=== PATIENT | female | born 1970 | race American Indian/Alaskan Native ===

== ENCOUNTER 2021-07-19 08:50 | Inpatient (IN) | payer SELFPAY ==
--- NOTE | 2021-07-19 09:54 | Emergency Department Report ---
HPI - General Chief Complaint: Psych Time Seen by Provider: 07/19/21 09:46 - HPI HPI: This is a 50-year-old -[place] female presents to the emergency department with a complaint of "can I have something to eat?" Patient complains of chronic back and bilateral foot pain because "I am homeless and walking around all of the time and I sleep outside." Initially, in triage, the patient had denied any suicidal or homicidal ideations. However, during my initial examination the patient says "I just want to ." The patient also says "I have before and he knows." When I asked who he is that knows that she has before the patient says that he is "Deuce, a spirit, who smokes." Patient does not appear to have any particular plan as to how she would harm herself. She denies any homicidal ideations. The patient has never been in this emergency department previously. She does not admit to any diagnosed psychiatric illness. ED Past Medical Hx - Past Medical History Additional medical history: Chronic pain, homeless - Medications Home Medications: Home Medications Medication Instructions Recorded Confirmed Last Taken Type No Known Home Medications [No 07/19/21 07/19/21 Unknown History Reported Home Medications] ED Review of Systems ROS: Stated complaint: BILATERAL FOOT PAIN/BACK PAIN Other details as noted in HPI Comment: All other systems reviewed and negative Constitutional: denies: chills, fever Eyes: denies: eye pain, vision change ENT: denies: ear pain, throat pain Respiratory: denies: cough, shortness of breath Cardiovascular: denies: chest pain, palpitations Gastrointestinal: denies: abdominal pain, vomiting Genitourinary: denies: dysuria, discharge Musculoskeletal: back pain, arthralgia. denies: joint swelling Skin: denies: rash, lesions Neurological: denies: headache, weakness Physical Exam - Physical Exam Vital Signs: Vital Signs 07/19/21 07/19/21 07/19/21 08:53 09:38 09:39 Temperature 98.4 F 97.4 F L 97.4 F L Pulse Rate 92 H 88 Respiratory 18 16 Rate Blood Pressure 98/66 Blood Pressure 117/74 [Left] O2 Sat by Pulse 97 98 Oximetry Physical Exam: GENERAL: The patient is well-developed well-nourished. HENT: Normocephalic. Atraumatic. Patient has moist mucous membranes. EYES: Extraocular motions are intact. NECK: Supple. Trachea is midline. CHEST/LUNGS: Clear to auscultation. There is no respiratory distress noted. HEART/CARDIOVASCULAR: Regular. There is no tachycardia. There is no murmur. ABDOMEN: Abdomen is soft, nontender. Patient has normal bowel sounds. SKIN: Skin is warm and dry. NEURO: The patient is awake, alert, and oriented. The patient is cooperative. The patient has no focal neurologic deficits. Normal speech. MUSCULOSKELETAL: There is some mild generalized tenderness to palpation of the bilateral foot but no obvious deformity. Dorsalis pedis pulse +2/4 and capillary refill less than 2 seconds to the bilateral feet. BACK: No midline thoracic or lumbar tenderness to palpation. ED Course Vital Signs 07/19/21 07/19/21 07/19/21 08:53 09:38 09:39 Temperature 98.4 F 97.4 F L 97.4 F L Pulse Rate 92 H 88 Respiratory 18 16 Rate Blood Pressure 98/66 Blood Pressure 117/74 [Left] O2 Sat by Pulse 97 98 Oximetry ED Medical Decision Making - Lab Data Result diagrams: 07/21/21 04:50 07/22/21 07:45 Lab Results 07/19/21 07/19/21 07/19/21 Range/Units 09:52 09:52 09:52 WBC 3.4 L (4.5-11.0) K/mm3 RBC 4.73 (3.65-5.03) M/mm3 Hgb 14.7 H (10.1-14.3) gm/dl Hct 44.5 H (30.3-42.9) % MCV 94 (79-97) fl MCH 31 (28-32) pg MCHC 33 (30-34) % RDW 13.7 (13.2-15.2) % Plt Count 159 (140-440) K/mm3 Lymph % (Auto) (13.4-35.0) % [place] % (Auto) (0.0-7.3) % Eos % (Auto) (0.0-4.3) % Baso % (Auto) (0.0-1.8) % Lymph # (Auto) (1.2-5.4) K/mm3 [place] # (Auto) (0.0-0.8) K/mm3 Eos # (Auto) (0.0-0.4) K/mm3 Baso # (Auto) (0.0-0.1) K/mm3 Add Manual Diff Complete Total Counted 100 Seg Neutrophils % (40.0-70.0) % Seg Neuts % (Manual) 56.0 (40.0-70.0) % Band Neutrophils % 3.0 % Lymphocytes % (Manual) 31.0 (13.4-35.0) % Reactive Lymphs % (Man) 6.0 % Monocytes % (Manual) 1.0 (0.0-7.3) % Basophils % (Manual) 1.0 (0.0-1.8) % Metamyelocytes % 1.0 % Myelocytes % 1.0 % Nucleated RBC % Not Reportable Seg Neutrophils # (1.8-7.7) K/mm3 Seg Neutrophils # Man 1.9 (1.8-7.7) K/mm3 Band Neutrophils # 0.1 K/mm3 Lymphocytes # (Manual) 1.1 L (1.2-5.4) K/mm3 Abs React Lymphs (Man) 0.2 K/mm3 Monocytes # (Manual) 0.0 (0.0-0.8) K/mm3 Eosinophils # (Manual) 0.0 (0.0-0.4) K/mm3 Basophils # (Manual) 0.0 (0.0-0.1) K/mm3 Metamyelocytes # 0.0 K/mm3 Myelocytes # 0.0 K/mm3 Promyelocytes # 0.0 K/mm3 Blast Cells # 0.0 K/mm3 WBC Morphology Not Reportable Hypersegmented Neuts Not Reportable Hyposegmented Neuts Not Reportable Hypogranular Neuts Not Reportable Smudge Cells Not Reportable Toxic Granulation Not Reportable Toxic Vacuolation Not Reportable Dohle Bodies Not Reportable Pelger-Huet Anomaly Not Reportable Pricila Rods Not Reportable Platelet Estimate Consistent w auto Clumped Platelets Not Reportable Plt Clumps, EDTA Not Reportable Large Platelets Not Reportable Giant Platelets Not Reportable Platelet Satelliting Not Reportable Plt Morphology Comment Not Reportable RBC Morphology Not Reportable Dimorphic RBCs Not Reportable Polychromasia Not Reportable Hypochromasia Not Reportable Poikilocytosis Not Reportable Anisocytosis Not Reportable Microcytosis Not Reportable Macrocytosis Not Reportable Spherocytes Not Reportable Pappenheimer Bodies Not Reportable Sickle Cells Not Reportable Target Cells Not Reportable Tear Drop Cells Not Reportable Ovalocytes Not Reportable Helmet Cells Not Reportable [place] Bodies Not Reportable [place] Rings Not Reportable Armani Cells Not Reportable Bite Cells Not Reportable Crenated Cell Not Reportable Elliptocytes Not Reportable Acanthocytes (Spur) Not Reportable Rouleaux Not Reportable Hemoglobin C Crystals Not Reportable Schistocytes Not Reportable Malaria parasites Not Reportable [place] Bodies Not Reportable Hem Pathologist Commnt No Sodium 137 (137-145) mmol/L Potassium 3.8 (3.6-5.0) mmol/L Chloride 98.5 (98-107) mmol/L Carbon Dioxide 27 (22-30) mmol/L Anion Gap 15 mmol/L BUN 6 L (7-17) mg/dL Creatinine 0.5 L (0.6-1.2) mg/dL Estimated GFR > 60 ml/min BUN/Creatinine Ratio 12 % Glucose 101 H (65-100) mg/dL Lactic Acid (0.7-2.0) mmol/L Calcium 9.2 (8.4-10.2) mg/dL Magnesium (1.7-2.3) mg/dL Total Bilirubin (0.1-1.2) mg/dL Direct Bilirubin (0-0.2) mg/dL Indirect Bilirubin mg/dL AST (5-40) units/L ALT (7-56) units/L Alkaline Phosphatase (35-129) units/L Ammonia (25-60) umol/L Total Creatine Kinase (30-135) units/L Total Protein (6.3-8.2) g/dL Albumin (3.9-5) g/dL Albumin/Globulin Ratio % TSH (0.270-4.200) mlU/mL Free T4 (0.76-1.46) ng/dL Urine Color (Yellow) Urine Turbidity (Clear) Urine pH (5.0-7.0) Ur Specific [place] (1.003-1.030) Urine Protein (Negative) mg/dL Urine Glucose (UA) (Negative) mg/dL Urine Ketones (Negative) mg/dL Urine Blood (Negative) Urine Nitrite (Negative) Urine Bilirubin (Negative) Urine Urobilinogen (<2.0) mg/dL Ur Leukocyte Esterase (Negative) Urine WBC (Auto) (0.0-6.0) /HPF Urine RBC (Auto) (0.0-6.0) /HPF U Epithel Cells (Auto) (0-13.0) /HPF Urine Bacteria (Auto) (Negative) /HPF Urine Mucus /HPF Salicylates (2.8-20.0) mg/dL Urine Opiates Screen Urine Methadone Screen Acetaminophen (10.0-30.0) ug/mL Ur Barbiturates Screen Ur Phencyclidine Scrn Ur Amphetamines Screen U Benzodiazepines Scrn Urine Cocaine Screen U Marijuana (THC) Screen Drugs of Abuse Note Plasma/Serum Alcohol < 0.01 (0-0.07) % Coronavirus (PCR) (Negative) Hepatitis A IgM Ab (NonReactive) Hep Bs Antigen (Negative) Hep B Core IgM Ab (NonReactive) Hepatitis C Antibody (NonReactive) 07/19/21 07/19/21 07/20/21 Range/Units Unknown Unknown 08:39 WBC (4.5-11.0) K/mm3 RBC (3.65-5.03) M/mm3 Hgb (10.1-14.3) gm/dl Hct (30.3-42.9) % MCV (79-97) fl MCH (28-32) pg MCHC (30-34) % RDW (13.2-15.2) % Plt Count (140-440) K/mm3 Lymph % (Auto) (13.4-35.0) % [place] % (Auto) (0.0-7.3) % Eos % (Auto) (0.0-4.3) % Baso % (Auto) (0.0-1.8) % Lymph # (Auto) (1.2-5.4) K/mm3 [place] # (Auto) (0.0-0.8) K/mm3 Eos # (Auto) (0.0-0.4) K/mm3 Baso # (Auto) (0.0-0.1) K/mm3 Add Manual Diff Total Counted Seg Neutrophils % (40.0-70.0) % Seg Neuts % (Manual) (40.0-70.0) % Band Neutrophils % % Lymphocytes % (Manual) (13.4-35.0) % Reactive Lymphs % (Man) % Monocytes % (Manual) (0.0-7.3) % Basophils % (Manual) (0.0-1.8) % Metamyelocytes % % Myelocytes % % Nucleated RBC % Seg Neutrophils # (1.8-7.7) K/mm3 Seg Neutrophils # Man (1.8-7.7) K/mm3 Band Neutrophils # K/mm3 Lymphocytes # (Manual) (1.2-5.4) K/mm3 Abs React Lymphs (Man) K/mm3 Monocytes # (Manual) (0.0-0.8) K/mm3 Eosinophils # (Manual) (0.0-0.4) K/mm3 Basophils # (Manual) (0.0-0.1) K/mm3 Metamyelocytes # K/mm3 Myelocytes # K/mm3 Promyelocytes # K/mm3 Blast Cells # K/mm3 WBC Morphology Hypersegmented Neuts Hyposegmented Neuts Hypogranular Neuts Smudge Cells Toxic Granulation Toxic Vacuolation Dohle Bodies Pelger-Huet Anomaly Pricila Rods Platelet Estimate Clumped Platelets Plt Clumps, EDTA Large Platelets Giant Platelets Platelet Satelliting Plt Morphology Comment RBC Morphology Dimorphic RBCs Polychromasia Hypochromasia Poikilocytosis Anisocytosis Microcytosis Macrocytosis Spherocytes Pappenheimer Bodies Sickle Cells Target Cells Tear Drop Cells Ovalocytes Helmet Cells [place] Bodies [place] Rings Armani Cells Bite Cells Crenated Cell Elliptocytes Acanthocytes (Spur) Rouleaux Hemoglobin C Crystals Schistocytes Malaria parasites Cody Bodies Hem Pathologist Commnt Sodium (137-145) mmol/L Potassium (3.6-5.0) mmol/L Chloride (98-107) mmol/L Carbon Dioxide (22-30) mmol/L Anion Gap mmol/L BUN (7-17) mg/dL Creatinine (0.6-1.2) mg/dL Estimated GFR ml/min BUN/Creatinine Ratio % Glucose (65-100) mg/dL Lactic Acid (0.7-2.0) mmol/L Calcium (8.4-10.2) mg/dL Magnesium (1.7-2.3) mg/dL Total Bilirubin (0.1-1.2) mg/dL Direct Bilirubin (0-0.2) mg/dL Indirect Bilirubin mg/dL AST (5-40) units/L ALT (7-56) units/L Alkaline Phosphatase (35-129) units/L Ammonia (25-60) umol/L Total Creatine Kinase (30-135) units/L Total Protein (6.3-8.2) g/dL Albumin (3.9-5) g/dL Albumin/Globulin Ratio % TSH (0.270-4.200) mlU/mL Free T4 (0.76-1.46) ng/dL Urine Color [place] (Yellow) Urine Turbidity Slightly-cloudy (Clear) Urine pH 5.0 (5.0-7.0) Ur Specific [place] 1.018 (1.003-1.030) Urine Protein 30 mg/dl (Negative) mg/dL Urine Glucose (UA) Neg (Negative) mg/dL Urine Ketones Neg (Negative) mg/dL Urine Blood Sm (Negative) Urine Nitrite Neg (Negative) Urine Bilirubin Neg (Negative) Urine Urobilinogen 4.0 (<2.0) mg/dL Ur Leukocyte Esterase Neg (Negative) Urine WBC (Auto) 46.0 H (0.0-6.0) /HPF Urine RBC (Auto) 7.0 (0.0-6.0) /HPF U Epithel Cells (Auto) 13.0 (0-13.0) /HPF Urine Bacteria (Auto) 1+ (Negative) /HPF Urine Mucus 3+ /HPF Salicylates (2.8-20.0) mg/dL Urine Opiates Screen Negative Urine Methadone Screen Negative Acetaminophen (10.0-30.0) ug/mL Ur Barbiturates Screen Negative Ur Phencyclidine Scrn Negative Ur Amphetamines Screen Negative U Benzodiazepines Scrn Negative Urine Cocaine Screen Negative U Marijuana (THC) Screen Negative Drugs of Abuse Note Disclamer Plasma/Serum Alcohol (0-0.07) % Coronavirus (PCR) Negative (Negative) Hepatitis A IgM Ab (NonReactive) Hep Bs Antigen (Negative) Hep B Core IgM Ab (NonReactive) Hepatitis C Antibody (NonReactive) 07/20/21 07/20/21 07/20/21 Range/Units 11:20 11:20 11:20 WBC (4.5-11.0) K/mm3 RBC (3.65-5.03) M/mm3 Hgb (10.1-14.3) gm/dl Hct (30.3-42.9) % MCV (79-97) fl MCH (28-32) pg MCHC (30-34) % RDW (13.2-15.2) % Plt Count (140-440) K/mm3 Lymph % (Auto) (13.4-35.0) % [place] % (Auto) (0.0-7.3) % Eos % (Auto) (0.0-4.3) % Baso % (Auto) (0.0-1.8) % Lymph # (Auto) (1.2-5.4) K/mm3 [place] # (Auto) (0.0-0.8) K/mm3 Eos # (Auto) (0.0-0.4) K/mm3 Baso # (Auto) (0.0-0.1) K/mm3 Add Manual Diff Total Counted Seg Neutrophils % (40.0-70.0) % Seg Neuts % (Manual) (40.0-70.0) % Band Neutrophils % % Lymphocytes % (Manual) (13.4-35.0) % Reactive Lymphs % (Man) % Monocytes % (Manual) (0.0-7.3) % Basophils % (Manual) (0.0-1.8) % Metamyelocytes % % Myelocytes % % Nucleated RBC % Seg Neutrophils # (1.8-7.7) K/mm3 Seg Neutrophils # Man (1.8-7.7) K/mm3 Band Neutrophils # K/mm3 Lymphocytes # (Manual) (1.2-5.4) K/mm3 Abs React Lymphs (Man) K/mm3 Monocytes # (Manual) (0.0-0.8) K/mm3 Eosinophils # (Manual) (0.0-0.4) K/mm3 Basophils # (Manual) (0.0-0.1) K/mm3 Metamyelocytes # K/mm3 Myelocytes # K/mm3 Promyelocytes # K/mm3 Blast Cells # K/mm3 WBC Morphology Hypersegmented Neuts Hyposegmented Neuts Hypogranular Neuts Smudge Cells Toxic Granulation Toxic Vacuolation Dohle Bodies Pelger-Huet Anomaly Pricila Rods Platelet Estimate Clumped Platelets Plt Clumps, EDTA Large Platelets Giant Platelets Platelet Satelliting Plt Morphology Comment RBC Morphology Dimorphic RBCs Polychromasia Hypochromasia Poikilocytosis Anisocytosis Microcytosis Macrocytosis Spherocytes Pappenheimer Bodies Sickle Cells Target Cells Tear Drop Cells Ovalocytes Helmet Cells [place] Bodies [place] Rings Drift Cells Bite Cells Crenated Cell Elliptocytes Acanthocytes (Spur) Rouleaux Hemoglobin C Crystals Schistocytes Malaria parasites [place] Bodies Hem Pathologist Commnt Sodium (137-145) mmol/L Potassium (3.6-5.0) mmol/L Chloride (98-107) mmol/L Carbon Dioxide (22-30) mmol/L Anion Gap mmol/L BUN (7-17) mg/dL Creatinine (0.6-1.2) mg/dL Estimated GFR ml/min BUN/Creatinine Ratio % Glucose (65-100) mg/dL Lactic Acid (0.7-2.0) mmol/L Calcium (8.4-10.2) mg/dL Magnesium 2.20 (1.7-2.3) mg/dL Total Bilirubin (0.1-1.2) mg/dL Direct Bilirubin (0-0.2) mg/dL Indirect Bilirubin mg/dL AST (5-40) units/L ALT (7-56) units/L Alkaline Phosphatase (35-129) units/L Ammonia 60.0 (25-60) umol/L Total Creatine Kinase 23 L (30-135) units/L Total Protein (6.3-8.2) g/dL Albumin (3.9-5) g/dL Albumin/Globulin Ratio % TSH 0.116 L (0.270-4.200) mlU/mL Free T4 (0.76-1.46) ng/dL Urine Color (Yellow) Urine Turbidity (Clear) Urine pH (5.0-7.0) Ur Specific [place] (1.003-1.030) Urine Protein (Negative) mg/dL Urine Glucose (UA) (Negative) mg/dL Urine Ketones (Negative) mg/dL Urine Blood (Negative) Urine Nitrite (Negative) Urine Bilirubin (Negative) Urine Urobilinogen (<2.0) mg/dL Ur Leukocyte Esterase (Negative) Urine WBC (Auto) (0.0-6.0) /HPF Urine RBC (Auto) (0.0-6.0) /HPF U Epithel Cells (Auto) (0-13.0) /HPF Urine Bacteria (Auto) (Negative) /HPF Urine Mucus /HPF Salicylates (2.8-20.0) mg/dL Urine Opiates Screen Urine Methadone Screen Acetaminophen (10.0-30.0) ug/mL Ur Barbiturates Screen Ur Phencyclidine Scrn Ur Amphetamines Screen U Benzodiazepines Scrn Urine Cocaine Screen U Marijuana (THC) Screen Drugs of Abuse Note Plasma/Serum Alcohol (0-0.07) % Coronavirus (PCR) (Negative) Hepatitis A IgM Ab (NonReactive) Hep Bs Antigen (Negative) Hep B Core IgM Ab (NonReactive) Hepatitis C Antibody (NonReactive) 07/20/21 07/20/21 07/20/21 Range/Units 11:20 11:20 11:20 WBC (4.5-11.0) K/mm3 RBC (3.65-5.03) M/mm3 Hgb (10.1-14.3) gm/dl Hct (30.3-42.9) % MCV (79-97) fl MCH (28-32) pg MCHC (30-34) % RDW (13.2-15.2) % Plt Count (140-440) K/mm3 Lymph % (Auto) (13.4-35.0) % [place] % (Auto) (0.0-7.3) % Eos % (Auto) (0.0-4.3) % Baso % (Auto) (0.0-1.8) % Lymph # (Auto) (1.2-5.4) K/mm3 [place] # (Auto) (0.0-0.8) K/mm3 Eos # (Auto) (0.0-0.4) K/mm3 Baso # (Auto) (0.0-0.1) K/mm3 Add Manual Diff Total Counted Seg Neutrophils % (40.0-70.0) % Seg Neuts % (Manual) (40.0-70.0) % Band Neutrophils % % Lymphocytes % (Manual) (13.4-35.0) % Reactive Lymphs % (Man) % Monocytes % (Manual) (0.0-7.3) % Basophils % (Manual) (0.0-1.8) % Metamyelocytes % % Myelocytes % % Nucleated RBC % Seg Neutrophils # (1.8-7.7) K/mm3 Seg Neutrophils # Man (1.8-7.7) K/mm3 Band Neutrophils # K/mm3 Lymphocytes # (Manual) (1.2-5.4) K/mm3 Abs React Lymphs (Man) K/mm3 Monocytes # (Manual) (0.0-0.8) K/mm3 Eosinophils # (Manual) (0.0-0.4) K/mm3 Basophils # (Manual) (0.0-0.1) K/mm3 Metamyelocytes # K/mm3 Myelocytes # K/mm3 Promyelocytes # K/mm3 Blast Cells # K/mm3 WBC Morphology Hypersegmented Neuts Hyposegmented Neuts Hypogranular Neuts Smudge Cells Toxic Granulation Toxic Vacuolation Dohle Bodies Pelger-Huet Anomaly Pricila Rods Platelet Estimate Clumped Platelets Plt Clumps, EDTA Large Platelets Giant Platelets Platelet Satelliting Plt Morphology Comment RBC Morphology Dimorphic RBCs Polychromasia Hypochromasia Poikilocytosis Anisocytosis Microcytosis Macrocytosis Spherocytes Pappenheimer Bodies Sickle Cells Target Cells Tear Drop Cells Ovalocytes Helmet Cells [place] Bodies [place] Rings Armani Cells Bite Cells Crenated Cell Elliptocytes Acanthocytes (Spur) Rouleaux Hemoglobin C Crystals Schistocytes Malaria parasites [place] Bodies Hem Pathologist Commnt Sodium (137-145) mmol/L Potassium (3.6-5.0) mmol/L Chloride (98-107) mmol/L Carbon Dioxide (22-30) mmol/L Anion Gap mmol/L BUN (7-17) mg/dL Creatinine (0.6-1.2) mg/dL Estimated GFR ml/min BUN/Creatinine Ratio % Glucose (65-100) mg/dL Lactic Acid 1.00 (0.7-2.0) mmol/L Calcium (8.4-10.2) mg/dL Magnesium (1.7-2.3) mg/dL Total Bilirubin (0.1-1.2) mg/dL Direct Bilirubin (0-0.2) mg/dL Indirect Bilirubin mg/dL AST (5-40) units/L ALT (7-56) units/L Alkaline Phosphatase (35-129) units/L Ammonia (25-60) umol/L Total Creatine Kinase (30-135) units/L Total Protein (6.3-8.2) g/dL Albumin (3.9-5) g/dL Albumin/Globulin Ratio % TSH (0.270-4.200) mlU/mL Free T4 (0.76-1.46) ng/dL Urine Color (Yellow) Urine Turbidity (Clear) Urine pH (5.0-7.0) Ur Specific [place] (1.003-1.030) Urine Protein (Negative) mg/dL Urine Glucose (UA) (Negative) mg/dL Urine Ketones (Negative) mg/dL Urine Blood (Negative) Urine Nitrite (Negative) Urine Bilirubin (Negative) Urine Urobilinogen (<2.0) mg/dL Ur Leukocyte Esterase (Negative) Urine WBC (Auto) (0.0-6.0) /HPF Urine RBC (Auto) (0.0-6.0) /HPF U Epithel Cells (Auto) (0-13.0) /HPF Urine Bacteria (Auto) (Negative) /HPF Urine Mucus /HPF Salicylates < 0.3 L (2.8-20.0) mg/dL Urine Opiates Screen Urine Methadone Screen Acetaminophen 5.0 L (10.0-30.0) ug/mL Ur Barbiturates Screen Ur Phencyclidine Scrn Ur Amphetamines Screen U Benzodiazepines Scrn Urine Cocaine Screen U Marijuana (THC) Screen Drugs of Abuse Note Plasma/Serum Alcohol (0-0.07) % Coronavirus (PCR) (Negative) Hepatitis A IgM Ab (NonReactive) Hep Bs Antigen (Negative) Hep B Core IgM Ab (NonReactive) Hepatitis C Antibody (NonReactive) 07/20/21 07/20/21 07/20/21 Range/Units 11:20 11:20 11:20 WBC 2.6 L (4.5-11.0) K/mm3 RBC 4.30 (3.65-5.03) M/mm3 Hgb 13.3 (10.1-14.3) gm/dl Hct 40.9 (30.3-42.9) % MCV 95 (79-97) fl MCH 31 (28-32) pg MCHC 33 (30-34) % RDW 14.0 (13.2-15.2) % Plt Count 170 (140-440) K/mm3 Lymph % (Auto) 40.3 H (13.4-35.0) % [place] % (Auto) 13.4 H (0.0-7.3) % Eos % (Auto) 1.8 (0.0-4.3) % Baso % (Auto) 1.6 (0.0-1.8) % Lymph # (Auto) 1.1 L (1.2-5.4) K/mm3 [place] # (Auto) 0.4 (0.0-0.8) K/mm3 Eos # (Auto) 0.0 (0.0-0.4) K/mm3 Baso # (Auto) 0.0 (0.0-0.1) K/mm3 Add Manual Diff Total Counted Seg Neutrophils % 42.9 (40.0-70.0) % Seg Neuts % (Manual) (40.0-70.0) % Band Neutrophils % % Lymphocytes % (Manual) (13.4-35.0) % Reactive Lymphs % (Man) % Monocytes % (Manual) (0.0-7.3) % Basophils % (Manual) (0.0-1.8) % Metamyelocytes % % Myelocytes % % Nucleated RBC % Seg Neutrophils # 1.1 L (1.8-7.7) K/mm3 Seg Neutrophils # Man (1.8-7.7) K/mm3 Band Neutrophils # K/mm3 Lymphocytes # (Manual) (1.2-5.4) K/mm3 Abs React Lymphs (Man) K/mm3 Monocytes # (Manual) (0.0-0.8) K/mm3 Eosinophils # (Manual) (0.0-0.4) K/mm3 Basophils # (Manual) (0.0-0.1) K/mm3 Metamyelocytes # K/mm3 Myelocytes # K/mm3 Promyelocytes # K/mm3 Blast Cells # K/mm3 WBC Morphology Hypersegmented Neuts Hyposegmented Neuts Hypogranular Neuts Smudge Cells Toxic Granulation Toxic Vacuolation Dohle Bodies Pelger-Huet Anomaly Pricila Rods Platelet Estimate Clumped Platelets Plt Clumps, EDTA Large Platelets Giant Platelets Platelet Satelliting Plt Morphology Comment RBC Morphology Dimorphic RBCs Polychromasia Hypochromasia Poikilocytosis Anisocytosis Microcytosis Macrocytosis Spherocytes Pappenheimer Bodies Sickle Cells Target Cells Tear Drop Cells Ovalocytes Helmet Cells [place] Bodies [place] Rings Armani Cells Bite Cells Crenated Cell Elliptocytes Acanthocytes (Spur) Rouleaux Hemoglobin C Crystals Schistocytes Malaria parasites [place] Bodies Hem Pathologist Commnt Sodium 135 L (137-145) mmol/L Potassium 3.7 (3.6-5.0) mmol/L Chloride 99.0 (98-107) mmol/L Carbon Dioxide 27 (22-30) mmol/L Anion Gap 13 mmol/L BUN 7 (7-17) mg/dL Creatinine 0.6 (0.6-1.2) mg/dL Estimated GFR > 60 ml/min BUN/Creatinine Ratio 12 % Glucose 102 H (65-100) mg/dL Lactic Acid (0.7-2.0) mmol/L Calcium 9.0 (8.4-10.2) mg/dL Magnesium (1.7-2.3) mg/dL Total Bilirubin 1.30 H (0.1-1.2) mg/dL Direct Bilirubin 1.2 H (0-0.2) mg/dL Indirect Bilirubin 0.1 mg/dL AST 1187 H (5-40) units/L ALT 1454 H (7-56) units/L Alkaline Phosphatase 380 H (35-129) units/L Ammonia (25-60) umol/L Total Creatine Kinase (30-135) units/L Total Protein 8.1 (6.3-8.2) g/dL Albumin 3.3 L (3.9-5) g/dL Albumin/Globulin Ratio 0.7 % TSH (0.270-4.200) mlU/mL Free T4 1.10 (0.76-1.46) ng/dL Urine Color (Yellow) Urine Turbidity (Clear) Urine pH (5.0-7.0) Ur Specific [place] (1.003-1.030) Urine Protein (Negative) mg/dL Urine Glucose (UA) (Negative) mg/dL Urine Ketones (Negative) mg/dL Urine Blood (Negative) Urine Nitrite (Negative) Urine Bilirubin (Negative) Urine Urobilinogen (<2.0) mg/dL Ur Leukocyte Esterase (Negative) Urine WBC (Auto) (0.0-6.0) /HPF Urine RBC (Auto) (0.0-6.0) /HPF U Epithel Cells (Auto) (0-13.0) /HPF Urine Bacteria (Auto) (Negative) /HPF Urine Mucus /HPF Salicylates (2.8-20.0) mg/dL Urine Opiates Screen Urine Methadone Screen Acetaminophen (10.0-30.0) ug/mL Ur Barbiturates Screen Ur Phencyclidine Scrn Ur Amphetamines Screen U Benzodiazepines Scrn Urine Cocaine Screen U Marijuana (THC) Screen Drugs of Abuse Note Plasma/Serum Alcohol (0-0.07) % Coronavirus (PCR) (Negative) Hepatitis A IgM Ab (NonReactive) Hep Bs Antigen (Negative) Hep B Core IgM Ab (NonReactive) Hepatitis C Antibody (NonReactive) 07/20/21 Range/Units 11:20 WBC (4.5-11.0) K/mm3 RBC (3.65-5.03) M/mm3 Hgb (10.1-14.3) gm/dl Hct (30.3-42.9) % MCV (79-97) fl MCH (28-32) pg MCHC (30-34) % RDW (13.2-15.2) % Plt Count (140-440) K/mm3 Lymph % (Auto) (13.4-35.0) % [place] % (Auto) (0.0-7.3) % Eos % (Auto) (0.0-4.3) % Baso % (Auto) (0.0-1.8) % Lymph # (Auto) (1.2-5.4) K/mm3 [place] # (Auto) (0.0-0.8) K/mm3 Eos # (Auto) (0.0-0.4) K/mm3 Baso # (Auto) (0.0-0.1) K/mm3 Add Manual Diff Total Counted Seg Neutrophils % (40.0-70.0) % Seg Neuts % (Manual) (40.0-70.0) % Band Neutrophils % % Lymphocytes % (Manual) (13.4-35.0) % Reactive Lymphs % (Man) % Monocytes % (Manual) (0.0-7.3) % Basophils % (Manual) (0.0-1.8) % Metamyelocytes % % Myelocytes % % Nucleated RBC % Seg Neutrophils # (1.8-7.7) K/mm3 Seg Neutrophils # Man (1.8-7.7) K/mm3 Band Neutrophils # K/mm3 Lymphocytes # (Manual) (1.2-5.4) K/mm3 Abs React Lymphs (Man) K/mm3 Monocytes # (Manual) (0.0-0.8) K/mm3 Eosinophils # (Manual) (0.0-0.4) K/mm3 Basophils # (Manual) (0.0-0.1) K/mm3 Metamyelocytes # K/mm3 Myelocytes # K/mm3 Promyelocytes # K/mm3 Blast Cells # K/mm3 WBC Morphology Hypersegmented Neuts Hyposegmented Neuts Hypogranular Neuts Smudge Cells Toxic Granulation Toxic Vacuolation Dohle Bodies Pelger-Huet Anomaly Pricila Rods Platelet Estimate Clumped Platelets Plt Clumps, EDTA Large Platelets Giant Platelets Platelet Satelliting Plt Morphology Comment RBC Morphology Dimorphic RBCs Polychromasia Hypochromasia Poikilocytosis Anisocytosis Microcytosis Macrocytosis Spherocytes Pappenheimer Bodies Sickle Cells Target Cells Tear Drop Cells Ovalocytes Helmet Cells [place] Bodies [place] Rings Armani Cells Bite Cells Crenated Cell Elliptocytes Acanthocytes (Spur) Rouleaux Hemoglobin C Crystals Schistocytes Malaria parasites [place] Bodies Hem Pathologist Commnt Sodium (137-145) mmol/L Potassium (3.6-5.0) mmol/L Chloride (98-107) mmol/L Carbon Dioxide (22-30) mmol/L Anion Gap mmol/L BUN (7-17) mg/dL Creatinine (0.6-1.2) mg/dL Estimated GFR ml/min BUN/Creatinine Ratio % Glucose (65-100) mg/dL Lactic Acid (0.7-2.0) mmol/L Calcium (8.4-10.2) mg/dL Magnesium (1.7-2.3) mg/dL Total Bilirubin (0.1-1.2) mg/dL Direct Bilirubin (0-0.2) mg/dL Indirect Bilirubin mg/dL AST (5-40) units/L ALT (7-56) units/L Alkaline Phosphatase (35-129) units/L Ammonia (25-60) umol/L Total Creatine Kinase (30-135) units/L Total Protein (6.3-8.2) g/dL Albumin (3.9-5) g/dL Albumin/Globulin Ratio % TSH (0.270-4.200) mlU/mL Free T4 (0.76-1.46) ng/dL Urine Color (Yellow) Urine Turbidity (Clear) Urine pH (5.0-7.0) Ur Specific [place] (1.003-1.030) Urine Protein (Negative) mg/dL Urine Glucose (UA) (Negative) mg/dL Urine Ketones (Negative) mg/dL Urine Blood (Negative) Urine Nitrite (Negative) Urine Bilirubin (Negative) Urine Urobilinogen (<2.0) mg/dL Ur Leukocyte Esterase (Negative) Urine WBC (Auto) (0.0-6.0) /HPF Urine RBC (Auto) (0.0-6.0) /HPF U Epithel Cells (Auto) (0-13.0) /HPF Urine Bacteria (Auto) (Negative) /HPF Urine Mucus /HPF Salicylates (2.8-20.0) mg/dL Urine Opiates Screen Urine Methadone Screen Acetaminophen (10.0-30.0) ug/mL Ur Barbiturates Screen Ur Phencyclidine Scrn Ur Amphetamines Screen U Benzodiazepines Scrn Urine Cocaine Screen U Marijuana (THC) Screen Drugs of Abuse Note Plasma/Serum Alcohol (0-0.07) % Coronavirus (PCR) (Negative) Hepatitis A IgM Ab Reactive A (NonReactive) Hep Bs Antigen Nonreactive (Negative) Hep B Core IgM Ab Reactive A (NonReactive) Hepatitis C Antibody Non-reactive (NonReactive) - Radiology Data Radiology results: image reviewed interpreted by me: X-ray of the bilateral feet does not show any fracture, dislocation, or any acute process. - Medical Decision Making This patient initially presented for mental health evaluation. During my initial assessment and potential clearance the patient had normal blood work including CBC, basic metabolic panel and blood alcohol level. She had not been complaining of any abdominal pain, nor any other physical complaints other than bilateral foot pain. X-rays were done of her feet that did not show any fracture, dislocation, signs of osteomyelitis, or any other acute process. The patient was medically cleared pending urinalysis and still needed evaluation from the psychiatric team at that time. It appears that the next day the patient developed a low-grade fever and had a reevaluation done by the ER physician at that time. The patient was found to have severe transaminitis and subsequently admitted medically. Critical Care Time: No Critical care attestation.: If time is entered above; I have spent that time in minutes in the direct care of this critically ill patient, excluding procedure time. ED Disposition Clinical Impression: Acute encephalopathy, Pyelonephritis, Transaminitis, Hepatitis Disposition: 09 ADMITTED INPATIENT Is pt being admited?: Yes Condition: Fair
[2021-07-19 10:15] LABS: Hematocrit 44.5 % (30.3-42.9); Hemoglobin 14.7 gm/dl (10.1-14.3); Mean Corpuscular HGB Conc 33 % (30-34); Mean Corpuscular Volume 94 fl (79-97); Platelet Count 159 K/mm3 (140-440); Red Blood Count 4.73 M/mm3 (3.65-5.03); Red Cell Distribution Width 13.7 % (13.2-15.2)
[2021-07-19 10:35] LABS: Blood Urea Nitrogen 6 mg/dL (7-17); Calcium 9.2 mg/dL (8.4-10.2); Hemolysis Index 10
[2021-07-19 10:38] LABS: BUN/Creatinine Ratio 12
[2021-07-19 11:09] LABS: Bacteria,Urine 1+ /HPF (Negative); Bilirubin,Urine NEG (Negative); Blood,Urine SM (Negative); Color,Urine Amber (Yellow); Mucus,Urine 3+ /HPF
[2021-07-19 11:12] LABS: Amphetamine Screen,Urine Negative; Benzodiazepines Screen,Urine Negative; Cannabinoid Screen,Urine Negative; Cocaine Screen,Urine Negative; Methadone Screen,Urine Negative; Opiate Screen,Urine Negative
[2021-07-19 13:21] LABS: Total Cells Counted 100
[2021-07-19 13:27] LABS: Band Neutrophils # (Manual) 0.1 K/mm3
[2021-07-19 13:28] LABS: Platelet Estimate Consistent w Auto
[2021-07-19] MEDS: NITROFURANTOIN MONOHYD/M-CRYST 100 MG CAP PO SCH ×2 (13:30→22:13)
--- NOTE | 2021-07-19 17:06 | XRay Report ---
BILATERAL FEET 6 VIEWS INDICATION / CLINICAL INFORMATION: Pain in feet. COMPARISON: None available. FINDINGS: BONES and JOINT(S): No acute fracture or subluxation. Moderate DJD is noted at the first tarsometatar moni joints. No other significant arthritis. SOFT TISSUES: No significant abnormality. ADDITIONAL FINDINGS: None. IMPRESSION: 1. No acute findings. 2. Moderate DJD as above. Signer Name: Brandon Riggs MD Signed: 07/19/2021 5:02 PM Workstation Name: [id number]
[2021-07-20] MEDS: NITROFURANTOIN MONOHYD/M-CRYST 100 MG CAP PO SCH (10:38)
[2021-07-20] MEDS ORDERED: ONDANSETRON 4 MG ODT TAB PO PRN (10:59)
[2021-07-20] MEDS ORDERED: LORazepam 2 MG/ML VIAL IM PRN (10:59)
--- NOTE | 2021-07-20 11:05 | Event Note ---
Date: 07/20/21 The patient was evaluated in the emergency department for symptoms described in the history of present illness. He/she was evaluated in the context of the global COVID-19 pandemic, which necessitated consideration that the patient might be at risk for infection with the virus that causes COVID-19. Institutional protocols and algorithms that pertain to the evaluation of patients at risk for COVID-19 are in a state of rapid change based on information released by regulatory bodies including the CDC and federal and state organizations. These policies and algorithms were followed during the patient's care in the emergency department. Please note that these policies, procedures and recommendations changed on a rapid basis. The patient is seen and examined. Laboratory studies, vital signs, nursing, and ER documentation reviewed and appreciated. The patient was placed on a 1013 for psychosis and disorganized behavior. It appears that she is homeless. The patient had a low-grade temperature yesterday, 100.3 degrees. She has no meningeal signs. Urinalysis suggestive of urinary tract infection. We will expand patient's medical work-up here in the emergency room, with additional laboratory studies, x-ray the chest, EKG, noncontrast CT scan of the brain, and noncontrast CT scan of the abdomen pelvis. We will reassess after initial data points. At the moment, the patient is resting comfortably, moving 4 extremities, alert to name, and experiencing hallucinations, nursing team also endorses psychosis. Reassess after laboratory studies and data points have resulted At this point time, the patient is not medically cleared for psychiatric placement and transfer. However, psychiatric input would be appreciated. 13: 14; 07/20/2021 Laboratory studies reviewed and appreciated. Patient found to have transaminitis and hyperbilirubinemia. Ammonia within normal limits. Acetaminophen within normal limits. She may also have evidence of hyperthyroidism. Contacted CT scan, have requested expedited acquisition of CT scan. Given altered mental status, laboratory derangements, patient emergently administratively consented by myself for CT scan of the abdomen pelvis with IV contrast. I have also informed the charge nurse of the patient's need to be transferred to a medical bed, so her medical evaluation may continue. The patient will likely require admission for medical stabilization, support, further diagnostic work-up, after CT scan of the brain, and CT scan abdomen pelvis have been obtained. We will also obtain free T4, as well as acute hepatitis panel to further evaluate patient's transaminitis. This patient is not medically cleared or suitable for psychiatric transfer disposition. However, we do appreciate the psychiatric team's recommendations. 16: 20/07/20/2021 Laboratory studies demonstrate hepatitis, CT scan brain negative for acute findings, CT scan abdomen pelvis suggest pyelonephritis. Given hepatitis, encephalopathy, hyperthyroidism, transaminitis, and pyelonephritis, the patient requires admission to the medical service. She is not medically cleared for psychiatric disposition of placement at this time. Hospital physician, Dr. Gabrielle Bustos to admit to [facility] [place]omack-[place]ofsky Point Scale 35 points Suggestive of impending thyroid storm Propanolol, methimazole, Lugol's solution, and hydrocortisone ordered. Communication order entered for nurse to time and coordinate medication administration. Vital Signs 07/19/21 07/19/21 07/19/21 08:53 09:38 09:39 Temperature 98.4 F 97.4 F L 97.4 F L Pulse Rate 92 H 88 Respiratory 18 16 Rate Blood Pressure 98/66 Blood Pressure 117/74 [Left] O2 Sat by Pulse 97 98 Oximetry 07/19/21 07/19/21 07/19/21 10:14 10:15 10:21 Temperature 98.5 F Pulse Rate 84 84 Respiratory 18 Rate Blood Pressure 114/77 114/77 114/77 Blood Pressure [Left] O2 Sat by Pulse 98 Oximetry 07/19/21 07/19/21 07/19/21 10:27 10:30 10:47 Temperature Pulse Rate 82 Respiratory 18 17 Rate Blood Pressure 114/77 110/69 Blood Pressure [Left] O2 Sat by Pulse 98 Oximetry 07/19/21 07/19/21 07/19/21 11:48 12:48 17:00 Temperature 97.6 F Pulse Rate 86 Respiratory 18 Rate Blood Pressure 110/74 96/69 Blood Pressure 100/65 [Left] O2 Sat by Pulse 98 Oximetry 07/19/21 07/20/21 07/20/21 19:31 08:14 09:37 Temperature 100.3 F H 97.9 F Pulse Rate 101 H 90 Respiratory 16 20 Rate Blood Pressure Blood Pressure 107/68 104/69 [Left] O2 Sat by Pulse 98 98 98 Oximetry Lab Results 07/19/21 07/19/21 07/19/21 Range/Units 09:52 09:52 09:52 WBC 3.4 L (4.5-11.0) K/mm3 RBC 4.73 (3.65-5.03) M/mm3 Hgb 14.7 H (10.1-14.3) gm/dl Hct 44.5 H (30.3-42.9) % MCV 94 (79-97) fl MCH 31 (28-32) pg MCHC 33 (30-34) % RDW 13.7 (13.2-15.2) % Plt Count 159 (140-440) K/mm3 Add Manual Diff Complete Total Counted 100 Seg Neuts % (Manual) 56.0 (40.0-70.0) % Band Neutrophils % 3.0 % Lymphocytes % (Manual) 31.0 (13.4-35.0) % Reactive Lymphs % (Man) 6.0 % Monocytes % (Manual) 1.0 (0.0-7.3) % Basophils % (Manual) 1.0 (0.0-1.8) % Metamyelocytes % 1.0 % Myelocytes % 1.0 % Nucleated RBC % Not Reportable Seg Neutrophils # Man 1.9 (1.8-7.7) K/mm3 Band Neutrophils # 0.1 K/mm3 Lymphocytes # (Manual) 1.1 L (1.2-5.4) K/mm3 Abs React Lymphs (Man) 0.2 K/mm3 Monocytes # (Manual) 0.0 (0.0-0.8) K/mm3 Eosinophils # (Manual) 0.0 (0.0-0.4) K/mm3 Basophils # (Manual) 0.0 (0.0-0.1) K/mm3 Metamyelocytes # 0.0 K/mm3 Myelocytes # 0.0 K/mm3 Promyelocytes # 0.0 K/mm3 Blast Cells # 0.0 K/mm3 WBC Morphology Not Reportable Hypersegmented Neuts Not Reportable Hyposegmented Neuts Not Reportable Hypogranular Neuts Not Reportable Smudge Cells Not Reportable Toxic Granulation Not Reportable Toxic Vacuolation Not Reportable Dohle Bodies Not Reportable Pelger-Huet Anomaly Not Reportable Pricila Rods Not Reportable Platelet Estimate Consistent w auto Clumped Platelets Not Reportable Plt Clumps, EDTA Not Reportable Large Platelets Not Reportable Giant Platelets Not Reportable Platelet Satelliting Not Reportable Plt Morphology Comment Not Reportable RBC Morphology Not Reportable Dimorphic RBCs Not Reportable Polychromasia Not Reportable Hypochromasia Not Reportable Poikilocytosis Not Reportable Anisocytosis Not Reportable Microcytosis Not Reportable Macrocytosis Not Reportable Spherocytes Not Reportable Pappenheimer Bodies Not Reportable Sickle Cells Not Reportable Target Cells Not Reportable Tear Drop Cells Not Reportable Ovalocytes Not Reportable Helmet Cells Not Reportable [place] Bodies Not Reportable Vermillion Rings Not Reportable Armani Cells Not Reportable Bite Cells Not Reportable Crenated Cell Not Reportable Elliptocytes Not Reportable Acanthocytes (Spur) Not Reportable Rouleaux Not Reportable Hemoglobin C Crystals Not Reportable Schistocytes Not Reportable Malaria parasites Not Reportable Cody Bodies Not Reportable Hem Pathologist Commnt No Sodium 137 (137-145) mmol/L Potassium 3.8 (3.6-5.0) mmol/L Chloride 98.5 (98-107) mmol/L Carbon Dioxide 27 (22-30) mmol/L Anion Gap 15 mmol/L BUN 6 L (7-17) mg/dL Creatinine 0.5 L (0.6-1.2) mg/dL Estimated GFR > 60 ml/min BUN/Creatinine Ratio 12 % Glucose 101 H (65-100) mg/dL Calcium 9.2 (8.4-10.2) mg/dL Urine Color (Yellow) Urine Turbidity (Clear) Urine pH (5.0-7.0) Ur Specific [place] (1.003-1.030) Urine Protein (Negative) mg/dL Urine Glucose (UA) (Negative) mg/dL Urine Ketones (Negative) mg/dL Urine Blood (Negative) Urine Nitrite (Negative) Urine Bilirubin (Negative) Urine Urobilinogen (<2.0) mg/dL Ur Leukocyte Esterase (Negative) Urine WBC (Auto) (0.0-6.0) /HPF Urine RBC (Auto) (0.0-6.0) /HPF U Epithel Cells (Auto) (0-13.0) /HPF Urine Bacteria (Auto) (Negative) /HPF Urine Mucus /HPF Urine Opiates Screen Urine Methadone Screen Ur Barbiturates Screen Ur Phencyclidine Scrn Ur Amphetamines Screen U Benzodiazepines Scrn Urine Cocaine Screen U Marijuana (THC) Screen Drugs of Abuse Note Plasma/Serum Alcohol < 0.01 (0-0.07) % 07/19/21 07/19/21 Range/Units Unknown Unknown WBC (4.5-11.0) K/mm3 RBC (3.65-5.03) M/mm3 Hgb (10.1-14.3) gm/dl Hct (30.3-42.9) % MCV (79-97) fl MCH (28-32) pg MCHC (30-34) % RDW (13.2-15.2) % Plt Count (140-440) K/mm3 Add Manual Diff Total Counted Seg Neuts % (Manual) (40.0-70.0) % Band Neutrophils % % Lymphocytes % (Manual) (13.4-35.0) % Reactive Lymphs % (Man) % Monocytes % (Manual) (0.0-7.3) % Basophils % (Manual) (0.0-1.8) % Metamyelocytes % % Myelocytes % % Nucleated RBC % Seg Neutrophils # Man (1.8-7.7) K/mm3 Band Neutrophils # K/mm3 Lymphocytes # (Manual) (1.2-5.4) K/mm3 Abs React Lymphs (Man) K/mm3 Monocytes # (Manual) (0.0-0.8) K/mm3 Eosinophils # (Manual) (0.0-0.4) K/mm3 Basophils # (Manual) (0.0-0.1) K/mm3 Metamyelocytes # K/mm3 Myelocytes # K/mm3 Promyelocytes # K/mm3 Blast Cells # K/mm3 WBC Morphology Hypersegmented Neuts Hyposegmented Neuts Hypogranular Neuts Smudge Cells Toxic Granulation Toxic Vacuolation Dohle Bodies Pelger-Huet Anomaly Pricila Rods Platelet Estimate Clumped Platelets Plt Clumps, EDTA Large Platelets Giant Platelets Platelet Satelliting Plt Morphology Comment RBC Morphology Dimorphic RBCs Polychromasia Hypochromasia Poikilocytosis Anisocytosis Microcytosis Macrocytosis Spherocytes Pappenheimer Bodies Sickle Cells Target Cells Tear Drop Cells Ovalocytes Helmet Cells [place] Bodies Vermillion Rings Armani Cells Bite Cells Crenated Cell Elliptocytes Acanthocytes (Spur) Rouleaux Hemoglobin C Crystals Schistocytes Malaria parasites Cody Bodies Hem Pathologist Commnt Sodium (137-145) mmol/L Potassium (3.6-5.0) mmol/L Chloride (98-107) mmol/L Carbon Dioxide (22-30) mmol/L Anion Gap mmol/L BUN (7-17) mg/dL Creatinine (0.6-1.2) mg/dL Estimated GFR ml/min BUN/Creatinine Ratio % Glucose (65-100) mg/dL Calcium (8.4-10.2) mg/dL Urine Color Bailee (Yellow) Urine Turbidity Slightly-cloudy (Clear) Urine pH 5.0 (5.0-7.0) Ur Specific [place] 1.018 (1.003-1.030) Urine Protein 30 mg/dl (Negative) mg/dL Urine Glucose (UA) Neg (Negative) mg/dL Urine Ketones Neg (Negative) mg/dL Urine Blood Sm (Negative) Urine Nitrite Neg (Negative) Urine Bilirubin Neg (Negative) Urine Urobilinogen 4.0 (<2.0) mg/dL Ur Leukocyte Esterase Neg (Negative) Urine WBC (Auto) 46.0 H (0.0-6.0) /HPF Urine RBC (Auto) 7.0 (0.0-6.0) /HPF U Epithel Cells (Auto) 13.0 (0-13.0) /HPF Urine Bacteria (Auto) 1+ (Negative) /HPF Urine Mucus 3+ /HPF Urine Opiates Screen Negative Urine Methadone Screen Negative Ur Barbiturates Screen Negative Ur Phencyclidine Scrn Negative Ur Amphetamines Screen Negative U Benzodiazepines Scrn Negative Urine Cocaine Screen Negative U Marijuana (THC) Screen Negative Drugs of Abuse Note Disclamer Plasma/Serum Alcohol (0-0.07) % CHEST 1 VIEW 07/20/2021 11:38 AM INDICATION / CLINICAL INFORMATION: Low-grade fever. Confusion and psychosis. COMPARISON: None available. FINDINGS: SUPPORT DEVICES: None. HEART / MEDIASTINUM: The heart size and pulmonary vasculature are normal. LUNGS / PLEURA: No significant pulmonary or pleural abnormality. No pneumothorax. 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 There is also much milder AC joint separation on the right. IMPRESSION: 1. No acute findings. There is no evidence of pneumonia. 2. 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 There is also milder AC joint separation. Signer Name: Leroy Beatty MD Signed: 07/20/2021 10:51 AM Workstation Name: [id number] Vital Signs 07/19/21 07/19/21 07/19/21 08:53 09:38 09:39 Temperature 98.4 F 97.4 F L 97.4 F L Pulse Rate 92 H 88 Respiratory 18 16 Rate Blood Pressure 98/66 Blood Pressure 117/74 [Left] O2 Sat by Pulse 97 98 Oximetry 07/19/21 07/19/21 07/19/21 10:14 10:15 10:21 Temperature 98.5 F Pulse Rate 84 84 Respiratory 18 Rate Blood Pressure 114/77 114/77 114/77 Blood Pressure [Left] O2 Sat by Pulse 98 Oximetry 07/19/21 07/19/21 07/19/21 10:27 10:30 10:47 Temperature Pulse Rate 82 Respiratory 18 17 Rate Blood Pressure 114/77 110/69 Blood Pressure [Left] O2 Sat by Pulse 98 Oximetry 07/19/21 07/19/21 07/19/21 11:48 12:48 17:00 Temperature 97.6 F Pulse Rate 86 Respiratory 18 Rate Blood Pressure 110/74 96/69 Blood Pressure 100/65 [Left] O2 Sat by Pulse 98 Oximetry 07/19/21 07/20/21 07/20/21 19:31 08:14 09:37 Temperature 100.3 F H 97.9 F Pulse Rate 101 H 90 Respiratory 16 20 Rate Blood Pressure Blood Pressure 107/68 104/69 [Left] O2 Sat by Pulse 98 98 98 Oximetry Lab Results 07/19/21 07/19/21 07/19/21 Range/Units 09:52 09:52 09:52 WBC 3.4 L (4.5-11.0) K/mm3 RBC 4.73 (3.65-5.03) M/mm3 Hgb 14.7 H (10.1-14.3) gm/dl Hct 44.5 H (30.3-42.9) % MCV 94 (79-97) fl MCH 31 (28-32) pg MCHC 33 (30-34) % RDW 13.7 (13.2-15.2) % Plt Count 159 (140-440) K/mm3 Lymph % (Auto) (13.4-35.0) % Pope % (Auto) (0.0-7.3) % Eos % (Auto) (0.0-4.3) % Baso % (Auto) (0.0-1.8) % Lymph # (Auto) (1.2-5.4) K/mm3 Pope # (Auto) (0.0-0.8) K/mm3 Eos # (Auto) (0.0-0.4) K/mm3 Baso # (Auto) (0.0-0.1) K/mm3 Add Manual Diff Complete Total Counted 100 Seg Neutrophils % (40.0-70.0) % Seg Neuts % (Manual) 56.0 (40.0-70.0) % Band Neutrophils % 3.0 % Lymphocytes % (Manual) 31.0 (13.4-35.0) % Reactive Lymphs % (Man) 6.0 % Monocytes % (Manual) 1.0 (0.0-7.3) % Basophils % (Manual) 1.0 (0.0-1.8) % Metamyelocytes % 1.0 % Myelocytes % 1.0 % Nucleated RBC % Not Reportable Seg Neutrophils # (1.8-7.7) K/mm3 Seg Neutrophils # Man 1.9 (1.8-7.7) K/mm3 Band Neutrophils # 0.1 K/mm3 Lymphocytes # (Manual) 1.1 L (1.2-5.4) K/mm3 Abs React Lymphs (Man) 0.2 K/mm3 Monocytes # (Manual) 0.0 (0.0-0.8) K/mm3 Eosinophils # (Manual) 0.0 (0.0-0.4) K/mm3 Basophils # (Manual) 0.0 (0.0-0.1) K/mm3 Metamyelocytes # 0.0 K/mm3 Myelocytes # 0.0 K/mm3 Promyelocytes # 0.0 K/mm3 Blast Cells # 0.0 K/mm3 WBC Morphology Not Reportable Hypersegmented Neuts Not Reportable Hyposegmented Neuts Not Reportable Hypogranular Neuts Not Reportable Smudge Cells Not Reportable Toxic Granulation Not Reportable Toxic Vacuolation Not Reportable Dohle Bodies Not Reportable Pelger-Huet Anomaly Not Reportable Pricila Rods Not Reportable Platelet Estimate Consistent w auto Clumped Platelets Not Reportable Plt Clumps, EDTA Not Reportable Large Platelets Not Reportable Giant Platelets Not Reportable Platelet Satelliting Not Reportable Plt Morphology Comment Not Reportable RBC Morphology Not Reportable Dimorphic RBCs Not Reportable Polychromasia Not Reportable Hypochromasia Not Reportable Poikilocytosis Not Reportable Anisocytosis Not Reportable Microcytosis Not Reportable Macrocytosis Not Reportable Spherocytes Not Reportable Pappenheimer Bodies Not Reportable Sickle Cells Not Reportable Target Cells Not Reportable Tear Drop Cells Not Reportable Ovalocytes Not Reportable Helmet Cells Not Reportable [place] Bodies Not Reportable Vermillion Rings Not Reportable Armani Cells Not Reportable Bite Cells Not Reportable Crenated Cell Not Reportable Elliptocytes Not Reportable Acanthocytes (Spur) Not Reportable Rouleaux Not Reportable Hemoglobin C Crystals Not Reportable Schistocytes Not Reportable Malaria parasites Not Reportable Cody Bodies Not Reportable Hem Pathologist Commnt No Sodium 137 (137-145) mmol/L Potassium 3.8 (3.6-5.0) mmol/L Chloride 98.5 (98-107) mmol/L Carbon Dioxide 27 (22-30) mmol/L Anion Gap 15 mmol/L BUN 6 L (7-17) mg/dL Creatinine 0.5 L (0.6-1.2) mg/dL Estimated GFR > 60 ml/min BUN/Creatinine Ratio 12 % Glucose 101 H (65-100) mg/dL Lactic Acid (0.7-2.0) mmol/L Calcium 9.2 (8.4-10.2) mg/dL Magnesium (1.7-2.3) mg/dL Total Bilirubin (0.1-1.2) mg/dL Direct Bilirubin (0-0.2) mg/dL Indirect Bilirubin mg/dL AST (5-40) units/L ALT (7-56) units/L Alkaline Phosphatase (35-129) units/L Ammonia (25-60) umol/L Total Creatine Kinase (30-135) units/L Total Protein (6.3-8.2) g/dL Albumin (3.9-5) g/dL Albumin/Globulin Ratio % TSH (0.270-4.200) mlU/mL Urine Color (Yellow) Urine Turbidity (Clear) Urine pH (5.0-7.0) Ur Specific [place] (1.003-1.030) Urine Protein (Negative) mg/dL Urine Glucose (UA) (Negative) mg/dL Urine Ketones (Negative) mg/dL Urine Blood (Negative) Urine Nitrite (Negative) Urine Bilirubin (Negative) Urine Urobilinogen (<2.0) mg/dL Ur Leukocyte Esterase (Negative) Urine WBC (Auto) (0.0-6.0) /HPF Urine RBC (Auto) (0.0-6.0) /HPF U Epithel Cells (Auto) (0-13.0) /HPF Urine Bacteria (Auto) (Negative) /HPF Urine Mucus /HPF Salicylates (2.8-20.0) mg/dL Urine Opiates Screen Urine Methadone Screen Acetaminophen (10.0-30.0) ug/mL Ur Barbiturates Screen Ur Phencyclidine Scrn Ur Amphetamines Screen U Benzodiazepines Scrn Urine Cocaine Screen U Marijuana (THC) Screen Drugs of Abuse Note Plasma/Serum Alcohol < 0.01 (0-0.07) % 07/19/21 07/19/21 07/20/21 Range/Units Unknown Unknown 11:20 WBC (4.5-11.0) K/mm3 RBC (3.65-5.03) M/mm3 Hgb (10.1-14.3) gm/dl Hct (30.3-42.9) % MCV (79-97) fl MCH (28-32) pg MCHC (30-34) % RDW (13.2-15.2) % Plt Count (140-440) K/mm3 Lymph % (Auto) (13.4-35.0) % Pope % (Auto) (0.0-7.3) % Eos % (Auto) (0.0-4.3) % Baso % (Auto) (0.0-1.8) % Lymph # (Auto) (1.2-5.4) K/mm3 Pope # (Auto) (0.0-0.8) K/mm3 Eos # (Auto) (0.0-0.4) K/mm3 Baso # (Auto) (0.0-0.1) K/mm3 Add Manual Diff Total Counted Seg Neutrophils % (40.0-70.0) % Seg Neuts % (Manual) (40.0-70.0) % Band Neutrophils % % Lymphocytes % (Manual) (13.4-35.0) % Reactive Lymphs % (Man) % Monocytes % (Manual) (0.0-7.3) % Basophils % (Manual) (0.0-1.8) % Metamyelocytes % % Myelocytes % % Nucleated RBC % Seg Neutrophils # (1.8-7.7) K/mm3 Seg Neutrophils # Man (1.8-7.7) K/mm3 Band Neutrophils # K/mm3 Lymphocytes # (Manual) (1.2-5.4) K/mm3 Abs React Lymphs (Man) K/mm3 Monocytes # (Manual) (0.0-0.8) K/mm3 Eosinophils # (Manual) (0.0-0.4) K/mm3 Basophils # (Manual) (0.0-0.1) K/mm3 Metamyelocytes # K/mm3 Myelocytes # K/mm3 Promyelocytes # K/mm3 Blast Cells # K/mm3 WBC Morphology Hypersegmented Neuts Hyposegmented Neuts Hypogranular Neuts Smudge Cells Toxic Granulation Toxic Vacuolation Dohle Bodies Pelger-Huet Anomaly Pricila Rods Platelet Estimate Clumped Platelets Plt Clumps, EDTA Large Platelets Giant Platelets Platelet Satelliting Plt Morphology Comment RBC Morphology Dimorphic RBCs Polychromasia Hypochromasia Poikilocytosis Anisocytosis Microcytosis Macrocytosis Spherocytes Pappenheimer Bodies Sickle Cells Target Cells Tear Drop Cells Ovalocytes Helmet Cells [place] Bodies Vermillion Rings Armani Cells Bite Cells Crenated Cell Elliptocytes Acanthocytes (Spur) Rouleaux Hemoglobin C Crystals Schistocytes Malaria parasites Cody Bodies Hem Pathologist Commnt Sodium (137-145) mmol/L Potassium (3.6-5.0) mmol/L Chloride (98-107) mmol/L Carbon Dioxide (22-30) mmol/L Anion Gap mmol/L BUN (7-17) mg/dL Creatinine (0.6-1.2) mg/dL Estimated GFR ml/min BUN/Creatinine Ratio % Glucose (65-100) mg/dL Lactic Acid (0.7-2.0) mmol/L Calcium (8.4-10.2) mg/dL Magnesium 2.20 (1.7-2.3) mg/dL Total Bilirubin (0.1-1.2) mg/dL Direct Bilirubin (0-0.2) mg/dL Indirect Bilirubin mg/dL AST (5-40) units/L ALT (7-56) units/L Alkaline Phosphatase (35-129) units/L Ammonia (25-60) umol/L Total Creatine Kinase 23 L (30-135) units/L Total Protein (6.3-8.2) g/dL Albumin (3.9-5) g/dL Albumin/Globulin Ratio % TSH (0.270-4.200) mlU/mL Urine Color Bailee (Yellow) Urine Turbidity Slightly-cloudy (Clear) Urine pH 5.0 (5.0-7.0) Ur Specific [place] 1.018 (1.003-1.030) Urine Protein 30 mg/dl (Negative) mg/dL Urine Glucose (UA) Neg (Negative) mg/dL Urine Ketones Neg (Negative) mg/dL Urine Blood Sm (Negative) Urine Nitrite Neg (Negative) Urine Bilirubin Neg (Negative) Urine Urobilinogen 4.0 (<2.0) mg/dL Ur Leukocyte Esterase Neg (Negative) Urine WBC (Auto) 46.0 H (0.0-6.0) /HPF Urine RBC (Auto) 7.0 (0.0-6.0) /HPF U Epithel Cells (Auto) 13.0 (0-13.0) /HPF Urine Bacteria (Auto) 1+ (Negative) /HPF Urine Mucus 3+ /HPF Salicylates (2.8-20.0) mg/dL Urine Opiates Screen Negative Urine Methadone Screen Negative Acetaminophen (10.0-30.0) ug/mL Ur Barbiturates Screen Negative Ur Phencyclidine Scrn Negative Ur Amphetamines Screen Negative U Benzodiazepines Scrn Negative Urine Cocaine Screen Negative U Marijuana (THC) Screen Negative Drugs of Abuse Note Disclamer Plasma/Serum Alcohol (0-0.07) % 07/20/21 07/20/21 07/20/21 Range/Units 11:20 11:20 11:20 WBC (4.5-11.0) K/mm3 RBC (3.65-5.03) M/mm3 Hgb (10.1-14.3) gm/dl Hct (30.3-42.9) % MCV (79-97) fl MCH (28-32) pg MCHC (30-34) % RDW (13.2-15.2) % Plt Count (140-440) K/mm3 Lymph % (Auto) (13.4-35.0) % Pope % (Auto) (0.0-7.3) % Eos % (Auto) (0.0-4.3) % Baso % (Auto) (0.0-1.8) % Lymph # (Auto) (1.2-5.4) K/mm3 Pope # (Auto) (0.0-0.8) K/mm3 Eos # (Auto) (0.0-0.4) K/mm3 Baso # (Auto) (0.0-0.1) K/mm3 Add Manual Diff Total Counted Seg Neutrophils % (40.0-70.0) % Seg Neuts % (Manual) (40.0-70.0) % Band Neutrophils % % Lymphocytes % (Manual) (13.4-35.0) % Reactive Lymphs % (Man) % Monocytes % (Manual) (0.0-7.3) % Basophils % (Manual) (0.0-1.8) % Metamyelocytes % % Myelocytes % % Nucleated RBC % Seg Neutrophils # (1.8-7.7) K/mm3 Seg Neutrophils # Man (1.8-7.7) K/mm3 Band Neutrophils # K/mm3 Lymphocytes # (Manual) (1.2-5.4) K/mm3 Abs React Lymphs (Man) K/mm3 Monocytes # (Manual) (0.0-0.8) K/mm3 Eosinophils # (Manual) (0.0-0.4) K/mm3 Basophils # (Manual) (0.0-0.1) K/mm3 Metamyelocytes # K/mm3 Myelocytes # K/mm3 Promyelocytes # K/mm3 Blast Cells # K/mm3 WBC Morphology Hypersegmented Neuts Hyposegmented Neuts Hypogranular Neuts Smudge Cells Toxic Granulation Toxic Vacuolation Dohle Bodies Pelger-Huet Anomaly Pricila Rods Platelet Estimate Clumped Platelets Plt Clumps, EDTA Large Platelets Giant Platelets Platelet Satelliting Plt Morphology Comment RBC Morphology Dimorphic RBCs Polychromasia Hypochromasia Poikilocytosis Anisocytosis Microcytosis Macrocytosis Spherocytes Pappenheimer Bodies Sickle Cells Target Cells Tear Drop Cells Ovalocytes Helmet Cells [place] Bodies Vermillion Rings [place] Cells Bite Cells Crenated Cell Elliptocytes Acanthocytes (Spur) Rouleaux Hemoglobin C Crystals Schistocytes Malaria parasites Cody Bodies Hem Pathologist Commnt Sodium (137-145) mmol/L Potassium (3.6-5.0) mmol/L Chloride (98-107) mmol/L Carbon Dioxide (22-30) mmol/L Anion Gap mmol/L BUN (7-17) mg/dL Creatinine (0.6-1.2) mg/dL Estimated GFR ml/min BUN/Creatinine Ratio % Glucose (65-100) mg/dL Lactic Acid (0.7-2.0) mmol/L Calcium (8.4-10.2) mg/dL Magnesium (1.7-2.3) mg/dL Total Bilirubin (0.1-1.2) mg/dL Direct Bilirubin (0-0.2) mg/dL Indirect Bilirubin mg/dL AST (5-40) units/L ALT (7-56) units/L Alkaline Phosphatase (35-129) units/L Ammonia 60.0 (25-60) umol/L Total Creatine Kinase (30-135) units/L Total Protein (6.3-8.2) g/dL Albumin (3.9-5) g/dL Albumin/Globulin Ratio % TSH 0.116 L (0.270-4.200) mlU/mL Urine Color (Yellow) Urine Turbidity (Clear) Urine pH (5.0-7.0) Ur Specific [place] (1.003-1.030) Urine Protein (Negative) mg/dL Urine Glucose (UA) (Negative) mg/dL Urine Ketones (Negative) mg/dL Urine Blood (Negative) Urine Nitrite (Negative) Urine Bilirubin (Negative) Urine Urobilinogen (<2.0) mg/dL Ur Leukocyte Esterase (Negative) Urine WBC (Auto) (0.0-6.0) /HPF Urine RBC (Auto) (0.0-6.0) /HPF U Epithel Cells (Auto) (0-13.0) /HPF Urine Bacteria (Auto) (Negative) /HPF Urine Mucus /HPF Salicylates < 0.3 L (2.8-20.0) mg/dL Urine Opiates Screen Urine Methadone Screen Acetaminophen (10.0-30.0) ug/mL Ur Barbiturates Screen Ur Phencyclidine Scrn Ur Amphetamines Screen U Benzodiazepines Scrn Urine Cocaine Screen U Marijuana (THC) Screen Drugs of Abuse Note Plasma/Serum Alcohol (0-0.07) % 07/20/21 07/20/21 07/20/21 Range/Units 11:20 11:20 11:20 WBC 2.6 L (4.5-11.0) K/mm3 RBC 4.30 (3.65-5.03) M/mm3 Hgb 13.3 (10.1-14.3) gm/dl Hct 40.9 (30.3-42.9) % MCV 95 (79-97) fl MCH 31 (28-32) pg MCHC 33 (30-34) % RDW 14.0 (13.2-15.2) % Plt Count 170 (140-440) K/mm3 Lymph % (Auto) 40.3 H (13.4-35.0) % Pope % (Auto) 13.4 H (0.0-7.3) % Eos % (Auto) 1.8 (0.0-4.3) % Baso % (Auto) 1.6 (0.0-1.8) % Lymph # (Auto) 1.1 L (1.2-5.4) K/mm3 Pope # (Auto) 0.4 (0.0-0.8) K/mm3 Eos # (Auto) 0.0 (0.0-0.4) K/mm3 Baso # (Auto) 0.0 (0.0-0.1) K/mm3 Add Manual Diff Total Counted Seg Neutrophils % 42.9 (40.0-70.0) % Seg Neuts % (Manual) (40.0-70.0) % Band Neutrophils % % Lymphocytes % (Manual) (13.4-35.0) % Reactive Lymphs % (Man) % Monocytes % (Manual) (0.0-7.3) % Basophils % (Manual) (0.0-1.8) % Metamyelocytes % % Myelocytes % % Nucleated RBC % Seg Neutrophils # 1.1 L (1.8-7.7) K/mm3 Seg Neutrophils # Man (1.8-7.7) K/mm3 Band Neutrophils # K/mm3 Lymphocytes # (Manual) (1.2-5.4) K/mm3 Abs React Lymphs (Man) K/mm3 Monocytes # (Manual) (0.0-0.8) K/mm3 Eosinophils # (Manual) (0.0-0.4) K/mm3 Basophils # (Manual) (0.0-0.1) K/mm3 Metamyelocytes # K/mm3 Myelocytes # K/mm3 Promyelocytes # K/mm3 Blast Cells # K/mm3 WBC Morphology Hypersegmented Neuts Hyposegmented Neuts Hypogranular Neuts Smudge Cells Toxic Granulation Toxic Vacuolation Dohle Bodies Pelger-Huet Anomaly Pricila Rods Platelet Estimate Clumped Platelets Plt Clumps, EDTA Large Platelets Giant Platelets Platelet Satelliting Plt Morphology Comment RBC Morphology Dimorphic RBCs Polychromasia Hypochromasia Poikilocytosis Anisocytosis Microcytosis Macrocytosis Spherocytes Pappenheimer Bodies Sickle Cells Target Cells Tear Drop Cells Ovalocytes Helmet Cells [place] Bodies Vermillion Rings [place] Cells Bite Cells Crenated Cell Elliptocytes Acanthocytes (Spur) Rouleaux Hemoglobin C Crystals Schistocytes Malaria parasites Cody Bodies Hem Pathologist Commnt Sodium (137-145) mmol/L Potassium (3.6-5.0) mmol/L Chloride (98-107) mmol/L Carbon Dioxide (22-30) mmol/L Anion Gap mmol/L BUN (7-17) mg/dL Creatinine (0.6-1.2) mg/dL Estimated GFR ml/min BUN/Creatinine Ratio % Glucose (65-100) mg/dL Lactic Acid 1.00 (0.7-2.0) mmol/L Calcium (8.4-10.2) mg/dL Magnesium (1.7-2.3) mg/dL Total Bilirubin (0.1-1.2) mg/dL Direct Bilirubin (0-0.2) mg/dL Indirect Bilirubin mg/dL AST (5-40) units/L ALT (7-56) units/L Alkaline Phosphatase (35-129) units/L Ammonia (25-60) umol/L Total Creatine Kinase (30-135) units/L Total Protein (6.3-8.2) g/dL Albumin (3.9-5) g/dL Albumin/Globulin Ratio % TSH (0.270-4.200) mlU/mL Urine Color (Yellow) Urine Turbidity (Clear) Urine pH (5.0-7.0) Ur Specific [place] (1.003-1.030) Urine Protein (Negative) mg/dL Urine Glucose (UA) (Negative) mg/dL Urine Ketones (Negative) mg/dL Urine Blood (Negative) Urine Nitrite (Negative) Urine Bilirubin (Negative) Urine Urobilinogen (<2.0) mg/dL Ur Leukocyte Esterase (Negative) Urine WBC (Auto) (0.0-6.0) /HPF Urine RBC (Auto) (0.0-6.0) /HPF U Epithel Cells (Auto) (0-13.0) /HPF Urine Bacteria (Auto) (Negative) /HPF Urine Mucus /HPF Salicylates (2.8-20.0) mg/dL Urine Opiates Screen Urine Methadone Screen Acetaminophen 5.0 L (10.0-30.0) ug/mL Ur Barbiturates Screen Ur Phencyclidine Scrn Ur Amphetamines Screen U Benzodiazepines Scrn Urine Cocaine Screen U Marijuana (THC) Screen Drugs of Abuse Note Plasma/Serum Alcohol (0-0.07) % 07/20/21 Range/Units 11:20 WBC (4.5-11.0) K/mm3 RBC (3.65-5.03) M/mm3 Hgb (10.1-14.3) gm/dl Hct (30.3-42.9) % MCV (79-97) fl MCH (28-32) pg MCHC (30-34) % RDW (13.2-15.2) % Plt Count (140-440) K/mm3 Lymph % (Auto) (13.4-35.0) % [place] % (Auto) (0.0-7.3) % Eos % (Auto) (0.0-4.3) % Baso % (Auto) (0.0-1.8) % Lymph # (Auto) (1.2-5.4) K/mm3 [place] # (Auto) (0.0-0.8) K/mm3 Eos # (Auto) (0.0-0.4) K/mm3 Baso # (Auto) (0.0-0.1) K/mm3 Add Manual Diff Total Counted Seg Neutrophils % (40.0-70.0) % Seg Neuts % (Manual) (40.0-70.0) % Band Neutrophils % % Lymphocytes % (Manual) (13.4-35.0) % Reactive Lymphs % (Man) % Monocytes % (Manual) (0.0-7.3) % Basophils % (Manual) (0.0-1.8) % Metamyelocytes % % Myelocytes % % Nucleated RBC % Seg Neutrophils # (1.8-7.7) K/mm3 Seg Neutrophils # Man (1.8-7.7) K/mm3 Band Neutrophils # K/mm3 Lymphocytes # (Manual) (1.2-5.4) K/mm3 Abs React Lymphs (Man) K/mm3 Monocytes # (Manual) (0.0-0.8) K/mm3 Eosinophils # (Manual) (0.0-0.4) K/mm3 Basophils # (Manual) (0.0-0.1) K/mm3 Metamyelocytes # K/mm3 Myelocytes # K/mm3 Promyelocytes # K/mm3 Blast Cells # K/mm3 WBC Morphology Hypersegmented Neuts Hyposegmented Neuts Hypogranular Neuts Smudge Cells Toxic Granulation Toxic Vacuolation Dohle Bodies Pelger-Huet Anomaly Pricila Rods Platelet Estimate Clumped Platelets Plt Clumps, EDTA Large Platelets Giant Platelets Platelet Satelliting Plt Morphology Comment RBC Morphology Dimorphic RBCs Polychromasia Hypochromasia Poikilocytosis Anisocytosis Microcytosis Macrocytosis Spherocytes Pappenheimer Bodies Sickle Cells Target Cells Tear Drop Cells Ovalocytes Helmet Cells [place] Bodies Vermillion Rings [place] Cells Bite Cells Crenated Cell Elliptocytes Acanthocytes (Spur) Rouleaux Hemoglobin C Crystals Schistocytes Malaria parasites Cody Bodies Hem Pathologist Commnt Sodium 135 L (137-145) mmol/L Potassium 3.7 (3.6-5.0) mmol/L Chloride 99.0 (98-107) mmol/L Carbon Dioxide 27 (22-30) mmol/L Anion Gap 13 mmol/L BUN 7 (7-17) mg/dL Creatinine 0.6 (0.6-1.2) mg/dL Estimated GFR > 60 ml/min BUN/Creatinine Ratio 12 % Glucose 102 H (65-100) mg/dL Lactic Acid (0.7-2.0) mmol/L Calcium 9.0 (8.4-10.2) mg/dL Magnesium (1.7-2.3) mg/dL Total Bilirubin 1.30 H (0.1-1.2) mg/dL Direct Bilirubin 1.2 H (0-0.2) mg/dL Indirect Bilirubin 0.1 mg/dL AST 1187 H (5-40) units/L ALT 1454 H (7-56) units/L Alkaline Phosphatase 380 H (35-129) units/L Ammonia (25-60) umol/L Total Creatine Kinase (30-135) units/L Total Protein 8.1 (6.3-8.2) g/dL Albumin 3.3 L (3.9-5) g/dL Albumin/Globulin Ratio 0.7 % TSH (0.270-4.200) mlU/mL Urine Color (Yellow) Urine Turbidity (Clear) Urine pH (5.0-7.0) Ur Specific [place] (1.003-1.030) Urine Protein (Negative) mg/dL Urine Glucose (UA) (Negative) mg/dL Urine Ketones (Negative) mg/dL Urine Blood (Negative) Urine Nitrite (Negative) Urine Bilirubin (Negative) Urine Urobilinogen (<2.0) mg/dL Ur Leukocyte Esterase (Negative) Urine WBC (Auto) (0.0-6.0) /HPF Urine RBC (Auto) (0.0-6.0) /HPF U Epithel Cells (Auto) (0-13.0) /HPF Urine Bacteria (Auto) (Negative) /HPF Urine Mucus /HPF Salicylates (2.8-20.0) mg/dL Urine Opiates Screen Urine Methadone Screen Acetaminophen (10.0-30.0) ug/mL Ur Barbiturates Screen Ur Phencyclidine Scrn Ur Amphetamines Screen U Benzodiazepines Scrn Urine Cocaine Screen U Marijuana (THC) Screen Drugs of Abuse Note Plasma/Serum Alcohol (0-0.07) % EKG is interpreted at 11: 21 Sinus rhythm, rate 81 bpm. Normal axis. Normal P wave axis. High left ventricular voltage/left ventricular hypertrophy. Right bundle branch block. QTC 463 ms. Abnormal EKG. Not a STEMI. CT OF THE ABDOMEN AND PELVIS WITH INTRAVENOUS CONTRAST INDICATION / CLINICAL INFORMATION: Back pain and possible pyelonephritis. Transaminitis. TECHNIQUE: The patient received 100 cc Omnipaque [address] scans at this location are performed using CT dose reduction for ALARA by means of automated exposure control. COMPARISON: None available. FINDINGS: ABDOMEN: There is a mildly prominent extrarenal pelvis on the right without caliectasis. The right ureter is slightly prominent compared to the left. No urothelial enhancement is seen and the nephrograms are symmetric. No cause for obstruction is seen. There is no evidence of renal calculus or mass. The liver, spleen, gallbladder, bile ducts, pancreas and adrenal glands are normal. There is a moderate amount of stool throughout the colon. There is no evidence of bowel obstruction, wall thickening or free air. No adenopathy is present. The lung bases are clear. PELVIS: The distal ureters and urinary bladder are normal. The uterus and adnexal regions are unremarkable. There is no evidence of appendicitis or diverticulitis. No abnormal mass or fluid collection is seen. I do not identify a hernia. There are [id number] degenerative changes at the lumbosacral junction. There is partial fusion of the left SI joint. There are old posttraumatic changes involving the right inferior ischiopubic ramus and pubic body with secondary degenerative changes involving the pubic symphysis. IMPRESSION: 1. Mild prominence of the right renal pelvis and ureter compared to the left may be related to normal variation or could be related to a low-grade pyelonephritis/pyelitis. 2. No other significant abnormality is identified. Signer Name: Leroy Beatty MD Signed: 07/20/2021 3:04 PM Workstation Name: [id number] CT head/brain wo con INDICATION / CLINICAL INFORMATION: 50 years Female; altered mental status, psychosis. TECHNIQUE: Routine CT head without contrast. All CT scans at this location are performed using CT dose reduction for ALARA by means of automated exposure control. COMPARISON: None. FINDINGS: BRAIN / INTRACRANIAL CONTENTS: No acute hemorrhage, mass effect, midline shift, hydrocephalus, or acute, large territorial infarct. No signs of significant atrophy or chronic infarct. There are mild areas of decreased attenuation in the white matter of the cerebral hemispheres. These are nonspecific findings and may be related to microangiopathy (hypertension, diabetes, atherosclerosis), given the patient's age. CRANIOCERVICAL JUNCTION: No significant abnormality. ORBITS: No significant abnormality of visualized orbits. SINUSES / MASTOIDS: Visualized paranasal sinuses and mastoid air cells are essentially clear. There may be an old fracture of the frontal process of the maxilla on the left. ADDITIONAL FINDINGS: Atherosclerotic disease is seen in the anterior circulation. IMPRESSION: 1. No focal mass, hemorrhage, hydrocephalus, or acute, large territorial infarct. Follow-up with diffusion imaging by MRI, as clinically warranted. Signer Name: Ziggy Ruvalcaba MD, III Signed: 07/20/2021 3:01 PM Workstation Name: [email or web address]
[2021-07-20 11:54] LABS: Albumin 3.3 g/dL (3.9-5); Bilirubin,Direct 1.2 mg/dL (0-0.2); Blood Urea Nitrogen 7 mg/dL (7-17); Hemolysis Index 4
--- NOTE | 2021-07-20 11:55 | XRay Report ---
CHEST 1 VIEW 07/20/2021 11:38 AM INDICATION / CLINICAL INFORMATION: Low-grade fever. Confusion and psychosis. COMPARISON: None available. FINDINGS: SUPPORT DEVICES: None. HEART / MEDIASTINUM: The heart size and pulmonary vasculature are normal. LUNGS / PLEURA: No significant pulmonary or pleural abnormality. No pneumothorax. 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 There is also much milder AC joint separation on the right . IMPRESSION: 1. No acute findings. There is no evidence of pneumonia. 2. 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 There is also milder AC joint separation. Signer Name: Leroy Beatty MD Signed: 07/20/2021 11:51 AM Workstation Name: [id number]
[2021-07-20 11:56] LABS: BUN/Creatinine Ratio 12
[2021-07-20 12:03] LABS: Basophils % (Auto) 1.6 % (0.0-1.8); Eosinophils % (Auto) 1.8 % (0.0-4.3); Hematocrit 40.9 % (30.3-42.9); Hemoglobin 13.3 gm/dl (10.1-14.3); Lymphocytes # (Auto) 1.1 K/mm3 (1.2-5.4); Lymphocytes % (Auto) 40.3 % (13.4-35.0); Mean Corpuscular HGB Conc 33 % (30-34); Mean Corpuscular Volume 95 fl (79-97); Monocytes # (Auto) 0.4 K/mm3 (0.0-0.8); Monocytes % (Auto) 13.4 % (0.0-7.3); Platelet Count 170 K/mm3 (140-440)
[2021-07-20 12:08] LABS: Alanine Aminotransferase 1454 units/L (7-56)
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
[2021-07-20] MEDS ORDERED: LACTATED RINGERS 1,000 ML IV ONE (13:16)
[2021-07-20 14:14] LABS: Hepatitis C Virus Antibody Non-Reactive (NonReactive)
[2021-07-20 14:34] LABS: Hepatitis B Surface Antigen Nonreactive (Negative)
--- NOTE | 2021-07-20 16:05 | Cat Scan Report ---
. CT head/brain wo con INDICATION / CLINICAL INFORMATION: 50 years Female; altered mental status, psychosis. TECHNIQUE: Routine CT head without contrast. All CT scans at this location are performed using CT dos e reduction for ALARA by means of automated exposure control. COMPARISON: None. FINDINGS: BRAIN / INTRACRANIAL CONTENTS: No acute hemorrhage, mass effect, midline shift, hydrocephalus, or acu te, large territorial infarct. No signs of significant atrophy or chronic infarct. There are mild areas of decreased attenuation in the white matter of the cerebral hemispheres. These are nonspecific findings and may be related to microangiopathy (hypertension, diabetes, atheroscleros is), given the patient's age. CRANIOCERVICAL JUNCTION: No significant abnormality. ORBITS: No significant abnormality of visualized orbits. SINUSES / MASTOIDS: Visualized paranasal sinuses and mastoid air cells are essentially clear. There may be an old fracture of the frontal process of the maxilla on the left. ADDITIONAL FINDINGS: Atherosclerotic disease is seen in the anterior circulation. IMPRESSION: 1. No focal mass, hemorrhage, hydrocephalus, or acute, large territorial infarct. Follow-up with diff usion imaging by MRI, as clinically warranted. Signer Name: Ziggy Ruvalcaba MD, III Signed: 07/20/2021 4:01 PM Workstation Name: [id number]
--- NOTE | 2021-07-20 16:08 | Cat Scan Report ---
CT OF THE ABDOMEN AND PELVIS WITH INTRAVENOUS CONTRAST INDICATION / CLINICAL INFORMATION: Back pain and possible pyelonephritis. Transaminitis. TECHNIQUE: The patient received 100 cc Omnipaque [address] scans at this location are performed using CT dose reduction for ALARA by means of automated exposure control. COMPARISON: None available. FINDINGS: ABDOMEN: There is a mildly prominent extrarenal pelvis on the right without caliectasis. The right ur eter is slightly prominent compared to the left. No urothelial enhancement is seen and the nephrogram s are symmetric. No cause for obstruction is seen. There is no evidence of renal calculus or mass. The liver, spleen, gallbladder, bile ducts, pancreas and adrenal glands are normal. There is a modera te amount of stool throughout the colon. There is no evidence of bowel obstruction, wall thickening o r free air. No adenopathy is present. The lung bases are clear. PELVIS: The distal ureters and urinary bladder are normal. The uterus and adnexal regions are unremar kable. There is no evidence of appendicitis or diverticulitis. No abnormal mass or fluid collection i s seen. I do not identify a hernia. There are [id number] degenerative changes at the lumbosacral junction. There is partial fusion of the left SI joint. There are old posttraumatic changes involving the right inferior ischiopubic ra mus and pubic body with secondary degenerative changes involving the pubic symphysis. IMPRESSION: 1. Mild prominence of the right renal pelvis and ureter compared to the left may be related to normal variation or could be related to a low-grade pyelonephritis/pyelitis. 2. No other significant abnormality is identified. Signer Name: Leroy Beatty MD Signed: 07/20/2021 4:04 PM Workstation Name: [id number]
[2021-07-20] MEDS ORDERED: cefTRIAXone/NS 1 GM/50 ML 1 GM/50 ML BAG IV ONE (16:19)
[2021-07-20] MEDS ORDERED: HYDROCORTISONE SOD SUCC 100 MG/2 ML VIAL IV ONE (16:46)
[2021-07-20] MEDS ORDERED: POTASSIUM IODIDE/IODINE (LUGOLS) 5% ORAL LIQD 5 ML PO STA (16:50)
[2021-07-20] MEDS ORDERED: methIMAzole 5 MG TAB PO STA (16:52)
[2021-07-20] MEDS ORDERED: PROPRANOLOL 40 MG TAB PO ONE (17:00)
[2021-07-20] MEDS ORDERED: PROPRANOLOL 10 MG TAB PO ONE (17:46)
--- NOTE | 2021-07-20 18:30 | History and Physical Report ---
History of Present Illness Date of examination: 07/20/21 Date of admission: 07/20/2021 Chief complaint: Elevated liver enzymes History of present illness: 50-year-old -[place] female with chronic pain and homelessness comes in to the ER expressing intention to . Patient has no concrete plan. Not homicidal. Patient was in the holding area and the labs came very abnormal with high transaminases and positive hepatitis A panel B panel no IV drug use as per the patient patient is a very poor historian. No fever or chills. - Past Medical History Additional medical history: Chronic pain, homeless -Past surgical history y unavailable -social history does not elaborate -Family history --unavailable - Medications Home Medications: Home Medications Medication Instructions Recorded Confirmed Last Taken Type No Known Home Medications [No 07/19/21 07/19/21 Unknown History Reported Home Medications] Review of Systems ROS: Stated complaint: BILATERAL FOOT PAIN/BACK PAIN Other details as noted in HPI Comment: All other systems reviewed and negative Constitutional: denies: chills, fever Eyes: denies: eye pain, vision change ENT: denies: ear pain, throat pain Respiratory: denies: cough, shortness of breath Cardiovascular: denies: chest pain, palpitations Gastrointestinal: denies: abdominal pain, vomiting Genitourinary: denies: dysuria, discharge Musculoskeletal: back pain, arthralgia. denies: joint swelling Skin: denies: rash, lesions Neurological: denies: headache, weakness Medications and Allergies Allergies Allergy/AdvReac Type Severity Reaction Status Date / Time No Known Allergies Allergy Unverified 07/19/21 10:37 Home Medications Medication Instructions Recorded Confirmed Last Taken Type No Known Home Medications [No 07/19/21 07/19/21 Unknown History Reported Home Medications] Active Meds: Active Medications Duloxetine HCl (Duloxetine 30 Mg Cap) 30 mg PO BID CASEY Lorazepam (Lorazepam 2 Mg/Ml Vial) 2 mg IM Q4HR PRN PRN Reason: Agitation Ondansetron HCl (Ondansetron 4 Mg Odt Tab) 4 mg PO Q6HR PRN PRN Reason: Nausea Exam - Constitutional Vitals: Temp Pulse Resp BP Pulse Ox 97.9 F 96 H 16 111/76 96 07/20/21 08:14 07/20/21 18:20 07/20/21 18:20 07/20/21 18:20 07/20/21 18:20 General appearance: Present: mild distress - EENT Eyes: Present: scleral icterus ENT: hearing intact, clear oral mucosa - Neck Neck: Present: supple, normal ROM - Respiratory Respiratory effort: normal Respiratory: bilateral: CTA - Cardiovascular Heart rate: 78 Rhythm: regular Heart Sounds: Present: S1 & S2. Absent: rub, click - Extremities Extremities: pulses symmetrical, No edema Peripheral Pulses: within normal limits - Abdominal General gastrointestinal: Present: soft, tender, non-distended, normal bowel sounds, hepatomegaly Female genitourinary: Present: normal - Rectal Rectal Exam: deferred - Integumentary Integumentary: Present: clear, warm, dry - Musculoskeletal Musculoskeletal: gait normal, strength equal bilaterally - Psychiatric Psychiatric: appropriate mood/affect, intact judgment & insight - Neurologic Neurologic: CNII-XII intact, moves all extremities Results - Labs CBC & Chem 7: 07/21/21 04:50 07/21/21 04:00 Labs: Laboratory Last Values WBC 2.6 K/mm3 (4.5-11.0) L 07/20/21 11:20 RBC 4.30 M/mm3 (3.65-5.03) 07/20/21 11:20 Hgb 13.3 gm/dl (10.1-14.3) 07/20/21 11:20 Hct 40.9 % (30.3-42.9) 07/20/21 11:20 MCV 95 fl (79-97) 07/20/21 11:20 MCH 31 pg (28-32) 07/20/21 11:20 MCHC 33 % (30-34) 07/20/21 11:20 RDW 14.0 % (13.2-15.2) 07/20/21 11:20 Plt Count 170 K/mm3 (140-440) 07/20/21 11:20 Lymph % (Auto) 40.3 % (13.4-35.0) H 07/20/21 11:20 Sutter % (Auto) 13.4 % (0.0-7.3) H 07/20/21 11:20 Eos % (Auto) 1.8 % (0.0-4.3) 07/20/21 11:20 Baso % (Auto) 1.6 % (0.0-1.8) 07/20/21 11:20 Lymph # (Auto) 1.1 K/mm3 (1.2-5.4) L 07/20/21 11:20 Sutter # (Auto) 0.4 K/mm3 (0.0-0.8) 07/20/21 11:20 Eos # (Auto) 0.0 K/mm3 (0.0-0.4) 07/20/21 11:20 Baso # (Auto) 0.0 K/mm3 (0.0-0.1) 07/20/21 11:20 Add Manual Diff Complete 07/19/21 09:52 Total Counted 100 07/19/21 09:52 Seg Neutrophils % 42.9 % (40.0-70.0) 07/20/21 11:20 Seg Neuts % (Manual) 56.0 % (40.0-70.0) 07/19/21 09:52 Band Neutrophils % 3.0 % 07/19/21 09:52 Lymphocytes % (Manual) 31.0 % (13.4-35.0) 07/19/21 09:52 Reactive Lymphs % (Man) 6.0 % 07/19/21 09:52 Monocytes % (Manual) 1.0 % (0.0-7.3) 07/19/21 09:52 Basophils % (Manual) 1.0 % (0.0-1.8) 07/19/21 09:52 Metamyelocytes % 1.0 % 07/19/21 09:52 Myelocytes % 1.0 % 07/19/21 09:52 Nucleated RBC % Not Reportable 07/19/21 09:52 Seg Neutrophils # 1.1 K/mm3 (1.8-7.7) L 07/20/21 11:20 Seg Neutrophils # Man 1.9 K/mm3 (1.8-7.7) 07/19/21 09:52 Band Neutrophils # 0.1 K/mm3 07/19/21 09:52 Lymphocytes # (Manual) 1.1 K/mm3 (1.2-5.4) L 07/19/21 09:52 Abs React Lymphs (Man) 0.2 K/mm3 07/19/21 09:52 Monocytes # (Manual) 0.0 K/mm3 (0.0-0.8) 07/19/21 09:52 Eosinophils # (Manual) 0.0 K/mm3 (0.0-0.4) 07/19/21 09:52 Basophils # (Manual) 0.0 K/mm3 (0.0-0.1) 07/19/21 09:52 Metamyelocytes # 0.0 K/mm3 07/19/21 09:52 Myelocytes # 0.0 K/mm3 07/19/21 09:52 Promyelocytes # 0.0 K/mm3 07/19/21 09:52 Blast Cells # 0.0 K/mm3 07/19/21 09:52 WBC Morphology Not Reportable 07/19/21 09:52 Hypersegmented Neuts Not Reportable 07/19/21 09:52 Hyposegmented Neuts Not Reportable 07/19/21 09:52 Hypogranular Neuts Not Reportable 07/19/21 09:52 Smudge Cells Not Reportable 07/19/21 09:52 Toxic Granulation Not Reportable 07/19/21 09:52 Toxic Vacuolation Not Reportable 07/19/21 09:52 Dohle Bodies Not Reportable 07/19/21 09:52 Pelger-Huet Anomaly Not Reportable 07/19/21 09:52 Pricila Rods Not Reportable 07/19/21 09:52 Platelet Estimate Consistent w auto 07/19/21 09:52 Clumped Platelets Not Reportable 07/19/21 09:52 Plt Clumps, EDTA Not Reportable 07/19/21 09:52 Large Platelets Not Reportable 07/19/21 09:52 Giant Platelets Not Reportable 07/19/21 09:52 Platelet Satelliting Not Reportable 07/19/21 09:52 Plt Morphology Comment Not Reportable 07/19/21 09:52 RBC Morphology Not Reportable 07/19/21 09:52 Dimorphic RBCs Not Reportable 07/19/21 09:52 Polychromasia Not Reportable 07/19/21 09:52 Hypochromasia Not Reportable 07/19/21 09:52 Poikilocytosis Not Reportable 07/19/21 09:52 Anisocytosis Not Reportable 07/19/21 09:52 Microcytosis Not Reportable 07/19/21 09:52 Macrocytosis Not Reportable 07/19/21 09:52 Spherocytes Not Reportable 07/19/21 09:52 Pappenheimer Bodies Not Reportable 07/19/21 09:52 Sickle Cells Not Reportable 07/19/21 09:52 Target Cells Not Reportable 07/19/21 09:52 Tear Drop Cells Not Reportable 07/19/21 09:52 Ovalocytes Not Reportable 07/19/21 09:52 Helmet Cells Not Reportable 07/19/21 09:52 [place] Bodies Not Reportable 07/19/21 09:52 [place] Rings Not Reportable 07/19/21 09:52 [place] Cells Not Reportable 07/19/21 09:52 Bite Cells Not Reportable 07/19/21 09:52 Crenated Cell Not Reportable 07/19/21 09:52 Elliptocytes Not Reportable 07/19/21 09:52 Acanthocytes (Spur) Not Reportable 07/19/21 09:52 Rouleaux Not Reportable 07/19/21 09:52 Hemoglobin C Crystals Not Reportable 07/19/21 09:52 Schistocytes Not Reportable 07/19/21 09:52 Malaria parasites Not Reportable 07/19/21 09:52 [place] Bodies Not Reportable 07/19/21 09:52 Hem Pathologist Commnt No 07/19/21 09:52 Sodium 135 mmol/L (137-145) L 07/20/21 11:20 Potassium 3.7 mmol/L (3.6-5.0) 07/20/21 11:20 Chloride 99.0 mmol/L (98-107) 07/20/21 11:20 Carbon Dioxide 27 mmol/L (22-30) 07/20/21 11:20 Anion Gap 13 mmol/L 07/20/21 11:20 BUN 7 mg/dL (7-17) 07/20/21 11:20 Creatinine 0.6 mg/dL (0.6-1.2) 07/20/21 11:20 Estimated GFR > 60 ml/min 07/20/21 11:20 BUN/Creatinine Ratio 12 % 07/20/21 11:20 Glucose 102 mg/dL (65-100) H 07/20/21 11:20 Lactic Acid 1.00 mmol/L (0.7-2.0) 07/20/21 11:20 Calcium 9.0 mg/dL (8.4-10.2) 07/20/21 11:20 Magnesium 2.20 mg/dL (1.7-2.3) 07/20/21 11:20 Total Bilirubin 1.30 mg/dL (0.1-1.2) H 07/20/21 11:20 Direct Bilirubin 1.2 mg/dL (0-0.2) H 07/20/21 11:20 Indirect Bilirubin 0.1 mg/dL 07/20/21 11:20 AST 1187 units/L (5-40) H 07/20/21 11:20 ALT 1454 units/L (7-56) H 07/20/21 11:20 Alkaline Phosphatase 380 units/L (35-129) H 07/20/21 11:20 Ammonia 60.0 umol/L (25-60) 07/20/21 11:20 Total Creatine Kinase 23 units/L (30-135) L 07/20/21 11:20 Total Protein 8.1 g/dL (6.3-8.2) 07/20/21 11:20 Albumin 3.3 g/dL (3.9-5) L 07/20/21 11:20 Albumin/Globulin Ratio 0.7 % 07/20/21 11:20 TSH 0.116 mlU/mL (0.270-4.200) L 07/20/21 11:20 Free T4 1.10 ng/dL (0.76-1.46) 07/20/21 11:20 Urine Color Bailee (Yellow) 07/19/21 Unknown Urine Turbidity Slightly-cloudy (Clear) 07/19/21 Unknown Urine pH 5.0 (5.0-7.0) 07/19/21 Unknown Ur Specific [place] 1.018 (1.003-1.030) 07/19/21 Unknown Urine Protein 30 mg/dl mg/dL (Negative) 07/19/21 Unknown Urine Glucose (UA) Neg mg/dL (Negative) 07/19/21 Unknown Urine Ketones Neg mg/dL (Negative) 07/19/21 Unknown Urine Blood Sm (Negative) 07/19/21 Unknown Urine Nitrite Neg (Negative) 07/19/21 Unknown Urine Bilirubin Neg (Negative) 07/19/21 Unknown Urine Urobilinogen 4.0 mg/dL (<2.0) 07/19/21 Unknown Ur Leukocyte Esterase Neg (Negative) 07/19/21 Unknown Urine WBC (Auto) 46.0 /HPF (0.0-6.0) H 07/19/21 Unknown Urine RBC (Auto) 7.0 /HPF (0.0-6.0) 07/19/21 Unknown U Epithel Cells (Auto) 13.0 /HPF (0-13.0) 07/19/21 Unknown Urine Bacteria (Auto) 1+ /HPF (Negative) 07/19/21 Unknown Urine Mucus 3+ /HPF 07/19/21 Unknown Salicylates < 0.3 mg/dL (2.8-20.0) L 07/20/21 11:20 Urine Opiates Screen Negative 07/19/21 Unknown Urine Methadone Screen Negative 07/19/21 Unknown Acetaminophen 5.0 ug/mL (10.0-30.0) L 07/20/21 11:20 Ur Barbiturates Screen Negative 07/19/21 Unknown Ur Phencyclidine Scrn Negative 07/19/21 Unknown Ur Amphetamines Screen Negative 07/19/21 Unknown U Benzodiazepines Scrn Negative 07/19/21 Unknown Urine Cocaine Screen Negative 07/19/21 Unknown U Marijuana (THC) Screen Negative 07/19/21 Unknown Drugs of Abuse Note Disclamer 07/19/21 Unknown Plasma/Serum Alcohol < 0.01 % (0-0.07) 07/19/21 09:52 Coronavirus (PCR) Negative (Negative) 07/20/21 08:39 Hepatitis A IgM Ab Reactive (NonReactive) A 07/20/21 11:20 Hep Bs Antigen Nonreactive (Negative) 07/20/21 11:20 Hep B Core IgM Ab Reactive (NonReactive) A 07/20/21 11:20 Hepatitis C Antibody Non-reactive (NonReactive) 07/20/21 11:20 Microbiology: Microbiology 07/20/21 16:50 Peripheral/Venous Blood Culture - Preliminary Culture in Progress 07/20/21 16:50 Peripheral/Venous Blood Culture - Preliminary Culture in Progress 07/19/21 Unknown Urine,Clean Catch Urine Culture - Preliminary - Imaging and Cardiology Imaging and Cardiology: Abdominal CAT scan Mild prominence of the right renal pelvis and ureter compared to the left may be related to normal radiation of Covid related to a low-grade pyelonephritis/pyelitis CT of the head no acute findings Chest x-ray No acute findings No evidence of pneumonia Old left AC joint separation there is also mild AC joint separation Assessment and Plan Advance Directives: Yes (Full code) VTE prophylaxis?: Chemical Plan of care discussed with patient/family: Yes - Patient Problems (1) Acute hepatitis A Current Visit: Yes Status: Acute Plan to address problem: Patient is acute hepatitis A Possible fecal contamination IgM is high Transaminitis severe GI consult requested ID consult requested IV fluids in the meantime (2) Acute hepatitis B Current Visit: Yes Status: Acute Plan to address problem: IgM antibodies positive indicating acute infection IV drug status not known ID consult and GI consult Supportive care IV fluids (3) Suicidal ideation Current Visit: Yes Status: Acute Plan to address problem: Mental health consult (4) Malnutrition Current Visit: Yes Status: Chronic Qualifiers: Protein-calorie malnutrition severity: mild Plan to address problem: Dietary supplements initiated (5) DVT prophylaxis Current Visit: Yes Status: Acute Plan to address problem: Heparin and GI prophylaxis
[2021-07-20] MEDS: DULoxetine 30 MG CAP PO SCH (22:20)
[2021-07-20] MEDS ORDERED: ONDANSETRON 4 MG/2 ML INJ IV PRN (23:01)
[2021-07-20] MEDS ORDERED: HYDROmorphone 1 MG/1 ML INJ IV PRN (23:01)
[2021-07-20] MEDS ORDERED: ACETAMINOPHEN 325 MG TAB PO PRN (23:01)
[2021-07-20] MEDS: FAMOTIDINE 20 MG/2 ML INJ IV SCH (23:59)
[2021-07-20] MEDS: HEPARIN 5,000 UNIT/1 ML VIAL SUB-Q SCH (23:59)
[2021-07-20] MEDS: D5W/0.9% NACL 1,000 ML IV SCH (23:59)
[2021-07-21] MEDS: MORPHINE 2 MG/1 ML INJ IV PRN (02:50)
[2021-07-21 05:04] LABS: Hematocrit 37.5 % (30.3-42.9); Hemoglobin 12.5 gm/dl (10.1-14.3); Mean Corpuscular HGB Conc 33 % (30-34); Mean Corpuscular Volume 94 fl (79-97); Platelet Count 174 K/mm3 (140-440); Red Blood Count 3.97 M/mm3 (3.65-5.03); Red Cell Distribution Width 14.3 % (13.2-15.2)
[2021-07-21 05:29] LABS: Albumin 3.1 g/dL (3.9-5); Blood Urea Nitrogen 5 mg/dL (7-17); Calcium 8.8 mg/dL (8.4-10.2); Hemolysis Index 0
[2021-07-21 05:33] LABS: BUN/Creatinine Ratio 13
[2021-07-21 05:43] LABS: Alanine Aminotransferase 1231 units/L (7-56)
[2021-07-21 07:28] LABS: Eosinophils % (Auto) 0.1 % (0.0-4.3); Lymphocytes # (Auto) 1.2 K/mm3 (1.2-5.4); Lymphocytes % (Auto) 41.7 % (13.4-35.0); Monocytes # (Auto) 0.2 K/mm3 (0.0-0.8); Monocytes % (Auto) 8.5 % (0.0-7.3)
[2021-07-21 07:31] LABS: Basophils % (Auto) 0.5 % (0.0-1.8)
[2021-07-21] MEDS ORDERED: ACETAMINOPHEN 325 MG TAB PO PRN (10:09)
--- NOTE | 2021-07-21 10:12 | Gastroenterology Consultation ---
History of Present Illness - Reason for Consult Consult date: 07/21/21 Abnl LFT Requesting physician: ZAKIYA KING - History of Present Illness The patient is a 50 yo female admitted with 1013 status and very disorganized thinking. She is a poor historian, and much of the date is from the chart. She came to the ER and admits to suicidal ideation; workup there showed abnormal thyroid labs, as well as abnl LFTs. She states she uses EtOH and tylenol (but both levels were negative) but denies any drugs. She does not take meds by report. She has no hx of liver disease, nor a family hx of cirrhosis. She has no primary care. Imaging of the liver was unremarkable; the Hep A/B IgM were positive, but HBV sAg was negative. She has had no F/C, and is eating without abdominal pain. She has no witnessed emesis. She denies CP or SOB, but is perseverating on getting her clothes clean. Past History Past Medical History: other (Thyroid disease, likely psychiatric disorder) Past Surgical History: No surgical history Social history: other (Homeless). denies: smoking, alcohol abuse Family history: other (No family hx hepatitis/cirrhosis) Medications and Allergies Allergies Allergy/AdvReac Type Severity Reaction Status Date / Time No Known Allergies Allergy Unverified 07/19/21 10:37 Home Medications Medication Instructions Recorded Confirmed Last Taken Type No Known Home Medications [No 07/19/21 07/19/21 Unknown History Reported Home Medications] Active Meds: Active Medications Acetaminophen (Acetaminophen 325 Mg Tab) 650 mg PO Q6H PRN PRN Reason: Pain MILD(1-3)/Fever >100.5/PANDYA Duloxetine HCl (Duloxetine 30 Mg Cap) 30 mg PO BID CASEY Last Admin: 07/20/21 22:20 Dose: 30 mg Documented by: Heparin Sodium (Porcine) (Heparin 5,000 Unit/1 Ml Vial) 5,000 unit SUB-Q Q12HR CASEY Last Admin: 07/20/21 23:59 Dose: 5,000 unit Documented by: Hydromorphone HCl (Hydromorphone 1 Mg/1 Ml Inj) 0.5 mg IV Q3H PRN PRN Reason: Pain , Severe (7-10) Dextrose/Sodium Chloride (D5ns) 1,000 mls @ 75 mls/hr IV DIRECT CASEY Last Admin: 07/20/21 23:59 Dose: 75 mls/hr Documented by: Ceftriaxone Sodium (Rocephin/Ns 1 Gm/50 Ml) 1 gm in 50 mls @ 100 mls/hr IV Q24HR CASEY; Protocol Lorazepam (Lorazepam 2 Mg/Ml Vial) 2 mg IM Q4HR PRN PRN Reason: Agitation Morphine Sulfate (Morphine 2 Mg/1 Ml Inj) 2 mg IV Q4H PRN PRN Reason: Pain, Moderate (4-6) Last Admin: 07/21/21 02:50 Dose: 2 mg Documented by: Multivitamins (Multivitamins ,Therapeutic Tab) 1 each PO QDAY [facility] Ondansetron HCl (Ondansetron 4 Mg Odt Tab) 4 mg PO Q6HR PRN PRN Reason: Nausea Ondansetron HCl (Ondansetron 4 Mg/2 Ml Inj) 4 mg IV Q8H PRN PRN Reason: Nausea And Vomiting Sodium Chloride (Sodium Chloride 0.9% 10 Ml Flush Syringe) 10 ml IV BID CASEY Sodium Chloride (Sodium Chloride 0.9% 10 Ml Flush Syringe) 10 ml IV PRN PRN PRN Reason: LINE FLUSH I HAVE REVIEWED/RECONCILED MEDS Review of Systems - Review of Systems All systems: negative (as noted in the HPI) Exam - Constitutional Vital Signs: Temp Pulse Resp BP Pulse Ox 98.7 F 65 18 115/75 96 07/21/21 04:44 07/21/21 04:44 07/21/21 04:44 07/21/21 04:44 07/21/21 04:44 General appearance: other (Mildly agitated but NAD) - EENT Eyes: PERRL, EOM intact ENT: hearing intact, clear oral mucosa - Neck Neck: supple, normal ROM - Respiratory Respiratory effort: normal Respiratory: bilateral: CTA - Cardiovascular Rhythm: regular Heart Sounds: Present: S1 & S2 Extremities: no ischemia, No edema - Gastrointestinal General gastrointestinal: Present: soft, non-tender, non-distended - Integumentary Integumentary: Present: clear, warm, dry - Neurologic Neurological: alert and oriented x3 - Psychiatric Psychiatric: no intact judgment & insight, cooperative, agitated - Labs CBC & Chem 7: 07/21/21 04:50 07/21/21 04:00 Lab Results: Laboratory Results - last 24 hr 07/20/21 07/20/21 07/20/21 08:39 11:20 11:20 WBC RBC Hgb Hct MCV MCH MCHC RDW Plt Count Lymph % (Auto) Leon % (Auto) Eos % (Auto) Baso % (Auto) Lymph # (Auto) Leon # (Auto) Eos # (Auto) Baso # (Auto) Add Manual Diff Seg Neutrophils % Nucleated RBC % Seg Neutrophils # WBC Morphology Hypersegmented Neuts Hyposegmented Neuts Hypogranular Neuts Smudge Cells Toxic Granulation Toxic Vacuolation Dohle Bodies Pelger-Huet Anomaly Pricila Rods Platelet Estimate Clumped Platelets Plt Clumps, EDTA Large Platelets Giant Platelets Platelet Satelliting Plt Morphology Comment RBC Morphology Dimorphic RBCs Polychromasia Hypochromasia Poikilocytosis Anisocytosis Microcytosis Macrocytosis Spherocytes Pappenheimer Bodies Sickle Cells Target Cells Tear Drop Cells Ovalocytes Helmet Cells [place] Bodies [place] Rings Armani Cells Bite Cells Crenated Cell Elliptocytes Acanthocytes (Spur) Rouleaux Hemoglobin C Crystals Schistocytes Malaria parasites Cody Bodies Hem Pathologist Commnt Sodium Potassium Chloride Carbon Dioxide Anion Gap BUN Creatinine Estimated GFR BUN/Creatinine Ratio Glucose Lactic Acid Calcium Magnesium 2.20 Total Bilirubin Direct Bilirubin Indirect Bilirubin AST ALT Alkaline Phosphatase Ammonia 60.0 Total Creatine Kinase 23 L Total Protein Albumin Albumin/Globulin Ratio TSH Free T4 Salicylates Acetaminophen Coronavirus (PCR) Negative Hepatitis A IgM Ab Hep Bs Antigen Hep B Core IgM Ab Hepatitis C Antibody 07/20/21 07/20/21 07/20/21 11:20 11:20 11:20 WBC RBC Hgb Hct MCV MCH MCHC RDW Plt Count Lymph % (Auto) Leon % (Auto) Eos % (Auto) Baso % (Auto) Lymph # (Auto) Leon # (Auto) Eos # (Auto) Baso # (Auto) Add Manual Diff Seg Neutrophils % Nucleated RBC % Seg Neutrophils # WBC Morphology Hypersegmented Neuts Hyposegmented Neuts Hypogranular Neuts Smudge Cells Toxic Granulation Toxic Vacuolation Dohle Bodies Pelger-Huet Anomaly Pricila Rods Platelet Estimate Clumped Platelets Plt Clumps, EDTA Large Platelets Giant Platelets Platelet Satelliting Plt Morphology Comment RBC Morphology Dimorphic RBCs Polychromasia Hypochromasia Poikilocytosis Anisocytosis Microcytosis Macrocytosis Spherocytes Pappenheimer Bodies Sickle Cells Target Cells Tear Drop Cells Ovalocytes Helmet Cells [place] Bodies [place] Cells Bite Cells Crenated Cell Elliptocytes Acanthocytes (Spur) Rouleaux Hemoglobin C Crystals Schistocytes Malaria parasites Cody Bodies Hem Pathologist Commnt Sodium Potassium Chloride Carbon Dioxide Anion Gap BUN Creatinine Estimated GFR BUN/Creatinine Ratio Glucose Lactic Acid Calcium Magnesium Total Bilirubin Direct Bilirubin Indirect Bilirubin AST ALT Alkaline Phosphatase Ammonia Total Creatine Kinase Total Protein Albumin Albumin/Globulin Ratio TSH 0.116 L Free T4 Salicylates < 0.3 L Acetaminophen 5.0 L Coronavirus (PCR) Hepatitis A IgM Ab Hep Bs Antigen Hep B Core IgM Ab Hepatitis C Antibody 07/20/21 07/20/21 07/20/21 11:20 11:20 11:20 WBC 2.6 L RBC 4.30 Hgb 13.3 Hct 40.9 MCV 95 MCH 31 MCHC 33 RDW 14.0 Plt Count 170 Lymph % (Auto) 40.3 H Leon % (Auto) 13.4 H Eos % (Auto) 1.8 Baso % (Auto) 1.6 Lymph # (Auto) 1.1 L Leon # (Auto) 0.4 Eos # (Auto) 0.0 Baso # (Auto) 0.0 Add Manual Diff Seg Neutrophils % 42.9 Nucleated RBC % Seg Neutrophils # 1.1 L WBC Morphology Hypersegmented Neuts Hyposegmented Neuts Hypogranular Neuts Smudge Cells Toxic Granulation Toxic Vacuolation Dohle Bodies Pelger-Huet Anomaly Pricila Rods Platelet Estimate Clumped Platelets Plt Clumps, EDTA Large Platelets Giant Platelets Platelet Satelliting Plt Morphology Comment RBC Morphology Dimorphic RBCs Polychromasia Hypochromasia Poikilocytosis Anisocytosis Microcytosis Macrocytosis Spherocytes Pappenheimer Bodies Sickle Cells Target Cells Tear Drop Cells Ovalocytes Helmet Cells [place] Bodies [place] Cells Bite Cells Crenated Cell Elliptocytes Acanthocytes (Spur) Rouleaux Hemoglobin C Crystals Schistocytes Malaria parasites Cody Bodies Hem Pathologist Commnt Sodium 135 L Potassium 3.7 Chloride 99.0 Carbon Dioxide 27 Anion Gap 13 BUN 7 Creatinine 0.6 Estimated GFR > 60 BUN/Creatinine Ratio 12 Glucose 102 H Lactic Acid 1.00 Calcium 9.0 Magnesium Total Bilirubin 1.30 H Direct Bilirubin 1.2 H Indirect Bilirubin 0.1 AST 1187 H ALT 1454 H Alkaline Phosphatase 380 H Ammonia Total Creatine Kinase Total Protein 8.1 Albumin 3.3 L Albumin/Globulin Ratio 0.7 TSH Free T4 Salicylates Acetaminophen Coronavirus (PCR) Hepatitis A IgM Ab Hep Bs Antigen Hep B Core IgM Ab Hepatitis C Antibody 07/20/21 07/20/21 07/21/21 11:20 11:20 04:00 WBC RBC Hgb Hct MCV MCH MCHC RDW Plt Count Lymph % (Auto) Leon % (Auto) Eos % (Auto) Baso % (Auto) Lymph # (Auto) Leon # (Auto) Eos # (Auto) Baso # (Auto) Add Manual Diff Seg Neutrophils % Nucleated RBC % Seg Neutrophils # WBC Morphology Hypersegmented Neuts Hyposegmented Neuts Hypogranular Neuts Smudge Cells Toxic Granulation Toxic Vacuolation Dohle Bodies Pelger-Huet Anomaly Pricila Rods Platelet Estimate Clumped Platelets Plt Clumps, EDTA Large Platelets Giant Platelets Platelet Satelliting Plt Morphology Comment RBC Morphology Dimorphic RBCs Polychromasia Hypochromasia Poikilocytosis Anisocytosis Microcytosis Macrocytosis Spherocytes Pappenheimer Bodies Sickle Cells Target Cells Tear Drop Cells Ovalocytes Helmet Cells [place] Bodies [place] Rings Armani Cells Bite Cells Crenated Cell Elliptocytes Acanthocytes (Spur) Rouleaux Hemoglobin C Crystals Schistocytes Malaria parasites [place] Bodies Hem Pathologist Commnt Sodium 136 L Potassium 3.9 Chloride 103.0 Carbon Dioxide 24 Anion Gap 13 BUN 5 L Creatinine 0.4 L Estimated GFR > 60 BUN/Creatinine Ratio 13 Glucose 152 H Lactic Acid Calcium 8.8 Magnesium Total Bilirubin 1.40 H Direct Bilirubin Indirect Bilirubin AST 852 H ALT 1231 H Alkaline Phosphatase 339 H Ammonia Total Creatine Kinase Total Protein 7.8 Albumin 3.1 L Albumin/Globulin Ratio 0.7 TSH Free T4 1.10 Salicylates Acetaminophen Coronavirus (PCR) Hepatitis A IgM Ab Reactive A Hep Bs Antigen Nonreactive Hep B Core IgM Ab Reactive A Hepatitis C Antibody Non-reactive 07/21/21 04:50 WBC 2.8 L RBC 3.97 Hgb 12.5 Hct 37.5 MCV 94 MCH 32 MCHC 33 RDW 14.3 Plt Count 174 Lymph % (Auto) 41.7 H Leon % (Auto) 8.5 H Eos % (Auto) 0.1 Baso % (Auto) 0.5 Lymph # (Auto) 1.2 Leon # (Auto) 0.2 Eos # (Auto) 0.0 Baso # (Auto) 0.0 Add Manual Diff Complete Seg Neutrophils % 49.2 Nucleated RBC % Not Reportable Seg Neutrophils # 1.4 L WBC Morphology Not Reportable Hypersegmented Neuts Not Reportable Hyposegmented Neuts Not Reportable Hypogranular Neuts Not Reportable Smudge Cells Not Reportable Toxic Granulation Not Reportable Toxic Vacuolation Not Reportable Dohle Bodies Not Reportable Pelger-Huet Anomaly Not Reportable Pricila Rods Not Reportable Platelet Estimate Not Reportable Clumped Platelets Not Reportable Plt Clumps, EDTA Not Reportable Large Platelets Not Reportable Giant Platelets Not Reportable Platelet Satelliting Not Reportable Plt Morphology Comment Not Reportable RBC Morphology Not Reportable Dimorphic RBCs Not Reportable Polychromasia Not Reportable Hypochromasia Not Reportable Poikilocytosis Not Reportable Anisocytosis Not Reportable Microcytosis Not Reportable Macrocytosis Not Reportable Spherocytes Not Reportable Pappenheimer Bodies Not Reportable Sickle Cells Not Reportable Target Cells Not Reportable Tear Drop Cells Not Reportable Ovalocytes Not Reportable Helmet Cells Not Reportable [place] Bodies Not Reportable [place] Rings Not Reportable [place] Cells Not Reportable Bite Cells Not Reportable Crenated Cell Not Reportable Elliptocytes Not Reportable Acanthocytes (Spur) Not Reportable Rouleaux Not Reportable Hemoglobin C Crystals Not Reportable Schistocytes Not Reportable Malaria parasites Not Reportable [place] Bodies Not Reportable Hem Pathologist Commnt Not Reportable Sodium Potassium Chloride Carbon Dioxide Anion Gap BUN Creatinine Estimated GFR BUN/Creatinine Ratio Glucose Lactic Acid Calcium Magnesium Total Bilirubin Direct Bilirubin Indirect Bilirubin AST ALT Alkaline Phosphatase Ammonia Total Creatine Kinase Total Protein Albumin Albumin/Globulin Ratio TSH Free T4 Salicylates Acetaminophen Coronavirus (PCR) Hepatitis A IgM Ab Hep Bs Antigen Hep B Core IgM Ab Hepatitis C Antibody Assessment and Plan - Patient Problems (1) Transaminitis Current Visit: Yes Status: Acute Plan to address problem: - Hepatitis A/B IgM positive, and it may be she has contracted both (which is usually much more severe if joint infection). Also possible is thyroid storm. - However, her surface antigen for B is now negative, and her LFTs are already improving. Imaging shows a normal appearance to the liver. - At present, I would minimize hepatotoxic drugs, aggressively hydrate, and start nutritional therapy with MVI. - If LFTs continue to improve tomorrow, OK to transfer to Psych facility if indicated, since (+) IgM would indicate she is not infectious.
[2021-07-21] MEDS: DULoxetine 30 MG CAP PO SCH ×2 (10:28→21:17)
[2021-07-21] MEDS: HEPARIN 5,000 UNIT/1 ML VIAL SUB-Q SCH ×2 (10:28→21:13)
[2021-07-21] MEDS: cefTRIAXone/NS 1 GM/50 ML 1 GM/50 ML BAG IV SCH (10:28)
[2021-07-21] MEDS: FAMOTIDINE 20 MG/2 ML INJ IV SCH (12:28)
--- NOTE | 2021-07-21 13:03 | Progress Note ---
Subjective - Reason for Consult Consult date: 07/21/21 Reason for consult: suicidal ideation - Chief Complaint Chief complaint: The patient was seen today,she is calm and cooperative. She continues to endorse suicidal ideation stating " I will take pills, I should have been ." He admits having auditory hallucinations states voices " telling me to kill myself." REVIEW OF SYSTEMS Constitutional: Negative for weight loss ENT: Negative for stridor Respiratory: Negative for cough or hemoptysis All other systems reviewed and are negative MENTAL STATUS EXAMINATION General Appearance and Behavior: Age appropriate, good hygiene, wearing appropriate clothes. calm, cooperative Cooperation: Cooperative Psychomotor Behavior: Psychomotor normal Mood: Depressed Affect and affective range: congruent with stated mood Thought Process: tangential Thought Content: suicidal Speech: normal tone and pace Suicidal Ideation:Yes Homicidal Ideation: Denies Hallucinations: Auditory Delusions: None elicited Impulse Control: Questionable Insight and Judgment: Limited Memory: Limited Attention: attentive Orientation: a/o x 3 Assessment (1)Major depressive disorder Current Visit: Yes Status: Acute Treatment Plan continue 1013 Continue Cymbalta 30 mg PO BID Start Trazodone 50 mg po QHS Continue previously prescribed medications and follow up with outpatient psychiatry in 7 to 10 days upon discharge. The patient to comply with previously prescribed medications Risks, benefits and alternatives of medications discussed with the patient, questions answered and consent obtained from patient. PSYCHOTHERAPY: Supportive psychotherapy provided MEDICAL: Per primary team DELIRIUM PRECAUTIONS: Please re-orient patient frequently, keep lights on during the day, and minimize benzodiazepines and opiates as these medications could worsen patient's confusion. CHICKEN TENDER: Defer to primary DISPOSITION: Recommend acute psychiatric inpatient treatment. The sitter to give the patient resources and safety plan The patient to comply with treatment regimen and abstain from all illicit drug use. FOLLOW-UP: Will follow. Case staffed with Dr. Crain Medications and Allergies Mental Status Exam - Vital signs Last Vital Signs Temp 98.7 F 07/21/21 04:44 Pulse 65 07/21/21 04:44 Resp 18 07/21/21 04:44 BP 115/75 07/21/21 04:44 Pulse Ox 97 07/21/21 11:52
[2021-07-21] MEDS: D5W/0.9% NACL 1,000 ML IV SCH (15:31)
--- NOTE | 2021-07-21 15:56 | Progress Note ---
Assessment and Plan (1) Acute hepatitis A Current Visit: Yes Status: Acute Plan to address problem: Patient is acute hepatitis A Possible fecal contamination IgM is high Transaminitis severe GI consult requested ID consult requested IV fluids in the meantime (2) Acute hepatitis B Current Visit: Yes Status: Acute Plan to address problem: IgM antibodies positive indicating acute infection IV drug status not known ID consult and GI consult Supportive care IV fluids (3) Suicidal ideation Current Visit: Yes Status: Acute Plan to address problem: Mental health consulted (4) Malnutrition Current Visit: Yes Status: Chronic Qualifiers: Protein-calorie malnutrition severity: mild Plan to address problem: Dietary supplements initiated (5) DVT prophylaxis Current Visit: Yes Status: Acute Plan to address problem: Heparin and GI prophylaxis Daily clinical course: 07/21/21; - Hepatitis A/B IgM positive, However, her surface antigen for B is now negative, LFTs improving. Imaging shows a normal appearance to the liver. cont aggressively hydration, and start nutritional therapy with MVI. Psych following - need inpt psych placement Subjective Date of service: 07/21/21 Interval history: Patient seen and examined. Medical records and medication list reviewed. No acute event overnight noted by the RN. Patient denies any chest pain or difficulty breathing. Patient is tolerating diet. Patient still suicidal Discussed plan of care at bedside with patient. Objective - Exam Narrative Exam: GENERAL: well-developed and well-nourished AAF lying on bed appeared to be in no discomfort. HEENT: Normocephalic. Atraumatic. No conjunctival congestion or icterus. Patient has moist mucous membranes. NECK: Supple. Trachea midline. CHEST/LUNGS: Clear to auscultated bilaterally, breathing nonlabored. No wheezes crackles or rhonchi. HEART/CARDIOVASCULAR: Regular in rate and rhythm. S1 and S2 positive. ABDOMEN: Abdomen is soft, nontender. Patient has normal bowel sounds. SKIN: There is no rash. Warm and dry. NEURO: No focal motor deficit. Follows command. MUSCULOSKELETAL: No joint effusion or tenderness. EXTRIMITY: No edema, no cyanosis or clubbing. PSYCH: Cooperative but with disorganized thought. - Constitutional Vitals: Vital Signs - 12hr 07/21/21 07/21/21 04:44 11:52 Temperature 98.7 F Pulse Rate 65 Respiratory 18 Rate Blood Pressure 115/75 O2 Sat by Pulse 96 97 Oximetry - Labs CBC & Chem 7: 07/21/21 04:50 07/22/21 07:45 Labs: Abnormal lab results 07/21/21 07/21/21 Range/Units 04:00 04:50 WBC 2.8 L (4.5-11.0) K/mm3 Lymph % (Auto) 41.7 H (13.4-35.0) % [place] % (Auto) 8.5 H (0.0-7.3) % Seg Neutrophils # 1.4 L (1.8-7.7) K/mm3 Sodium 136 L (137-145) mmol/L BUN 5 L (7-17) mg/dL Creatinine 0.4 L (0.6-1.2) mg/dL Glucose 152 H (65-100) mg/dL Total Bilirubin 1.40 H (0.1-1.2) mg/dL AST 852 H (5-40) units/L ALT 1231 H (7-56) units/L Alkaline Phosphatase 339 H (35-129) units/L Albumin 3.1 L (3.9-5) g/dL
[2021-07-21] MEDS: traZODone 50 MG TAB PO SCH (21:13)
[2021-07-22] MEDS: D5W/0.9% NACL 1,000 ML IV SCH ×2 (04:57→22:00)
[2021-07-22 09:05] LABS: Albumin 3.1 g/dL (3.9-5); Blood Urea Nitrogen 3 mg/dL (7-17); Calcium 8.5 mg/dL (8.4-10.2); Hemolysis Index 3
[2021-07-22 09:12] LABS: BUN/Creatinine Ratio 6
[2021-07-22 09:19] LABS: Alanine Aminotransferase 1042 units/L (7-56)
[2021-07-22] MEDS: HEPARIN 5,000 UNIT/1 ML VIAL SUB-Q SCH ×2 (09:22→21:58)
[2021-07-22] MEDS: cefTRIAXone/NS 1 GM/50 ML 1 GM/50 ML BAG IV SCH (09:22)
[2021-07-22] MEDS: DULoxetine 30 MG CAP PO SCH ×2 (09:23→21:58)
[2021-07-22] MEDS: MULTIVITAMINS ,THERAPEUTIC TAB PO SCH (09:23)
--- NOTE | 2021-07-22 10:10 | Gastroenterology Progress Note ---
Assessment and Plan - Patient Problems (1) Transaminitis Current Visit: Yes Status: Acute Plan to address problem: - Hepatitis A/B IgM positive, and it may be she has contracted both (which is usually much more severe if joint infection). Also possible is thyroid storm and she is newly on methimazole. - However, her surface antigen for B is now negative, and her LFTs are already improving x 48 hours. Imaging shows a normal appearance to the liver. - At present, I would minimize hepatotoxic drugs, aggressively hydrate, and start nutritional therapy with MVI. - Since her liver enzymes are improving, and she has (+) Ab, negative sAG, she would not be considered an infectious risk in a psychiatric facility; OK to transition to Psych facility from our standpoint (if necessary). We will follow up the viral loads in clinic; no therapy needed at present. Subjective Date of service: 07/22/21 Principal diagnosis: Hepatitis Interval history: The patient is tearful rather than aggressive today, and much calmer. She denies abdominal pain, and nursing reports she is starting to take her PO diet. She has not refused pills. Still voicing suicidal ideation to Psych. Objective - Constitutional Vitals: Temp Pulse Resp BP Pulse Ox 97.8 F 77 18 114/62 95 07/22/21 08:20 07/22/21 08:20 07/22/21 08:20 07/22/21 08:20 07/22/21 08:20 General appearance: mild distress - EENT Eyes: PERRL, EOM intact - Respiratory Respiratory effort: normal Respiratory: bilateral: CTA - Cardiovascular Rhythm: regular Heart Sounds: Present: S1 & S2 - Gastrointestinal General gastrointestinal: Present: soft, non-tender, non-distended - Psychiatric Psychiatric: cooperative, depressed - Labs CBC & Chem 7: 07/21/21 04:50 07/22/21 07:45 Labs: Laboratory Results - last 24 hr 07/21/21 07/22/21 Unknown 07:45 Sodium 139 Potassium 3.8 Chloride 104.1 Carbon Dioxide 25 Anion Gap 14 BUN 3 L Creatinine 0.5 L Estimated GFR > 60 BUN/Creatinine Ratio 6 Glucose 86 Calcium 8.5 Total Bilirubin 1.50 H AST 622 H ALT 1042 H Alkaline Phosphatase 332 H Total Protein 7.9 Albumin 3.1 L Albumin/Globulin Ratio 0.6 Nasal Screen MRSA (PCR) Negative
[2021-07-22] MEDS: MORPHINE 2 MG/1 ML INJ IV PRN (10:58)
--- NOTE | 2021-07-22 14:14 | Consultation ---
History of Present Illness - Reason for Consult Consult date: 07/22/21 Hepatitis A and B Requesting physician: ZAKIYA KING - History of Present Illness The patient is a 50-year-old female with homelessness, psychiatric disorder was admitted with suicidal intention. Labs revealed very high LFTs, urinary tox screen was negative, serologies revealed positive hepatitis A IgM, hepatitis core IgM antibody. Hepatitis B surface antigen: Nonreactive. Patient is a poor historian, sitter is at bedside Review of Systems: Negative except as in HPI Past History Past Medical History: other (Thyroid disease, likely psychiatric disorder) Past Surgical History: No surgical history Social history: other (Homeless). denies: smoking, alcohol abuse Family history: other (No family hx hepatitis/cirrhosis) Medications and Allergies Allergies Allergy/AdvReac Type Severity Reaction Status Date / Time No Known Allergies Allergy Unverified 07/19/21 10:37 Home Medications Medication Instructions Recorded Confirmed Last Taken Type No Known Home Medications [No 07/19/21 07/19/21 Unknown History Reported Home Medications] Active Meds: Active Medications Acetaminophen (Acetaminophen 325 Mg Tab) 650 mg PO Q6H PRN PRN Reason: Pain MILD(1-3)/Fever >100.5/PANDYA Duloxetine HCl (Duloxetine 30 Mg Cap) 30 mg PO BID [facility] Last Admin: 07/22/21 09:23 Dose: 30 mg Documented by: Heparin Sodium (Porcine) (Heparin 5,000 Unit/1 Ml Vial) 5,000 unit SUB-Q Q12HR CASEY Last Admin: 07/22/21 09:22 Dose: 5,000 unit Documented by: Hydromorphone HCl (Hydromorphone 1 Mg/1 Ml Inj) 0.5 mg IV Q3H PRN PRN Reason: Pain , Severe (7-10) Dextrose/Sodium Chloride (D5ns) 1,000 mls @ 75 mls/hr IV DIRECT CASEY Last Admin: 07/22/21 04:57 Dose: 75 mls/hr Documented by: Lorazepam (Lorazepam 2 Mg/Ml Vial) 2 mg IM Q4HR PRN PRN Reason: Agitation Morphine Sulfate (Morphine 2 Mg/1 Ml Inj) 2 mg IV Q4H PRN PRN Reason: Pain, Moderate (4-6) Last Admin: 07/22/21 10:58 Dose: 2 mg Documented by: Multivitamins (Multivitamins ,Therapeutic Tab) 1 each PO QDAY [facility] Last Admin: 07/22/21 09:23 Dose: 1 each Documented by: Ondansetron HCl (Ondansetron 4 Mg Odt Tab) 4 mg PO Q6HR PRN PRN Reason: Nausea Ondansetron HCl (Ondansetron 4 Mg/2 Ml Inj) 4 mg IV Q8H PRN PRN Reason: Nausea And Vomiting Sodium Chloride (Sodium Chloride 0.9% 10 Ml Flush Syringe) 10 ml IV BID [facility] Last Admin: 07/22/21 09:24 Dose: 10 ml Documented by: Sodium Chloride (Sodium Chloride 0.9% 10 Ml Flush Syringe) 10 ml IV PRN PRN PRN Reason: LINE FLUSH Trazodone HCl (Trazodone 50 Mg Tab) 50 mg PO QHS [facility] Last Admin: 07/21/21 21:13 Dose: 50 mg Documented by: Physical Examination - Physical Exam Narrative exam: Physical Exam: Constitutional: Awake Head, Ears, Nose: Normocephalic, atraumatic. External ears, nose normal Eyes: Conjunctivae/corneas clear. No icterus. No ptosis. Neck: Supple, no meningeal signs Oral: No thrush Cardiovascular: S1, S2 + Respiratory: Good air entry, clear to auscultation bilaterally GI: Soft, non-tender; bowel sounds normal. No peritoneal signs Musculoskeletal: No pedal edema, no cyanosis. Skin: No rash or abscess Hem/Lymphatic: No palpable cervical or supraclavicular nodes. No lymphangitis Psych: No agitation Neurological: Awake, alert, does not answer any relevant questions - Constitutional Vitals: Vital Signs Temp Pulse Resp BP Pulse Ox 98.7 F 67 18 126/82 96 07/22/21 10:40 07/22/21 10:40 07/22/21 11:00 07/22/21 10:40 07/22/21 11:00 Temperature -Last 24 Hours Temperature 98.7 F Temperature 97.8 F Temperature 98.5 F Temperature 97.6 F Temperature 98.3 F Temperature 97.9 F Results - Labs CBC & Chem 7: 07/21/21 04:50 07/22/21 07:45 Labs: Abnormal lab results 07/22/21 Range/Units 07:45 BUN 3 L (7-17) mg/dL Creatinine 0.5 L (0.6-1.2) mg/dL Total Bilirubin 1.50 H (0.1-1.2) mg/dL AST 622 H (5-40) units/L ALT 1042 H (7-56) units/L Alkaline Phosphatase 332 H (35-129) units/L Albumin 3.1 L (3.9-5) g/dL Assessment and Plan Cultures: 07/19/2021 urine culture: Skin keny 07/20/2021 blood culture: No growth A/P: 50-year-old female with homelessness, psychiatric disorder was admitted with suicidal intention: #Elevated transaminases with serologies positive for hepatitis A IgM, hepatitis core IgM, concerning for acute hepatitis A and hepatitis B. GI already evaluated. Synthetic liver function is intact, no role for any antivirals at this time. Hep C negative. #Leucopenia #Suicidal ideation Recs: -Supportive care -No antivirals at this time -Will need outpatient follow-up with repeat hepatitis B serologies to assess possibility of chronic hepatitis B -HIV ordered, unable to obtain any consent from the patient, however in the context of her current medical condition, it is an important diagnosis to be ruled out. Order placed -UA contaminated, Ceftriaxone discontinued -Notified infection control about reporting Hepatitis A it to KELIN Walsh MD, FACP [facility] ([facility] O: [phone] F: [phone]
--- NOTE | 2021-07-22 16:08 | Progress Note ---
Assessment and Plan (1) Acute hepatitis A Current Visit: Yes Status: Acute Plan to address problem: Patient is acute hepatitis A Possible fecal contamination IgM is high Transaminitis severe GI consult requested ID consult requested IV fluids in the meantime (2) Acute hepatitis B Current Visit: Yes Status: Acute Plan to address problem: IgM antibodies positive indicating acute infection IV drug status not known ID consult and GI consult Supportive care IV fluids (3) Suicidal ideation Current Visit: Yes Status: Acute Plan to address problem: Mental health consulted (4) Malnutrition Current Visit: Yes Status: Chronic Qualifiers: Protein-calorie malnutrition severity: mild Plan to address problem: Dietary supplements initiated (5) DVT prophylaxis Current Visit: Yes Status: Acute Plan to address problem: Heparin and GI prophylaxis Daily clinical course: 07/21/21; - Hepatitis A/B IgM positive, However, her surface antigen for B is now negative, LFTs improving. Imaging shows a normal appearance to the liver. cont aggressively hydration, and start nutritional therapy with [facility]. Psych following - need inpt psych placement 07/22/21: LFT trending down, wait for inpt psych placement. supportive care, sitter in place Subjective Date of service: 07/22/21 Principal diagnosis: Hepatitis Interval history: Patient seen and examined. Medical records and medication list reviewed. No acute event overnight noted by the RN. Patient denies any chest pain or difficulty breathing. Patient is tolerating diet. Patient still suicidal Discussed plan of care at bedside with patient. Objective - Exam Narrative Exam: GENERAL: well-developed and well-nourished AAF lying on bed appeared to be in no discomfort. HEENT: Normocephalic. Atraumatic. No conjunctival congestion or icterus. Patient has moist mucous membranes. NECK: Supple. Trachea midline. CHEST/LUNGS: Clear to auscultated bilaterally, breathing nonlabored. No wheezes crackles or rhonchi. HEART/CARDIOVASCULAR: Regular in rate and rhythm. S1 and S2 positive. ABDOMEN: Abdomen is soft, nontender. Patient has normal bowel sounds. SKIN: There is no rash. Warm and dry. NEURO: No focal motor deficit. Follows command. MUSCULOSKELETAL: No joint effusion or tenderness. EXTRIMITY: No edema, no cyanosis or clubbing. PSYCH: Cooperative but with disorganized thought. - Constitutional Vitals: Vital Signs - 12hr 07/22/21 07/22/21 07/22/21 05:22 08:20 10:40 Temperature 98.5 F 97.8 F 98.7 F Pulse Rate 62 77 67 Respiratory 18 18 20 Rate Blood Pressure 113/72 114/62 126/82 Blood Pressure [Left] O2 Sat by Pulse 95 95 98 Oximetry 07/22/21 07/22/21 11:00 12:30 Temperature 98.6 F Pulse Rate 74 Respiratory 18 18 Rate Blood Pressure Blood Pressure 118/72 [Left] O2 Sat by Pulse 96 98 Oximetry - Labs CBC & Chem 7: 07/21/21 04:50 07/22/21 07:45 Labs: Abnormal lab results 07/22/21 Range/Units 07:45 BUN 3 L (7-17) mg/dL Creatinine 0.5 L (0.6-1.2) mg/dL Total Bilirubin 1.50 H (0.1-1.2) mg/dL AST 622 H (5-40) units/L ALT 1042 H (7-56) units/L Alkaline Phosphatase 332 H (35-129) units/L Albumin 3.1 L (3.9-5) g/dL
[2021-07-22] MEDS: traZODone 50 MG TAB PO SCH (21:58)
[2021-07-23] MEDS ORDERED: diphenhydrAMINE 25 MG CAP PO ONE (07:30)
[2021-07-23] MEDS: HEPARIN 5,000 UNIT/1 ML VIAL SUB-Q SCH ×2 (10:28→21:23)
[2021-07-23] MEDS: DULoxetine 30 MG CAP PO SCH ×2 (10:28→21:23)
[2021-07-23] MEDS: MULTIVITAMINS ,THERAPEUTIC TAB PO SCH (10:29)
--- NOTE | 2021-07-23 12:48 | Progress Note ---
Assessment and Plan Cultures: 07/19/2021 urine culture: Skin keny 07/20/2021 blood culture: No growth A/P: 50-year-old female with homelessness, psychiatric disorder was admitted with suicidal intention: #Elevated transaminases with serologies positive for hepatitis A IgM, hepatitis core IgM, concerning for acute hepatitis A and hepatitis B. GI already evaluated. Synthetic liver function is intact, no role for any antivirals at this time. Hep C negative. #Leucopenia #Suicidal ideation Recs: -Supportive care -No antivirals at this time -Will need outpatient follow-up with repeat hepatitis B serologies to assess possibility of chronic hepatitis B -HIV ordered, unable to obtain any consent from the patient, however in the context of her current medical condition, it is an important diagnosis to be ruled out. Order placed -UA contaminated, Ceftriaxone discontinued -Notified infection control about reporting Hepatitis A it to [facility] Lexi Gore MD [facility] O: [phone] F: [phone] Subjective Date of service: 07/23/21 Principal diagnosis: Hepatitis Interval history: Afebrile, white count low at 2.8. Liver enzymes improving. Objective - Exam Narrative Exam: Physical Exam: Constitutional: Awake Head, Ears, Nose: Normocephalic, atraumatic. External ears, nose normal Eyes: Conjunctivae/corneas clear. No icterus. No ptosis. Neck: Supple, no meningeal signs Oral: No thrush Cardiovascular: S1, S2 + Respiratory: Good air entry, clear to auscultation bilaterally GI: Soft, non-tender; bowel sounds normal. No peritoneal signs Musculoskeletal: No pedal edema, no cyanosis. Skin: No rash or abscess Hem/Lymphatic: No palpable cervical or supraclavicular nodes. Psych: No agitation Neurological: Awake, alert, does not answer any relevant questions - Constitutional Vitals: Vital Signs Temp Pulse Resp BP Pulse Ox 98.6 F 69 18 121/79 96 07/23/21 03:59 07/23/21 03:59 07/23/21 03:59 07/23/21 03:59 07/23/21 03:59 Temperature -Last 24 Hours Temperature 98.6 F Temperature 97.9 F Temperature 97.5 F - Labs CBC & Chem 7: 07/21/21 04:50 07/22/21 07:45
--- NOTE | 2021-07-23 18:08 | Progress Note ---
Assessment and Plan Assessment and plan: 50-year-old -[place] female with chronic pain and homelessness comes in to the ER expressing intention to . Patient has no concrete plan. Not homicidal. Patient was in the holding area and the labs came very abnormal with high transaminases and positive hepatitis A panel B panel no IV drug use as per the patient patient is a very poor historian. No fever or chills. (1) Acute hepatitis A Current Visit: Yes Status: Acute Plan to address problem: Patient is acute hepatitis A Possible fecal contamination IgM is high Transaminitis severe but improving GI consulted, liver appears normal on imaging ID consult requested IV fluids in the meantime (2) Acute hepatitis B Current Visit: Yes Status: Acute Plan to address problem: IgM antibodies positive indicating acute infection Surface antibody negative, likely not contagious IV drug status not known ID consult and GI consult Supportive care IV fluids and multivitamins (3) Suicidal ideation Current Visit: Yes Status: Acute Plan to address problem: Patient says that if she is suicidal because she is homeless but homelessness is chronic mental health consulted and following (4) Malnutrition Current Visit: Yes Status: Chronic Qualifiers: Protein-calorie malnutrition severity: mild Plan to address problem: Dietary supplements initiated (5) chronic homelessness Case management consulted DVT prophylaxis Current Visit: Yes Status: Acute Plan to address problem: Heparin and GI prophylaxis Daily clinical course: 07/21/21; - Hepatitis A/B IgM positive, However, her surface antigen for B is now negative, LFTs improving. Imaging shows a normal appearance to the liver. cont aggressively hydration, and start nutritional therapy with [facility]. Psych following - need inpt psych placement 07/22/21: LFT trending down, wait for inpt psych placement. supportive care, sitter in place 07/23/2021: Patient states that she is still suicidal since homeless. However she is calm. LFTs improving. Normal liver on imaging. GI and infectious disease services recommended supportive care for acute hepatitis A/B. Hepatitis B likely not contagious since surface antigen negative. Psych is following. She is to be transferred to psych facility. Discussed with the senior case manager and nursing staff. History Interval history: Patient is alert and oriented with her history. Afebrile. Vital signs stable. Patient states that she is still suicidal since she is homeless though homelessness is chronic. Patient denies abdominal pains, nausea, vomiting or diarrhea. Sitter is in the room. No agitation or aggressive behavior. She is calm. Hospitalist Physical - Constitutional Vitals: Temp Pulse Resp BP Pulse Ox 98.2 F 70 18 128/83 98 07/23/21 17:06 07/23/21 17:06 07/23/21 17:06 07/23/21 17:06 07/23/21 17:06 General appearance: Present: no acute distress - EENT Eyes: Present: PERRL, EOM intact ENT: clear oral mucosa - Neck Neck: Present: supple - Respiratory Respiratory effort: normal Respiratory: bilateral: CTA - Cardiovascular Rhythm: regular - Extremities Extremities: No edema - Abdominal General gastrointestinal: soft, non-tender, non-distended, normal bowel sounds - Integumentary Integumentary: Absent: rash - Psychiatric Psychiatric: other (Anxious but currently calm, remains suicidal) - Neurologic Neurologic: no focal deficits Results - Labs CBC & Chem 7: 07/21/21 04:50 07/22/21 07:45 Labs: Laboratory Last Values WBC 2.8 K/mm3 (4.5-11.0) L 07/21/21 04:50 RBC 3.97 M/mm3 (3.65-5.03) 07/21/21 04:50 Hgb 12.5 gm/dl (10.1-14.3) 07/21/21 04:50 Hct 37.5 % (30.3-42.9) 07/21/21 04:50 MCV 94 fl (79-97) 07/21/21 04:50 MCH 32 pg (28-32) 07/21/21 04:50 MCHC 33 % (30-34) 07/21/21 04:50 RDW 14.3 % (13.2-15.2) 07/21/21 04:50 Plt Count 174 K/mm3 (140-440) 07/21/21 04:50 Lymph % (Auto) 41.7 % (13.4-35.0) H 07/21/21 04:50 [place] % (Auto) 8.5 % (0.0-7.3) H 07/21/21 04:50 Eos % (Auto) 0.1 % (0.0-4.3) 07/21/21 04:50 Baso % (Auto) 0.5 % (0.0-1.8) 07/21/21 04:50 Lymph # (Auto) 1.2 K/mm3 (1.2-5.4) 07/21/21 04:50 [place] # (Auto) 0.2 K/mm3 (0.0-0.8) 07/21/21 04:50 Eos # (Auto) 0.0 K/mm3 (0.0-0.4) 07/21/21 04:50 Baso # (Auto) 0.0 K/mm3 (0.0-0.1) 07/21/21 04:50 Add Manual Diff Complete 07/21/21 04:50 Total Counted 100 07/19/21 09:52 Seg Neutrophils % 49.2 % (40.0-70.0) 07/21/21 04:50 Seg Neuts % (Manual) 56.0 % (40.0-70.0) 07/19/21 09:52 Band Neutrophils % 3.0 % 07/19/21 09:52 Lymphocytes % (Manual) 31.0 % (13.4-35.0) 07/19/21 09:52 Reactive Lymphs % (Man) 6.0 % 07/19/21 09:52 Monocytes % (Manual) 1.0 % (0.0-7.3) 07/19/21 09:52 Basophils % (Manual) 1.0 % (0.0-1.8) 07/19/21 09:52 Metamyelocytes % 1.0 % 07/19/21 09:52 Myelocytes % 1.0 % 07/19/21 09:52 Nucleated RBC % Not Reportable 07/21/21 04:50 Seg Neutrophils # 1.4 K/mm3 (1.8-7.7) L 07/21/21 04:50 Seg Neutrophils # Man 1.9 K/mm3 (1.8-7.7) 07/19/21 09:52 Band Neutrophils # 0.1 K/mm3 07/19/21 09:52 Lymphocytes # (Manual) 1.1 K/mm3 (1.2-5.4) L 07/19/21 09:52 Abs React Lymphs (Man) 0.2 K/mm3 07/19/21 09:52 Monocytes # (Manual) 0.0 K/mm3 (0.0-0.8) 07/19/21 09:52 Eosinophils # (Manual) 0.0 K/mm3 (0.0-0.4) 07/19/21 09:52 Basophils # (Manual) 0.0 K/mm3 (0.0-0.1) 07/19/21 09:52 Metamyelocytes # 0.0 K/mm3 07/19/21 09:52 Myelocytes # 0.0 K/mm3 07/19/21 09:52 Promyelocytes # 0.0 K/mm3 07/19/21 09:52 Blast Cells # 0.0 K/mm3 07/19/21 09:52 WBC Morphology Not Reportable 07/21/21 04:50 Hypersegmented Neuts Not Reportable 07/21/21 04:50 Hyposegmented Neuts Not Reportable 07/21/21 04:50 Hypogranular Neuts Not Reportable 07/21/21 04:50 Smudge Cells Not Reportable 07/21/21 04:50 Toxic Granulation Not Reportable 07/21/21 04:50 Toxic Vacuolation Not Reportable 07/21/21 04:50 Dohle Bodies Not Reportable 07/21/21 04:50 Pelger-Huet Anomaly Not Reportable 07/21/21 04:50 Pricila Rods Not Reportable 07/21/21 04:50 Platelet Estimate Not Reportable 07/21/21 04:50 Clumped Platelets Not Reportable 07/21/21 04:50 Plt Clumps, EDTA Not Reportable 07/21/21 04:50 Large Platelets Not Reportable 07/21/21 04:50 Giant Platelets Not Reportable 07/21/21 04:50 Platelet Satelliting Not Reportable 07/21/21 04:50 Plt Morphology Comment Not Reportable 07/21/21 04:50 RBC Morphology Not Reportable 07/21/21 04:50 Dimorphic RBCs Not Reportable 07/21/21 04:50 Polychromasia Not Reportable 07/21/21 04:50 Hypochromasia Not Reportable 07/21/21 04:50 Poikilocytosis Not Reportable 07/21/21 04:50 Anisocytosis Not Reportable 07/21/21 04:50 Microcytosis Not Reportable 07/21/21 04:50 Macrocytosis Not Reportable 07/21/21 04:50 Spherocytes Not Reportable 07/21/21 04:50 Pappenheimer Bodies Not Reportable 07/21/21 04:50 Sickle Cells Not Reportable 07/21/21 04:50 Target Cells Not Reportable 07/21/21 04:50 Tear Drop Cells Not Reportable 07/21/21 04:50 Ovalocytes Not Reportable 07/21/21 04:50 Helmet Cells Not Reportable 07/21/21 04:50 Fletcher-Wolverine Bodies Not Reportable 07/21/21 04:50 Hayes Rings Not Reportable 07/21/21 04:50 Armani Cells Not Reportable 07/21/21 04:50 Bite Cells Not Reportable 07/21/21 04:50 Crenated Cell Not Reportable 07/21/21 04:50 Elliptocytes Not Reportable 07/21/21 04:50 Acanthocytes (Spur) Not Reportable 07/21/21 04:50 Rouleaux Not Reportable 07/21/21 04:50 Hemoglobin C Crystals Not Reportable 07/21/21 04:50 Schistocytes Not Reportable 07/21/21 04:50 Malaria parasites Not Reportable 07/21/21 04:50 Cody Bodies Not Reportable 07/21/21 04:50 Hem Pathologist Commnt Not Reportable 07/21/21 04:50 Sodium 139 mmol/L (137-145) 07/22/21 07:45 Potassium 3.8 mmol/L (3.6-5.0) 07/22/21 07:45 Chloride 104.1 mmol/L (98-107) 07/22/21 07:45 Carbon Dioxide 25 mmol/L (22-30) 07/22/21 07:45 Anion Gap 14 mmol/L 07/22/21 07:45 BUN 3 mg/dL (7-17) L 07/22/21 07:45 Creatinine 0.5 mg/dL (0.6-1.2) L 07/22/21 07:45 Estimated GFR > 60 ml/min 07/22/21 07:45 BUN/Creatinine Ratio 6 % 07/22/21 07:45 Glucose 86 mg/dL (65-100) 07/22/21 07:45 Lactic Acid 1.00 mmol/L (0.7-2.0) 07/20/21 11:20 Calcium 8.5 mg/dL (8.4-10.2) 07/22/21 07:45 Magnesium 2.20 mg/dL (1.7-2.3) 07/20/21 11:20 Total Bilirubin 1.50 mg/dL (0.1-1.2) H 07/22/21 07:45 Direct Bilirubin 1.2 mg/dL (0-0.2) H 07/20/21 11:20 Indirect Bilirubin 0.1 mg/dL 07/20/21 11:20 AST 622 units/L (5-40) H 07/22/21 07:45 ALT 1042 units/L (7-56) H 07/22/21 07:45 Alkaline Phosphatase 332 units/L (35-129) H 07/22/21 07:45 Ammonia 60.0 umol/L (25-60) 07/20/21 11:20 Total Creatine Kinase 23 units/L (30-135) L 07/20/21 11:20 Total Protein 7.9 g/dL (6.3-8.2) 07/22/21 07:45 Albumin 3.1 g/dL (3.9-5) L 07/22/21 07:45 Albumin/Globulin Ratio 0.6 % 07/22/21 07:45 TSH 0.116 mlU/mL (0.270-4.200) L 07/20/21 11:20 Free T4 1.10 ng/dL (0.76-1.46) 07/20/21 11:20 Urine Color Bailee (Yellow) 07/19/21 Unknown Urine Turbidity Slightly-cloudy (Clear) 07/19/21 Unknown Urine pH 5.0 (5.0-7.0) 07/19/21 Unknown Ur Specific [place] 1.018 (1.003-1.030) 07/19/21 Unknown Urine Protein 30 mg/dl mg/dL (Negative) 07/19/21 Unknown Urine Glucose (UA) Neg mg/dL (Negative) 07/19/21 Unknown Urine Ketones Neg mg/dL (Negative) 07/19/21 Unknown Urine Blood Sm (Negative) 07/19/21 Unknown Urine Nitrite Neg (Negative) 07/19/21 Unknown Urine Bilirubin Neg (Negative) 07/19/21 Unknown Urine Urobilinogen 4.0 mg/dL (<2.0) 07/19/21 Unknown Ur Leukocyte Esterase Neg (Negative) 07/19/21 Unknown Urine WBC (Auto) 46.0 /HPF (0.0-6.0) H 07/19/21 Unknown Urine RBC (Auto) 7.0 /HPF (0.0-6.0) 07/19/21 Unknown U Epithel Cells (Auto) 13.0 /HPF (0-13.0) 07/19/21 Unknown Urine Bacteria (Auto) 1+ /HPF (Negative) 07/19/21 Unknown Urine Mucus 3+ /HPF 07/19/21 Unknown Nasal Screen MRSA (PCR) Negative (Negative) 07/21/21 Unknown Salicylates < 0.3 mg/dL (2.8-20.0) L 07/20/21 11:20 Urine Opiates Screen Negative 07/19/21 Unknown Urine Methadone Screen Negative 07/19/21 Unknown Acetaminophen 5.0 ug/mL (10.0-30.0) L 07/20/21 11:20 Ur Barbiturates Screen Negative 07/19/21 Unknown Ur Phencyclidine Scrn Negative 07/19/21 Unknown Ur Amphetamines Screen Negative 07/19/21 Unknown U Benzodiazepines Scrn Negative 07/19/21 Unknown Urine Cocaine Screen Negative 07/19/21 Unknown U Marijuana (THC) Screen Negative 07/19/21 Unknown Drugs of Abuse Note Disclamer 07/19/21 Unknown Plasma/Serum Alcohol < 0.01 % (0-0.07) 07/19/21 09:52 Coronavirus (PCR) Negative (Negative) 07/20/21 08:39 Hepatitis A IgM Ab Reactive (NonReactive) A 07/20/21 11:20 Hep Bs Antigen Nonreactive (Negative) 07/20/21 11:20 Hep B Core IgM Ab Reactive (NonReactive) A 07/20/21 11:20 Hepatitis C Antibody Non-reactive (NonReactive) 07/20/21 11:20 HIV 1&2 Antibody Rapid Reactive (Non React) 07/23/21 08:27 HIV P24 Antigen Non react (Non React) 07/23/21 08:27 Microbiology: Microbiology 07/20/21 16:50 Peripheral/Venous Blood Culture - Preliminary NO GROWTH AFTER 72 HOURS 07/20/21 16:50 Peripheral/Venous Blood Culture - Preliminary NO GROWTH AFTER 72 HOURS Pierre/IV: Voiding Method Toilet Active Medications - Current Medications Current Medications: Generic Name Dose Route Start Last Admin Trade Name Freq PRN Reason Stop Dose Admin Acetaminophen 650 mg 07/21/21 10:09 Acetaminophen 325 Mg Tab PO Q6H PRN Pain MILD(1-3)/Fever >100.5/PANDYA Duloxetine HCl 30 mg 07/20/21 22:00 07/23/21 10:28 Duloxetine 30 Mg Cap PO 30 mg BID CASEY Administration Heparin Sodium (Porcine) 5,000 unit 07/20/21 23:15 07/23/21 10:28 Heparin 5,000 Unit/1 Ml Vial SUB-Q 5,000 unit Q12HR CASEY Administration Dextrose/Sodium Chloride 1,000 mls @ 75 mls/hr 07/20/21 23:45 07/22/21 22:00 D5ns IV 75 mls/hr DIRECT CASEY Administration Lorazepam 2 mg 07/20/21 10:59 Lorazepam 2 Mg/Ml Vial IM Q4HR PRN Agitation Multivitamins 1 each 07/22/21 10:00 07/23/21 10:29 Multivitamins ,Therapeutic Tab PO 1 each QDAY CASEY Administration Ondansetron HCl 4 mg 07/20/21 10:59 Ondansetron 4 Mg Odt Tab PO Q6HR PRN Nausea Ondansetron HCl 4 mg 07/20/21 23:01 Ondansetron 4 Mg/2 Ml Inj IV Q8H PRN Nausea And Vomiting Sodium Chloride 10 ml 07/21/21 10:00 07/23/21 10:29 Sodium Chloride 0.9% 10 Ml Flush Syringe IV 10 ml BID CASEY Administration Sodium Chloride 10 ml 07/20/21 23:01 Sodium Chloride 0.9% 10 Ml Flush Syringe IV PRN PRN LINE FLUSH Trazodone HCl 50 mg 07/21/21 22:00 07/22/21 21:58 Trazodone 50 Mg Tab PO 50 mg QHS CASEY Administration
--- NOTE | 2021-07-23 18:46 | Electrocardiograph Report ---
[facility] Test Date: 2021-07-20 Test Time: 11:21:08 Pat Name: ANDRIY GOMEZ Department: Room: A391 Gender: F Pin Maker: KERLINE : 1970 Requested By: KASSANDRA CLARK Order Number: [id number] Reading MD: Jessy Snell Measurements Intervals [place] Rate: 81 P: 74 [place]: 140 QRS: 53 QRSD: 147 T: 40 QT: 399 QTc: 463 Interpretive Statements Sinus rhythm Right bundle branch block No previous ECG available for comparison Electronically Signed On 07-23-2021 18:45:46 EDT by Jessy Snell
--- NOTE | 2021-07-23 19:17 | Gastroenterology Progress Note ---
Assessment and Plan - Patient Problems (1) Transaminitis Current Visit: Yes Status: Acute Plan to address problem: - Hepatitis A/B IgM positive, and it may be she has contracted both (which is usually much more severe if joint infection). Also possible is thyroid storm and she is newly on methimazole. - However, her surface antigen for B is now negative, and her LFTs are already improving x 48 hours. Imaging shows a normal appearance to the liver. - At present, I would minimize hepatotoxic drugs, aggressively hydrate, and start nutritional therapy with [facility]. - Since her liver enzymes are improving, and she has (+) Ab, negative sAG, she would not be considered an infectious risk in a psychiatric facility; OK to transition to Psych facility from our standpoint (if necessary). We will follow up the viral loads in clinic; no therapy needed at present. - We will sign off; please call if needed. Subjective Date of service: 07/23/21 Principal diagnosis: Hepatitis Interval history: The patient has been tolerating PO intake without N/V/abdominal pain. Her mood continues to be labile with intermittent claims of SI. She has not attempted self-harm. Objective - Constitutional Vitals: Temp Pulse Resp BP Pulse Ox 98.2 F 70 18 128/83 98 07/23/21 17:06 07/23/21 17:06 07/23/21 17:06 07/23/21 17:06 07/23/21 17:06 General appearance: no acute distress - EENT Eyes: PERRL, EOM intact - Respiratory Respiratory effort: normal Respiratory: bilateral: CTA - Cardiovascular Rhythm: regular Heart Sounds: Present: S1 & S2 - Gastrointestinal General gastrointestinal: Present: soft, non-tender, non-distended - Labs CBC & Chem 7: 07/21/21 04:50 07/22/21 07:45 Labs: Laboratory Results - last 24 hr 07/23/21 08:27 HIV 1&2 Antibody Rapid Reactive HIV P24 Antigen Non react
[2021-07-23] MEDS: diphenhydrAMINE 25 MG CAP PO PRN (20:28)
[2021-07-23] MEDS: traZODone 50 MG TAB PO SCH (21:23)
[2021-07-24] MEDS: D5W/0.9% NACL 1,000 ML IV SCH (05:27)
[2021-07-24] MEDS: diphenhydrAMINE 25 MG CAP PO PRN (08:59)
[2021-07-24] MEDS: HEPARIN 5,000 UNIT/1 ML VIAL SUB-Q SCH ×2 (09:00→22:20)
[2021-07-24] MEDS: DULoxetine 30 MG CAP PO SCH ×2 (09:00→22:20)
[2021-07-24] MEDS: MULTIVITAMINS ,THERAPEUTIC TAB PO SCH (09:00)
[2021-07-24 11:20] LABS: Basophils % (Auto) 0.6 % (0.0-1.8); Eosinophils # (Auto) 0.1 K/mm3 (0.0-0.4); Eosinophils % (Auto) 1.3 % (0.0-4.3); Hematocrit 38.4 % (30.3-42.9); Hemoglobin 12.8 gm/dl (10.1-14.3); Lymphocytes # (Auto) 1.5 K/mm3 (1.2-5.4); Lymphocytes % (Auto) 37.6 % (13.4-35.0); Mean Corpuscular HGB Conc 34 % (30-34); Mean Corpuscular Volume 93 fl (79-97); Monocytes # (Auto) 0.4 K/mm3 (0.0-0.8); Monocytes % (Auto) 10.7 % (0.0-7.3); Platelet Count 267 K/mm3 (140-440); Red Blood Count 4.12 M/mm3 (3.65-5.03); Red Cell Distribution Width 14.7 % (13.2-15.2)
[2021-07-24 13:03] LABS: Alanine Aminotransferase 668 units/L (7-56); Albumin 2.9 g/dL (3.9-5); Blood Urea Nitrogen 5 mg/dL (7-17); Calcium 8.9 mg/dL (8.4-10.2); Hemolysis Index 5
[2021-07-24 13:04] LABS: BUN/Creatinine Ratio 13
[2021-07-24 13:07] LABS: Bilirubin,Direct 1.8 mg/dL (0-0.2)
--- NOTE | 2021-07-24 14:25 | Progress Note ---
Assessment and Plan Cultures: 07/19/2021 urine culture: Skin keny 07/20/2021 blood culture: No growth A/P: 50-year-old female with homelessness, psychiatric disorder was admitted with suicidal intention: #Elevated transaminases with serologies positive for hepatitis A IgM, hepatitis core IgM, concerning for acute hepatitis A and hepatitis B. GI already evaluated. Synthetic liver function is intact, no role for any antivirals at this time. Hep C negative. #Leucopenia #Suicidal ideation #HIV: antibody positive. Recs: -Supportive care -No antivirals at this time -Will need outpatient follow-up with repeat hepatitis B serologies to assess possibility of chronic hepatitis B -HIV ordered, unable to obtain any consent from the patient, however in the context of her current medical condition, it is an important diagnosis to be ruled out. Order placed -UA contaminated, Ceftriaxone discontinued -Notified infection control about reporting Hepatitis A it to [facility] -As she is uninsured recommend establishing care with [facility] for free care and medications. As I am uncertain when she will be able to establish care with them for follow up will hold on starting ART. Lexi Gore MD [facility] O: [phone] F: [phone] Subjective Date of service: 07/24/21 Principal diagnosis: Hepatitis Interval history: Afebrile, white count improving now 4. Objective - Exam Narrative Exam: Physical Exam: Constitutional: Awake Head, Ears, Nose: Normocephalic, atraumatic. External ears, nose normal Eyes: Conjunctivae/corneas clear. No icterus. No ptosis. Neck: Supple, no meningeal signs Oral: No thrush Cardiovascular: S1, S2 + Respiratory: Good air entry, clear to auscultation bilaterally GI: Soft, non-tender; bowel sounds normal. No peritoneal signs Musculoskeletal: No pedal edema, no cyanosis. Skin: No rash or abscess Hem/Lymphatic: No palpable cervical or supraclavicular nodes. Psych: No agitation Neurological: Awake, alert, does not answer any relevant questions - Constitutional Vitals: Vital Signs Temp Pulse Resp BP Pulse Ox 99.0 F 72 18 116/86 98 07/24/21 03:54 07/24/21 03:54 07/24/21 03:54 07/24/21 03:54 07/24/21 03:54 Temperature -Last 24 Hours Temperature 99.0 F Temperature 99.0 F Temperature 98.2 F - Labs CBC & Chem 7: 07/24/21 10:46 07/24/21 10:46 Labs: Abnormal lab results 07/24/21 07/24/21 07/24/21 Range/Units 10:46 10:46 10:46 WBC 4.0 L (4.5-11.0) K/mm3 Lymph % (Auto) 37.6 H (13.4-35.0) % [place] % (Auto) 10.7 H (0.0-7.3) % Sodium 136 L (137-145) mmol/L BUN 5 L (7-17) mg/dL Creatinine 0.4 L (0.6-1.2) mg/dL Total Bilirubin 2.10 H 2.10 H (0.1-1.2) mg/dL Direct Bilirubin 1.8 H (0-0.2) mg/dL AST 398 H 392 H (5-40) units/L ALT 676 H 668 H (7-56) units/L Alkaline Phosphatase 556 H 557 H (35-129) units/L Albumin 3.0 L 2.9 L (3.9-5) g/dL
--- NOTE | 2021-07-24 16:04 | Progress Note ---
Assessment and Plan Assessment and plan: 50-year-old -[place] female with chronic pain and homelessness comes in to the ER expressing intention to . Patient has no concrete plan. Not homicidal. Patient was in the holding area and the labs came very abnormal with high transaminases and positive hepatitis A panel B panel no IV drug use as per the patient patient is a very poor historian. No fever or chills. (1) Acute hepatitis A Current Visit: Yes Status: Acute Plan to address problem: Patient is acute hepatitis A Possible fecal contamination IgM is high Transaminitis severe but improving GI consulted, liver appears normal on imaging ID consult requested IV fluids in the meantime (2) Acute hepatitis B Current Visit: Yes Status: Acute Plan to address problem: IgM antibodies positive indicating acute infection Surface antibody negative, likely not contagious IV drug status not known ID consult and GI consult Supportive care IV fluids and multivitamins (3) Suicidal ideation Current Visit: Yes Status: Acute Plan to address problem: Patient says that if she is suicidal because she is homeless but homelessness is chronic mental health consulted and following (4) Malnutrition Current Visit: Yes Status: Chronic Qualifiers: Protein-calorie malnutrition severity: mild Plan to address problem: Dietary supplements initiated (5) chronic homelessness Case management consulted DVT prophylaxis Current Visit: Yes Status: Acute Plan to address problem: Heparin and GI prophylaxis Daily clinical course: 07/21/21; - Hepatitis A/B IgM positive, However, her surface antigen for B is now negative, LFTs improving. Imaging shows a normal appearance to the liver. cont aggressively hydration, and start nutritional therapy with [facility]. Psych following - need inpt psych placement 07/22/21: LFT trending down, wait for inpt psych placement. supportive care, sitter in place 07/23/2021: Patient states that she is still suicidal since homeless. However she is calm. LFTs improving. Normal liver on imaging. GI and infectious disease services recommended supportive care for acute hepatitis A/B. Hepatitis B likely not contagious since surface antigen negative. Psych is following. She is to be transferred to psych facility. Discussed with the rehabilitation caseworker and nursing staff. 07/24/2021: Patient remains afebrile and hemodynamically stable. LFTs improving. Patient remains suicidal. Psychiatry following, needs inpatient psych evaluation. History Interval history: Patient is alert and oriented with her history. Afebrile. Vital signs stable. Patient states that she is still suicidal since she is homeless though homelessness is chronic. Patient denies abdominal pains, nausea, vomiting or diarrhea. Sitter is in the room. No agitation or aggressive behavior. She is calm. Hospitalist Physical - Constitutional Vitals: Temp Pulse Resp BP Pulse Ox 99.0 F 72 18 116/86 98 07/24/21 03:54 07/24/21 03:54 07/24/21 03:54 07/24/21 03:54 07/24/21 03:54 General appearance: Present: no acute distress - EENT Eyes: Present: PERRL, EOM intact ENT: clear oral mucosa - Neck Neck: Present: supple - Respiratory Respiratory effort: normal Respiratory: bilateral: CTA - Cardiovascular Rhythm: regular - Extremities Extremities: No edema - Abdominal General gastrointestinal: soft, non-tender, distended, normal bowel sounds - Integumentary Integumentary: Present: rash - Psychiatric Psychiatric: cooperative, other (Suicidal) - Neurologic Neurologic: no focal deficits Results - Labs CBC & Chem 7: 07/25/21 10:03 07/24/21 10:46 Labs: Laboratory Last Values WBC 4.0 K/mm3 (4.5-11.0) L 07/24/21 10:46 RBC 4.12 M/mm3 (3.65-5.03) 07/24/21 10:46 Hgb 12.8 gm/dl (10.1-14.3) 07/24/21 10:46 Hct 38.4 % (30.3-42.9) 07/24/21 10:46 MCV 93 fl (79-97) 07/24/21 10:46 MCH 31 pg (28-32) 07/24/21 10:46 MCHC 34 % (30-34) 07/24/21 10:46 RDW 14.7 % (13.2-15.2) 07/24/21 10:46 Plt Count 267 K/mm3 (140-440) 07/24/21 10:46 Lymph % (Auto) 37.6 % (13.4-35.0) H 07/24/21 10:46 [place] % (Auto) 10.7 % (0.0-7.3) H 07/24/21 10:46 Eos % (Auto) 1.3 % (0.0-4.3) 07/24/21 10:46 Baso % (Auto) 0.6 % (0.0-1.8) 07/24/21 10:46 Lymph # (Auto) 1.5 K/mm3 (1.2-5.4) 07/24/21 10:46 Jerome # (Auto) 0.4 K/mm3 (0.0-0.8) 07/24/21 10:46 Eos # (Auto) 0.1 K/mm3 (0.0-0.4) 07/24/21 10:46 Baso # (Auto) 0.0 K/mm3 (0.0-0.1) 07/24/21 10:46 Add Manual Diff Complete 07/21/21 04:50 Total Counted 100 07/19/21 09:52 Seg Neutrophils % 49.8 % (40.0-70.0) 07/24/21 10:46 Seg Neuts % (Manual) 56.0 % (40.0-70.0) 07/19/21 09:52 Band Neutrophils % 3.0 % 07/19/21 09:52 Lymphocytes % (Manual) 31.0 % (13.4-35.0) 07/19/21 09:52 Reactive Lymphs % (Man) 6.0 % 07/19/21 09:52 Monocytes % (Manual) 1.0 % (0.0-7.3) 07/19/21 09:52 Basophils % (Manual) 1.0 % (0.0-1.8) 07/19/21 09:52 Metamyelocytes % 1.0 % 07/19/21 09:52 Myelocytes % 1.0 % 07/19/21 09:52 Nucleated RBC % Not Reportable 07/21/21 04:50 Seg Neutrophils # 2.0 K/mm3 (1.8-7.7) 07/24/21 10:46 Seg Neutrophils # Man 1.9 K/mm3 (1.8-7.7) 07/19/21 09:52 Band Neutrophils # 0.1 K/mm3 07/19/21 09:52 Lymphocytes # (Manual) 1.1 K/mm3 (1.2-5.4) L 07/19/21 09:52 Abs React Lymphs (Man) 0.2 K/mm3 07/19/21 09:52 Monocytes # (Manual) 0.0 K/mm3 (0.0-0.8) 07/19/21 09:52 Eosinophils # (Manual) 0.0 K/mm3 (0.0-0.4) 07/19/21 09:52 Basophils # (Manual) 0.0 K/mm3 (0.0-0.1) 07/19/21 09:52 Metamyelocytes # 0.0 K/mm3 07/19/21 09:52 Myelocytes # 0.0 K/mm3 07/19/21 09:52 Promyelocytes # 0.0 K/mm3 07/19/21 09:52 Blast Cells # 0.0 K/mm3 07/19/21 09:52 WBC Morphology Not Reportable 07/21/21 04:50 Hypersegmented Neuts Not Reportable 07/21/21 04:50 Hyposegmented Neuts Not Reportable 07/21/21 04:50 Hypogranular Neuts Not Reportable 07/21/21 04:50 Smudge Cells Not Reportable 07/21/21 04:50 Toxic Granulation Not Reportable 07/21/21 04:50 Toxic Vacuolation Not Reportable 07/21/21 04:50 Dohle Bodies Not Reportable 07/21/21 04:50 Pelger-Huet Anomaly Not Reportable 07/21/21 04:50 Pricila Rods Not Reportable 07/21/21 04:50 Platelet Estimate Not Reportable 07/21/21 04:50 Clumped Platelets Not Reportable 07/21/21 04:50 Plt Clumps, EDTA Not Reportable 07/21/21 04:50 Large Platelets Not Reportable 07/21/21 04:50 Giant Platelets Not Reportable 07/21/21 04:50 Platelet Satelliting Not Reportable 07/21/21 04:50 Plt Morphology Comment Not Reportable 07/21/21 04:50 RBC Morphology Not Reportable 07/21/21 04:50 Dimorphic RBCs Not Reportable 07/21/21 04:50 Polychromasia Not Reportable 07/21/21 04:50 Hypochromasia Not Reportable 07/21/21 04:50 Poikilocytosis Not Reportable 07/21/21 04:50 Anisocytosis Not Reportable 07/21/21 04:50 Microcytosis Not Reportable 07/21/21 04:50 Macrocytosis Not Reportable 07/21/21 04:50 Spherocytes Not Reportable 07/21/21 04:50 Pappenheimer Bodies Not Reportable 07/21/21 04:50 Sickle Cells Not Reportable 07/21/21 04:50 Target Cells Not Reportable 07/21/21 04:50 Tear Drop Cells Not Reportable 07/21/21 04:50 Ovalocytes Not Reportable 07/21/21 04:50 Helmet Cells Not Reportable 07/21/21 04:50 Fletcher-Yah-Ta-Hey Bodies Not Reportable 07/21/21 04:50 Dix Rings Not Reportable 07/21/21 04:50 Armani Cells Not Reportable 07/21/21 04:50 Bite Cells Not Reportable 07/21/21 04:50 Crenated Cell Not Reportable 07/21/21 04:50 Elliptocytes Not Reportable 07/21/21 04:50 Acanthocytes (Spur) Not Reportable 07/21/21 04:50 Rouleaux Not Reportable 07/21/21 04:50 Hemoglobin C Crystals Not Reportable 07/21/21 04:50 Schistocytes Not Reportable 07/21/21 04:50 Malaria parasites Not Reportable 07/21/21 04:50 Cody Bodies Not Reportable 07/21/21 04:50 Hem Pathologist Commnt Not Reportable 07/21/21 04:50 Sodium 136 mmol/L (137-145) L 07/24/21 10:46 Potassium 4.0 mmol/L (3.6-5.0) 07/24/21 10:46 Chloride 101.5 mmol/L (98-107) 07/24/21 10:46 Carbon Dioxide 27 mmol/L (22-30) 07/24/21 10:46 Anion Gap 12 mmol/L 07/24/21 10:46 BUN 5 mg/dL (7-17) L 07/24/21 10:46 Creatinine 0.4 mg/dL (0.6-1.2) L 07/24/21 10:46 Estimated GFR > 60 ml/min 07/24/21 10:46 BUN/Creatinine Ratio 13 % 07/24/21 10:46 Glucose 94 mg/dL (65-100) 07/24/21 10:46 Lactic Acid 1.00 mmol/L (0.7-2.0) 07/20/21 11:20 Calcium 8.9 mg/dL (8.4-10.2) 07/24/21 10:46 Magnesium 2.20 mg/dL (1.7-2.3) 07/20/21 11:20 Total Bilirubin 2.10 mg/dL (0.1-1.2) H 07/24/21 10:46 Total Bilirubin 2.10 mg/dL (0.1-1.2) H 07/24/21 10:46 Direct Bilirubin 1.8 mg/dL (0-0.2) H 07/24/21 10:46 Indirect Bilirubin 0.3 mg/dL 07/24/21 10:46 AST 392 units/L (5-40) H 07/24/21 10:46 AST 398 units/L (5-40) H 07/24/21 10:46 ALT 668 units/L (7-56) H 07/24/21 10:46 ALT 676 units/L (7-56) H 07/24/21 10:46 Alkaline Phosphatase 556 units/L (35-129) H 07/24/21 10:46 Alkaline Phosphatase 557 units/L (35-129) H 07/24/21 10:46 Ammonia 60.0 umol/L (25-60) 07/20/21 11:20 Total Creatine Kinase 23 units/L (30-135) L 07/20/21 11:20 Total Protein 7.7 g/dL (6.3-8.2) 07/24/21 10:46 Total Protein 7.8 g/dL (6.3-8.2) 07/24/21 10:46 Albumin 2.9 g/dL (3.9-5) L 07/24/21 10:46 Albumin 3.0 g/dL (3.9-5) L 07/24/21 10:46 Albumin/Globulin Ratio 0.6 % 07/24/21 10:46 Albumin/Globulin Ratio 0.6 % 07/24/21 10:46 TSH 0.116 mlU/mL (0.270-4.200) L 07/20/21 11:20 Free T4 0.94 ng/dL (0.76-1.46) 07/24/21 10:46 Urine Color Bailee (Yellow) 07/19/21 Unknown Urine Turbidity Slightly-cloudy (Clear) 07/19/21 Unknown Urine pH 5.0 (5.0-7.0) 07/19/21 Unknown Ur Specific [place] 1.018 (1.003-1.030) 07/19/21 Unknown Urine Protein 30 mg/dl mg/dL (Negative) 07/19/21 Unknown Urine Glucose (UA) Neg mg/dL (Negative) 07/19/21 Unknown Urine Ketones Neg mg/dL (Negative) 07/19/21 Unknown Urine Blood Sm (Negative) 07/19/21 Unknown Urine Nitrite Neg (Negative) 07/19/21 Unknown Urine Bilirubin Neg (Negative) 07/19/21 Unknown Urine Urobilinogen 4.0 mg/dL (<2.0) 07/19/21 Unknown Ur Leukocyte Esterase Neg (Negative) 07/19/21 Unknown Urine WBC (Auto) 46.0 /HPF (0.0-6.0) H 07/19/21 Unknown Urine RBC (Auto) 7.0 /HPF (0.0-6.0) 07/19/21 Unknown U Epithel Cells (Auto) 13.0 /HPF (0-13.0) 07/19/21 Unknown Urine Bacteria (Auto) 1+ /HPF (Negative) 07/19/21 Unknown Urine Mucus 3+ /HPF 07/19/21 Unknown Nasal Screen MRSA (PCR) Negative (Negative) 07/21/21 Unknown Salicylates < 0.3 mg/dL (2.8-20.0) L 07/20/21 11:20 Urine Opiates Screen Negative 07/19/21 Unknown Urine Methadone Screen Negative 07/19/21 Unknown Acetaminophen 5.0 ug/mL (10.0-30.0) L 07/20/21 11:20 Ur Barbiturates Screen Negative 07/19/21 Unknown Ur Phencyclidine Scrn Negative 07/19/21 Unknown Ur Amphetamines Screen Negative 07/19/21 Unknown U Benzodiazepines Scrn Negative 07/19/21 Unknown Urine Cocaine Screen Negative 07/19/21 Unknown U Marijuana (THC) Screen Negative 07/19/21 Unknown Drugs of Abuse Note Disclamer 07/19/21 Unknown Plasma/Serum Alcohol < 0.01 % (0-0.07) 07/19/21 09:52 Coronavirus (PCR) Negative (Negative) 07/20/21 08:39 Hepatitis A IgM Ab Reactive (NonReactive) A 07/20/21 11:20 Hep Bs Antigen Nonreactive (Negative) 07/20/21 11:20 Hep B Core IgM Ab Reactive (NonReactive) A 07/20/21 11:20 Hepatitis C Antibody Non-reactive (NonReactive) 07/20/21 11:20 HIV 1&2 Antibody Rapid Reactive (Non React) 07/23/21 08:27 HIV P24 Antigen Non react (Non React) 07/23/21 08:27 Microbiology: Microbiology 07/20/21 16:50 Peripheral/Venous Blood Culture - Preliminary NO GROWTH AFTER 72 HOURS 07/20/21 16:50 Peripheral/Venous Blood Culture - Preliminary NO GROWTH AFTER 72 HOURS Pierre/IV: Voiding Method Toilet Active Medications - Current Medications Current Medications: Generic Name Dose Route Start Last Admin Trade Name Freq PRN Reason Stop Dose Admin Acetaminophen 650 mg 07/21/21 10:09 Acetaminophen 325 Mg Tab PO Q6H PRN Pain MILD(1-3)/Fever >100.5/PANDYA Diphenhydramine HCl 25 mg 07/23/21 19:54 07/24/21 08:59 Diphenhydramine 25 Mg Cap PO 25 mg Q8H PRN Administration Itching Duloxetine HCl 30 mg 07/20/21 22:00 07/24/21 09:00 Duloxetine 30 Mg Cap PO 30 mg BID CASEY Administration Heparin Sodium (Porcine) 5,000 unit 07/20/21 23:15 07/24/21 09:00 Heparin 5,000 Unit/1 Ml Vial SUB-Q 5,000 unit Q12HR CASEY Administration Dextrose/Sodium Chloride 1,000 mls @ 75 mls/hr 07/20/21 23:45 07/24/21 05:27 D5ns IV 75 mls/hr DIRECT CASEY Administration Lorazepam 2 mg 07/20/21 10:59 Lorazepam 2 Mg/Ml Vial IM Q4HR PRN Agitation Multivitamins 1 each 07/22/21 10:00 07/24/21 09:00 Multivitamins ,Therapeutic Tab PO 1 each QDAY CASEY Administration Ondansetron HCl 4 mg 07/20/21 23:01 Ondansetron 4 Mg/2 Ml Inj IV Q8H PRN Nausea And Vomiting Sodium Chloride 10 ml 07/21/21 10:00 07/24/21 09:00 Sodium Chloride 0.9% 10 Ml Flush Syringe IV 10 ml BID CASEY Administration Sodium Chloride 10 ml 07/20/21 23:01 Sodium Chloride 0.9% 10 Ml Flush Syringe IV PRN PRN LINE FLUSH Trazodone HCl 50 mg 07/21/21 22:00 07/23/21 21:23 Trazodone 50 Mg Tab PO 50 mg QHS CASEY Administration
--- NOTE | 2021-07-24 16:31 | Progress Note ---
Subjective - Reason for Consult Consult date: 07/24/21 Reason for consult: suicidal ideation - Chief Complaint Chief complaint: The patient was seen today,she is calm and cooperative. She continues to endorse suicidal ideation stating with no plan, and admits having auditory/visual hallucinations. REVIEW OF SYSTEMS Constitutional: Negative for weight loss ENT: Negative for stridor Respiratory: Negative for cough or hemoptysis All other systems reviewed and are negative MENTAL STATUS EXAMINATION General Appearance and Behavior: Age appropriate, good hygiene, wearing appropriate clothes. calm, cooperative Cooperation: Cooperative Psychomotor Behavior: Psychomotor normal Mood: Depressed Affect and affective range: congruent with stated mood Thought Process: tangential Thought Content: suicidal Speech: normal tone and pace Suicidal Ideation:Yes Homicidal Ideation: Denies Hallucinations: Auditory Delusions: None elicited Impulse Control: Questionable Insight and Judgment: Limited Memory: Limited Attention: attentive Orientation: a/o x 3 Assessment (1)Major depressive disorder Current Visit: Yes Status: Acute Treatment Plan continue 1013 Continue Cymbalta 30 mg PO BID Continue Trazodone 50 mg po QHS Continue previously prescribed medications and follow up with outpatient psychiatry in 7 to 10 days upon discharge. The patient to comply with previously prescribed medications Risks, benefits and alternatives of medications discussed with the patient, q uestions answered and consent obtained from patient. PSYCHOTHERAPY: Supportive psychotherapy provided MEDICAL: Per primary team DELIRIUM PRECAUTIONS: Please re-orient patient frequently, keep lights on during the day, and minimize benzodiazepines and opiates as these medications could worsen patient's confusion. PRODUCTION DESIGNER: Defer to primary DISPOSITION: Recommend acute psychiatric inpatient treatment. The sitter to give the patient resources and safety plan The patient to comply with treatment regimen and abstain from all illicit drug use. FOLLOW-UP: Will follow. Case staffed with Dr. Crain Medications and Allergies Mental Status Exam - Vital signs Last Vital Signs Temp 98.8 F 07/24/21 11:57 Pulse 72 07/24/21 11:57 Resp 20 07/24/21 11:57 BP 137/91 07/24/21 11:57 Pulse Ox 98 07/24/21 11:57
[2021-07-24] MEDS: traZODone 50 MG TAB PO SCH (22:20)
[2021-07-25] MEDS: HEPARIN 5,000 UNIT/1 ML VIAL SUB-Q SCH ×2 (09:59→21:49)
[2021-07-25] MEDS: DULoxetine 30 MG CAP PO SCH ×2 (09:59→21:49)
[2021-07-25] MEDS: MULTIVITAMINS ,THERAPEUTIC TAB PO SCH (09:59)
[2021-07-25 10:27] LABS: Hematocrit 37.5 % (30.3-42.9); Hemoglobin 12.6 gm/dl (10.1-14.3); Mean Corpuscular HGB Conc 34 % (30-34); Mean Corpuscular Volume 93 fl (79-97); Platelet Count 291 K/mm3 (140-440); Red Blood Count 4.05 M/mm3 (3.65-5.03)
[2021-07-25 10:49] LABS: INR 0.87 (0.87-1.13)
--- NOTE | 2021-07-25 14:05 | Progress Note ---
Assessment and Plan Cultures: 07/19/2021 urine culture: Skin keny 07/20/2021 blood culture: No growth A/P: 50-year-old female with homelessness, psychiatric disorder was admitted with suicidal intention: #Elevated transaminases with serologies positive for hepatitis A IgM, hepatitis core IgM, concerning for acute hepatitis A and hepatitis B. GI already evaluated. Synthetic liver function is intact, no role for any antivirals at this time. Hep C negative. #Leucopenia #Suicidal ideation #HIV: antibody positive. Recs: -Supportive care -No antivirals at this time -Will need outpatient follow-up with repeat hepatitis B serologies to assess possibility of chronic hepatitis B -Follow up viral load and CD4 count for baseline. -UA contaminated, Ceftriaxone discontinued -Notified infection control about reporting Hepatitis A it to [facility] -As she is uninsured recommend establishing care with [facility] for free care and medications. As I am uncertain when she will be able to establish care with them for follow up will hold on starting ART. Lexi Gore MD [facility], [place], [facility] ([facility] O: [phone] F: [phone] Subjective Date of service: 07/25/21 Principal diagnosis: Hepatitis Interval history: Afebrile, normal white count. Discussed with her her diagnosis of HIV. She did not seem concerned with the diagnosis, more concerned with where she would go after discharge. Objective - Exam Narrative Exam: Physical Exam: Constitutional: Awake Head, Ears, Nose: Normocephalic, atraumatic. External ears, nose normal Eyes: Conjunctivae/corneas clear. No icterus. No ptosis. Neck: Supple, no meningeal signs Oral: No thrush Cardiovascular: S1, S2 + Respiratory: Good air entry, clear to auscultation bilaterally GI: Soft, non-tender; bowel sounds normal. No peritoneal signs Musculoskeletal: No pedal edema, no cyanosis. Skin: No rash or abscess Hem/Lymphatic: No palpable cervical or supraclavicular nodes. Psych: No agitation Neurological: Awake, alert, does not answer any relevant questions - Constitutional Vitals: Vital Signs Temp Pulse Resp BP Pulse Ox 98.2 F 78 18 110/75 97 07/25/21 04:43 07/25/21 04:43 07/25/21 04:43 07/25/21 04:43 07/25/21 11:11 Temperature -Last 24 Hours Temperature 98.2 F Temperature 99.7 F Temperature 97.9 F - Labs CBC & Chem 7: 07/25/21 10:03 07/24/21 10:46
--- NOTE | 2021-07-25 18:09 | Progress Note ---
Assessment and Plan Assessment and plan: 50-year-old -Tajik female with chronic pain and homelessness comes in to the ER expressing intention to . Patient has no concrete plan. Not homicidal. Patient was in the holding area and the labs came very abnormal with high transaminases and positive hepatitis A panel B panel no IV drug use as per the patient patient is a very poor historian. No fever or chills. (1) Acute hepatitis A Current Visit: Yes Status: Acute Plan to address problem: Patient is acute hepatitis A Possible fecal contamination IgM is high Transaminitis severe but improving GI consulted, liver appears normal on imaging ID consult requested IV fluids in the meantime (2) Acute hepatitis B Current Visit: Yes Status: Acute Plan to address problem: IgM antibodies positive indicating acute infection Surface antibody negative, likely not contagious IV drug status not known ID consult and GI consult Supportive care IV fluids and multivitamins (3) Suicidal ideation Current Visit: Yes Status: Acute Plan to address problem: Patient says that if she is suicidal because she is homeless but homelessness is chronic mental health consulted and following (4) Malnutrition Current Visit: Yes Status: Chronic Qualifiers: Protein-calorie malnutrition severity: mild Plan to address problem: Dietary supplements initiated (5) chronic homelessness Case management consulted DVT prophylaxis Current Visit: Yes Status: Acute Plan to address problem: Heparin and GI prophylaxis Daily clinical course: 07/21/21; - Hepatitis A/B IgM positive, However, her surface antigen for B is now negative, LFTs improving. Imaging shows a normal appearance to the liver. cont aggressively hydration, and start nutritional therapy with [facility]. Psych following - need inpt psych placement 07/22/21: LFT trending down, wait for inpt psych placement. supportive care, sitter in place 07/23/2021: Patient states that she is still suicidal since homeless. However she is calm. LFTs improving. Normal liver on imaging. GI and infectious disease services recommended supportive care for acute hepatitis A/B. Hepatitis B likely not contagious since surface antigen negative. Psych is following. She is to be transferred to psych facility. Discussed with the leather case finisher and nursing staff. 07/24/2021: Patient remains afebrile and hemodynamically stable. LFTs improving. Patient remains suicidal. Psychiatry following, needs inpatient psych evaluation. 07/25/2021: Patient remains afebrile and hemodynamically stable. No fever. Acute viral hepatitis, LFTs progressively improving. No hepatomegaly and abdomen is benign. Patient today states that she is no longer suicidal. Awaiting reassessment by psychiatric with regard [facility] Medically stable for transfer to psych facility if needed. History Interval history: Patient is alert and oriented with her history. Afebrile. Vital signs stable. Patient states that she is no longer suicidal. Patient denies abdominal pains, nausea, vomiting or diarrhea. Sitter is in the room. No agitation or aggr essive behavior. She is calm. Hospitalist Physical - Constitutional Vitals: Temp Pulse Resp BP Pulse Ox 98.2 F 78 18 110/75 97 07/25/21 04:43 07/25/21 04:43 07/25/21 04:43 07/25/21 04:43 07/25/21 11:11 General appearance: Present: no acute distress - EENT Eyes: Present: PERRL ENT: clear oral mucosa - Neck Neck: Present: supple - Respiratory Respiratory effort: normal Respiratory: bilateral: CTA - Cardiovascular Rhythm: regular - Extremities Extremities: No edema - Abdominal General gastrointestinal: soft, non-tender, non-distended, normal bowel sounds - Integumentary Integumentary: Absent: rash - Psychiatric Psychiatric: cooperative, other (Patient reports no longer suicidal) - Neurologic Neurologic: no focal deficits Results - Labs CBC & Chem 7: 07/25/21 10:03 07/24/21 10:46 Labs: Laboratory Last Values WBC 5.3 K/mm3 (4.5-11.0) 07/25/21 10:03 RBC 4.05 M/mm3 (3.65-5.03) 07/25/21 10:03 Hgb 12.6 gm/dl (10.1-14.3) 07/25/21 10:03 Hct 37.5 % (30.3-42.9) 07/25/21 10:03 MCV 93 fl (79-97) 07/25/21 10:03 MCH 31 pg (28-32) 07/25/21 10:03 MCHC 34 % (30-34) 07/25/21 10:03 RDW 15.0 % (13.2-15.2) 07/25/21 10:03 Plt Count 291 K/mm3 (140-440) 07/25/21 10:03 Lymph % (Auto) 37.6 % (13.4-35.0) H 07/24/21 10:46 Florence % (Auto) 10.7 % (0.0-7.3) H 07/24/21 10:46 Eos % (Auto) 1.3 % (0.0-4.3) 07/24/21 10:46 Baso % (Auto) 0.6 % (0.0-1.8) 07/24/21 10:46 Lymph # (Auto) 1.5 K/mm3 (1.2-5.4) 07/24/21 10:46 Florence # (Auto) 0.4 K/mm3 (0.0-0.8) 07/24/21 10:46 Eos # (Auto) 0.1 K/mm3 (0.0-0.4) 07/24/21 10:46 Baso # (Auto) 0.0 K/mm3 (0.0-0.1) 07/24/21 10:46 Add Manual Diff Complete 07/25/21 10:03 Total Counted 100 07/19/21 09:52 Seg Neutrophils % 49.8 % (40.0-70.0) 07/24/21 10:46 Seg Neuts % (Manual) 56.0 % (40.0-70.0) 07/19/21 09:52 Band Neutrophils % 3.0 % 07/19/21 09:52 Lymphocytes % (Manual) 31.0 % (13.4-35.0) 07/19/21 09:52 Reactive Lymphs % (Man) 6.0 % 07/19/21 09:52 Monocytes % (Manual) 1.0 % (0.0-7.3) 07/19/21 09:52 Basophils % (Manual) 1.0 % (0.0-1.8) 07/19/21 09:52 Metamyelocytes % 1.0 % 07/19/21 09:52 Myelocytes % 1.0 % 07/19/21 09:52 Nucleated RBC % Not Reportable 07/25/21 10:03 Seg Neutrophils # 2.0 K/mm3 (1.8-7.7) 07/24/21 10:46 Seg Neutrophils # Man 1.9 K/mm3 (1.8-7.7) 07/19/21 09:52 Band Neutrophils # 0.1 K/mm3 07/19/21 09:52 Lymphocytes # (Manual) 1.1 K/mm3 (1.2-5.4) L 07/19/21 09:52 Abs React Lymphs (Man) 0.2 K/mm3 07/19/21 09:52 Monocytes # (Manual) 0.0 K/mm3 (0.0-0.8) 07/19/21 09:52 Eosinophils # (Manual) 0.0 K/mm3 (0.0-0.4) 07/19/21 09:52 Basophils # (Manual) 0.0 K/mm3 (0.0-0.1) 07/19/21 09:52 Metamyelocytes # 0.0 K/mm3 07/19/21 09:52 Myelocytes # 0.0 K/mm3 07/19/21 09:52 Promyelocytes # 0.0 K/mm3 07/19/21 09:52 Blast Cells # 0.0 K/mm3 07/19/21 09:52 WBC Morphology Not Reportable 07/25/21 10:03 Hypersegmented Neuts Not Reportable 07/25/21 10:03 Hyposegmented Neuts Not Reportable 07/25/21 10:03 Hypogranular Neuts Not Reportable 07/25/21 10:03 Smudge Cells Not Reportable 07/25/21 10:03 Toxic Granulation Not Reportable 07/25/21 10:03 Toxic Vacuolation Not Reportable 07/25/21 10:03 Dohle Bodies Not Reportable 07/25/21 10:03 Pelger-Huet Anomaly Not Reportable 07/25/21 10:03 Pricila Rods Not Reportable 07/25/21 10:03 Platelet Estimate Not Reportable 07/25/21 10:03 Clumped Platelets Not Reportable 07/25/21 10:03 Plt Clumps, EDTA Not Reportable 07/25/21 10:03 Large Platelets Not Reportable 07/25/21 10:03 Giant Platelets Not Reportable 07/25/21 10:03 Platelet Satelliting Not Reportable 07/25/21 10:03 Plt Morphology Comment Not Reportable 07/25/21 10:03 RBC Morphology Not Reportable 07/25/21 10:03 Dimorphic RBCs Not Reportable 07/25/21 10:03 Polychromasia Not Reportable 07/25/21 10:03 Hypochromasia Not Reportable 07/25/21 10:03 Poikilocytosis Not Reportable 07/25/21 10:03 Anisocytosis Not Reportable 07/25/21 10:03 Microcytosis Not Reportable 07/25/21 10:03 Macrocytosis Not Reportable 07/25/21 10:03 Spherocytes Not Reportable 07/25/21 10:03 Pappenheimer Bodies Not Reportable 07/25/21 10:03 Sickle Cells Not Reportable 07/25/21 10:03 Target Cells Not Reportable 07/25/21 10:03 Tear Drop Cells Not Reportable 07/25/21 10:03 Ovalocytes Not Reportable 07/25/21 10:03 Helmet Cells Not Reportable 07/25/21 10:03 [place] Bodies Not Reportable 07/25/21 10:03 Dunbar Rings Not Reportable 07/25/21 10:03 C[place] Cells Not Reportable 07/25/21 10:03 Bite Cells Not Reportable 07/25/21 10:03 Crenated Cell Not Reportable 07/25/21 10:03 Elliptocytes Not Reportable 07/25/21 10:03 Acanthocytes (Spur) Not Reportable 07/25/21 10:03 Rouleaux Not Reportable 07/25/21 10:03 Hemoglobin C Crystals Not Reportable 07/25/21 10:03 Schistocytes Not Reportable 07/25/21 10:03 Malaria parasites Not Reportable 07/25/21 10:03 Cody Bodies Not Reportable 07/25/21 10:03 Hem Pathologist Commnt No 07/25/21 10:03 PT 12.8 Sec. (12.2-14.9) 07/25/21 10:03 INR 0.87 (0.87-1.13) 07/25/21 10:03 Sodium 136 mmol/L (137-145) L 07/24/21 10:46 Potassium 4.0 mmol/L (3.6-5.0) 07/24/21 10:46 Chloride 101.5 mmol/L (98-107) 07/24/21 10:46 Carbon Dioxide 27 mmol/L (22-30) 07/24/21 10:46 Anion Gap 12 mmol/L 07/24/21 10:46 BUN 5 mg/dL (7-17) L 07/24/21 10:46 Creatinine 0.4 mg/dL (0.6-1.2) L 07/24/21 10:46 Estimated GFR > 60 ml/min 07/24/21 10:46 BUN/Creatinine Ratio 13 % 07/24/21 10:46 Glucose 94 mg/dL (65-100) 07/24/21 10:46 Lactic Acid 1.00 mmol/L (0.7-2.0) 07/20/21 11:20 Calcium 8.9 mg/dL (8.4-10.2) 07/24/21 10:46 Magnesium 2.20 mg/dL (1.7-2.3) 07/20/21 11:20 Total Bilirubin 2.10 mg/dL (0.1-1.2) H 07/24/21 10:46 Total Bilirubin 2.10 mg/dL (0.1-1.2) H 07/24/21 10:46 Direct Bilirubin 1.8 mg/dL (0-0.2) H 07/24/21 10:46 Indirect Bilirubin 0.3 mg/dL 07/24/21 10:46 AST 392 units/L (5-40) H 07/24/21 10:46 AST 398 units/L (5-40) H 07/24/21 10:46 ALT 668 units/L (7-56) H 07/24/21 10:46 ALT 676 units/L (7-56) H 07/24/21 10:46 Alkaline Phosphatase 556 units/L (35-129) H 07/24/21 10:46 Alkaline Phosphatase 557 units/L (35-129) H 07/24/21 10:46 Ammonia 60.0 umol/L (25-60) 07/20/21 11:20 Total Creatine Kinase 23 units/L (30-135) L 07/20/21 11:20 Total Protein 7.7 g/dL (6.3-8.2) 07/24/21 10:46 Total Protein 7.8 g/dL (6.3-8.2) 07/24/21 10:46 Albumin 2.9 g/dL (3.9-5) L 07/24/21 10:46 Albumin 3.0 g/dL (3.9-5) L 07/24/21 10:46 Albumin/Globulin Ratio 0.6 % 07/24/21 10:46 Albumin/Globulin Ratio 0.6 % 07/24/21 10:46 TSH 0.116 mlU/mL (0.270-4.200) L 07/20/21 11:20 Free T4 0.94 ng/dL (0.76-1.46) 07/24/21 10:46 Urine Color Bailee (Yellow) 07/19/21 Unknown Urine Turbidity Slightly-cloudy (Clear) 07/19/21 Unknown Urine pH 5.0 (5.0-7.0) 07/19/21 Unknown Ur Specific Lawrence 1.018 (1.003-1.030) 07/19/21 Unknown Urine Protein 30 mg/dl mg/dL (Negative) 07/19/21 Unknown Urine Glucose (UA) Neg mg/dL (Negative) 07/19/21 Unknown Urine Ketones Neg mg/dL (Negative) 07/19/21 Unknown Urine Blood Sm (Negative) 07/19/21 Unknown Urine Nitrite Neg (Negative) 07/19/21 Unknown Urine Bilirubin Neg (Negative) 07/19/21 Unknown Urine Urobilinogen 4.0 mg/dL (<2.0) 07/19/21 Unknown Ur Leukocyte Esterase Neg (Negative) 07/19/21 Unknown Urine WBC (Auto) 46.0 /HPF (0.0-6.0) H 07/19/21 Unknown Urine RBC (Auto) 7.0 /HPF (0.0-6.0) 07/19/21 Unknown U Epithel Cells (Auto) 13.0 /HPF (0-13.0) 07/19/21 Unknown Urine Bacteria (Auto) 1+ /HPF (Negative) 07/19/21 Unknown Urine Mucus 3+ /HPF 07/19/21 Unknown Nasal Screen MRSA (PCR) Negative (Negative) 07/21/21 Unknown Salicylates < 0.3 mg/dL (2.8-20.0) L 07/20/21 11:20 Urine Opiates Screen Negative 07/19/21 Unknown Urine Methadone Screen Negative 07/19/21 Unknown Acetaminophen 5.0 ug/mL (10.0-30.0) L 07/20/21 11:20 Ur Barbiturates Screen Negative 07/19/21 Unknown Ur Phencyclidine Scrn Negative 07/19/21 Unknown Ur Amphetamines Screen Negative 07/19/21 Unknown U Benzodiazepines Scrn Negative 07/19/21 Unknown Urine Cocaine Screen Negative 07/19/21 Unknown U Marijuana (THC) Screen Negative 07/19/21 Unknown Drugs of Abuse Note Disclamer 07/19/21 Unknown Plasma/Serum Alcohol < 0.01 % (0-0.07) 07/19/21 09:52 Coronavirus (PCR) Negative (Negative) 07/20/21 08:39 Hepatitis A IgM Ab Reactive (NonReactive) A 07/20/21 11:20 Hep Bs Antigen Nonreactive (Negative) 07/20/21 11:20 Hep B Core IgM Ab Reactive (NonReactive) A 07/20/21 11:20 Hepatitis C Antibody Non-reactive (NonReactive) 07/20/21 11:20 HIV 1&2 Antibody Rapid Reactive (Non React) 07/23/21 08:27 HIV P24 Antigen Non react (Non React) 07/23/21 08:27 Microbiology: Microbiology 07/20/21 16:50 Peripheral/Venous Blood Culture - Final NO GROWTH AFTER 5 DAYS 07/20/21 16:50 Peripheral/Venous Blood Culture - Final NO GROWTH AFTER 5 DAYS Pierre/IV: Voiding Method Toilet Active Medications - Current Medications Current Medications: Generic Name Dose Route Start Last Admin Trade Name Freq PRN Reason Stop Dose Admin Acetaminophen 650 mg 07/21/21 10:09 Acetaminophen 325 Mg Tab PO Q6H PRN Pain MILD(1-3)/Fever >100.5/PANDYA Diphenhydramine HCl 25 mg 07/23/21 19:54 07/24/21 08:59 Diphenhydramine 25 Mg Cap PO 25 mg Q8H PRN Administration Itching Duloxetine HCl 30 mg 07/20/21 22:00 07/25/21 09:59 Duloxetine 30 Mg Cap PO 30 mg BID CASEY Administration Heparin Sodium (Porcine) 5,000 unit 07/20/21 23:15 07/25/21 09:59 Heparin 5,000 Unit/1 Ml Vial SUB-Q 5,000 unit Q12HR CASEY Administration Dextrose/Sodium Chloride 1,000 mls @ 75 mls/hr 07/20/21 23:45 07/24/21 05:27 D5ns IV 75 mls/hr DIRECT CASEY Administration Lorazepam 2 mg 07/20/21 10:59 Lorazepam 2 Mg/Ml Vial IM Q4HR PRN Agitation Multivitamins 1 each 07/22/21 10:00 07/25/21 09:59 Multivitamins ,Therapeutic Tab PO 1 each QDAY CASEY Administration Ondansetron HCl 4 mg 07/20/21 23:01 Ondansetron 4 Mg/2 Ml Inj IV Q8H PRN Nausea And Vomiting Sodium Chloride 10 ml 07/21/21 10:00 07/25/21 10:05 Sodium Chloride 0.9% 10 Ml Flush Syringe IV 10 ml BID CASEY Administration Sodium Chloride 10 ml 07/20/21 23:01 Sodium Chloride 0.9% 10 Ml Flush Syringe IV PRN PRN LINE FLUSH Trazodone HCl 50 mg 07/21/21 22:00 07/24/21 22:20 Trazodone 50 Mg Tab PO 50 mg QHS CASEY Administration
[2021-07-25] MEDS: traZODone 50 MG TAB PO SCH (21:49)
[2021-07-26] MEDS: MULTIVITAMINS ,THERAPEUTIC TAB PO SCH (09:37)
[2021-07-26] MEDS: DULoxetine 30 MG CAP PO SCH ×2 (09:37→22:33)
[2021-07-26] MEDS: HEPARIN 5,000 UNIT/1 ML VIAL SUB-Q SCH ×2 (09:38→22:00)
--- NOTE | 2021-07-26 11:13 | Progress Note ---
Subjective - Reason for Consult Consult date: 07/26/21 Reason for consult: psychosis - Chief Complaint Chief complaint: The patient was seen today, she is hallucinating and endorses suicidal thoughts with voices telling her to take pills and kill herself. REVIEW OF SYSTEMS Constitutional: Negative for weight loss ENT: Negative for stridor Respiratory: Negative for cough or hemoptysis All other systems reviewed and are negative MENTAL STATUS EXAMINATION General Appearance and Behavior: Age appropriate, good hygiene, wearing appropriate clothes. calm, cooperative Cooperation: Cooperative Psychomotor Behavior: Psychomotor normal Mood: Depressed Affect and affective range: congruent with stated mood Thought Process: tangential Thought Content: suicidal Speech: normal tone and pace Suicidal Ideation:Yes Homicidal Ideation: Denies Hallucinations: Auditory Delusions: None elicited Impulse Control: Questionable Insight and Judgment: Limited Memory: Limited Attention: attentive Orientation: a/o x 3 Assessment (1)Major depressive disorder Current Visit: Yes Status: Acute Treatment Plan continue 1013 Start Abilify 5mg po daily Continue previously prescribed medications and follow up with outpatient psychiatry in 7 to 10 days upon discharge. The patient to comply with previously prescribed medications Risks, benefits and alternatives of medications discussed with the patient, questions answered and consent obtained from patient. PSYCHOTHERAPY: Supportive psychotherapy provided MEDICAL: Per primary team DELIRIUM PRECAUTIONS: Please re-orient patient frequently, keep lights on during the day, and minimize benzodiazepines and opiates as these medications could worsen patient's confusion. HANDS HANGER: Defer to primary DISPOSITION: Recommend acute psychiatric inpatient treatment. The sitter to give the patient resources and safety plan The patient to comply with treatment regimen and abstain from all illicit drug use. FOLLOW-UP: Will follow. Case staffed with Dr. Crain Medications and Allergies Mental Status Exam - Vital signs Last Vital Signs Temp 97.9 F 07/26/21 04:00 Pulse 83 07/26/21 04:00 Resp 18 07/26/21 04:00 BP 113/48 07/26/21 04:00 Pulse Ox 96 07/26/21 04:00
--- NOTE | 2021-07-26 13:28 | Progress Note ---
Assessment and Plan Cultures: 07/19/2021 urine culture: Skin keny 07/20/2021 blood culture: No growth A/P: 50-year-old female with homelessness, psychiatric disorder was admitted with suicidal intention: #Elevated transaminases with serologies positive for hepatitis A IgM, hepatitis core IgM, concerning for acute hepatitis A and hepatitis B. GI already evaluated. Synthetic liver function is intact, no role for any antivirals at this time. Hep C negative. #Leucopenia #Suicidal ideation #HIV: antibody positive. Discussed with patient. Given her current mental state not sure how much of our conversation she retained. Recs: -Supportive care -No antivirals at this time -Will need outpatient follow-up with repeat hepatitis B serologies to assess possibility of chronic hepatitis B -Follow up viral load and CD4 count for baseline. -UA contaminated, Ceftriaxone discontinued -Notified infection control about reporting Hepatitis A it to [facility] -As she is uninsured recommend establishing care with [facility] for free care and medications. As I am uncertain when she will be able to establish care with them for follow up will hold on starting ART. Lexi Gore MD [facility] ([facility] O: [phone] F: [phone] Subjective Date of service: 07/26/21 Principal diagnosis: Hepatitis Interval history: Afebrile, normal whtie count. Objective - Exam Narrative Exam: Physical Exam: Constitutional: Awake Head, Ears, Nose: Normocephalic, atraumatic. External ears, nose normal Eyes: Conjunctivae/corneas clear. No icterus. No ptosis. Neck: Supple, no meningeal signs Oral: No thrush Cardiovascular: S1, S2 + Respiratory: Good air entry, clear to auscultation bilaterally GI: Soft, non-tender; bowel sounds normal. No peritoneal signs Musculoskeletal: No pedal edema, no cyanosis. Skin: No rash or abscess Hem/Lymphatic: No palpable cervical or supraclavicular nodes. Psych: No agitation Neurological: Awake, alert, does not answer any relevant questions - Constitutional Vitals: Vital Signs Temp Pulse Resp BP Pulse Ox 97.9 F 83 18 113/48 96 07/26/21 04:00 07/26/21 04:00 07/26/21 04:00 07/26/21 04:00 07/26/21 04:00 Temperature -Last 24 Hours Temperature 97.9 F Temperature 98.0 F - Labs CBC & Chem 7: 07/25/21 10:03 07/24/21 10:46
[2021-07-26] MEDS: ARIPiprazole 5 MG TAB PO SCH (14:23)
[2021-07-26 21:01] LABS: HIV-1 RNA QN PCR 5.34 Log cps/mL
[2021-07-26] MEDS: traZODone 50 MG TAB PO SCH (22:33)
[2021-07-27] MEDS: ARIPiprazole 5 MG TAB PO SCH (09:11)
[2021-07-27] MEDS: MULTIVITAMINS ,THERAPEUTIC TAB PO SCH (09:11)
[2021-07-27] MEDS: DULoxetine 30 MG CAP PO SCH ×2 (09:11→21:55)
[2021-07-27] MEDS: HEPARIN 5,000 UNIT/1 ML VIAL SUB-Q SCH ×2 (09:11→21:55)
--- NOTE | 2021-07-27 11:58 | Progress Note ---
<ROGER DIAS - Last Filed: 07/27/21 11:59> Subjective - Reason for Consult Consult date: 07/27/21 Reason for consult: psychosis - Chief Complaint Chief complaint: The patient was seen today, she denies SI/HI. When asked was she hallucinating, she starts shaking her head back and forth with a bizarre look on her face. She says "it's saying money. Get this money." The patient then starts making incoherent sounds, as if she's speaking in tongue. REVIEW OF SYSTEMS Constitutional: Negative for weight loss ENT: Negative for stridor Respiratory: Negative for cough or hemoptysis All other systems reviewed and are negative MENTAL STATUS EXAMINATION General Appearance and Behavior: Age appropriate, good hygiene, wearing appropriate clothes. calm, cooperative Cooperation: Cooperative Psychomotor Behavior: Psychomotor normal Mood: Depressed Affect and affective range: congruent with stated mood Thought Process: tangential Thought Content: suicidal Speech: normal tone and pace Suicidal Ideation:Yes Homicidal Ideation: Denies Hallucinations: Auditory Delusions: None elicited Impulse Control: Questionable Insight and Judgment: Limited Memory: Limited Attention: attentive Orientation: a/o x 3 Assessment (1)Major depressive disorder Current Visit: Yes Status: Acute Treatment Plan continue 1013 Increase Abilify 10mg po daily Continue previously prescribed medications and follow up with outpatient psychiatry in 7 to 10 days upon discharge. The patient to comply with previously prescribed medications Risks, benefits and alternatives of medications discussed with the patient, questions answered and consent obtained from patient. PSYCHOTHERAPY: Supportive psychotherapy provided MEDICAL: Per primary team DELIRIUM PRECAUTIONS: Please re-orient patient frequently, keep lights on during the day, and minimize benzodiazepines and opiates as these medications could worsen patient's confusion. GLUE MAKER BONE: Defer to primary DISPOSITION: Recommend acute psychiatric inpatient treatment. The sitter to give the patient resources and safety plan The patient to comply with treatment regimen and abstain from all illicit drug use. FOLLOW-UP: Will follow. Case staffed with Dr. Crain Medications and Allergies Mental Status Exam - Vital signs Last Vital Signs Temp 97.7 F 07/27/21 11:08 Pulse 75 07/27/21 11:08 Resp 18 07/27/21 11:08 BP 110/72 07/27/21 11:08 Pulse Ox 95 07/27/21 04:15 <FERNANDO,ZAKIYA S - Last Filed: 07/27/21 16:47> Subjective - Reason for Consult Consult date: 07/26/21 Mental Status Exam - Vital signs Last Vital Signs Temp 97.7 F 07/27/21 11:08 Pulse 75 07/27/21 11:08 Resp 18 07/27/21 11:08 BP 110/72 07/27/21 11:08 Pulse Ox 97 07/27/21 13:00
[2021-07-27] MEDS: ARIPiprazole 10 MG TAB PO SCH (14:25)
--- NOTE | 2021-07-27 16:47 | Progress Note ---
Assessment and Plan Assessment and Plan 50-year-old -[place] female with chronic pain and homelessness comes in to the ER expressing intention to . Patient has no concrete plan. Not homicidal. Patient was in the holding area and the labs came very abnormal with high transaminases and positive hepatitis A panel B panel no IV drug use as per the patient patient is a very poor historian. No fever or chills. (1) Acute hepatitis A Current Visit: Yes Status: Acute Plan to address problem: Patient is acute hepatitis A Possible fecal contamination IgM is high Transaminitis severe but improving GI consulted, liver appears normal on imaging ID consult requested IV fluids in the meantime (2) Acute hepatitis B Current Visit: Yes Status: Acute Plan to address problem: IgM antibodies positive indicating acute infection Surface antibody negative, likely not contagious IV drug status not known ID consult and GI consult Supportive care IV fluids and multivitamins (3) Suicidal ideation Current Visit: Yes Status: Acute Plan to address problem: Patient says that if she is suicidal because she is homeless but homelessness is chronic mental health consulted and following (4) Malnutrition Current Visit: Yes Status: Chronic Qualifiers: Protein-calorie malnutrition severity: mild Plan to address problem: Dietary supplements initiated (5) chronic homelessness Case management consulted DVT prophylaxis Current Visit: Yes Status: Acute Plan to address problem: Heparin and GI prophylaxis Placement issues Subjective Date of service: 07/27/21 Principal diagnosis: Hepatitis Interval history: Daily clinical course: 07/21/21; - Hepatitis A/B IgM positive, However, her surface antigen for B is now negative, LFTs improving. Imaging shows a normal appearance to the liver. cont aggressively hydration, and start nutritional therapy with [facility]. Psych following - need inpt psych placement 07/22/21: LFT trending down, wait for inpt psych placement. supportive care, sitter in place 07/23/2021: Patient states that she is still suicidal since homeless. However she is calm. LFTs improving. Normal liver on imaging. GI and infectious disease services recommended supportive care for acute hepatitis A/B. Hepatitis B likely not contagious since surface antigen negative. Psych is following. She is to be transferred to psych facility. Discussed with the lead case manager and nursing staff. 07/24/2021: Patient remains afebrile and hemodynamically stable. LFTs improving. Patient remains suicidal. Psychiatry following, needs inpatient psych evaluation. 07/25/2021: Patient remains afebrile and hemodynamically stable. No fever. Acute viral hepatitis, LFTs progressively improving. No hepatomegaly and abdomen is benign. Patient today states that she is no longer suicidal. Awaiting reassessment by psychiatric with regard to the need for transfer to inpatient psych facility. Medically stable for transfer to psych facility if needed. History Interval history: Patient is alert and oriented with her history. Afebrile. Vital signs stable. Patient states that she is no longer suicidal. Patient denies abdominal pains, nausea, vomiting or diarrhea. Sitter is in the room. No agitation or aggressive behavior. She is calm. Objective - Constitutional Vitals: Vital Signs - 12hr 07/27/21 07/27/21 11:08 13:00 Temperature 97.7 F Pulse Rate 75 Respiratory 18 Rate Blood Pressure 110/72 [Left] O2 Sat by Pulse 97 Oximetry General appearance: Present: no acute distress, well-nourished - EENT Eyes: PERRL, EOM intact ENT: hearing intact, clear oral mucosa Ears: bilateral: normal - Neck Neck: supple, normal ROM - Respiratory Respiratory effort: normal Respiratory: bilateral: CTA - Breasts Breasts: normal - Cardiovascular Rhythm: regular Heart Sounds: Present: S1 & S2. Absent: gallop, rub Extremities: pulses intact, No edema, normal color, Full ROM - Gastrointestinal General gastrointestinal: Present: soft, non-tender, non-distended, normal bowel sounds - Genitourinary Female genitourinary: normal - Integumentary Integumentary: clear, warm, dry - Musculoskeletal Musculoskeletal: 1, strength equal bilaterally - Neurologic Neurologic: moves all extremities - Psychiatric Psychiatric: memory intact, appropriate mood/affect, intact judgment & insight - Labs CBC & Chem 7: 07/25/21 10:03 07/24/21 10:46 Labs: Abnormal lab results 07/24/21 Range/Units 10:46 HIV-1 RNA PCR copies/ml [id number] H Copies/mL HIV-1 RNA (PCR) log 5.34 H Log cps/mL
--- NOTE | 2021-07-27 16:49 | Progress Note ---
Assessment and Plan (1) Acute hepatitis A Current Visit: Yes Status: Acute Plan to address problem: Patient is acute hepatitis A Possible fecal contamination IgM is high Transaminitis severe but improving GI consulted, liver appears normal on imaging ID consult requested IV fluids in the meantime (2) Acute hepatitis B Current Visit: Yes Status: Acute Plan to address problem: IgM antibodies positive indicating acute infection Surface antibody negative, likely not contagious IV drug status not known ID consult and GI consult Supportive care IV fluids and multivitamins (3) Suicidal ideation Current Visit: Yes Status: Acute Plan to address problem: Patient says that if she is suicidal because she is homeless but homelessness is chronic mental health consulted and following (4) Malnutrition Current Visit: Yes Status: Chronic Qualifiers: Protein-calorie malnutrition severity: mild Plan to address problem: Dietary supplements initiated (5) chronic homelessness Case management consulted DVT prophylaxis Current Visit: Yes Status: Acute Plan to address problem: Heparin and GI prophylaxis Placement issues Subjective Date of service: 07/27/21 Principal diagnosis: Hepatitis Interval history: History of present illness: 50-year-old -[place] female with chronic pain and homelessness comes in to the ER expressing intention to . Patient has no concrete plan. Not homicidal. Patient was in the holding area and the labs came very abnormal with high transaminases and positive hepatitis A panel B panel no IV drug use as per the patient patient is a very poor historian. No fever or chills. Daily clinical course: 07/21/21; - Hepatitis A/B IgM positive, However, her surface antigen for B is now negative, LFTs improving. Imaging shows a normal appearance to the liver. cont aggressively hydration, and start nutritional therapy with [facility]. Psych following - need inpt psych placement 07/22/21: LFT trending down, wait for inpt psych placement. supportive care, sitter in place 07/23/2021: Patient states that she is still suicidal since homeless. However she is calm. LFTs improving. Normal liver on imaging. GI and infectious disease services recommended supportive care for acute hepatitis A/B. Hepatitis B likely not contagious since surface antigen negative. Psych is following. She is to be transferred to psych facility. Discussed with the case work aide and nursing staff. 07/24/2021: Patient remains afebrile and hemodynamically stable. LFTs improving. Patient remains suicidal. Psychiatry following, needs inpatient psych evaluation. 07/25/2021: Patient remains afebrile and hemodynamically stable. No fever. Acute viral hepatitis, LFTs progressively improving. No hepatomegaly and abdomen is benign. Patient today states that she is no longer suicidal. Await ing reassessment by psychiatric with regard to the need for transfer to inpatient psych facility. Medically stable for transfer to psych facility if needed. 07/26/2021 Psychiatry follow-up appreciated 07/27/2021 Psychiatry consult and follow-up appreciated History Interval history: Patient is alert and oriented with her history. Afebrile. Vital signs stable. Patient states that she is no longer suicidal. Patient denies abdominal pains, nausea, vomiting or diarrhea. Sitter is in the room. No agitation or aggressive behavior. She is calm. Objective - Constitutional Vitals: Vital Signs - 12hr 07/27/21 07/27/21 11:08 13:00 Temperature 97.7 F Pulse Rate 75 Respiratory 18 Rate Blood Pressure 110/72 [Left] O2 Sat by Pulse 97 Oximetry General appearance: Present: no acute distress, well-nourished - EENT Eyes: PERRL, EOM intact ENT: hearing intact, clear oral mucosa Ears: bilateral: normal - Neck Neck: supple, normal ROM - Respiratory Respiratory effort: normal Respiratory: bilateral: CTA - Breasts Breasts: normal - Cardiovascular Heart rate: 78 Rhythm: regular Heart Sounds: Present: S1 & S2. Absent: gallop, rub Extremities: pulses intact, No edema, normal color, Full ROM - Gastrointestinal General gastrointestinal: Present: soft, non-tender, non-distended, normal bowel sounds - Genitourinary Female genitourinary: normal - Integumentary Integumentary: clear, warm, dry - Musculoskeletal Musculoskeletal: 1, strength equal bilaterally - Neurologic Neurologic: moves all extremities - Psychiatric Psychiatric: memory intact, appropriate mood/affect, intact judgment & insight - Labs CBC & Chem 7: 07/25/21 10:03 07/24/21 10:46 Labs: Abnormal lab results 07/24/21 Range/Units 10:46 HIV-1 RNA PCR copies/ml [id number] H Copies/mL HIV-1 RNA (PCR) log 5.34 H Log cps/mL
[2021-07-27] MEDS: traZODone 50 MG TAB PO SCH (21:54)
[2021-07-27] MEDS: diphenhydrAMINE 25 MG CAP PO PRN (22:03)
[2021-07-28] MEDS: MULTIVITAMINS ,THERAPEUTIC TAB PO SCH (09:24)
[2021-07-28] MEDS: ARIPiprazole 10 MG TAB PO SCH (09:24)
[2021-07-28] MEDS: DULoxetine 30 MG CAP PO SCH ×2 (09:24→21:23)
[2021-07-28] MEDS: HEPARIN 5,000 UNIT/1 ML VIAL SUB-Q SCH ×2 (09:25→21:25)
[2021-07-28 11:14] LABS: Hematocrit 37.2 % (30.3-42.9); Hemoglobin 12.9 gm/dl (10.1-14.3); Mean Corpuscular HGB Conc 35 % (30-34); Mean Corpuscular Volume 94 fl (79-97); Platelet Count 303 K/mm3 (140-440); Red Blood Count 3.95 M/mm3 (3.65-5.03); Red Cell Distribution Width 15.4 % (13.2-15.2)
[2021-07-28 11:25] LABS: Alanine Aminotransferase 498 units/L (7-56); Albumin 3.1 g/dL (3.9-5); Blood Urea Nitrogen 8 mg/dL (7-17); Calcium 9.2 mg/dL (8.4-10.2); Hemolysis Index 11
[2021-07-28 11:32] LABS: BUN/Creatinine Ratio 16
[2021-07-28 12:09] LABS: Total Cells Counted 100
[2021-07-28 12:10] LABS: Platelet Estimate Consistent w Auto; Stomatocytes Few; Target Cells 1+
--- NOTE | 2021-07-28 12:40 | Progress Note ---
Subjective - Reason for Consult Consult date: 07/28/21 Reason for consult: psychosis - Chief Complaint Chief complaint: The patient was seen today, she denies SI/HI. She is responding to internal stimuli. She is afraid and starting crying and says she's afraid to go in the bathroom. The patient says "I have a million dollars and I'm scared of money." She then says to herself "tell the truth. tell the truth." REVIEW OF SYSTEMS Constitutional: Negative for weight loss ENT: Negative for stridor Respiratory: Negative for cough or hemoptysis All other systems reviewed and are negative MENTAL STATUS EXAMINATION General Appearance and Behavior: Age appropriate, good hygiene, wearing appropriate clothes. calm, cooperative Cooperation: Cooperative Psychomotor Behavior: Psychomotor normal Mood: Depressed Affect and affective range: congruent with stated mood Thought Process: tangential Thought Content: suicidal Speech: normal tone and pace Suicidal Ideation:Yes Homicidal Ideation: Denies Hallucinations: Auditory Delusions: None elicited Impulse Control: Questionable Insight and Judgment: Limited Memory: Limited Attention: attentive Orientation: a/o x 3 Assessment (1)Major depressive disorder Current Visit: Yes Status: Acute Treatment Plan continue 1013 Increase Abilify 10mg po daily Continue previously prescribed medications and follow up with outpatient psychiatry in 7 to 10 days upon discharge. The patient to comply with previously prescribed medications Risks, benefits and alternatives of medications discussed with the patient, questions answered and consent obtained from patient. PSYCHOTHERAPY: Supportive psychotherapy provided MEDICAL: Per primary team DELIRIUM PRECAUTIONS: Please re-orient patient frequently, keep lights on during the day, and minimize benzodiazepines and opiates as these medications could worsen patient's confusion. [employer] SYSTEM: Defer to primary DISPOSITION: Recommend acute psychiatric inpatient treatment. The sitter to give the patient resources and safety plan The patient to comply with treatment regimen and abstain from all illicit drug use. FOLLOW-UP: Will follow. Case staffed with Dr. Crain Medications and Allergies Mental Status Exam - Vital signs Last Vital Signs Temp 98.2 F 07/28/21 12:17 Pulse 83 07/28/21 12:17 Resp 18 07/28/21 12:17 BP 92/58 07/28/21 12:17 Pulse Ox 97 07/28/21 12:17
[2021-07-28] MEDS: ARIPiprazole 15 MG TAB PO SCH (14:52)
--- NOTE | 2021-07-28 19:21 | Progress Note ---
Assessment and Plan Assessment and plan: 50-year-old -[place] Citizen female with chronic pain and homelessness comes in to the ER expressing intention to . Patient has no concrete plan. Not homicidal. Patient was in the holding area and the labs came very abnormal with high transaminases and positive hepatitis A panel B panel no IV drug use as per the patient patient is a very poor historian. No fever or chills. (1) Acute hepatitis A Current Visit: Yes Status: Acute Plan to address problem: Patient is acute hepatitis A Possible fecal contamination IgM is high Transaminitis severe but improving GI consulted, liver appears normal on imaging ID consult requested IV fluids in the meantime (2) Acute hepatitis B Current Visit: Yes Status: Acute Plan to address problem: IgM antibodies positive indicating acute infection Surface antibody negative, likely not contagious IV drug status not known ID consult and GI consult Supportive care IV fluids and multivitamins (3) Suicidal ideation Current Visit: Yes Status: Acute Plan to address problem: Patient says that if she is no longer suicidal. Remains under 1013 and mental health recommends inpatient psychiatric evaluation, following Patient is medically stable for transfer to psychiatric facility (4) chronic HIV infection Noncompliant with meds for long, ID consulted. Currently not appropriate to initiate antiviral therapy at this juncture due to acute psychiatric issues and lack of follow-up. (5) chronic homelessness Case management consulted DVT prophylaxis Current Visit: Yes Status: Acute Plan to address problem: Heparin and GI prophylaxis Disposition: Patient remains afebrile and hemodynamically stable. No fever. Acute viral hepatitis but LFTs progressively improving. No hepatomegaly and abdomen is benign. Patient now states that she is no longer suicidal. Awaiting reassessment by psychiatric with regard to the need for transfer to inpatient psych facility. Medically stable for transfer to psych facility if needed. History Interval history: Patient is alert and oriented with her history. Afebrile. Vital signs stable. Patient states that she is no longer suicidal. Patient denies abdominal pains, nausea, vomiting or diarrhea. Sitter is in the room. No agitation or aggressive behavior. She is calm. Psychiatriy following and still under 1013 Hospitalist Physical - Constitutional Vitals: Temp Pulse Resp BP Pulse Ox 98.2 F 79 20 115/71 99 07/28/21 17:33 07/28/21 17:33 07/28/21 17:33 07/28/21 17:33 07/28/21 17:33 General appearance: Present: no acute distress, well-nourished - EENT Eyes: Present: PERRL, EOM intact ENT: clear oral mucosa - Neck Neck: Present: supple - Respiratory Respiratory effort: normal Respiratory: bilateral: CTA - Cardiovascular Rhythm: regular - Extremities Extremities: No edema - Abdominal General gastrointestinal: soft, non-tender, non-distended, normal bowel sounds, other (No hepatomegaly) - Integumentary Integumentary: Absent: rash - Psychiatric Psychiatric: cooperative - Neurologic Neurologic: no focal deficits Results - Labs CBC & Chem 7: 07/29/21 09:36 07/29/21 09:36 Labs: Laboratory Last Values WBC 5.3 K/mm3 (4.5-11.0) 07/28/21 10:27 RBC 3.95 M/mm3 (3.65-5.03) 07/28/21 10:27 Hgb 12.9 gm/dl (10.1-14.3) 07/28/21 10:27 Hct 37.2 % (30.3-42.9) 07/28/21 10:27 MCV 94 fl (79-97) 07/28/21 10:27 MCH 33 pg (28-32) H 07/28/21 10:27 MCHC 35 % (30-34) H 07/28/21 10:27 RDW 15.4 % (13.2-15.2) H 07/28/21 10:27 Plt Count 303 K/mm3 (140-440) 07/28/21 10:27 Lymph % (Auto) Escapement Matcher 07/28/21 10:27 Harnett % (Auto) Escapement Matcher 07/28/21 10:27 Eos % (Auto) 1.3 % (0.0-4.3) 07/24/21 10:46 Baso % (Auto) 0.6 % (0.0-1.8) 07/24/21 10:46 Lymph # (Auto) 1.5 K/mm3 (1.2-5.4) 07/24/21 10:46 Harnett # (Auto) 0.4 K/mm3 (0.0-0.8) 07/24/21 10:46 Eos # (Auto) 0.1 K/mm3 (0.0-0.4) 07/24/21 10:46 Baso # (Auto) 0.0 K/mm3 (0.0-0.1) 07/24/21 10:46 Add Manual Diff Complete 07/28/21 10:27 Total Counted 100 07/28/21 10:27 Seg Neutrophils % Escapement Matcher 07/28/21 10:27 Seg Neuts % (Manual) 68.0 % (40.0-70.0) 07/28/21 10:27 Band Neutrophils % 3.0 % 07/19/21 09:52 Lymphocytes % (Manual) 19.0 % (13.4-35.0) 07/28/21 10:27 Reactive Lymphs % (Man) 6.0 % 07/28/21 10:27 Monocytes % (Manual) 4.0 % (0.0-7.3) 07/28/21 10:27 Basophils % (Manual) 1.0 % (0.0-1.8) 07/19/21 09:52 Metamyelocytes % 3.0 % 07/28/21 10:27 Myelocytes % 1.0 % 07/19/21 09:52 Nucleated RBC % Not Reportable 07/28/21 10:27 Seg Neutrophils # 2.0 K/mm3 (1.8-7.7) 07/24/21 10:46 Seg Neutrophils # Man 3.6 K/mm3 (1.8-7.7) 07/28/21 10:27 Band Neutrophils # 0.0 K/mm3 07/28/21 10:27 Lymphocytes # (Manual) 1.0 K/mm3 (1.2-5.4) L 07/28/21 10:27 Abs React Lymphs (Man) 0.3 K/mm3 07/28/21 10:27 Monocytes # (Manual) 0.2 K/mm3 (0.0-0.8) 07/28/21 10:27 Eosinophils # (Manual) 0.0 K/mm3 (0.0-0.4) 07/28/21 10:27 Basophils # (Manual) 0.0 K/mm3 (0.0-0.1) 07/28/21 10:27 Metamyelocytes # 0.2 K/mm3 07/28/21 10:27 Myelocytes # 0.0 K/mm3 07/28/21 10:27 Promyelocytes # 0.0 K/mm3 07/28/21 10:27 Blast Cells # 0.0 K/mm3 07/28/21 10:27 WBC Morphology Not Reportable 07/28/21 10:27 WBC Morphology TNR 07/28/21 10:27 Hypersegmented Neuts Not Reportable 07/28/21 10:27 Hyposegmented Neuts Not Reportable 07/28/21 10:27 Hypogranular Neuts Not Reportable 07/28/21 10:27 Smudge Cells Not Reportable 07/28/21 10:27 Toxic Granulation Not Reportable 07/28/21 10:27 Toxic Vacuolation Not Reportable 07/28/21 10:27 Dohle Bodies Not Reportable 07/28/21 10:27 Pelger-Huet Anomaly Not Reportable 07/28/21 10:27 Pricila Rods Not Reportable 07/28/21 10:27 Platelet Estimate Consistent w auto 07/28/21 10:27 Clumped Platelets Not Reportable 07/28/21 10:27 Plt Clumps, EDTA Not Reportable 07/28/21 10:27 Large Platelets Not Reportable 07/28/21 10:27 Giant Platelets Not Reportable 07/28/21 10:27 Platelet Satelliting Not Reportable 07/28/21 10:27 Plt Morphology Comment Not Reportable 07/28/21 10:27 RBC Morphology Not Reportable 07/28/21 10:27 Dimorphic RBCs Not Reportable 07/28/21 10:27 Polychromasia Not Reportable 07/28/21 10:27 Hypochromasia Not Reportable 07/28/21 10:27 Poikilocytosis Not Reportable 07/28/21 10:27 Anisocytosis Not Reportable 07/28/21 10:27 Microcytosis Not Reportable 07/28/21 10:27 Macrocytosis Not Reportable 07/28/21 10:27 Spherocytes Not Reportable 07/28/21 10:27 Pappenheimer Bodies Not Reportable 07/28/21 10:27 Sickle Cells Not Reportable 07/28/21 10:27 Target Cells 1+ 07/28/21 10:27 Tear Drop Cells Not Reportable 07/28/21 10:27 Ovalocytes Not Reportable 07/28/21 10:27 Stomatocytes Few 07/28/21 10:27 Helmet Cells Not Reportable 07/28/21 10:27 [place] Bodies Not Reportable 07/28/21 10:27 [place] Rings Not Reportable 07/28/21 10:27 Armani Cells Not Reportable 07/28/21 10:27 Bite Cells Not Reportable 07/28/21 10:27 Crenated Cell Not Reportable 07/28/21 10:27 Elliptocytes Not Reportable 07/28/21 10:27 Acanthocytes (Spur) Not Reportable 07/28/21 10:27 Rouleaux Not Reportable 07/28/21 10:27 Hemoglobin C Crystals Not Reportable 07/28/21 10:27 Schistocytes Not Reportable 07/28/21 10:27 Malaria parasites Not Reportable 07/28/21 10:27 Cody Bodies Not Reportable 07/28/21 10:27 Hem Pathologist Commnt No 07/28/21 10:27 PT 12.8 Sec. (12.2-14.9) 07/25/21 10:03 INR 0.87 (0.87-1.13) 07/25/21 10:03 Sodium 129 mmol/L (137-145) L D 07/28/21 10:27 Potassium 3.6 mmol/L (3.6-5.0) 07/28/21 10:27 Chloride 93.6 mmol/L (98-107) L 07/28/21 10:27 Carbon Dioxide 25 mmol/L (22-30) 07/28/21 10:27 Anion Gap 14 mmol/L 07/28/21 10:27 BUN 8 mg/dL (7-17) 07/28/21 10:27 Creatinine 0.5 mg/dL (0.6-1.2) L 07/28/21 10:27 Estimated GFR > 60 ml/min 07/28/21 10:27 BUN/Creatinine Ratio 16 % 07/28/21 10:27 Glucose 85 mg/dL (65-100) 07/28/21 10:27 Lactic Acid 1.00 mmol/L (0.7-2.0) 07/20/21 11: Calcium 9.2 mg/dL (8.4-10.2) 07/28/21 10:27 Magnesium 2.20 mg/dL (1.7-2.3) 07/20/21 11:20 Total Bilirubin 2.40 mg/dL (0.1-1.2) H 07/28/21 10:27 Direct Bilirubin 1.8 mg/dL (0-0.2) H 07/24/21 10:46 Indirect Bilirubin 0.3 mg/dL 07/24/21 10:46 AST 372 units/L (5-40) H 07/28/21 10:27 ALT 498 units/L (7-56) H 07/28/21 10:27 Alkaline Phosphatase 1601 units/L (35-129) H 07/28/21 10:27 Ammonia 60.0 umol/L (25-60) 07/20/21 11:20 Total Creatine Kinase 23 units/L (30-135) L 07/20/21 11:20 Total Protein 8.7 g/dL (6.3-8.2) H 07/28/21 10:27 Albumin 3.1 g/dL (3.9-5) L 07/28/21 10:27 Albumin/Globulin Ratio 0.6 % 07/28/21 10:27 TSH 0.116 mlU/mL (0.270-4.200) L 07/20/21 11:20 Free T4 0.94 ng/dL (0.76-1.46) 07/24/21 10:46 Urine Color Bailee (Yellow) 07/19/21 Unknown Urine Turbidity Slightly-cloudy (Clear) 07/19/21 Unknown Urine pH 5.0 (5.0-7.0) 07/19/21 Unknown Ur Specific [place] 1.018 (1.003-1.030) 07/19/21 Unknown Urine Protein 30 mg/dl mg/dL (Negative) 07/19/21 Unknown Urine Glucose (UA) Neg mg/dL (Negative) 07/19/21 Unknown Urine Ketones Neg mg/dL (Negative) 07/19/21 Unknown Urine Blood Sm (Negative) 07/19/21 Unknown Urine Nitrite Neg (Negative) 07/19/21 Unknown Urine Bilirubin Neg (Negative) 07/19/21 Unknown Urine Urobilinogen 4.0 mg/dL (<2.0) 07/19/21 Unknown Ur Leukocyte Esterase Neg (Negative) 07/19/21 Unknown Urine WBC (Auto) 46.0 /HPF (0.0-6.0) H 07/19/21 Unknown Urine RBC (Auto) 7.0 /HPF (0.0-6.0) 07/19/21 Unknown U Epithel Cells (Auto) 13.0 /HPF (0-13.0) 07/19/21 Unknown Urine Bacteria (Auto) 1+ /HPF (Negative) 07/19/21 Unknown Urine Mucus 3+ /HPF 07/19/21 Unknown Nasal Screen MRSA (PCR) Negative (Negative) 07/21/21 Unknown Salicylates < 0.3 mg/dL (2.8-20.0) L 07/20/21 11:20 Urine Opiates Screen Negative 07/19/21 Unknown Urine Methadone Screen Negative 07/19/21 Unknown Acetaminophen 5.0 ug/mL (10.0-30.0) L 07/20/21 11:20 Ur Barbiturates Screen Negative 07/19/21 Unknown Ur Phencyclidine Scrn Negative 07/19/21 Unknown Ur Amphetamines Screen Negative 07/19/21 Unknown U Benzodiazepines Scrn Negative 07/19/21 Unknown Urine Cocaine Screen Negative 07/19/21 Unknown U Marijuana (THC) Screen Negative 07/19/21 Unknown Drugs of Abuse Note Disclamer 07/19/21 Unknown Plasma/Serum Alcohol < 0.01 % (0-0.07) 07/19/21 09:52 Coronavirus (PCR) Negative (Negative) 07/20/21 08:39 Hepatitis A IgM Ab Reactive (NonReactive) A 07/20/21 11:20 Hep Bs Antigen Nonreactive (Negative) 07/20/21 11:20 Hep B Core IgM Ab Reactive (NonReactive) A 07/20/21 11:20 Hepatitis C Antibody Non-reactive (NonReactive) 07/20/21 11:20 HIV-1 RNA PCR copies/ml [id number] Copies/mL H 07/24/21 10:46 HIV-1 RNA (PCR) log 5.34 Log cps/mL H 07/24/21 10:46 HIV 1&2 Antibody Rapid Reactive (Non React) 07/23/21 08:27 HIV P24 Antigen Non react (Non React) 07/23/21 08:27 Pierre/IV: Voiding Method Toilet Active Medications - Current Medications Current Medications: Generic Name Dose Route Start Last Admin Trade Name Freq PRN Reason Stop Dose Admin Acetaminophen 650 mg 07/21/21 10:09 Acetaminophen 325 Mg Tab PO Q6H PRN Pain MILD(1-3)/Fever >100.5/PANDYA Aripiprazole 15 mg 07/28/21 13:00 07/28/21 14:52 Aripiprazole 15 Mg Tab PO 15 mg QDAY CASEY Administration Diphenhydramine HCl 25 mg 07/23/21 19:54 07/27/21 22:03 Diphenhydramine 25 Mg Cap PO 25 mg Q8H PRN Administration Itching Duloxetine HCl 30 mg 07/20/21 22:00 07/28/21 09:24 Duloxetine 30 Mg Cap PO 30 mg BID CASEY Administration Heparin Sodium (Porcine) 5,000 unit 07/20/21 23:15 07/28/21 09:25 Heparin 5,000 Unit/1 Ml Vial SUB-Q 5,000 unit Q12HR CASEY Administration Dextrose/Sodium Chloride 1,000 mls @ 75 mls/hr 07/20/21 23:45 07/24/21 05:27 D5ns IV 75 mls/hr DIRECT CASEY Administration Lorazepam 2 mg 07/20/21 10:59 Lorazepam 2 Mg/Ml Vial IM Q4HR PRN Agitation Multivitamins 1 each 07/22/21 10:00 07/28/21 09:24 Multivitamins ,Therapeutic Tab PO 1 each QDAY CASEY Administration Ondansetron HCl 4 mg 07/20/21 23:01 Ondansetron 4 Mg/2 Ml Inj IV Q8H PRN Nausea And Vomiting Sodium Chloride 10 ml 07/21/21 10:00 07/28/21 09:24 Sodium Chloride 0.9% 10 Ml Flush Syringe IV 10 ml BID CASEY Administration Sodium Chloride 10 ml 07/20/21 23:01 Sodium Chloride 0.9% 10 Ml Flush Syringe IV PRN PRN LINE FLUSH Trazodone HCl 50 mg 07/21/21 22:00 07/27/21 21:54 Trazodone 50 Mg Tab PO 50 mg QHS CASEY Administration Nutrition/Malnutrition Assess - Dietary Evaluation Nutrition/Malnutrition Findings: Nutrition Notes Start: 07/26/21 13:59 Freq: Status: Active Protocol: Document 07/26/21 13:59 GB (Rec: 07/26/21 14:08 GB [id number]) Nutrition Notes Need for Assessment generated from: LOS Initial or Follow up Assessment Other Pertinent Diagnosis elevated liver enzymes Current Diet Regular Labs/Tests 07/24: Na 136, BUN 5, creatinine 0.4, Tbili 2.1, ( AST 392, ALT 668: both showing improvement), AlkP 557 Pertinent Medications D5 (PRN), multivitamins Height 4 ft 7 in Weight 57 kg [place] Body Weight (kg) 34.09 BMI 29.2 Weight change and time frame 07/19: 58.967 kg 07/26: 57 kg Change of -1.967kg for -3.3% loss. Weight Status Overweight Subjective/Other Information MD note 07/26: psychosis, suicidal thoughts, homelessness MH broadcast engineer 07/26: pt being reviewed for placement PO intake of meals recorded as 75-100% BM: 07/26 Percent of energy/protein needs met: 100% with current PO intake of meals Burn Absent Trauma Absent GI Symptoms None Food Allergy No Skin Integrity/Comment No complications reported Current % PO Good (75-100%) Minimum of two criteria No #1 Nutrition Diagnosis No nutrition diagnosis at this time Etiology LOS, elevated liver enzymes As Evidenced by Signs and Symptoms good po, stable weight, no skin complications, Liver enzymes showing improvement Is patient on ventilator? No Is Patient Ambulatory and/or Out of Bed Yes REE-([facility]-ambulatory/OOB) [ 1354.769 [id number]] Calculation Used for Recommendations [facility] Additional Notes Protein: 0.8-1 g/kg @ 57k -57g Fluids: 1 ml/kcal or per MD Nutrition Intervention Change Diet Order: continue: Regular Nutrition Support: n/a Add Supplement/Snack (indicate name/kcal n/a /protein ) Goal #1 PO intake of meals to continue at 75% or greater daily for LOS Revisit per MD consult or patient Sign Off request:
[2021-07-28] MEDS: diphenhydrAMINE 25 MG CAP PO PRN (21:23)
[2021-07-28] MEDS: traZODone 50 MG TAB PO SCH (21:23)
[2021-07-29] MEDS: ARIPiprazole 15 MG TAB PO SCH (09:54)
[2021-07-29] MEDS: MULTIVITAMINS ,THERAPEUTIC TAB PO SCH (09:54)
[2021-07-29] MEDS: HEPARIN 5,000 UNIT/1 ML VIAL SUB-Q SCH ×2 (09:54→22:00)
[2021-07-29] MEDS: DULoxetine 30 MG CAP PO SCH ×2 (09:54→22:00)
[2021-07-29 10:27] LABS: Hematocrit 36.4 % (30.3-42.9); Hemoglobin 12.2 gm/dl (10.1-14.3); Mean Corpuscular HGB Conc 34 % (30-34); Mean Corpuscular Volume 95 fl (79-97); Platelet Count 319 K/mm3 (140-440); Red Blood Count 3.84 M/mm3 (3.65-5.03); Red Cell Distribution Width 15.2 % (13.2-15.2)
[2021-07-29 10:35] LABS: Alanine Aminotransferase 381 units/L (7-56); Albumin 3.1 g/dL (3.9-5); Blood Urea Nitrogen 10 mg/dL (7-17); Hemolysis Index 14
[2021-07-29 10:36] LABS: BUN/Creatinine Ratio 25
[2021-07-29 12:08] LABS: Total Cells Counted 100
[2021-07-29 12:09] LABS: Stomatocytes 2+
[2021-07-29 12:10] LABS: Platelet Estimate Consistent w Auto; Target Cells Few
--- NOTE | 2021-07-29 12:49 | Progress Note ---
Assessment and Plan Cultures: 07/19/2021 urine culture: Skin keny 07/20/2021 blood culture: No growth A/P: 50-year-old female with homelessness, psychiatric disorder was admitted with suicidal intention: #Elevated transaminases with serologies positive for hepatitis A IgM, hepatitis core IgM, concerning for acute hepatitis A and hepatitis B. GI already evaluated. Synthetic liver function is intact, no role for any antivirals at this time. Hep C negative. #Leucopenia #Suicidal ideation #HIV: antibody positive. Discussed with patient. Given her current mental state not sure how much of our conversation she retained. Recs: -Supportive care -No antivirals at this time -Will need outpatient follow-up with repeat hepatitis B serologies to assess possibility of chronic hepatitis B -Follow up viral load and CD4 count for baseline. -UA contaminated, Ceftriaxone discontinued -Notified infection control about reporting Hepatitis A it to [facility] -As she is uninsured recommend establishing care with [facility] for free care and medications. As I am uncertain when she will be able to establish care with them for follow up will hold on starting ART to avoid intermittent dosing, which is associated with higher risk of developmetn of resistance. ID will sign off. Please call with questions. Lexi Gore MD [facility] ([facility] O: [phone] F: [phone] Subjective Date of service: 07/29/21 Principal diagnosis: Hepatitis Interval history: Patient minimally participative in interview. No acute change. Objective - Exam Narrative Exam: Physical Exam: Constitutional: Awake Head, Ears, Nose: Normocephalic, atraumatic. External ears, nose normal Eyes: Conjunctivae/corneas clear. No icterus. No ptosis. Neck: Supple, no meningeal signs Oral: No thrush Cardiovascular: S1, S2 + Respiratory: Good air entry, clear to auscultation bilaterally GI: Soft, non-tender; bowel sounds normal. No peritoneal signs Musculoskeletal: No pedal edema, no cyanosis. Skin: No rash or abscess Hem/Lymphatic: No palpable cervical or supraclavicular nodes. Psych: No agitation Neurological: Awake, alert, does not answer any relevant questions - Constitutional Vitals: Vital Signs Temp Pulse Resp BP Pulse Ox 98.2 F 69 18 116/74 98 07/29/21 04:10 07/29/21 04:10 07/29/21 04:10 07/29/21 04:10 07/29/21 04:10 Temperature -Last 24 Hours Temperature 98.2 F Temperature 97.7 F Temperature 98.2 F - Labs CBC & Chem 7: 07/29/21 09:36 07/29/21 09:36 Labs: Abnormal lab results 07/29/21 07/29/21 Range/Units 09:36 09:36 Monocytes % (Manual) 10.0 H (0.0-7.3) % Basophils % (Manual) 4.0 H (0.0-1.8) % Basophils # (Manual) 0.2 H (0.0-0.1) K/mm3 Sodium 133 L (137-145) mmol/L Chloride 97.7 L (98-107) mmol/L Creatinine 0.4 L (0.6-1.2) mg/dL Total Bilirubin 1.70 H (0.1-1.2) mg/dL AST 237 H (5-40) units/L ALT 381 H (7-56) units/L Alkaline Phosphatase 1443 H (35-129) units/L Total Protein 8.5 H (6.3-8.2) g/dL Albumin 3.1 L (3.9-5) g/dL
[2021-07-29] MEDS: traZODone 50 MG TAB PO SCH (22:00)
[2021-07-30 02:32] LABS: CD4/CD8 Ratio 0.52 (0.86-5.00)
--- NOTE | 2021-07-30 07:43 | Progress Note ---
Assessment and Plan Assessment and plan: 50-year-old -French female with chronic pain and homelessness comes in to the ER expressing intention to . Patient has no concrete plan. Not homicidal. Patient was in the holding area and the labs came very abnormal with high transaminases and positive hepatitis A panel B panel no IV drug use as per the patient patient is a very poor historian. No fever or chills. (1) Acute hepatitis A Current Visit: Yes Status: Acute Plan to address problem: Patient is acute hepatitis A Possible fecal contamination IgM is high Transaminitis severe but improving GI consulted, liver appears normal on imaging ID consulted, supportive care LFTs progressively improving (2) Acute hepatitis B Current Visit: Yes Status: Acute Plan to address problem: IgM antibodies positive indicating acute infection Surface antibody negative, likely not contagious IV drug status not known ID consult and GI consult Supportive care (3) Suicidal ideation Current Visit: Yes Status: Acute Plan to address problem: Patient says that if she is no longer suicidal. Remains under 1013 and mental health recommends inpatient psychiatric evaluation, following Patient is medically stable for transfer to psychiatric facility (4) chronic HIV infection Noncompliant with meds for long, ID consulted. Currently not appropriate to initiate antiviral therapy at this juncture due to acute psychiatric issues and lack of follow-up. (5) chronic homelessness Case management consulted DVT prophylaxis Current Visit: Yes Status: Acute Plan to address problem: Heparin and GI prophylaxis Disposition: Patient remains afebrile and hemodynamically stable. No fever. Acute viral hepatitis but LFTs progressively improving. No hepatomegaly and abdomen is benign. Patient now states that she is no longer suicidal. Awaiting reassessment by psychiatric with regard to the need for transfer to inpatient psych facility. Medically stable for transfer to psych facility if needed. History Interval history: Patient is alert and oriented with her history. Afebrile. Vital signs stable. Patient states that she is no longer suicidal. Patient denies abdominal pains, nausea, vomiting or diarrhea. Sitter is in the room. No agitation or aggressive behavior. She is calm. Psychiatriy following and still under 1013 Hospitalist Physical - Constitutional Vitals: Temp Pulse Resp BP Pulse Ox 97.7 F 103 H 18 100/69 97 07/30/21 05:00 07/30/21 05:00 07/30/21 05:00 07/30/21 05:00 07/30/21 05:00 General appearance: Present: no acute distress, well-nourished, obese - EENT Eyes: Present: PERRL, EOM intact. Absent: scleral icterus ENT: clear oral mucosa - Neck Neck: Present: supple - Respiratory Respiratory effort: normal Respiratory: bilateral: CTA - Cardiovascular Rhythm: regular - Extremities Extremities: No edema - Abdominal General gastrointestinal: soft, non-tender, non-distended, other (No hepatomegaly appreciated) - Integumentary Integumentary: Absent: jaundice, rash - Psychiatric Psychiatric: cooperative - Neurologic Neurologic: no focal deficits Results - Labs CBC & Chem 7: 07/29/21 09:36 07/29/21 09:36 Labs: Laboratory Last Values WBC 4.5 K/mm3 (4.5-11.0) 07/29/21 09:36 RBC 3.84 M/mm3 (3.65-5.03) 07/29/21 09:36 Hgb 12.2 gm/dl (10.1-14.3) 07/29/21 09:36 Hct 36.4 % (30.3-42.9) 07/29/21 09:36 MCV 95 fl (79-97) 07/29/21 09:36 MCH 32 pg (28-32) 07/29/21 09:36 MCHC 34 % (30-34) 07/29/21 09:36 RDW 15.2 % (13.2-15.2) 07/29/21 09:36 Plt Count 319 K/mm3 (140-440) 07/29/21 09:36 Lymph % (Auto) [employer] 07/29/21 09:36 [place] % (Auto) [employer] 07/28/21 10:27 Eos % (Auto) 1.3 % (0.0-4.3) 07/24/21 10:46 Baso % (Auto) 0.6 % (0.0-1.8) 07/24/21 10:46 Lymph # (Auto) 1.5 K/mm3 (1.2-5.4) 07/24/21 10:46 [place] # (Auto) 0.4 K/mm3 (0.0-0.8) 07/24/21 10:46 Eos # (Auto) 0.1 K/mm3 (0.0-0.4) 07/24/21 10:46 Baso # (Auto) 0.0 K/mm3 (0.0-0.1) 07/24/21 10:46 Add Manual Diff Complete 07/29/21 09:36 Total Counted 100 07/29/21 09:36 Seg Neutrophils % [employer] 07/29/21 09:36 Seg Neuts % (Manual) 50.0 % (40.0-70.0) 07/29/21 09:36 Band Neutrophils % 3.0 % 07/19/21 09:52 Lymphocytes % (Manual) 34.0 % (13.4-35.0) 07/29/21 09:36 Reactive Lymphs % (Man) 6.0 % 07/28/21 10:27 Monocytes % (Manual) 10.0 % (0.0-7.3) H 07/29/21 09:36 Eosinophils % (Manual) 2.0 % (0.0-4.3) 07/29/21 09:36 Basophils % (Manual) 4.0 % (0.0-1.8) H 07/29/21 09:36 Metamyelocytes % 3.0 % 07/28/21 10:27 Myelocytes % 1.0 % 07/19/21 09:52 Nucleated RBC % Not Reportable 07/29/21 09:36 Seg Neutrophils # 2.0 K/mm3 (1.8-7.7) 07/24/21 10:46 Seg Neutrophils # Man 2.3 K/mm3 (1.8-7.7) 07/29/21 09:36 Band Neutrophils # 0.0 K/mm3 07/29/21 09:36 Abs Lymphs (Manual) 1497 cells/uL (850-3900) 07/25/21 04:45 Lymphocytes # (Manual) 1.5 K/mm3 (1.2-5.4) 07/29/21 09:36 Abs React Lymphs (Man) 0.0 K/mm3 07/29/21 09:36 Monocytes # (Manual) 0.5 K/mm3 (0.0-0.8) 07/29/21 09:36 Eosinophils # (Manual) 0.1 K/mm3 (0.0-0.4) 07/29/21 09:36 Basophils # (Manual) 0.2 K/mm3 (0.0-0.1) H 07/29/21 09:36 Metamyelocytes # 0.0 K/mm3 07/29/21 09:36 Myelocytes # 0.0 K/mm3 07/29/21 09:36 Promyelocytes # 0.0 K/mm3 07/29/21 09:36 Blast Cells # 0.0 K/mm3 07/29/21 09:36 WBC Morphology Not Reportable 07/29/21 09:36 Hypersegmented Neuts Not Reportable 07/29/21 09:36 Hyposegmented Neuts Not Reportable 07/29/21 09:36 Hypogranular Neuts Not Reportable 07/29/21 09:36 Smudge Cells Not Reportable 07/29/21 09:36 Toxic Granulation Not Reportable 07/29/21 09:36 Toxic Vacuolation Not Reportable 07/29/21 09:36 Dohle Bodies Not Reportable 07/29/21 09:36 Pelger-Huet Anomaly Not Reportable 07/29/21 09:36 Pricila Rods Not Reportable 07/29/21 09:36 Platelet Estimate Consistent w auto 07/29/21 09:36 Clumped Platelets Not Reportable 07/29/21 09:36 Plt Clumps, EDTA Not Reportable 07/29/21 09:36 Large Platelets Not Reportable 07/29/21 09:36 Giant Platelets Not Reportable 07/29/21 09:36 Platelet Satelliting Not Reportable 07/29/21 09:36 Plt Morphology Comment Not Reportable 07/29/21 09:36 RBC Morphology Not Reportable 07/29/21 09:36 Dimorphic RBCs Not Reportable 07/29/21 09:36 Polychromasia Not Reportable 07/29/21 09:36 Hypochromasia Not Reportable 07/29/21 09:36 Poikilocytosis Not Reportable 07/29/21 09:36 Anisocytosis Not Reportable 07/29/21 09:36 Microcytosis Not Reportable 07/29/21 09:36 Macrocytosis Not Reportable 07/29/21 09:36 Spherocytes Not Reportable 07/29/21 09:36 Pappenheimer Bodies Not Reportable 07/29/21 09:36 Sickle Cells Not Reportable 07/29/21 09:36 Target Cells Few 07/29/21 09:36 Tear Drop Cells Not Reportable 07/29/21 09:36 Ovalocytes Not Reportable 07/29/21 09:36 Stomatocytes 2+ 07/29/21 09:36 Helmet Cells Not Reportable 07/29/21 09:36 [place] Bodies Not Reportable 07/29/21 09:36 [place] Rings Not Reportable 07/29/21 09:36 Armani Cells Not Reportable 07/29/21 09:36 Bite Cells Not Reportable 07/29/21 09:36 Crenated Cell Not Reportable 07/29/21 09:36 Elliptocytes Not Reportable 07/29/21 09:36 Acanthocytes (Spur) Not Reportable 07/29/21 09:36 Rouleaux Not Reportable 07/29/21 09:36 Hemoglobin C Crystals Not Reportable 07/29/21 09:36 Schistocytes Not Reportable 07/29/21 09:36 Malaria parasites Not Reportable 07/29/21 09:36 Cody Bodies Not Reportable 07/29/21 09:36 Hem Pathologist Commnt No 07/29/21 09:36 PT 12.8 Sec. (12.2-14.9) 07/25/21 10:03 INR 0.87 (0.87-1.13) 07/25/21 10:03 Sodium 133 mmol/L (137-145) L 07/29/21 09:36 Potassium 4.0 mmol/L (3.6-5.0) 07/29/21 09:36 Chloride 97.7 mmol/L (98-107) L 07/29/21 09:36 Carbon Dioxide 25 mmol/L (22-30) 07/29/21 09:36 Anion Gap 14 mmol/L 07/29/21 09:36 BUN 10 mg/dL (7-17) 07/29/21 09:36 Creatinine 0.4 mg/dL (0.6-1.2) L 07/29/21 09:36 Estimated GFR > 60 ml/min 07/29/21 09:36 BUN/Creatinine Ratio 25 % 07/29/21 09:36 Glucose 85 mg/dL (65-100) 07/29/21 09:36 Lactic Acid 1.00 mmol/L (0.7-2.0) 07/20/21 11:20 Calcium 9.0 mg/dL (8.4-10.2) 07/29/21 09:36 Magnesium 2.20 mg/dL (1.7-2.3) 07/20/21 11:20 Total Bilirubin 1.70 mg/dL (0.1-1.2) H 07/29/21 09:36 Direct Bilirubin 1.8 mg/dL (0-0.2) H 07/24/21 10:46 Indirect Bilirubin 0.3 mg/dL 07/24/21 10:46 AST 237 units/L (5-40) H 07/29/21 09:36 ALT 381 units/L (7-56) H 07/29/21 09:36 Alkaline Phosphatase 1443 units/L (35-129) H 07/29/21 09:36 Ammonia 60.0 umol/L (25-60) 07/20/21 11:20 Total Creatine Kinase 23 units/L (30-135) L 07/20/21 11:20 Total Protein 8.5 g/dL (6.3-8.2) H 07/29/21 09:36 Albumin 3.1 g/dL (3.9-5) L 07/29/21 09:36 Albumin/Globulin Ratio 0.6 % 07/29/21 09:36 TSH 0.116 mlU/mL (0.270-4.200) L 07/20/21 11:20 Free T4 0.94 ng/dL (0.76-1.46) 07/24/21 10:46 Urine Color Bailee (Yellow) 07/19/21 Unknown Urine Turbidity Slightly-cloudy (Clear) 07/19/21 Unknown Urine pH 5.0 (5.0-7.0) 07/19/21 Unknown Ur Specific [place] 1.018 (1.003-1.030) 07/19/21 Unknown Urine Protein 30 mg/dl mg/dL (Negative) 07/19/21 Unknown Urine Glucose (UA) Neg mg/dL (Negative) 07/19/21 Unknown Urine Ketones Neg mg/dL (Negative) 07/19/21 Unknown Urine Blood Sm (Negative) 07/19/21 Unknown Urine Nitrite Neg (Negative) 07/19/21 Unknown Urine Bilirubin Neg (Negative) 07/19/21 Unknown Urine Urobilinogen 4.0 mg/dL (<2.0) 07/19/21 Unknown Ur Leukocyte Esterase Neg (Negative) 07/19/21 Unknown Urine WBC (Auto) 46.0 /HPF (0.0-6.0) H 07/19/21 Unknown Urine RBC (Auto) 7.0 /HPF (0.0-6.0) 07/19/21 Unknown U Epithel Cells (Auto) 13.0 /HPF (0-13.0) 07/19/21 Unknown Urine Bacteria (Auto) 1+ /HPF (Negative) 07/19/21 Unknown Urine Mucus 3+ /HPF 07/19/21 Unknown Nasal Screen MRSA (PCR) Negative (Negative) 07/21/21 Unknown Salicylates < 0.3 mg/dL (2.8-20.0) L 07/20/21 11:20 Urine Opiates Screen Negative 07/19/21 Unknown Urine Methadone Screen Negative 07/19/21 Unknown Acetaminophen 5.0 ug/mL (10.0-30.0) L 07/20/21 11:20 Ur Barbiturates Screen Negative 07/19/21 Unknown Ur Phencyclidine Scrn Negative 07/19/21 Unknown Ur Amphetamines Screen Negative 07/19/21 Unknown U Benzodiazepines Scrn Negative 07/19/21 Unknown Urine Cocaine Screen Negative 07/19/21 Unknown U Marijuana (THC) Screen Negative 07/19/21 Unknown Drugs of Abuse Note Disclamer 07/19/21 Unknown Plasma/Serum Alcohol < 0.01 % (0-0.07) 07/19/21 09:52 Lymph Enumerat CD4/CD8 0.52 (0.86-5.00) L 07/25/21 04:45 % CD3 Cells 87 % (57-85) H 07/25/21 04:45 Absolute CD3 Count 1309 cells/uL (840-3060) 07/25/21 04:45 % CD4 Cells 31 % (30-61) 07/25/21 04:45 Absolute CD4 Count 472 cells/uL (490-1740) L 07/25/21 04:45 % CD8 Cells 59 % (12-42) H 07/25/21 04:45 Absolute CD8 Count 899 cells/uL (180-1170) 07/25/21 04:45 % CD19 Cells 3 % (6-29) L 07/25/21 04:45 Absolute CD19 Count 43 cells/uL (110-660) L 07/25/21 04:45 Coronavirus (PCR) Negative (Negative) 07/20/21 08:39 Hepatitis A IgM Ab Reactive (NonReactive) A 07/20/21 11:20 Hep Bs Antigen Nonreactive (Negative) 07/20/21 11:20 Hep B Core IgM Ab Reactive (NonReactive) A 07/20/21 11:20 Hepatitis C Antibody Non-reactive (NonReactive) 07/20/21 11:20 HIV-1 RNA PCR copies/ml [id number] Copies/mL H 07/24/21 10:46 HIV-1 RNA (PCR) log 5.34 Log cps/mL H 07/24/21 10:46 HIV 1&2 Antibody Rapid Reactive (Non React) 07/23/21 08:27 HIV P24 Antigen Non react (Non React) 07/23/21 08:27 Pierre/IV: Voiding Method Toilet Active Medications - Current Medications Current Medications: Generic Name Dose Route Start Last Admin Trade Name Freq PRN Reason Stop Dose Admin Acetaminophen 650 mg 07/21/21 10:09 Acetaminophen 325 Mg Tab PO Q6H PRN Pain MILD(1-3)/Fever >100.5/PANDYA Aripiprazole 15 mg 07/28/21 13:00 07/29/21 09:54 Aripiprazole 15 Mg Tab PO 15 mg QDAY CASEY Administration Diphenhydramine HCl 25 mg 07/23/21 19:54 07/28/21 21:23 Diphenhydramine 25 Mg Cap PO 25 mg Q8H PRN Administration Itching Duloxetine HCl 30 mg 07/20/21 22:00 07/29/21 22:00 Duloxetine 30 Mg Cap PO 30 mg BID CASEY Administration Heparin Sodium (Porcine) 5,000 unit 07/20/21 23:15 07/29/21 22:00 Heparin 5,000 Unit/1 Ml Vial SUB-Q 5,000 unit Q12HR CASEY Administration Multivitamins 1 each 07/22/21 10:00 07/29/21 09:54 Multivitamins ,Therapeutic Tab PO 1 each QDAY CASEY Administration Ondansetron HCl 4 mg 07/20/21 23:01 Ondansetron 4 Mg/2 Ml Inj IV Q8H PRN Nausea And Vomiting Sodium Chloride 10 ml 07/21/21 10:00 07/29/21 22:05 Sodium Chloride 0.9% 10 Ml Flush Syringe IV Not Given BID CASEY Sodium Chloride 10 ml 07/20/21 23:01 Sodium Chloride 0.9% 10 Ml Flush Syringe IV PRN PRN LINE FLUSH Trazodone HCl 50 mg 07/21/21 22:00 07/29/21 22:00 Trazodone 50 Mg Tab PO 50 mg QHS CASEY Administration Nutrition/Malnutrition Assess - Dietary Evaluation Nutrition/Malnutrition Findings: Nutrition Notes Start: 07/26/21 13:59 Freq: Status: Active Protocol: Document 07/26/21 13:59 GB (Rec: 07/26/21 14:08 GB [id number]) Nutrition Notes Need for Assessment generated from: LOS Initial or Follow up Assessment Other Pertinent Diagnosis elevated liver enzymes Current Diet Regular Labs/Tests 07/24: Na 136, BUN 5, creatinine 0.4, Tbili 2.1, ( AST 392, ALT 668: both showing improvement), AlkP 557 Pertinent Medications D5 (PRN), multivitamins Height 4 ft 7 in Weight 57 kg [place] Body Weight (kg) 34.09 BMI 29.2 Weight change and time frame 07/19: 58.967 kg 07/26: 57 kg Change of -1.967kg for -3.3% loss. Weight Status Overweight Subjective/Other Information MD note 07/26: psychosis, suicidal thoughts, homelessness MH wincher 07/26: pt being reviewed for placement PO intake of meals recorded as 75-100% BM: 07/26 Percent of energy/protein needs met: 100% with current PO intake of meals Burn Absent Trauma Absent GI Symptoms None Food Allergy No Skin Integrity/Comment No complications reported Current % PO Good (75-100%) Minimum of two criteria No #1 Nutrition Diagnosis No nutrition diagnosis at this time Etiology LOS, elevated liver enzymes As Evidenced by Signs and Symptoms good po, stable weight, no skin complications, Liver enzymes showing improvement Is patient on ventilator? No Is Patient Ambulatory and/or Out of Bed Yes REE-([facility]-ambulatory/OOB) [ 1354.769 [id number]] Calculation Used for Recommendations [facility] Additional Notes Protein: 0.8-1 g/kg @ 57k -57g Fluids: 1 ml/kcal or per MD Nutrition Intervention Change Diet Order: continue: Regular Nutrition Support: n/a Add Supplement/Snack (indicate name/kcal n/a /protein ) Goal #1 PO intake of meals to continue at 75% or greater daily for LOS Revisit per MD consult or patient Sign Off request:
[2021-07-30] MEDS: MULTIVITAMINS ,THERAPEUTIC TAB PO SCH (11:13)
[2021-07-30] MEDS: DULoxetine 30 MG CAP PO SCH ×2 (11:14→21:17)
[2021-07-30] MEDS: HEPARIN 5,000 UNIT/1 ML VIAL SUB-Q SCH ×2 (11:14→21:17)
[2021-07-30] MEDS: ARIPiprazole 15 MG TAB PO SCH (11:15)
--- NOTE | 2021-07-30 15:03 | Progress Note ---
Assessment and Plan Assessment and plan: 50-year-old -[place] female with chronic pain and homelessness comes in to the ER expressing intention to . Patient has no concrete plan. Not homicidal. Patient was in the holding area and the labs came very abnormal with high transaminases and positive hepatitis A panel B panel no IV drug use as per the patient patient is a very poor historian. No fever or chills. (1) Acute hepatitis A Current Visit: Yes Status: Acute Plan to address problem: Patient is acute hepatitis A Possible fecal contamination IgM is high Transaminitis severe but improving GI consulted, liver appears normal on imaging ID consulted, supportive care LFTs progressively improving (2) Acute hepatitis B Current Visit: Yes Status: Acute Plan to address problem: IgM antibodies positive indicating acute infection Surface antibody negative, likely not contagious IV drug status not known ID consult and GI consult Supportive care (3) Suicidal ideation Current Visit: Yes Status: Acute Plan to address problem: Patient says that if she is no longer suicidal. Remains under 1013 and mental health recommends inpatient psychiatric evaluation, following Patient is medically stable for transfer to psychiatric facility (4) chronic HIV infection Noncompliant with meds for long, ID consulted. Currently not appropriate to initiate antiviral therapy at this juncture due to acute psychiatric issues and lack of follow-up. (5) chronic homelessness Case management consulted DVT prophylaxis Current Visit: Yes Status: Acute Plan to address problem: Heparin and GI prophylaxis Disposition: Patient remains afebrile and hemodynamically stable. No fever. Acute viral hepatitis but LFTs progressively improving. No hepatomegaly and abdomen is benign. Patient now states that she is no longer suicidal. Awaiting reassessment by psychiatric with regard to the need for transfer to inpatient psych facility. Medically stable for transfer to psych facility if needed. 07/30: Patient medically stable for discharge to psych inpatient facility no further clinical medical issues noted at this time. Remains with sitter on the 1013 History Interval history: Patient seen and examined, no acute distress ambulating around. Hospitalist Physical - Physical exam Narrative exam: General appearance: Present: no acute distress, well-nourished, obese - EENT Eyes: Present: PERRL, EOM intact. Absent: scleral icterus ENT: clear oral mucosa - Neck Neck: Present: supple - Respiratory Respiratory effort: normal Respiratory: bilateral: CTA - Cardiovascular Rhythm: regular - Extremities Extremities: No edema - Abdominal General gastrointestinal: soft, non-tender, non-distended, other (No hepatomegaly appreciated) - Integumentary Integumentary: Absent: jaundice, rash - Psychiatric Psychiatric: cooperative - Neurologic Neurologic: no focal deficits - Constitutional Vitals: Temp Pulse Resp BP Pulse Ox 98.9 F 89 20 108/71 99 07/30/21 11:43 07/30/21 11:43 07/30/21 11:43 07/30/21 11:43 07/30/21 11:43 General appearance: Present: no acute distress, well-nourished, obese Results - Labs CBC & Chem 7: 07/29/21 09:36 07/29/21 09:36 Labs: Laboratory Last Values WBC 4.5 K/mm3 (4.5-11.0) 07/29/21 09:36 RBC 3.84 M/mm3 (3.65-5.03) 07/29/21 09:36 Hgb 12.2 gm/dl (10.1-14.3) 07/29/21 09:36 Hct 36.4 % (30.3-42.9) 07/29/21 09:36 MCV 95 fl (79-97) 07/29/21 09:36 MCH 32 pg (28-32) 07/29/21 09:36 MCHC 34 % (30-34) 07/29/21 09:36 RDW 15.2 % (13.2-15.2) 07/29/21 09:36 Plt Count 319 K/mm3 (140-440) 07/29/21 09:36 Lymph % (Auto) [place] 07/29/21 09:36 [place] % (Auto) [place] 07/28/21 10:27 Eos % (Auto) 1.3 % (0.0-4.3) 07/24/21 10:46 Baso % (Auto) 0.6 % (0.0-1.8) 07/24/21 10:46 Lymph # (Auto) 1.5 K/mm3 (1.2-5.4) 07/24/21 10:46 [place] # (Auto) 0.4 K/mm3 (0.0-0.8) 07/24/21 10:46 Eos # (Auto) 0.1 K/mm3 (0.0-0.4) 07/24/21 10:46 Baso # (Auto) 0.0 K/mm3 (0.0-0.1) 07/24/21 10:46 Add Manual Diff Complete 07/29/21 09:36 Total Counted 100 07/29/21 09:36 Seg Neutrophils % [place] 07/29/21 09:36 Seg Neuts % (Manual) 50.0 % (40.0-70.0) 07/29/21 09:36 Band Neutrophils % 3.0 % 07/19/21 09:52 Lymphocytes % (Manual) 34.0 % (13.4-35.0) 07/29/21 09:36 Reactive Lymphs % (Man) 6.0 % 07/28/21 10:27 Monocytes % (Manual) 10.0 % (0.0-7.3) H 07/29/21 09:36 Eosinophils % (Manual) 2.0 % (0.0-4.3) 07/29/21 09:36 Basophils % (Manual) 4.0 % (0.0-1.8) H 07/29/21 09:36 Metamyelocytes % 3.0 % 07/28/21 10:27 Myelocytes % 1.0 % 07/19/21 09:52 Nucleated RBC % Not Reportable 07/29/21 09:36 Seg Neutrophils # 2.0 K/mm3 (1.8-7.7) 07/24/21 10:46 Seg Neutrophils # Man 2.3 K/mm3 (1.8-7.7) 07/29/21 09:36 Band Neutrophils # 0.0 K/mm3 07/29/21 09:36 Abs Lymphs (Manual) 1497 cells/uL (850-3900) 07/25/21 04:45 Lymphocytes # (Manual) 1.5 K/mm3 (1.2-5.4) 07/29/21 09:36 Abs React Lymphs (Man) 0.0 K/mm3 07/29/21 09:36 Monocytes # (Manual) 0.5 K/mm3 (0.0-0.8) 07/29/21 09:36 Eosinophils # (Manual) 0.1 K/mm3 (0.0-0.4) 07/29/21 09:36 Basophils # (Manual) 0.2 K/mm3 (0.0-0.1) H 07/29/21 09:36 Metamyelocytes # 0.0 K/mm3 07/29/21 09:36 Myelocytes # 0.0 K/mm3 07/29/21 09:36 Promyelocytes # 0.0 K/mm3 07/29/21 09:36 Blast Cells # 0.0 K/mm3 07/29/21 09:36 WBC Morphology Not Reportable 07/29/21 09:36 Hypersegmented Neuts Not Reportable 07/29/21 09:36 Hyposegmented Neuts Not Reportable 07/29/21 09:36 Hypogranular Neuts Not Reportable 07/29/21 09:36 Smudge Cells Not Reportable 07/29/21 09:36 Toxic Granulation Not Reportable 07/29/21 09:36 Toxic Vacuolation Not Reportable 07/29/21 09:36 Dohle Bodies Not Reportable 07/29/21 09:36 Pelger-Huet Anomaly Not Reportable 07/29/21 09:36 Pricila Rods Not Reportable 07/29/21 09:36 Platelet Estimate Consistent w auto 07/29/21 09:36 Clumped Platelets Not Reportable 07/29/21 09:36 Plt Clumps, EDTA Not Reportable 07/29/21 09:36 Large Platelets Not Reportable 07/29/21 09:36 Giant Platelets Not Reportable 07/29/21 09:36 Platelet Satelliting Not Reportable 07/29/21 09:36 Plt Morphology Comment Not Reportable 07/29/21 09:36 RBC Morphology Not Reportable 07/29/21 09:36 Dimorphic RBCs Not Reportable 07/29/21 09:36 Polychromasia Not Reportable 07/29/21 09:36 Hypochromasia Not Reportable 07/29/21 09:36 Poikilocytosis Not Reportable 07/29/21 09:36 Anisocytosis Not Reportable 07/29/21 09:36 Microcytosis Not Reportable 07/29/21 09:36 Macrocytosis Not Reportable 07/29/21 09:36 Spherocytes Not Reportable 07/29/21 09:36 Pappenheimer Bodies Not Reportable 07/29/21 09:36 Sickle Cells Not Reportable 07/29/21 09:36 Target Cells Few 07/29/21 09:36 Tear Drop Cells Not Reportable 07/29/21 09:36 Ovalocytes Not Reportable 07/29/21 09:36 Stomatocytes 2+ 07/29/21 09:36 Helmet Cells Not Reportable 07/29/21 09:36 [place] Bodies Not Reportable 07/29/21 09:36 [place] Rings Not Reportable 07/29/21 09:36 [place] Cells Not Reportable 07/29/21 09:36 Bite Cells Not Reportable 07/29/21 09:36 Crenated Cell Not Reportable 07/29/21 09:36 Elliptocytes Not Reportable 07/29/21 09:36 Acanthocytes (Spur) Not Reportable 07/29/21 09:36 Rouleaux Not Reportable 07/29/21 09:36 Hemoglobin C Crystals Not Reportable 07/29/21 09:36 Schistocytes Not Reportable 07/29/21 09:36 Malaria parasites Not Reportable 07/29/21 09:36 [place] Bodies Not Reportable 07/29/21 09:36 Hem Pathologist Commnt No 07/29/21 09:36 PT 12.8 Sec. (12.2-14.9) 07/25/21 10:03 INR 0.87 (0.87-1.13) 07/25/21 10:03 Sodium 133 mmol/L (137-145) L 07/29/21 09:36 Potassium 4.0 mmol/L (3.6-5.0) 07/29/21 09:36 Chloride 97.7 mmol/L (98-107) L 07/29/21 09:36 Carbon Dioxide 25 mmol/L (22-30) 07/29/21 09:36 Anion Gap 14 mmol/L 07/29/21 09:36 BUN 10 mg/dL (7-17) 07/29/21 09:36 Creatinine 0.4 mg/dL (0.6-1.2) L 07/29/21 09:36 Estimated GFR > 60 ml/min 07/29/21 09:36 BUN/Creatinine Ratio 25 % 07/29/21 09:36 Glucose 85 mg/dL (65-100) 07/29/21 09:36 Lactic Acid 1.00 mmol/L (0.7-2.0) 07/20/21 11:20 Calcium 9.0 mg/dL (8.4-10.2) 07/29/21 09:36 Magnesium 2.20 mg/dL (1.7-2.3) 07/20/21 11:20 Total Bilirubin 1.70 mg/dL (0.1-1.2) H 07/29/21 09:36 Direct Bilirubin 1.8 mg/dL (0-0.2) H 07/24/21 10:46 Indirect Bilirubin 0.3 mg/dL 07/24/21 10:46 AST 237 units/L (5-40) H 07/29/21 09:36 ALT 381 units/L (7-56) H 07/29/21 09:36 Alkaline Phosphatase 1443 units/L (35-129) H 07/29/21 09:36 Ammonia 60.0 umol/L (25-60) 07/20/21 11:20 Total Creatine Kinase 23 units/L (30-135) L 07/20/21 11:20 Total Protein 8.5 g/dL (6.3-8.2) H 07/29/21 09:36 Albumin 3.1 g/dL (3.9-5) L 07/29/21 09:36 Albumin/Globulin Ratio 0.6 % 07/29/21 09:36 TSH 0.116 mlU/mL (0.270-4.200) L 07/20/21 11:20 Free T4 0.94 ng/dL (0.76-1.46) 07/24/21 10:46 Urine Color [place] (Yellow) 07/19/21 Unknown Urine Turbidity Slightly-cloudy (Clear) 07/19/21 Unknown Urine pH 5.0 (5.0-7.0) 07/19/21 Unknown Ur Specific [place] 1.018 (1.003-1.030) 07/19/21 Unknown Urine Protein 30 mg/dl mg/dL (Negative) 07/19/21 Unknown Urine Glucose (UA) Neg mg/dL (Negative) 07/19/21 Unknown Urine Ketones Neg mg/dL (Negative) 07/19/21 Unknown Urine Blood Sm (Negative) 07/19/21 Unknown Urine Nitrite Neg (Negative) 07/19/21 Unknown Urine Bilirubin Neg (Negative) 07/19/21 Unknown Urine Urobilinogen 4.0 mg/dL (<2.0) 07/19/21 Unknown Ur Leukocyte Esterase Neg (Negative) 07/19/21 Unknown Urine WBC (Auto) 46.0 /HPF (0.0-6.0) H 07/19/21 Unknown Urine RBC (Auto) 7.0 /HPF (0.0-6.0) 07/19/21 Unknown U Epithel Cells (Auto) 13.0 /HPF (0-13.0) 07/19/21 Unknown Urine Bacteria (Auto) 1+ /HPF (Negative) 07/19/21 Unknown Urine Mucus 3+ /HPF 07/19/21 Unknown Nasal Screen MRSA (PCR) Negative (Negative) 07/21/21 Unknown Salicylates < 0.3 mg/dL (2.8-20.0) L 07/20/21 11:20 Urine Opiates Screen Negative 07/19/21 Unknown Urine Methadone Screen Negative 07/19/21 Unknown Acetaminophen 5.0 ug/mL (10.0-30.0) L 07/20/21 11:20 Ur Barbiturates Screen Negative 07/19/21 Unknown Ur Phencyclidine Scrn Negative 07/19/21 Unknown Ur Amphetamines Screen Negative 07/19/21 Unknown U Benzodiazepines Scrn Negative 07/19/21 Unknown Urine Cocaine Screen Negative 07/19/21 Unknown U Marijuana (THC) Screen Negative 07/19/21 Unknown Drugs of Abuse Note Disclamer 07/19/21 Unknown Plasma/Serum Alcohol < 0.01 % (0-0.07) 07/19/21 09:52 Lymph Enumerat CD4/CD8 0.52 (0.86-5.00) L 07/25/21 04:45 % CD3 Cells 87 % (57-85) H 07/25/21 04:45 Absolute CD3 Count 1309 cells/uL (840-3060) 07/25/21 04:45 % CD4 Cells 31 % (30-61) 07/25/21 04:45 Absolute CD4 Count 472 cells/uL (490-1740) L 07/25/21 04:45 % CD8 Cells 59 % (12-42) H 07/25/21 04:45 Absolute CD8 Count 899 cells/uL (180-1170) 07/25/21 04:45 % CD19 Cells 3 % (6-29) L 07/25/21 04:45 Absolute CD19 Count 43 cells/uL (110-660) L 07/25/21 04:45 Coronavirus (PCR) Negative (Negative) 07/20/21 08:39 Hepatitis A IgM Ab Reactive (NonReactive) A 07/20/21 11:20 Hep Bs Antigen Nonreactive (Negative) 07/20/21 11:20 Hep B Core IgM Ab Reactive (NonReactive) A 07/20/21 11:20 Hepatitis C Antibody Non-reactive (NonReactive) 07/20/21 11:20 HIV-1 RNA PCR copies/ml [id number] Copies/mL H 07/24/21 10:46 HIV-1 RNA (PCR) log 5.34 Log cps/mL H 07/24/21 10:46 HIV 1&2 Antibody Rapid Reactive (Non React) 07/23/21 08:27 HIV P24 Antigen Non react (Non React) 07/23/21 08:27 Pierre/IV: Voiding Method Toilet Active Medications - Current Medications Current Medications: Generic Name Dose Route Start Last Admin Trade Name Freq PRN Reason Stop Dose Admin Acetaminophen 650 mg 07/21/21 10:09 Acetaminophen 325 Mg Tab PO Q6H PRN Pain MILD(1-3)/Fever >100.5/PANDYA Aripiprazole 15 mg 07/28/21 13:00 07/30/21 11:15 Aripiprazole 15 Mg Tab PO 15 mg QDAY CASEY Administration Diphenhydramine HCl 25 mg 07/23/21 19:54 07/28/21 21:23 Diphenhydramine 25 Mg Cap PO 25 mg Q8H PRN Administration Itching Duloxetine HCl 30 mg 07/20/21 22:00 07/30/21 11:14 Duloxetine 30 Mg Cap PO 30 mg BID CASEY Administration Heparin Sodium (Porcine) 5,000 unit 07/20/21 23:15 07/30/21 11:14 Heparin 5,000 Unit/1 Ml Vial SUB-Q 5,000 unit Q12HR CASEY Administration Multivitamins 1 each 07/22/21 10:00 07/30/21 11:13 Multivitamins ,Therapeutic Tab PO 1 each QDAY CASEY Administration Ondansetron HCl 4 mg 07/20/21 23:01 Ondansetron 4 Mg/2 Ml Inj IV Q8H PRN Nausea And Vomiting Sodium Chloride 10 ml 07/21/21 10:00 07/30/21 11:14 Sodium Chloride 0.9% 10 Ml Flush Syringe IV Not Given BID CASEY Sodium Chloride 10 ml 07/20/21 23:01 Sodium Chloride 0.9% 10 Ml Flush Syringe IV PRN PRN LINE FLUSH Trazodone HCl 50 mg 07/21/21 22:00 07/29/21 22:00 Trazodone 50 Mg Tab PO 50 mg QHS CASEY Administration Nutrition/Malnutrition Assess - Dietary Evaluation Nutrition/Malnutrition Findings: Nutrition Notes Start: 07/26/21 13:59 Freq: Status: Active Protocol: Document 07/26/21 13:59 GB (Rec: 07/26/21 14:08 GB [id number]) Nutrition Notes Need for Assessment generated from: LOS Initial or Follow up Assessment Other Pertinent Diagnosis elevated liver enzymes Current Diet Regular Labs/Tests 07/24: Na 136, BUN 5, creatinine 0.4, Tbili 2.1, ( AST 392, ALT 668: both showing improvement), AlkP 557 Pertinent Medications D5 (PRN), multivitamins Height 4 ft 7 in Weight 57 kg [place] Body Weight (kg) 34.09 BMI 29.2 Weight change and time frame 07/19: 58.967 kg 07/26: 57 kg Change of -1.967kg for -3.3% loss. 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 No Is Patient Ambulatory and/or Out of Bed Yes REE-([facility]-ambulatory/OOB) [ 1354.769 [id number]] Calculation Used for Recommendations [facility] Additional Notes Protein: 0.8-1 g/kg @ 57k -57g Fluids: 1 ml/kcal or per MD Nutrition Intervention Change Diet Order: continue: Regular Nutrition Support: n/a Add Supplement/Snack (indicate name/kcal n/a /protein ) Goal #1 PO intake of meals to continue at 75% or greater daily for LOS Revisit per MD consult or patient Sign Off request:
[2021-07-30] MEDS: traZODone 50 MG TAB PO SCH (21:17)
[2021-07-31] MEDS: DULoxetine 30 MG CAP PO SCH ×2 (10:01→22:49)
[2021-07-31] MEDS: ARIPiprazole 15 MG TAB PO SCH (10:01)
[2021-07-31] MEDS: HEPARIN 5,000 UNIT/1 ML VIAL SUB-Q SCH ×2 (10:02→22:49)
[2021-07-31] MEDS: MULTIVITAMINS ,THERAPEUTIC TAB PO SCH (10:02)
--- NOTE | 2021-07-31 13:51 | Progress Note ---
Subjective - Reason for Consult Consult date: 07/31/21 Reason for consult: Psychosis - Chief Complaint Chief complaint: The patient was seen today, She is sitting in bed calm, but she appears to responding to internal stimuli. She then starts speaking in incomprehensible language. She jumps up and asks was somebody smoking in the bathroom. Her eyes are bucked. The sitter says the patient also had an episode like that this morning. REVIEW OF SYSTEMS Constitutional: Negative for weight loss ENT: Negative for stridor Respiratory: Negative for cough or hemoptysis All other systems reviewed and are negative MENTAL STATUS EXAMINATION General Appearance and Behavior: Age appropriate, good hygiene, wearing appropriate clothes. calm, cooperative Cooperation: Cooperative Psychomotor Behavior: Psychomotor normal Mood: Depressed Affect and affective range: congruent with stated mood Thought Process: tangential Thought Content: suicidal Speech: normal tone and pace Suicidal Ideation:Yes Homicidal Ideation: Denies Hallucinations: Auditory Delusions: None elicited Impulse Control: Questionable Insight and Judgment: Limited Memory: Limited Attention: attentive Orientation: a/o x 3 Assessment (1)Major depressive disorder Current Visit: Yes Status: Acute Treatment Plan continue 1013 Increase Abilify 20mg po daily Continue previously prescribed medications and follow up with outpatient psychiatry in 7 to 10 days upon discharge. The patient to comply with previously prescribed medications Risks, benefits and alternatives of medications discussed with the patient, questions answered and consent obtained from patient. PSYCHOTHERAPY: Supportive psychotherapy provided MEDICAL: Per primary team DELIRIUM PRECAUTIONS: Please re-orient patient frequently, keep lights on during the day, and minimize benzodiazepines and opiates as these medications could worsen patient's confusion. COUNTY BAILIFF: Defer to primary DISPOSITION: Recommend acute psychiatric inpatient treatment. The sitter to give the patient resources and safety plan The patient to comply with treatment regimen and abstain from all illicit drug use. FOLLOW-UP: Will follow. Case staffed with Dr. Crain Medications and Allergies Mental Status Exam - Vital signs Last Vital Signs Temp 97.8 F 07/30/21 22:54 Pulse 70 07/30/21 22:54 Resp 17 07/30/21 22:54 BP 104/67 07/30/21 22:54 Pulse Ox 97 07/30/21 22:54
--- NOTE | 2021-07-31 14:59 | Progress Note ---
Assessment and Plan Assessment and plan: 50-year-old -[place] female with chronic pain and homelessness comes in to the ER expressing intention to . Patient has no concrete plan. Not homicidal. Patient was in the holding area and the labs came very abnormal with high transaminases and positive hepatitis A panel B panel no IV drug use as per the patient patient is a very poor historian. No fever or chills. (1) Acute hepatitis A Current Visit: Yes Status: Acute Plan to address problem: Patient is acute hepatitis A Possible fecal contamination IgM is high Transaminitis severe but improving GI consulted, liver appears normal on imaging ID consulted, supportive care LFTs progressively improving (2) Acute hepatitis B Current Visit: Yes Status: Acute Plan to address problem: IgM antibodies positive indicating acute infection Surface antibody negative, likely not contagious IV drug status not known ID consult and GI consult Supportive care (3) Suicidal ideation Current Visit: Yes Status: Acute Plan to address problem: Patient says that if she is no longer suicidal. Remains under 1013 and mental health recommends inpatient psychiatric evaluation, following Patient is medically stable for transfer to psychiatric facility (4) chronic HIV infection Noncompliant with meds for long, ID consulted. Currently not appropriate to initiate antiviral therapy at this juncture due to acute psychiatric issues and lack of follow-up. (5) chronic homelessness Case management consulted DVT prophylaxis Current Visit: Yes Status: Acute Plan to address problem: Heparin and GI prophylaxis Disposition: Patient remains afebrile and hemodynamically stable. No fever. Acute viral hepatitis but LFTs progressively improving. No hepatomegaly and abdomen is benign. Patient now states that she is no longer suicidal. Awaiting reassessment by psychiatric with regard to the need for transfer to inpatient psych facility. Medically stable for transfer to psych facility if needed. 07/30: Patient medically stable for discharge to psych inpatient facility no further clinical medical issues noted at this time. Remains with sitter on the 1013 07/31: No clinical change remains medically stable for transfer to inpatient psych History Interval history: Patient seen and examined, no acute distress ambulating around. Hospitalist Physical - Physical exam Narrative exam: General appearance: Present: no acute distress, well-nourished, obese - EENT Eyes: Present: PERRL, EOM intact. Absent: scleral icterus ENT: clear oral mucosa - Neck Neck: Present: supple - Respiratory Respiratory effort: normal Respiratory: bilateral: CTA - Cardiovascular Rhythm: regular - Extremities Extremities: No edema - Abdominal General gastrointestinal: soft, non-tender, non-distended, other (No hepato megaly appreciated) - Integumentary Integumentary: Absent: jaundice, rash - Psychiatric Psychiatric: cooperative - Neurologic Neurologic: no focal deficits - Constitutional Vitals: Temp Pulse Resp BP Pulse Ox 99.4 F 93 H 20 110/69 98 07/31/21 14:18 07/31/21 14:18 07/31/21 14:18 07/31/21 14:18 07/31/21 14:18 General appearance: Present: no acute distress, well-nourished, obese Results - Labs CBC & Chem 7: 07/29/21 09:36 07/29/21 09:36 Labs: Laboratory Last Values WBC 4.5 K/mm3 (4.5-11.0) 07/29/21 09:36 RBC 3.84 M/mm3 (3.65-5.03) 07/29/21 09:36 Hgb 12.2 gm/dl (10.1-14.3) 07/29/21 09:36 Hct 36.4 % (30.3-42.9) 07/29/21 09:36 MCV 95 fl (79-97) 07/29/21 09:36 MCH 32 pg (28-32) 07/29/21 09:36 MCHC 34 % (30-34) 07/29/21 09:36 RDW 15.2 % (13.2-15.2) 07/29/21 09:36 Plt Count 319 K/mm3 (140-440) 07/29/21 09:36 Lymph % (Auto) Reconciliation Clerk 07/29/21 09:36 Ballard % (Auto) Reconciliation Clerk 07/28/21 10:27 Eos % (Auto) 1.3 % (0.0-4.3) 07/24/21 10:46 Baso % (Auto) 0.6 % (0.0-1.8) 07/24/21 10:46 Lymph # (Auto) 1.5 K/mm3 (1.2-5.4) 07/24/21 10:46 Ballard # (Auto) 0.4 K/mm3 (0.0-0.8) 07/24/21 10:46 Eos # (Auto) 0.1 K/mm3 (0.0-0.4) 07/24/21 10:46 Baso # (Auto) 0.0 K/mm3 (0.0-0.1) 07/24/21 10:46 Add Manual Diff Complete 07/29/21 09:36 Total Counted 100 07/29/21 09:36 Seg Neutrophils % Reconciliation Clerk 07/29/21 09:36 Seg Neuts % (Manual) 50.0 % (40.0-70.0) 07/29/21 09:36 Band Neutrophils % 3.0 % 07/19/21 09:52 Lymphocytes % (Manual) 34.0 % (13.4-35.0) 07/29/21 09:36 Reactive Lymphs % (Man) 6.0 % 07/28/21 10:27 Monocytes % (Manual) 10.0 % (0.0-7.3) H 07/29/21 09:36 Eosinophils % (Manual) 2.0 % (0.0-4.3) 07/29/21 09:36 Basophils % (Manual) 4.0 % (0.0-1.8) H 07/29/21 09:36 Metamyelocytes % 3.0 % 07/28/21 10:27 Myelocytes % 1.0 % 07/19/21 09:52 Nucleated RBC % Not Reportable 07/29/21 09:36 Seg Neutrophils # 2.0 K/mm3 (1.8-7.7) 07/24/21 10:46 Seg Neutrophils # Man 2.3 K/mm3 (1.8-7.7) 07/29/21 09:36 Band Neutrophils # 0.0 K/mm3 07/29/21 09:36 Abs Lymphs (Manual) 1497 cells/uL (850-3900) 07/25/21 04:45 Lymphocytes # (Manual) 1.5 K/mm3 (1.2-5.4) 07/29/21 09:36 Abs React Lymphs (Man) 0.0 K/mm3 07/29/21 09:36 Monocytes # (Manual) 0.5 K/mm3 (0.0-0.8) 07/29/21 09:36 Eosinophils # (Manual) 0.1 K/mm3 (0.0-0.4) 07/29/21 09:36 Basophils # (Manual) 0.2 K/mm3 (0.0-0.1) H 07/29/21 09:36 Metamyelocytes # 0.0 K/mm3 07/29/21 09:36 Myelocytes # 0.0 K/mm3 07/29/21 09:36 Promyelocytes # 0.0 K/mm3 07/29/21 09:36 Blast Cells # 0.0 K/mm3 07/29/21 09:36 WBC Morphology Not Reportable 07/29/21 09:36 Hypersegmented Neuts Not Reportable 07/29/21 09:36 Hyposegmented Neuts Not Reportable 07/29/21 09:36 Hypogranular Neuts Not Reportable 07/29/21 09:36 Smudge Cells Not Reportable 07/29/21 09:36 Toxic Granulation Not Reportable 07/29/21 09:36 Toxic Vacuolation Not Reportable 07/29/21 09:36 Dohle Bodies Not Reportable 07/29/21 09:36 Pelger-Huet Anomaly Not Reportable 07/29/21 09:36 Rpicila Rods Not Reportable 07/29/21 09:36 Platelet Estimate Consistent w auto 07/29/21 09:36 Clumped Platelets Not Reportable 07/29/21 09:36 Plt Clumps, EDTA Not Reportable 07/29/21 09:36 Large Platelets Not Reportable 07/29/21 09:36 Giant Platelets Not Reportable 07/29/21 09:36 Platelet Satelliting Not Reportable 07/29/21 09:36 Plt Morphology Comment Not Reportable 07/29/21 09:36 RBC Morphology Not Reportable 07/29/21 09:36 Dimorphic RBCs Not Reportable 07/29/21 09:36 Polychromasia Not Reportable 07/29/21 09:36 Hypochromasia Not Reportable 07/29/21 09:36 Poikilocytosis Not Reportable 07/29/21 09:36 Anisocytosis Not Reportable 07/29/21 09:36 Microcytosis Not Reportable 07/29/21 09:36 Macrocytosis Not Reportable 07/29/21 09:36 Spherocytes Not Reportable 07/29/21 09:36 Pappenheimer Bodies Not Reportable 07/29/21 09:36 Sickle Cells Not Reportable 07/29/21 09:36 Target Cells Few 07/29/21 09:36 Tear Drop Cells Not Reportable 07/29/21 09:36 Ovalocytes Not Reportable 07/29/21 09:36 Stomatocytes 2+ 07/29/21 09:36 Helmet Cells Not Reportable 07/29/21 09:36 Fletcher-[place]hin Bodies Not Reportable 07/29/21 09:36 [place] Rings Not Reportable 07/29/21 09:36 [place] Cells Not Reportable 07/29/21 09:36 Bite Cells Not Reportable 07/29/21 09:36 Crenated Cell Not Reportable 07/29/21 09:36 Elliptocytes Not Reportable 07/29/21 09:36 Acanthocytes (Spur) Not Reportable 07/29/21 09:36 Rouleaux Not Reportable 07/29/21 09:36 Hemoglobin C Crystals Not Reportable 07/29/21 09:36 Schistocytes Not Reportable 07/29/21 09:36 Malaria parasites Not Reportable 07/29/21 09:36 Cody Bodies Not Reportable 07/29/21 09:36 Hem Pathologist Commnt No 07/29/21 09:36 PT 12.8 Sec. (12.2-14.9) 07/25/21 10:03 INR 0.87 (0.87-1.13) 07/25/21 10:03 Sodium 133 mmol/L (137-145) L 07/29/21 09:36 Potassium 4.0 mmol/L (3.6-5.0) 07/29/21 09:36 Chloride 97.7 mmol/L (98-107) L 07/29/21 09:36 Carbon Dioxide 25 mmol/L (22-30) 07/29/21 09:36 Anion Gap 14 mmol/L 07/29/21 09:36 BUN 10 mg/dL (7-17) 07/29/21 09:36 Creatinine 0.4 mg/dL (0.6-1.2) L 07/29/21 09:36 Estimated GFR > 60 ml/min 07/29/21 09:36 BUN/Creatinine Ratio 25 % 07/29/21 09:36 Glucose 85 mg/dL (65-100) 07/29/21 09:36 Lactic Acid 1.00 mmol/L (0.7-2.0) 07/20/21 11:20 Calcium 9.0 mg/dL (8.4-10.2) 07/29/21 09:36 Magnesium 2.20 mg/dL (1.7-2.3) 07/20/21 11:20 Total Bilirubin 1.70 mg/dL (0.1-1.2) H 07/29/21 09:36 Direct Bilirubin 1.8 mg/dL (0-0.2) H 07/24/21 10:46 Indirect Bilirubin 0.3 mg/dL 07/24/21 10:46 AST 237 units/L (5-40) H 07/29/21 09:36 ALT 381 units/L (7-56) H 07/29/21 09:36 Alkaline Phosphatase 1443 units/L (35-129) H 07/29/21 09:36 Ammonia 60.0 umol/L (25-60) 07/20/21 11:20 Total Creatine Kinase 23 units/L (30-135) L 07/20/21 11:20 Total Protein 8.5 g/dL (6.3-8.2) H 07/29/21 09:36 Albumin 3.1 g/dL (3.9-5) L 07/29/21 09:36 Albumin/Globulin Ratio 0.6 % 07/29/21 09:36 TSH 0.116 mlU/mL (0.270-4.200) L 07/20/21 11:20 Free T4 0.94 ng/dL (0.76-1.46) 07/24/21 10:46 Urine Color Bailee (Yellow) 07/19/21 Unknown Urine Turbidity Slightly-cloudy (Clear) 07/19/21 Unknown Urine pH 5.0 (5.0-7.0) 07/19/21 Unknown Ur Specific [place] 1.018 (1.003-1.030) 07/19/21 Unknown Urine Protein 30 mg/dl mg/dL (Negative) 07/19/21 Unknown Urine Glucose (UA) Neg mg/dL (Negative) 07/19/21 Unknown Urine Ketones Neg mg/dL (Negative) 07/19/21 Unknown Urine Blood Sm (Negative) 07/19/21 Unknown Urine Nitrite Neg (Negative) 07/19/21 Unknown Urine Bilirubin Neg (Negative) 07/19/21 Unknown Urine Urobilinogen 4.0 mg/dL (<2.0) 07/19/21 Unknown Ur Leukocyte Esterase Neg (Negative) 07/19/21 Unknown Urine WBC (Auto) 46.0 /HPF (0.0-6.0) H 07/19/21 Unknown Urine RBC (Auto) 7.0 /HPF (0.0-6.0) 07/19/21 Unknown U Epithel Cells (Auto) 13.0 /HPF (0-13.0) 07/19/21 Unknown Urine Bacteria (Auto) 1+ /HPF (Negative) 07/19/21 Unknown Urine Mucus 3+ /HPF 07/19/21 Unknown Nasal Screen MRSA (PCR) Negative (Negative) 07/21/21 Unknown Salicylates < 0.3 mg/dL (2.8-20.0) L 07/20/21 11:20 Urine Opiates Screen Negative 07/19/21 Unknown Urine Methadone Screen Negative 07/19/21 Unknown Acetaminophen 5.0 ug/mL (10.0-30.0) L 07/20/21 11:20 Ur Barbiturates Screen Negative 07/19/21 Unknown Ur Phencyclidine Scrn Negative 07/19/21 Unknown Ur Amphetamines Screen Negative 07/19/21 Unknown U Benzodiazepines Scrn Negative 07/19/21 Unknown Urine Cocaine Screen Negative 07/19/21 Unknown U Marijuana (THC) Screen Negative 07/19/21 Unknown Drugs of Abuse Note Disclamer 07/19/21 Unknown Plasma/Serum Alcohol < 0.01 % (0-0.07) 07/19/21 09:52 Lymph Enumerat CD4/CD8 0.52 (0.86-5.00) L 07/25/21 04:45 % CD3 Cells 87 % (57-85) H 07/25/21 04:45 Absolute CD3 Count 1309 cells/uL (840-3060) 07/25/21 04:45 % CD4 Cells 31 % (30-61) 07/25/21 04:45 Absolute CD4 Count 472 cells/uL (490-1740) L 07/25/21 04:45 % CD8 Cells 59 % (12-42) H 07/25/21 04:45 Absolute CD8 Count 899 cells/uL (180-1170) 07/25/21 04:45 % CD19 Cells 3 % (6-29) L 07/25/21 04:45 Absolute CD19 Count 43 cells/uL (110-660) L 07/25/21 04:45 Coronavirus (PCR) Negative (Negative) 07/20/21 08:39 Hepatitis A IgM Ab Reactive (NonReactive) A 07/20/21 11:20 Hep Bs Antigen Nonreactive (Negative) 07/20/21 11:20 Hep B Core IgM Ab Reactive (NonReactive) A 07/20/21 11:20 Hepatitis C Antibody Non-reactive (NonReactive) 07/20/21 11:20 HIV-1 RNA PCR copies/ml [id number] Copies/mL H 07/24/21 10:46 HIV-1 RNA (PCR) log 5.34 Log cps/mL H 07/24/21 10:46 HIV 1&2 Antibody Rapid Reactive (Non React) 07/23/21 08:27 HIV P24 Antigen Non react (Non React) 07/23/21 08:27 Pierre/IV: Voiding Method Toilet Active Medications - Current Medications Current Medications: Generic Name Dose Route Start Last Admin Trade Name Freq PRN Reason Stop Dose Admin Acetaminophen 650 mg 07/21/21 10:09 Acetaminophen 325 Mg Tab PO Q6H PRN Pain MILD(1-3)/Fever >100.5/PANDYA Aripiprazole 20 mg 08/01/21 10:00 Aripiprazole 10 Mg Tab PO QDAY CASEY Diphenhydramine HCl 25 mg 07/23/21 19:54 07/28/21 21:23 Diphenhydramine 25 Mg Cap PO 25 mg Q8H PRN Administration Itching Duloxetine HCl 30 mg 07/20/21 22:00 07/31/21 10:01 Duloxetine 30 Mg Cap PO 30 mg BID CASEY Administration Heparin Sodium (Porcine) 5,000 unit 07/20/21 23:15 07/31/21 10:02 Heparin 5,000 Unit/1 Ml Vial SUB-Q 5,000 unit Q12HR CASEY Administration Multivitamins 1 each 07/22/21 10:00 07/31/21 10:02 Multivitamins ,Therapeutic Tab PO 1 each QDAY CASEY Administration Ondansetron HCl 4 mg 07/20/21 23:01 Ondansetron 4 Mg/2 Ml Inj IV Q8H PRN Nausea And Vomiting Sodium Chloride 10 ml 07/21/21 10:00 07/31/21 10:03 Sodium Chloride 0.9% 10 Ml Flush Syringe IV 10 ml BID CASEY Administration Sodium Chloride 10 ml 07/20/21 23:01 Sodium Chloride 0.9% 10 Ml Flush Syringe IV PRN PRN LINE FLUSH Trazodone HCl 50 mg 07/21/21 22:00 07/30/21 21:17 Trazodone 50 Mg Tab PO 50 mg QHS CASEY Administration Nutrition/Malnutrition Assess - Dietary Evaluation Nutrition/Malnutrition Findings: Nutrition Notes Start: 07/26/21 13: 59 Freq: Status: Active Protocol: Document 07/26/21 13:59 GB (Rec: 07/26/21 14:08 GB [id number]) Nutrition Notes Need for Assessment generated from: LOS Initial or Follow up Assessment Other Pertinent Diagnosis elevated liver enzymes Current Diet Regular Labs/Tests 07/24: Na 136, BUN 5, creatinine 0.4, Tbili 2.1, ( AST 392, ALT 668: both showing improvement), AlkP 557 Pertinent Medications D5 (PRN), multivitamins Height 4 ft 7 in Weight 57 kg Reserve Body Weight (kg) 34.09 BMI 29.2 Weight change and time frame 07/19: 58.967 kg 07/26: 57 kg Change of -1.967kg for -3.3% loss. Weight Status Overweight Subjective/Other Information MD note 07/26: psychosis, suicidal thoughts, homelessness MH insurance coder 07/26: pt being reviewed for placement PO intake of meals recorded as 75-100% BM: 07/26 Percent of energy/protein needs met: 100% with current PO intake of meals Burn Absent Trauma Absent GI Symptoms None Food Allergy No Skin Integrity/Comment No complications reported Current % PO Good (75-100%) Minimum of two criteria No #1 Nutrition Diagnosis No nutrition diagnosis at this time Etiology LOS, elevated liver enzymes As Evidenced by Signs and Symptoms good po, stable weight, no skin complications, Liver enzymes showing improvement Is patient on ventilator? No Is Patient Ambulatory and/or Out of Bed Yes REE-([facility]-ambulatory/OOB) [ 1354.769 [id number]] Calculation Used for Recommendations [facility] Additional Notes Protein: 0.8-1 g/kg @ 57k -57g Fluids: 1 ml/kcal or per MD Nutrition Intervention Change Diet Order: continue: Regular Nutrition Support: n/a Add Supplement/Snack (indicate name/kcal n/a /protein ) Goal #1 PO intake of meals to continue at 75% or greater daily for LOS Revisit per MD consult or patient Sign Off request:
[2021-07-31] MEDS: traZODone 50 MG TAB PO SCH (22:49)
[2021-08-01] MEDS ORDERED: ARIPiprazole 10 MG TAB PO SCH (10:00)
[2021-08-01] MEDS: HEPARIN 5,000 UNIT/1 ML VIAL SUB-Q SCH ×2 (10:00→21:29)
[2021-08-01] MEDS: MULTIVITAMINS ,THERAPEUTIC TAB PO SCH (10:00)
[2021-08-01] MEDS: DULoxetine 30 MG CAP PO SCH ×2 (10:00→21:28)
--- NOTE | 2021-08-01 10:29 | Progress Note ---
Subjective - Reason for Consult Consult date: 08/01/21 Reason for consult: Psychosis - Chief Complaint Chief complaint: The patient was seen today, she is sitting on side of bed eating breakfast. She is sticking her tongue out like a lizard. The sitter at bedside says the patient does this a lot. The sitter says the patient has been talking to herself and acting bizarrely, like laying on her back with her arms and legs straight up and talking to the ceiling. REVIEW OF SYSTEMS Constitutional: Negative for weight loss ENT: Negative for stridor Respiratory: Negative for cough or hemoptysis All other systems reviewed and are negative MENTAL STATUS EXAMINATION General Appearance and Behavior: Age appropriate, good hygiene, wearing appropriate clothes. calm, cooperative Cooperation: Cooperative Psychomotor Behavior: Psychomotor normal Mood: Depressed Affect and affective range: congruent with stated mood Thought Process: tangential Thought Content: suicidal Speech: normal tone and pace Suicidal Ideation:Yes Homicidal Ideation: Denies Hallucinations: Auditory Delusions: None elicited Impulse Control: Questionable Insight and Judgment: Limited Memory: Limited Attention: attentive Orientation: a/o x 3 Assessment (1) Psychosis Current Visit: Yes Status: Acute Treatment Plan continue 1013 Increase Abilify 30mg po daily Continue previously prescribed medications and follow up with outpatient psychiatry in 7 to 10 days upon discharge. The patient to comply with previously prescribed medications Risks, benefits and alternatives of medications discussed with the patient, questions answered and consent obtained from patient. PSYCHOTHERAPY: Supportive psychotherapy provided MEDICAL: Per primary team DELIRIUM PRECAUTIONS: Please re-orient patient frequently, keep lights on during the day, and minimize benzodiazepines and opiates as these medications could worsen patient's confusion. NATIONAL BUSINESS DIRECTOR: Defer to primary DISPOSITION: Recommend acute psychiatric inpatient treatment. The sitter to give the patient resources and safety plan The patient to comply with treatment regimen and abstain from all illicit drug use. FOLLOW-UP: Will follow. Case staffed with Dr. Crain Medications and Allergies Mental Status Exam - Vital signs Last Vital Signs Temp 98.6 F 08/01/21 04:13 Pulse 79 08/01/21 04:13 Resp 16 08/01/21 04:13 BP 115/71 08/01/21 04:13 Pulse Ox 96 08/01/21 04:13
--- NOTE | 2021-08-01 14:24 | Progress Note ---
Assessment and Plan Assessment and plan: 50-year-old -[place] female with chronic pain and homelessness comes in to the ER expressing intention to . Patient has no concrete plan. Not homicidal. Patient was in the holding area and the labs came very abnormal with high transaminases and positive hepatitis A panel B panel no IV drug use as per the patient patient is a very poor historian. No fever or chills. (1) Acute hepatitis A Current Visit: Yes Status: Acute Plan to address problem: Patient is acute hepatitis A Possible fecal contamination IgM is high Transaminitis severe but improving GI consulted, liver appears normal on imaging ID consulted, supportive care LFTs progressively improving (2) Acute hepatitis B Current Visit: Yes Status: Acute Plan to address problem: IgM antibodies positive indicating acute infection Surface antibody negative, likely not contagious IV drug status not known ID consult and GI consult Supportive care (3) Suicidal ideation Current Visit: Yes Status: Acute Plan to address problem: Patient says that if she is no longer suicidal. Remains under 1013 and mental health recommends inpatient psychiatric evaluation, following Patient is medically stable for transfer to psychiatric facility (4) chronic HIV infection Noncompliant with meds for long, ID consulted. Currently not appropriate to initiate antiviral therapy at this juncture due to acute psychiatric issues and lack of follow-up. (5) chronic homelessness Case management consulted DVT prophylaxis Current Visit: Yes Status: Acute Plan to address problem: Heparin and GI prophylaxis Disposition: Patient remains afebrile and hemodynamically stable. No fever. Acute viral hepatitis but LFTs progressively improving. No hepatomegaly and abdomen is benign. Patient now states that she is no longer suicidal. Awaiting reassessment by psychiatric with regard to the need for transfer to inpatient psych facility. Medically stable for transfer to psych facility if needed. 07/30: Patient medically stable for discharge to psych inpatient facility no further clinical medical issues noted at this time. Remains with sitter on the 1013 07/31: No clinical change remains medically stable for transfer to inpatient psych 08/01: Awaiting evaluation from [facility]. No clinically changes. History Interval history: Patient seen and examined, no acute distress ambulating around. Hospitalist Physical - Physical exam Narrative exam: General appearance: Present: no acute distress, well-nourished, obese - EENT Eyes: Present: PERRL, EOM intact. Absent: scleral icterus ENT: clear oral mucosa - Neck Neck: Present: supple - Respiratory Respiratory effort: normal Respiratory: bilateral: CTA - Cardiovascular Rhythm: regular - Extremities Extremities: No edema - Abdominal General gastrointestinal: soft, non-tender, non-distended, other (No hepatomegaly appreciated) - Integumentary Integumentary: Absent: jaundice, rash - Psychiatric Psychiatric: cooperative - Neurologic Neurologic: no focal deficits - Constitutional Vitals: Temp Pulse Resp BP Pulse Ox 98.6 F 92 H 18 113/68 96 08/01/21 11:00 08/01/21 11:00 08/01/21 11:00 08/01/21 11:00 08/01/21 04:13 General appearance: Present: no acute distress, well-nourished, obese Results - Labs CBC & Chem 7: 07/29/21 09:36 07/29/21 09:36 Labs: Laboratory Last Values WBC 4.5 K/mm3 (4.5-11.0) 07/29/21 09:36 RBC 3.84 M/mm3 (3.65-5.03) 07/29/21 09:36 Hgb 12.2 gm/dl (10.1-14.3) 07/29/21 09:36 Hct 36.4 % (30.3-42.9) 07/29/21 09:36 MCV 95 fl (79-97) 07/29/21 09:36 MCH 32 pg (28-32) 07/29/21 09:36 MCHC 34 % (30-34) 07/29/21 09:36 RDW 15.2 % (13.2-15.2) 07/29/21 09:36 Plt Count 319 K/mm3 (140-440) 07/29/21 09:36 Lymph % (Auto) Lap Layer 07/29/21 09:36 [place] % (Auto) Lap Layer 07/28/21 10:27 Eos % (Auto) 1.3 % (0.0-4.3) 07/24/21 10:46 Baso % (Auto) 0.6 % (0.0-1.8) 07/24/21 10:46 Lymph # (Auto) 1.5 K/mm3 (1.2-5.4) 07/24/21 10:46 [place] # (Auto) 0.4 K/mm3 (0.0-0.8) 07/24/21 10:46 Eos # (Auto) 0.1 K/mm3 (0.0-0.4) 07/24/21 10:46 Baso # (Auto) 0.0 K/mm3 (0.0-0.1) 07/24/21 10:46 Add Manual Diff Complete 07/29/21 09:36 Total Counted 100 07/29/21 09:36 Seg Neutrophils % Lap Layer 07/29/21 09:36 Seg Neuts % (Manual) 50.0 % (40.0-70.0) 07/29/21 09:36 Band Neutrophils % 3.0 % 07/19/21 09:52 Lymphocytes % (Manual) 34.0 % (13.4-35.0) 07/29/21 09:36 Reactive Lymphs % (Man) 6.0 % 07/28/21 10:27 Monocytes % (Manual) 10.0 % (0.0-7.3) H 07/29/21 09:36 Eosinophils % (Manual) 2.0 % (0.0-4.3) 07/29/21 09:36 Basophils % (Manual) 4.0 % (0.0-1.8) H 07/29/21 09:36 Metamyelocytes % 3.0 % 07/28/21 10:27 Myelocytes % 1.0 % 07/19/21 09:52 Nucleated RBC % Not Reportable 07/29/21 09:36 Seg Neutrophils # 2.0 K/mm3 (1.8-7.7) 07/24/21 10:46 Seg Neutrophils # Man 2.3 K/mm3 (1.8-7.7) 07/29/21 09:36 Band Neutrophils # 0.0 K/mm3 07/29/21 09:36 Abs Lymphs (Manual) 1497 cells/uL (850-3900) 07/25/21 04:45 Lymphocytes # (Manual) 1.5 K/mm3 (1.2-5.4) 07/29/21 09:36 Abs React Lymphs (Man) 0.0 K/mm3 07/29/21 09:36 Monocytes # (Manual) 0.5 K/mm3 (0.0-0.8) 07/29/21 09:36 Eosinophils # (Manual) 0.1 K/mm3 (0.0-0.4) 07/29/21 09:36 Basophils # (Manual) 0.2 K/mm3 (0.0-0.1) H 07/29/21 09:36 Metamyelocytes # 0.0 K/mm3 07/29/21 09:36 Myelocytes # 0.0 K/mm3 07/29/21 09:36 Promyelocytes # 0.0 K/mm3 07/29/21 09:36 Blast Cells # 0.0 K/mm3 07/29/21 09:36 WBC Morphology Not Reportable 07/29/21 09:36 Hypersegmented Neuts Not Reportable 07/29/21 09:36 Hyposegmented Neuts Not Reportable 07/29/21 09:36 Hypogranular Neuts Not Reportable 07/29/21 09:36 Smudge Cells Not Reportable 07/29/21 09:36 Toxic Granulation Not Reportable 07/29/21 09:36 Toxic Vacuolation Not Reportable 07/29/21 09:36 Dohle Bodies Not Reportable 07/29/21 09:36 Pelger-Huet Anomaly Not Reportable 07/29/21 09:36 Pricila Rods Not Reportable 07/29/21 09:36 Platelet Estimate Consistent w auto 07/29/21 09:36 Clumped Platelets Not Reportable 07/29/21 09:36 Plt Clumps, EDTA Not Reportable 07/29/21 09:36 Large Platelets Not Reportable 07/29/21 09:36 Giant Platelets Not Reportable 07/29/21 09:36 Platelet Satelliting Not Reportable 07/29/21 09:36 Plt Morphology Comment Not Reportable 07/29/21 09:36 RBC Morphology Not Reportable 07/29/21 09:36 Dimorphic RBCs Not Reportable 07/29/21 09:36 Polychromasia Not Reportable 07/29/21 09:36 Hypochromasia Not Reportable 07/29/21 09:36 Poikilocytosis Not Reportable 07/29/21 09:36 Anisocytosis Not Reportable 07/29/21 09:36 Microcytosis Not Reportable 07/29/21 09:36 Macrocytosis Not Reportable 07/29/21 09:36 Spherocytes Not Reportable 07/29/21 09:36 Pappenheimer Bodies Not Reportable 07/29/21 09:36 Sickle Cells Not Reportable 07/29/21 09:36 Target Cells Few 07/29/21 09:36 Tear Drop Cells Not Reportable 07/29/21 09:36 Ovalocytes Not Reportable 07/29/21 09:36 Stomatocytes 2+ 07/29/21 09:36 Helmet Cells Not Reportable 07/29/21 09:36 [place] Bodies Not Reportable 07/29/21 09:36 Blanca Rings Not Reportable 07/29/21 09:36 Armani Cells Not Reportable 07/29/21 09:36 Bite Cells Not Reportable 07/29/21 09:36 Crenated Cell Not Reportable 07/29/21 09:36 Elliptocytes Not Reportable 07/29/21 09:36 Acanthocytes (Spur) Not Reportable 07/29/21 09:36 Rouleaux Not Reportable 07/29/21 09:36 Hemoglobin C Crystals Not Reportable 07/29/21 09:36 Schistocytes Not Reportable 07/29/21 09:36 Malaria parasites Not Reportable 07/29/21 09:36 Cody Bodies Not Reportable 07/29/21 09:36 Hem Pathologist Commnt No 07/29/21 09:36 PT 12.8 Sec. (12.2-14.9) 07/25/21 10:03 INR 0.87 (0.87-1.13) 07/25/21 10:03 Sodium 133 mmol/L (137-145) L 07/29/21 09:36 Potassium 4.0 mmol/L (3.6-5.0) 07/29/21 09:36 Chloride 97.7 mmol/L (98-107) L 07/29/21 09:36 Carbon Dioxide 25 mmol/L (22-30) 07/29/21 09:36 Anion Gap 14 mmol/L 07/29/21 09:36 BUN 10 mg/dL (7-17) 07/29/21 09:36 Creatinine 0.4 mg/dL (0.6-1.2) L 07/29/21 09:36 Estimated GFR > 60 ml/min 07/29/21 09:36 BUN/Creatinine Ratio 25 % 07/29/21 09:36 Glucose 85 mg/dL (65-100) 07/29/21 09:36 Lactic Acid 1.00 mmol/L (0.7-2.0) 07/20/21 11:20 Calcium 9.0 mg/dL (8.4-10.2) 07/29/21 09:36 Magnesium 2.20 mg/dL (1.7-2.3) 07/20/21 11:20 Total Bilirubin 1.70 mg/dL (0.1-1.2) H 07/29/21 09:36 Direct Bilirubin 1.8 mg/dL (0-0.2) H 07/24/21 10:46 Indirect Bilirubin 0.3 mg/dL 07/24/21 10:46 AST 237 units/L (5-40) H 07/29/21 09:36 ALT 381 units/L (7-56) H 07/29/21 09:36 Alkaline Phosphatase 1443 units/L (35-129) H 07/29/21 09:36 Ammonia 60.0 umol/L (25-60) 07/20/21 11:20 Total Creatine Kinase 23 units/L (30-135) L 07/20/21 11:20 Total Protein 8.5 g/dL (6.3-8.2) H 07/29/21 09:36 Albumin 3.1 g/dL (3.9-5) L 07/29/21 09:36 Albumin/Globulin Ratio 0.6 % 07/29/21 09:36 TSH 0.116 mlU/mL (0.270-4.200) L 07/20/21 11:20 Free T4 0.94 ng/dL (0.76-1.46) 07/24/21 10:46 Urine Color Bailee (Yellow) 07/19/21 Unknown Urine Turbidity Slightly-cloudy (Clear) 07/19/21 Unknown Urine pH 5.0 (5.0-7.0) 07/19/21 Unknown Ur Specific [place] 1.018 (1.003-1.030) 07/19/21 Unknown Urine Protein 30 mg/dl mg/dL (Negative) 07/19/21 Unknown Urine Glucose (UA) Neg mg/dL (Negative) 07/19/21 Unknown Urine Ketones Neg mg/dL (Negative) 07/19/21 Unknown Urine Blood Sm (Negative) 07/19/21 Unknown Urine Nitrite Neg (Negative) 07/19/21 Unknown Urine Bilirubin Neg (Negative) 07/19/21 Unknown Urine Urobilinogen 4.0 mg/dL (<2.0) 07/19/21 Unknown Ur Leukocyte Esterase Neg (Negative) 07/19/21 Unknown Urine WBC (Auto) 46.0 /HPF (0.0-6.0) H 07/19/21 Unknown Urine RBC (Auto) 7.0 /HPF (0.0-6.0) 07/19/21 Unknown U Epithel Cells (Auto) 13.0 /HPF (0-13.0) 07/19/21 Unknown Urine Bacteria (Auto) 1+ /HPF (Negative) 07/19/21 Unknown Urine Mucus 3+ /HPF 07/19/21 Unknown Nasal Screen MRSA (PCR) Negative (Negative) 07/21/21 Unknown Salicylates < 0.3 mg/dL (2.8-20.0) L 07/20/21 11:20 Urine Opiates Screen Negative 07/19/21 Unknown Urine Methadone Screen Negative 07/19/21 Unknown Acetaminophen 5.0 ug/mL (10.0-30.0) L 07/20/21 11:20 Ur Barbiturates Screen Negative 07/19/21 Unknown Ur Phencyclidine Scrn Negative 07/19/21 Unknown Ur Amphetamines Screen Negative 07/19/21 Unknown U Benzodiazepines Scrn Negative 07/19/21 Unknown Urine Cocaine Screen Negative 07/19/21 Unknown U Marijuana (THC) Screen Negative 07/19/21 Unknown Drugs of Abuse Note Disclamer 07/19/21 Unknown Plasma/Serum Alcohol < 0.01 % (0-0.07) 07/19/21 09:52 Lymph Enumerat CD4/CD8 0.52 (0.86-5.00) L 07/25/21 04:45 % CD3 Cells 87 % (57-85) H 07/25/21 04:45 Absolute CD3 Count 1309 cells/uL (840-3060) 07/25/21 04:45 % CD4 Cells 31 % (30-61) 07/25/21 04:45 Absolute CD4 Count 472 cells/uL (490-1740) L 07/25/21 04:45 % CD8 Cells 59 % (12-42) H 07/25/21 04:45 Absolute CD8 Count 899 cells/uL (180-1170) 07/25/21 04:45 % CD19 Cells 3 % (6-29) L 07/25/21 04:45 Absolute CD19 Count 43 cells/uL (110-660) L 07/25/21 04:45 Coronavirus (PCR) Negative (Negative) 07/20/21 08:39 Hepatitis A IgM Ab Reactive (NonReactive) A 07/20/21 11:20 Hep Bs Antigen Nonreactive (Negative) 07/20/21 11:20 Hep B Core IgM Ab Reactive (NonReactive) A 07/20/21 11:20 Hepatitis C Antibody Non-reactive (NonReactive) 07/20/21 11:20 HIV-1 RNA PCR copies/ml [id number] Copies/mL H 07/24/21 10:46 HIV-1 RNA (PCR) log 5.34 Log cps/mL H 07/24/21 10:46 HIV 1&2 Antibody Rapid Reactive (Non React) 07/23/21 08:27 HIV P24 Antigen Non react (Non React) 07/23/21 08:27 Pierre/IV: Voiding Method Toilet Active Medications - Current Medications Current Medications: Generic Name Dose Route Start Last Admin Trade Name Freq PRN Reason Stop Dose Admin Acetaminophen 650 mg 07/21/21 10:09 Acetaminophen 325 Mg Tab PO Q6H PRN Pain MILD(1-3)/Fever >100.5/PANDYA Aripiprazole 30 mg 08/02/21 10:00 Aripiprazole 15 Mg Tab PO QDAY CASEY Diphenhydramine HCl 25 mg 07/23/21 19:54 07/28/21 21:23 Diphenhydramine 25 Mg Cap PO 25 mg Q8H PRN Administration Itching Duloxetine HCl 30 mg 07/20/21 22:00 08/01/21 10:00 Duloxetine 30 Mg Cap PO 30 mg BID CASEY Administration Heparin Sodium (Porcine) 5,000 unit 07/20/21 23:15 08/01/21 10:00 Heparin 5,000 Unit/1 Ml Vial SUB-Q 5,000 unit Q12HR CASEY Administration Multivitamins 1 each 07/22/21 10:00 08/01/21 10:00 Multivitamins ,Therapeutic Tab PO 1 each QDAY CASEY Administration Ondansetron HCl 4 mg 07/20/21 23:01 Ondansetron 4 Mg/2 Ml Inj IV Q8H PRN Nausea And Vomiting Sodium Chloride 10 ml 07/21/21 10:00 08/01/21 10:00 Sodium Chloride 0.9% 10 Ml Flush Syringe IV Not Given BID CASEY Sodium Chloride 10 ml 07/20/21 23:01 Sodium Chloride 0.9% 10 Ml Flush Syringe IV PRN PRN LINE FLUSH Trazodone HCl 50 mg 07/21/21 22:00 07/31/21 22:49 Trazodone 50 Mg Tab PO 50 mg QHS CASEY Administration Nutrition/Malnutrition Assess - Dietary Evaluation Nutrition/Malnutrition Findings: Nutrition Notes Start: 07/26/21 13:59 Freq: Status: Active Protocol: Document 07/26/21 13:59 GB (Rec: 07/26/21 14:08 GB [id number]) Nutrition Notes Need for Assessment generated from: LOS Initial or Follow up Assessment Other Pertinent Diagnosis elevated liver enzymes Current Diet Regular Labs/Tests 07/24: Na 136, BUN 5, creatinine 0.4, Tbili 2.1, ( AST 392, ALT 668: both showing improvement), AlkP 557 Pertinent Medications D5 (PRN), multivitamins Height 4 ft 7 in Weight 57 kg [place] Body Weight (kg) 34.09 BMI 29.2 Weight change and time frame 07/19: 58.967 kg 07/26: 57 kg Change of -1.967kg for -3.3% loss. 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 No Is Patient Ambulatory and/or Out of Bed Yes REE-([place]-. Jeor-ambulatory/OOB) [ 1354.769 [id number]] Calculation [facility]ations [facility] Additional Notes Protein: 0.8-1 g/kg @ 57k -57g Fluids: 1 ml/kcal or per MD Nutrition Intervention Change Diet Order: continue: Regular Nutrition Support: n/a Add Supplement/Snack (indicate name/kcal n/a /protein ) Goal #1 PO intake of meals to continue at 75% or greater daily for LOS Revisit per MD consult or patient Sign Off request:
[2021-08-01] MEDS: traZODone 50 MG TAB PO SCH (21:28)
[2021-08-02] MEDS: diphenhydrAMINE 25 MG CAP PO PRN (02:11)
[2021-08-02] MEDS ORDERED: diphenhydrAMINE 50 MG/ML VIAL IM ONE (04:13)
[2021-08-02] MEDS: HEPARIN 5,000 UNIT/1 ML VIAL SUB-Q SCH ×2 (09:46→21:19)
[2021-08-02] MEDS: ARIPiprazole 15 MG TAB PO SCH (09:46)
[2021-08-02] MEDS: DULoxetine 30 MG CAP PO SCH ×2 (09:46→21:17)
[2021-08-02] MEDS: MULTIVITAMINS ,THERAPEUTIC TAB PO SCH (09:46)
--- NOTE | 2021-08-02 10:42 | Progress Note ---
Assessment and Plan Assessment and plan: 50-year-old -Algerian female with chronic pain and homelessness comes in to the ER expressing intention to . Patient has no concrete plan. Not homicidal. Patient was in the holding area and the labs came very abnormal with high transaminases and positive hepatitis A panel B panel no IV drug use as per the patient patient is a very poor historian. No fever or chills. (1) Acute hepatitis A Current Visit: Yes Status: Acute Plan to address problem: Patient is acute hepatitis A Possible fecal contamination IgM is high Transaminitis severe but improving GI consulted, liver appears normal on imaging ID consulted, supportive care LFTs progressively improving (2) Acute hepatitis B Current Visit: Yes Status: Acute Plan to address problem: IgM antibodies positive indicating acute infection Surface antibody negative, likely not contagious IV drug status not known ID consult and GI consult Supportive care (3) Suicidal ideation Current Visit: Yes Status: Acute Plan to address problem: Patient says that if she is no longer suicidal. Remains under 1013 and mental health recommends inpatient psychiatric evaluation, following Patient is medically stable for transfer to psychiatric facility (4) chronic HIV infection Noncompliant with meds for long, ID consulted. Currently not appropriate to initiate antiviral therapy at this juncture due to acute psychiatric issues and lack of follow-up. (5) chronic homelessness Case management consulted DVT prophylaxis Current Visit: Yes Status: Acute Plan to address problem: Heparin and GI prophylaxis Disposition: Patient remains afebrile and hemodynamically stable. No fever. Acute viral hepatitis but LFTs progressively improving. No hepatomegaly and abdomen is benign. Patient now states that she is no longer suicidal. Awaiting reassessment by psychiatric with regard to the need for transfer to inpatient psych facility. Medically stable for transfer to psych facility if needed. 07/30: Patient medically stable for discharge to psych inpatient facility no further clinical medical issues noted at this time. Remains with sitter on the 07/31: No clinical change remains medically stable for transfer to inpatient psych 08/01: Awaiting evaluation from [facility]. No clinically changes. 10/02: Continue supportive care. Awaiting placement. [facility] review ing. No further pleuritic event noted at this time. Patient admitted to the hospital on the 1012 secondary to suicidal ideation with auditory hallucination History Interval history: Patient seen and examined, no acute distress ambulating around. Reported i tching yesterday received Benadryl with improvement. No recurrent episode today Hospitalist Physical - Physical exam Narrative exam: General appearance: Present: no acute distress, well-nourished, obese. Sitting up - EENT Eyes: Present: PERRL, EOM intact. Absent: scleral icterus ENT: clear oral mucosa - Neck Neck: Present: supple - Respiratory Respiratory effort: normal Respiratory: bilateral: CTA - Cardiovascular Rhythm: regular - Extremities Extremities: No edema - Abdominal General gastrointestinal: soft, non-tender, non-distended, other (No hepatomegaly appreciated) - Integumentary Integumentary: Absent: jaundice, rash - Psychiatric Psychiatric: cooperative - Neurologic Neurologic: no focal deficits - Constitutional Vitals: Temp Pulse Resp BP Pulse Ox 98.0 F 73 18 110/69 99 08/02/21 08:00 08/02/21 08:00 08/02/21 08:00 08/02/21 08:00 08/02/21 08:00 General appearance: Present: no acute distress, well-nourished, obese Results - Labs CBC & Chem 7: 07/29/21 09:36 07/29/21 09:36 Labs: Laboratory Last Values WBC 4.5 K/mm3 (4.5-11.0) 07/29/21 09:36 RBC 3.84 M/mm3 (3.65-5.03) 07/29/21 09:36 Hgb 12.2 gm/dl (10.1-14.3) 07/29/21 09:36 Hct 36.4 % (30.3-42.9) 07/29/21 09:36 MCV 95 fl (79-97) 07/29/21 09:36 MCH 32 pg (28-32) 07/29/21 09:36 MCHC 34 % (30-34) 07/29/21 09:36 RDW 15.2 % (13.2-15.2) 07/29/21 09:36 Plt Count 319 K/mm3 (140-440) 07/29/21 09:36 Lymph % (Auto) [employer] 07/29/21 09:36 Coal % (Auto) [employer] 07/28/21 10:27 Eos % (Auto) 1.3 % (0.0-4.3) 07/24/21 10:46 Baso % (Auto) 0.6 % (0.0-1.8) 07/24/21 10:46 Lymph # (Auto) 1.5 K/mm3 (1.2-5.4) 07/24/21 10:46 Coal # (Auto) 0.4 K/mm3 (0.0-0.8) 07/24/21 10:46 Eos # (Auto) 0.1 K/mm3 (0.0-0.4) 07/24/21 10:46 Baso # (Auto) 0.0 K/mm3 (0.0-0.1) 07/24/21 10:46 Add Manual Diff Complete 07/29/21 09:36 Total Counted 100 07/29/21 09:36 Seg Neutrophils % [employer] 07/29/21 09:36 Seg Neuts % (Manual) 50.0 % (40.0-70.0) 07/29/21 09:36 Band Neutrophils % 3.0 % 07/19/21 09:52 Lymphocytes % (Manual) 34.0 % (13.4-35.0) 07/29/21 09:36 Reactive Lymphs % (Man) 6.0 % 07/28/21 10:27 Monocytes % (Manual) 10.0 % (0.0-7.3) H 07/29/21 09:36 Eosinophils % (Manual) 2.0 % (0.0-4.3) 07/29/21 09:36 Basophils % (Manual) 4.0 % (0.0-1.8) H 07/29/21 09:36 Metamyelocytes % 3.0 % 07/28/21 10:27 Myelocytes % 1.0 % 07/19/21 09:52 Nucleated RBC % Not Reportable 07/29/21 09:36 Seg Neutrophils # 2.0 K/mm3 (1.8-7.7) 07/24/21 10:46 Seg Neutrophils # Man 2.3 K/mm3 (1.8-7.7) 07/29/21 09:36 Band Neutrophils # 0.0 K/mm3 07/29/21 09:36 Abs Lymphs (Manual) 1497 cells/uL (850-3900) 07/25/21 04:45 Lymphocytes # (Manual) 1.5 K/mm3 (1.2-5.4) 07/29/21 09:36 Abs React Lymphs (Man) 0.0 K/mm3 07/29/21 09:36 Monocytes # (Manual) 0.5 K/mm3 (0.0-0.8) 07/29/21 09:36 Eosinophils # (Manual) 0.1 K/mm3 (0.0-0.4) 07/29/21 09:36 Basophils # (Manual) 0.2 K/mm3 (0.0-0.1) H 07/29/21 09:36 Metamyelocytes # 0.0 K/mm3 07/29/21 09:36 Myelocytes # 0.0 K/mm3 07/29/21 09:36 Promyelocytes # 0.0 K/mm3 07/29/21 09:36 Blast Cells # 0.0 K/mm3 07/29/21 09:36 WBC Morphology Not Reportable 07/29/21 09:36 Hypersegmented Neuts Not Reportable 07/29/21 09:36 Hyposegmented Neuts Not Reportable 07/29/21 09:36 Hypogranular Neuts Not Reportable 07/29/21 09:36 Smudge Cells Not Reportable 07/29/21 09:36 Toxic Granulation Not Reportable 07/29/21 09:36 Toxic Vacuolation Not Reportable 07/29/21 09:36 Dohle Bodies Not Reportable 07/29/21 09:36 Pelger-Huet Anomaly Not Reportable 07/29/21 09:36 Pricila Rods Not Reportable 07/29/21 09:36 Platelet Estimate Consistent w auto 07/29/21 09:36 Clumped Platelets Not Reportable 07/29/21 09:36 Plt Clumps, EDTA Not Reportable 07/29/21 09:36 Large Platelets Not Reportable 07/29/21 09:36 Giant Platelets Not Reportable 07/29/21 09:36 Platelet Satelliting Not Reportable 07/29/21 09:36 Plt Morphology Comment Not Reportable 07/29/21 09:36 RBC Morphology Not Reportable 07/29/21 09:36 Dimorphic RBCs Not Reportable 07/29/21 09:36 Polychromasia Not Reportable 07/29/21 09:36 Hypochromasia Not Reportable 07/29/21 09:36 Poikilocytosis Not Reportable 07/29/21 09:36 Anisocytosis Not Reportable 07/29/21 09:36 Microcytosis Not Reportable 07/29/21 09:36 Macrocytosis Not Reportable 07/29/21 09:36 Spherocytes Not Reportable 07/29/21 09:36 Pappenheimer Bodies Not Reportable 07/29/21 09:36 Sickle Cells Not Reportable 07/29/21 09:36 Target Cells Few 07/29/21 09:36 Tear Drop Cells Not Reportable 07/29/21 09:36 Ovalocytes Not Reportable 07/29/21 09:36 Stomatocytes 2+ 07/29/21 09:36 Helmet Cells Not Reportable 07/29/21 09:36 Fletcher-Clyde Bodies Not Reportable 07/29/21 09:36 [place] Rings Not Reportable 07/29/21 09:36 Armani Cells Not Reportable 07/29/21 09:36 Bite Cells Not Reportable 07/29/21 09:36 Crenated Cell Not Reportable 07/29/21 09:36 Elliptocytes Not Reportable 07/29/21 09:36 Acanthocytes (Spur) Not Reportable 07/29/21 09:36 Rouleaux Not Reportable 07/29/21 09:36 Hemoglobin C Crystals Not Reportable 07/29/21 09:36 Schistocytes Not Reportable 07/29/21 09:36 Malaria parasites Not Reportable 07/29/21 09:36 Cody Bodies Not Reportable 07/29/21 09:36 Hem Pathologist Commnt No 07/29/21 09:36 PT 12.8 Sec. (12.2-14.9) 07/25/21 10:03 INR 0.87 (0.87-1.13) 07/25/21 10:03 Sodium 133 mmol/L (137-145) L 07/29/21 09:36 Potassium 4.0 mmol/L (3.6-5.0) 07/29/21 09:36 Chloride 97.7 mmol/L (98-107) L 07/29/21 09:36 Carbon Dioxide 25 mmol/L (22-30) 07/29/21 09:36 Anion Gap 14 mmol/L 07/29/21 09:36 BUN 10 mg/dL (7-17) 07/29/21 09:36 Creatinine 0.4 mg/dL (0.6-1.2) L 07/29/21 09:36 Estimated GFR > 60 ml/min 07/29/21 09:36 BUN/Creatinine Ratio 25 % 07/29/21 09:36 Glucose 85 mg/dL (65-100) 07/29/21 09:36 Lactic Acid 1.00 mmol/L (0.7-2.0) 07/20/21 11:20 Calcium 9.0 mg/dL (8.4-10.2) 07/29/21 09:36 Magnesium 2.20 mg/dL (1.7-2.3) 07/20/21 11:20 Total Bilirubin 1.70 mg/dL (0.1-1.2) H 07/29/21 09:36 Direct Bilirubin 1.8 mg/dL (0-0.2) H 07/24/21 10:46 Indirect Bilirubin 0.3 mg/dL 07/24/21 10:46 AST 237 units/L (5-40) H 07/29/21 09:36 ALT 381 units/L (7-56) H 07/29/21 09:36 Alkaline Phosphatase 1443 units/L (35-129) H 07/29/21 09:36 Ammonia 60.0 umol/L (25-60) 07/20/21 11:20 Total Creatine Kinase 23 units/L (30-135) L 07/20/21 11:20 Total Protein 8.5 g/dL (6.3-8.2) H 07/29/21 09:36 Albumin 3.1 g/dL (3.9-5) L 07/29/21 09:36 Albumin/Globulin Ratio 0.6 % 07/29/21 09:36 TSH 0.116 mlU/mL (0.270-4.200) L 07/20/21 11:20 Free T4 0.94 ng/dL (0.76-1.46) 07/24/21 10:46 Urine Color Bailee (Yellow) 07/19/21 Unknown Urine Turbidity Slightly-cloudy (Clear) 07/19/21 Unknown Urine pH 5.0 (5.0-7.0) 07/19/21 Unknown Ur Specific [place] 1.018 (1.003-1.030) 07/19/21 Unknown Urine Protein 30 mg/dl mg/dL (Negative) 07/19/21 Unknown Urine Glucose (UA) Neg mg/dL (Negative) 07/19/21 Unknown Urine Ketones Neg mg/dL (Negative) 07/19/21 Unknown Urine Blood Sm (Negative) 07/19/21 Unknown Urine Nitrite Neg (Negative) 07/19/21 Unknown Urine Bilirubin Neg (Negative) 07/19/21 Unknown Urine Urobilinogen 4.0 mg/dL (<2.0) 07/19/21 Unknown Ur Leukocyte Esterase Neg (Negative) 07/19/21 Unknown Urine WBC (Auto) 46.0 /HPF (0.0-6.0) H 07/19/21 Unknown Urine RBC (Auto) 7.0 /HPF (0.0-6.0) 07/19/21 Unknown U Epithel Cells (Auto) 13.0 /HPF (0-13.0) 07/19/21 Unknown Urine Bacteria (Auto) 1+ /HPF (Negative) 07/19/21 Unknown Urine Mucus 3+ /HPF 07/19/21 Unknown Nasal Screen MRSA (PCR) Negative (Negative) 07/21/21 Unknown Salicylates < 0.3 mg/dL (2.8-20.0) L 07/20/21 11:20 Urine Opiates Screen Negative 07/19/21 Unknown Urine Methadone Screen Negative 07/19/21 Unknown Acetaminophen 5.0 ug/mL (10.0-30.0) L 07/20/21 11:20 Ur Barbiturates Screen Negative 07/19/21 Unknown Ur Phencyclidine Scrn Negative 07/19/21 Unknown Ur Amphetamines Screen Negative 07/19/21 Unknown U Benzodiazepines Scrn Negative 07/19/21 Unknown Urine Cocaine Screen Negative 07/19/21 Unknown U Marijuana (THC) Screen Negative 07/19/21 Unknown Drugs of Abuse Note Disclamer 07/19/21 Unknown Plasma/Serum Alcohol < 0.01 % (0-0.07) 07/19/21 09:52 Lymph Enumerat CD4/CD8 0.52 (0.86-5.00) L 07/25/21 04:45 % CD3 Cells 87 % (57-85) H 07/25/21 04:45 Absolute CD3 Count 1309 cells/uL (840-3060) 07/25/21 04:45 % CD4 Cells 31 % (30-61) 07/25/21 04:45 Absolute CD4 Count 472 cells/uL (490-1740) L 07/25/21 04:45 % CD8 Cells 59 % (12-42) H 07/25/21 04:45 Absolute CD8 Count 899 cells/uL (180-1170) 07/25/21 04:45 % CD19 Cells 3 % (6-29) L 07/25/21 04:45 Absolute CD19 Count 43 cells/uL (110-660) L 07/25/21 04:45 Coronavirus (PCR) Negative (Negative) 07/20/21 08:39 Hepatitis A IgM Ab Reactive (NonReactive) A 07/20/21 11:20 Hep Bs Antigen Nonreactive (Negative) 07/20/21 11:20 Hep B Core IgM Ab Reactive (NonReactive) A 07/20/21 11:20 Hepatitis C Antibody Non-reactive (NonReactive) 07/20/21 11:20 HIV-1 RNA PCR copies/ml 510855 Copies/mL H 07/24/21 10:46 HIV-1 RNA (PCR) log 5.34 Log cps/mL H 07/24/21 10:46 HIV 1&2 Antibody Rapid Reactive (Non React) 07/23/21 08:27 HIV P24 Antigen Non react (Non React) 07/23/21 08:27 Pierre/IV: Voiding Method Toilet Active Medications - Current Medications Current Medications: Generic Name Dose Route Start Last Admin Trade Name Freq PRN Reason Stop Dose Admin Acetaminophen 650 mg 07/21/21 10:09 Acetaminophen 325 Mg Tab PO Q6H PRN Pain MILD(1-3)/Fever >100.5/PANDYA Aripiprazole 30 mg 08/02/21 10:00 08/02/21 09:46 Aripiprazole 15 Mg Tab PO 30 mg QDAY CASEY Administration Diphenhydramine HCl 25 mg 07/23/21 19:54 08/02/21 02:11 Diphenhydramine 25 Mg Cap PO 25 mg Q8H PRN Administration Itching Duloxetine HCl 30 mg 07/20/21 22:00 08/02/21 09:46 Duloxetine 30 Mg Cap PO 30 mg BID CASEY Administration Heparin Sodium (Porcine) 5,000 unit 07/20/21 23:15 08/02/21 09:46 Heparin 5,000 Unit/1 Ml Vial SUB-Q 5,000 unit Q12HR CASEY Administration Multivitamins 1 each 07/22/21 10:00 08/02/21 09:46 Multivitamins ,Therapeutic Tab PO 1 each QDAY CASEY Administration Ondansetron HCl 4 mg 07/20/21 23:01 Ondansetron 4 Mg/2 Ml Inj IV Q8H PRN Nausea And Vomiting Sodium Chloride 10 ml 07/21/21 10:00 08/02/21 09:47 Sodium Chloride 0.9% 10 Ml Flush Syringe IV Not Given BID CASEY Sodium Chloride 10 ml 07/20/21 23:01 Sodium Chloride 0.9% 10 Ml Flush Syringe IV PRN PRN LINE FLUSH Trazodone HCl 50 mg 07/21/21 22:00 08/01/21 21:28 Trazodone 50 Mg Tab PO 50 mg QHS CASEY Administration Nutrition/Malnutrition Assess - Dietary Evaluation Nutrition/Malnutrition Findings: Nutrition Notes Start: 07/26/21 13:59 Freq: Status: Active Protocol: Document 07/26/21 13:59 GB (Rec: 07/26/21 14:08 GB [id number]) Nutrition Notes Need for Assessment generated from: LOS Initial or Follow up Assessment Other Pertinent Diagnosis elevated liver enzymes Current Diet Regular Labs/Tests 07/24: Na 136, BUN 5, creatinine 0.4, Tbili 2.1, ( AST 392, ALT 668: both showing improvement), AlkP 557 Pertinent Medications D5 (PRN), multivitamins Height 4 ft 7 in Weight 57 kg [place] Body Weight (kg) 34.09 BMI 29.2 Weight change and time frame 07/19: 58.967 kg 07/26: 57 kg Change of -1.967kg for -3.3% loss. Weight Status Overweight Subjective/Other Information MD note 07/26: psychosis, suicidal thoughts, homelessness MH pizza delivery 07/26: pt being reviewed for placement PO intake of meals recorded as 75-100% BM: 07/26 Percent of energy/protein needs met: 100% with current PO intake of meals Burn Absent Trauma Absent GI Symptoms None Food Allergy No Skin Integrity/Comment No complications reported Current % PO Good (75-100%) Minimum of two criteria No #1 Nutrition Diagnosis No nutrition diagnosis at this time Etiology LOS, elevated liver enzymes As Evidenced by Signs and Symptoms good po, stable weight, no skin complications, Liver enzymes showing improvement Is patient on ventilator? No Is Patient Ambulatory and/or Out of Bed Yes REE-([facility]-ambulatory/OOB) [ 1354.769 [id number]] Calculation Used for Recommendations [facility] Additional Notes Protein: 0.8-1 g/kg @ 57k -57g Fluids: 1 ml/kcal or per MD Nutrition Intervention Change Diet Order: continue: Regular Nutrition Support: n/a Add Supplement/Snack (indicate name/kcal n/a /protein ) Goal #1 PO intake of meals to continue at 75% or greater daily for LOS Follow-Up By: 08/27/21 Revisit per MD consult or patient Sign Off request:
[2021-08-02] MEDS: traZODone 50 MG TAB PO SCH (21:17)
[2021-08-03] MEDS: ARIPiprazole 15 MG TAB PO SCH (09:09)
[2021-08-03] MEDS: DULoxetine 30 MG CAP PO SCH ×2 (09:09→21:42)
[2021-08-03] MEDS: MULTIVITAMINS ,THERAPEUTIC TAB PO SCH (09:09)
[2021-08-03] MEDS: HEPARIN 5,000 UNIT/1 ML VIAL SUB-Q SCH ×2 (09:10→21:42)
--- NOTE | 2021-08-03 09:57 | Progress Note ---
Assessment and Plan Assessment and plan: 50-year-old -[place] female with chronic pain and homelessness comes in to the ER expressing intention to . Patient has no concrete plan. Not homicidal. Patient was in the holding area and the labs came very abnormal with high transaminases and positive hepatitis A panel B panel no IV drug use as per the patient patient is a very poor historian. No fever or chills. (1) Acute hepatitis A Current Visit: Yes Status: Acute Plan to address problem: Patient is acute hepatitis A Possible fecal contamination IgM is high Transaminitis severe but improving GI consulted, liver appears normal on imaging ID consulted, supportive care LFTs progressively improving (2) Acute hepatitis B Current Visit: Yes Status: Acute Plan to address problem: IgM antibodies positive indicating acute infection Surface antibody negative, likely not contagious IV drug status not known ID consult and GI consult Supportive care (3) Suicidal ideation Current Visit: Yes Status: Acute Plan to address problem: Patient says that if she is no longer suicidal. Remains under 1013 and mental health recommends inpatient psychiatric evaluation, following Patient is medically stable for transfer to psychiatric facility (4) chronic HIV infection Noncompliant with meds for long, ID consulted. Currently not appropriate to initiate antiviral therapy at this juncture due to acute psychiatric issues and lack of follow-up. (5) chronic homelessness Case management consulted DVT prophylaxis Current Visit: Yes Status: Acute Plan to address problem: Heparin and GI prophylaxis Disposition: Patient remains afebrile and hemodynamically stable. No fever. Acute viral hepatitis but LFTs progressively improving. No hepatomegaly and abdomen is benign. Patient now states that she is no longer suicidal. Awaiting reassessment by psychiatric with regard to the need for transfer to inpatient psych facility. Medically stable for transfer to psych facility if needed. 07/30: Patient medically stable for discharge to psych inpatient facility no further clinical medical issues noted at this time. Remains with sitter on the 07/31: No clinical change remains medically stable for transfer to inpatient psych 08/01: Awaiting evaluation from [facility]. No clinically changes. 08/02: Continue supportive care. Awaiting placement. [facility] revayde wing. No further pleuritic event noted at this time. Patient admitted to the hospital on the 1012 secondary to suicidal ideation with auditory hallucination 08/03: Continue supportive care, awaiting placement History Interval history: Patient seen and examined, no acute distress Sitting up in bed. No recurrent episode today of pruritus Hospitalist Physical - Physical exam Narrative exam: General appearance: Present: no acute distress, well-nourished, obese. - EENT Eyes: Present: PERRL, EOM intact. Absent: scleral icterus ENT: clear oral mucosa - Neck Neck: Present: supple - Respiratory Respiratory effort: normal Respiratory: bilateral: CTA - Cardiovascular Rhythm: regular - Extremities Extremities: No edema - Abdominal General gastrointestinal: soft, non-tender, non-distended, other (No h epatomegaly appreciated) - Integumentary Integumentary: Absent: jaundice, rash - Psychiatric Psychiatric: cooperative - Neurologic Neurologic: no focal deficits - Constitutional Vitals: Temp Pulse Resp BP Pulse Ox 98.3 F 78 18 102/69 98 08/03/21 06:07 08/03/21 06:07 08/03/21 06:07 08/03/21 06:07 08/03/21 07:45 General appearance: Present: no acute distress, well-nourished, obese Results - Labs CBC & Chem 7: 07/29/21 09:36 07/29/21 09:36 Labs: Laboratory Last Values WBC 4.5 K/mm3 (4.5-11.0) 07/29/21 09:36 RBC 3.84 M/mm3 (3.65-5.03) 07/29/21 09:36 Hgb 12.2 gm/dl (10.1-14.3) 07/29/21 09:36 Hct 36.4 % (30.3-42.9) 07/29/21 09:36 MCV 95 fl (79-97) 07/29/21 09:36 MCH 32 pg (28-32) 07/29/21 09:36 MCHC 34 % (30-34) 07/29/21 09:36 RDW 15.2 % (13.2-15.2) 07/29/21 09:36 Plt Count 319 K/mm3 (140-440) 07/29/21 09:36 Lymph % (Auto) Natural Gas Technician 07/29/21 09:36 Mclean % (Auto) Natural Gas Technician 07/28/21 10:27 Eos % (Auto) 1.3 % (0.0-4.3) 07/24/21 10:46 Baso % (Auto) 0.6 % (0.0-1.8) 07/24/21 10:46 Lymph # (Auto) 1.5 K/mm3 (1.2-5.4) 07/24/21 10:46 Mclean # (Auto) 0.4 K/mm3 (0.0-0.8) 07/24/21 10:46 Eos # (Auto) 0.1 K/mm3 (0.0-0.4) 07/24/21 10:46 Baso # (Auto) 0.0 K/mm3 (0.0-0.1) 07/24/21 10:46 Add Manual Diff Complete 07/29/21 09:36 Total Counted 100 07/29/21 09:36 Seg Neutrophils % Natural Gas Technician 07/29/21 09:36 Seg Neuts % (Manual) 50.0 % (40.0-70.0) 07/29/21 09:36 Band Neutrophils % 3.0 % 07/19/21 09:52 Lymphocytes % (Manual) 34.0 % (13.4-35.0) 07/29/21 09:36 Reactive Lymphs % (Man) 6.0 % 07/28/21 10:27 Monocytes % (Manual) 10.0 % (0.0-7.3) H 07/29/21 09:36 Eosinophils % (Manual) 2.0 % (0.0-4.3) 07/29/21 09:36 Basophils % (Manual) 4.0 % (0.0-1.8) H 07/29/21 09:36 Metamyelocytes % 3.0 % 07/28/21 10:27 Myelocytes % 1.0 % 07/19/21 09:52 Nucleated RBC % Not Reportable 07/29/21 09:36 Seg Neutrophils # 2.0 K/mm3 (1.8-7.7) 07/24/21 10:46 Seg Neutrophils # Man 2.3 K/mm3 (1.8-7.7) 07/29/21 09:36 Band Neutrophils # 0.0 K/mm3 07/29/21 09:36 Abs Lymphs (Manual) 1497 cells/uL (850-3900) 07/25/21 04:45 Lymphocytes # (Manual) 1.5 K/mm3 (1.2-5.4) 07/29/21 09:36 Abs React Lymphs (Man) 0.0 K/mm3 07/29/21 09:36 Monocytes # (Manual) 0.5 K/mm3 (0.0-0.8) 07/29/21 09:36 Eosinophils # (Manual) 0.1 K/mm3 (0.0-0.4) 07/29/21 09:36 Basophils # (Manual) 0.2 K/mm3 (0.0-0.1) H 07/29/21 09:36 Metamyelocytes # 0.0 K/mm3 07/29/21 09:36 Myelocytes # 0.0 K/mm3 07/29/21 09:36 Promyelocytes # 0.0 K/mm3 07/29/21 09:36 Blast Cells # 0.0 K/mm3 07/29/21 09:36 WBC Morphology Not Reportable 07/29/21 09:36 Hypersegmented Neuts Not Reportable 07/29/21 09:36 Hyposegmented Neuts Not Reportable 07/29/21 09:36 Hypogranular Neuts Not Reportable 07/29/21 09:36 Smudge Cells Not Reportable 07/29/21 09:36 Toxic Granulation Not Reportable 07/29/21 09:36 Toxic Vacuolation Not Reportable 07/29/21 09:36 Dohle Bodies Not Reportable 07/29/21 09:36 Pelger-Huet Anomaly Not Reportable 07/29/21 09:36 Pricila Rods Not Reportable 07/29/21 09:36 Platelet Estimate Consistent w auto 07/29/21 09:36 Clumped Platelets Not Reportable 07/29/21 09:36 Plt Clumps, EDTA Not Reportable 07/29/21 09:36 Large Platelets Not Reportable 07/29/21 09:36 Giant Platelets Not Reportable 07/29/21 09:36 Platelet Satelliting Not Reportable 07/29/21 09:36 Plt Morphology Comment Not Reportable 07/29/21 09:36 RBC Morphology Not Reportable 07/29/21 09:36 Dimorphic RBCs Not Reportable 07/29/21 09:36 Polychromasia Not Reportable 07/29/21 09:36 Hypochromasia Not Reportable 07/29/21 09:36 Poikilocytosis Not Reportable 07/29/21 09:36 Anisocytosis Not Reportable 07/29/21 09:36 Microcytosis Not Reportable 07/29/21 09:36 Macrocytosis Not Reportable 07/29/21 09:36 Spherocytes Not Reportable 07/29/21 09:36 Pappenheimer Bodies Not Reportable 07/29/21 09:36 Sickle Cells Not Reportable 07/29/21 09:36 Target Cells Few 07/29/21 09:36 Tear Drop Cells Not Reportable 07/29/21 09:36 Ovalocytes Not Reportable 07/29/21 09:36 Stomatocytes 2+ 07/29/21 09:36 Helmet Cells Not Reportable 07/29/21 09:36 Fletcher-Chandler Bodies Not Reportable 07/29/21 09:36 [place] Rings Not Reportable 07/29/21 09:36 Armani Cells Not Reportable 07/29/21 09:36 Bite Cells Not Reportable 07/29/21 09:36 Crenated Cell Not Reportable 07/29/21 09:36 Elliptocytes Not Reportable 07/29/21 09:36 Acanthocytes (Spur) Not Reportable 07/29/21 09:36 Rouleaux Not Reportable 07/29/21 09:36 Hemoglobin C Crystals Not Reportable 07/29/21 09:36 Schistocytes Not Reportable 07/29/21 09:36 Malaria parasites Not Reportable 07/29/21 09:36 Cody Bodies Not Reportable 07/29/21 09:36 Hem Pathologist Commnt No 07/29/21 09:36 PT 12.8 Sec. (12.2-14.9) 07/25/21 10:03 INR 0.87 (0.87-1.13) 07/25/21 10:03 Sodium 133 mmol/L (137-145) L 07/29/21 09:36 Potassium 4.0 mmol/L (3.6-5.0) 07/29/21 09:36 Chloride 97.7 mmol/L (98-107) L 07/29/21 09:36 Carbon Dioxide 25 mmol/L (22-30) 07/29/21 09:36 Anion Gap 14 mmol/L 07/29/21 09:36 BUN 10 mg/dL (7-17) 07/29/21 09:36 Creatinine 0.4 mg/dL (0.6-1.2) L 07/29/21 09:36 Estimated GFR > 60 ml/min 07/29/21 09:36 BUN/Creatinine Ratio 25 % 07/29/21 09:36 Glucose 85 mg/dL (65-100) 07/29/21 09:36 Lactic Acid 1.00 mmol/L (0.7-2.0) 07/20/21 11:20 Calcium 9.0 mg/dL (8.4-10.2) 07/29/21 09:36 Magnesium 2.20 mg/dL (1.7-2.3) 07/20/21 11:20 Total Bilirubin 1.70 mg/dL (0.1-1.2) H 07/29/21 09:36 Direct Bilirubin 1.8 mg/dL (0-0.2) H 07/24/21 10:46 Indirect Bilirubin 0.3 mg/dL 07/24/21 10:46 AST 237 units/L (5-40) H 07/29/21 09:36 ALT 381 units/L (7-56) H 07/29/21 09:36 Alkaline Phosphatase 1443 units/L (35-129) H 07/29/21 09:36 Ammonia 60.0 umol/L (25-60) 07/20/21 11:20 Total Creatine Kinase 23 units/L (30-135) L 07/20/21 11:20 Total Protein 8.5 g/dL (6.3-8.2) H 07/29/21 09:36 Albumin 3.1 g/dL (3.9-5) L 07/29/21 09:36 Albumin/Globulin Ratio 0.6 % 07/29/21 09:36 TSH 0.116 mlU/mL (0.270-4.200) L 07/20/21 11:20 Free T4 0.94 ng/dL (0.76-1.46) 07/24/21 10:46 Urine Color Bailee (Yellow) 07/19/21 Unknown Urine Turbidity Slightly-cloudy (Clear) 07/19/21 Unknown Urine pH 5.0 (5.0-7.0) 07/19/21 Unknown Ur Specific [place] 1.018 (1.003-1.030) 07/19/21 Unknown Urine Protein 30 mg/dl mg/dL (Negative) 07/19/21 Unknown Urine Glucose (UA) Neg mg/dL (Negative) 07/19/21 Unknown Urine Ketones Neg mg/dL (Negative) 07/19/21 Unknown Urine Blood Sm (Negative) 07/19/21 Unknown Urine Nitrite Neg (Negative) 07/19/21 Unknown Urine Bilirubin Neg (Negative) 07/19/21 Unknown Urine Urobilinogen 4.0 mg/dL (<2.0) 07/19/21 Unknown Ur Leukocyte Esterase Neg (Negative) 07/19/21 Unknown Urine WBC (Auto) 46.0 /HPF (0.0-6.0) H 07/19/21 Unknown Urine RBC (Auto) 7.0 /HPF (0.0-6.0) 07/19/21 Unknown U Epithel Cells (Auto) 13.0 /HPF (0-13.0) 07/19/21 Unknown Urine Bacteria (Auto) 1+ /HPF (Negative) 07/19/21 Unknown Urine Mucus 3+ /HPF 07/19/21 Unknown Nasal Screen MRSA (PCR) Negative (Negative) 07/21/21 Unknown Salicylates < 0.3 mg/dL (2.8-20.0) L 07/20/21 11:20 Urine Opiates Screen Negative 07/19/21 Unknown Urine Methadone Screen Negative 07/19/21 Unknown Acetaminophen 5.0 ug/mL (10.0-30.0) L 07/20/21 11:20 Ur Barbiturates Screen Negative 07/19/21 Unknown Ur Phencyclidine Scrn Negative 07/19/21 Unknown Ur Amphetamines Screen Negative 07/19/21 Unknown U Benzodiazepines Scrn Negative 07/19/21 Unknown Urine Cocaine Screen Negative 07/19/21 Unknown U Marijuana (THC) Screen Negative 07/19/21 Unknown Drugs of Abuse Note Disclamer 07/19/21 Unknown Plasma/Serum Alcohol < 0.01 % (0-0.07) 07/19/21 09:52 Lymph Enumerat CD4/CD8 0.52 (0.86-5.00) L 07/25/21 04:45 % CD3 Cells 87 % (57-85) H 07/25/21 04:45 Absolute CD3 Count 1309 cells/uL (840-3060) 07/25/21 04:45 % CD4 Cells 31 % (30-61) 07/25/21 04:45 Absolute CD4 Count 472 cells/uL (490-1740) L 07/25/21 04:45 % CD8 Cells 59 % (12-42) H 07/25/21 04:45 Absolute CD8 Count 899 cells/uL (180-1170) 07/25/21 04:45 % CD19 Cells 3 % (6-29) L 07/25/21 04:45 Absolute CD19 Count 43 cells/uL (110-660) L 07/25/21 04:45 Coronavirus (PCR) Negative (Negative) 07/20/21 08:39 Hepatitis A IgM Ab Reactive (NonReactive) A 07/20/21 11:20 Hep Bs Antigen Nonreactive (Negative) 07/20/21 11:20 Hep B Core IgM Ab Reactive (NonReactive) A 07/20/21 11:20 Hepatitis C Antibody Non-reactive (NonReactive) 07/20/21 11:20 HIV-1 RNA PCR copies/ml [id number] Copies/mL H 07/24/21 10:46 HIV-1 RNA (PCR) log 5.34 Log cps/mL H 07/24/21 10:46 HIV 1&2 Antibody Rapid Reactive (Non React) 07/23/21 08:27 HIV P24 Antigen Non react (Non React) 07/23/21 08:27 Pierre/IV: Voiding Method Toilet Active Medications - Current Medications Current Medications: Generic Name Dose Route Start Last Admin Trade Name Freq PRN Reason Stop Dose Admin Acetaminophen 650 mg 07/21/21 10:09 Acetaminophen 325 Mg Tab PO Q6H PRN Pain MILD(1-3)/Fever >100.5/PANDYA Aripiprazole 30 mg 08/02/21 10:00 08/03/21 09:09 Aripiprazole 15 Mg Tab PO 30 mg QDAY CASEY Administration Diphenhydramine HCl 25 mg 07/23/21 19:54 08/02/21 02:11 Diphenhydramine 25 Mg Cap PO 25 mg Q8H PRN Administration Itching Duloxetine HCl 30 mg 07/20/21 22:00 08/03/21 09:09 Duloxetine 30 Mg Cap PO 30 mg BID CASEY Administration Heparin Sodium (Porcine) 5,000 unit 07/20/21 23:15 08/03/21 09:10 Heparin 5,000 Unit/1 Ml Vial SUB-Q 5,000 unit Q12HR CASEY Administration Multivitamins 1 each 07/22/21 10:00 08/03/21 09:09 Multivitamins ,Therapeutic Tab PO 1 each QDAY CASEY Administration Ondansetron HCl 4 mg 07/20/21 23:01 Ondansetron 4 Mg/2 Ml Inj IV Q8H PRN Nausea And Vomiting Sodium Chloride 10 ml 07/21/21 10:00 08/03/21 09:10 Sodium Chloride 0.9% 10 Ml Flush Syringe IV Not Given BID CASEY Sodium Chloride 10 ml 07/20/21 23:01 Sodium Chloride 0.9% 10 Ml Flush Syringe IV PRN PRN LINE FLUSH Trazodone HCl 50 mg 07/21/21 22:00 08/02/21 21:17 Trazodone 50 Mg Tab PO 50 mg QHS CASEY Administration Nutrition/Malnutrition Assess - Dietary Evaluation Nutrition/Malnutrition Findings: Nutrition Notes Start: 07/26/21 13:59 Freq: Status: Active Protocol: Document 07/26/21 13:59 GB (Rec: 07/26/21 14:08 GB [id number]) Nutrition Notes Need for Assessment generated from: LOS Initial or Follow up Assessment Other Pertinent Diagnosis elevated liver enzymes Current Diet Regular Labs/Tests 07/24: Na 136, BUN 5, creatinine 0.4, Tbili 2.1, ( AST 392, ALT 668: both showing improvement), AlkP 557 Pertinent Medications D5 (PRN), multivitamins Height 4 ft 7 in Weight 57 kg [place] Body Weight (kg) 34.09 BMI 29.2 Weight change and time frame 07/19: 58.967 kg 07/26: 57 kg Change of -1.967kg for -3.3% loss. Weight Status Overweight Subjective/Other Information MD note 07/26: psychosis, suicidal thoughts, homelessness MH energy risk management analyst 07/26: pt being reviewed for placement PO intake of meals recorded as 75-100% BM: 07/26 Percent of energy/protein needs met: 100% with current PO intake of meals Burn Absent Trauma Absent GI Symptoms None Food Allergy No Skin Integrity/Comment No complications reported Current % PO Good (75-100%) Minimum of two criteria No #1 Nutrition Diagnosis No nutrition diagnosis at this time Etiology LOS, elevated liver enzymes As Evidenced by Signs and Symptoms good po, stable weight, no skin complications, Liver enzymes showing improvement Is patient on ventilator? No Is Patient Ambulatory and/or Out of Bed Yes REE-([facility]-ambulatory/OOB) [ 1354.769 [id number]] Calculation Used for Recommendations [facility] Additional Notes Protein: 0.8-1 g/kg @ 57k -57g Fluids: 1 ml/kcal or per MD Nutrition Intervention Change Diet Order: continue: Regular Nutrition Support: n/a Add Supplement/Snack (indicate name/kcal n/a /protein ) Goal #1 PO intake of meals to continue at 75% or greater daily for LOS Follow-Up By: 08/27/21 Revisit per MD consult or patient Sign Off request:
--- NOTE | 2021-08-03 12:29 | Progress Note ---
Subjective - Reason for Consult Consult date: 08/03/21 Reason for consult: SI - Chief Complaint Chief complaint: The patient was seen today, she continue to endorse suicidal ideation with a plan to overdose on pills. REVIEW OF SYSTEMS Constitutional: Negative for weight loss ENT: Negative for stridor Respiratory: Negative for cough or hemoptysis All other systems reviewed and are negative MENTAL STATUS EXAMINATION General Appearance and Behavior: Age appropriate, good hygiene, wearing appropriate clothes. calm, cooperative Cooperation: Cooperative Psychomotor Behavior: Psychomotor normal Mood: Depressed Affect and affective range: congruent with stated mood Thought Process: tangential Thought Content: suicidal Speech: normal tone and pace Suicidal Ideation:Yes Homicidal Ideation: Denies Hallucinations: Auditory Delusions: None elicited Impulse Control: Questionable Insight and Judgment: Limited Memory: Limited Attention: attentive Orientation: a/o x 3 Assessment (1) Psychosis Current Visit: Yes Status: Acute Treatment Plan continue 1013 Increase Abilify 30mg po daily Continue previously prescribed medications and follow up with outpatient psychiatry in 7 to 10 days upon discharge. The patient to comply with previously prescribed medications Risks, benefits and alternatives of medications discussed with the patient, questions answered and consent obtained from patient. PSYCHOTHERAPY: Supportive psychotherapy provided MEDICAL: Per primary team DELIRIUM PRECAUTIONS: Please re-orient patient frequently, keep lights on during the day, and minimize benzodiazepines and opiates as these medications could worsen patient's confusion. ELECTRICAL PROSPECTING ENGINEER: Defer to primary DISPOSITION: Recommend acute psychiatric inpatient treatment. The sitter to give the patient resources and safety plan The patient to comply with treatment regimen and abstain from all illicit drug use. FOLLOW-UP: Will follow. Case staffed with Dr. Crain Medications and Allergies Mental Status Exam - Vital signs Last Vital Signs Temp 98.3 F 08/03/21 06:07 Pulse 78 08/03/21 06:07 Resp 18 08/03/21 06:07 BP 102/69 08/03/21 06:07 Pulse Ox 98 08/03/21 07:45
[2021-08-03] MEDS: traZODone 50 MG TAB PO SCH (21:42)
[2021-08-03] MEDS: diphenhydrAMINE 25 MG CAP PO PRN (21:47)
[2021-08-04] MEDS: MULTIVITAMINS ,THERAPEUTIC TAB PO SCH (09:43)
[2021-08-04] MEDS: DULoxetine 30 MG CAP PO SCH ×2 (09:43→22:58)
[2021-08-04] MEDS: ARIPiprazole 15 MG TAB PO SCH (09:44)
[2021-08-04] MEDS: HEPARIN 5,000 UNIT/1 ML VIAL SUB-Q SCH ×2 (09:44→22:58)
--- NOTE | 2021-08-04 10:25 | Progress Note ---
Assessment and Plan Assessment and plan: Assessment and Plan Assessment and plan: 50-year-old -Swiss female with chronic pain and homelessness comes in to the ER expressing intention to . Patient has no concrete plan. Not homicidal. Patient was in the holding area and the labs came very abnormal with high transaminases and positive hepatitis A panel B panel no IV drug use as per the patient patient is a very poor historian. No fever or chills. (1) Acute hepatitis A Current Visit: Yes Status: Acute Plan to address problem: Patient is acute hepatitis A Possible fecal contamination IgM is high Transaminitis severe but improving GI consulted, liver appears normal on imaging ID consulted, supportive care LFTs progressively improving (2) Acute hepatitis B Current Visit: Yes Status: Acute Plan to address problem: IgM antibodies positive indicating acute infection Surface antibody negative, likely not contagious IV drug status not known ID consult and GI consult Supportive care (3) Suicidal ideation Current Visit: Yes Status: Acute Plan to address problem: Patient says that if she is no longer suicidal. Remains under 1013 and mental health recommends inpatient psychiatric evaluation, following Patient is medically stable for transfer to psychiatric facility (4) chronic HIV infection Noncompliant with meds for long, ID consulted. Currently not appropriate to initiate antiviral therapy at this juncture due to acute psychiatric issues and lack of follow-up. (5) chronic homelessness Case management consulted DVT prophylaxis Current Visit: Yes Status: Acute Plan to address problem: Heparin and GI prophylaxis Disposition: Patient remains afebrile and hemodynamically stable. No fever. Acute viral hepatitis but LFTs progressively improving. No hepatomegaly and abdomen is benign. Patient now states that she is no longer suicidal. Awaiting reassessment by psychiatric with regard to the need for transfer to inpatient psych facility. Medically stable for transfer to psych facility if needed. 07/30: Patient medically stable for discharge to psych inpatient facility no further clinical medical issues noted at this time. Remains with sitter on the 07/31: No clinical change remains medically stable for transfer to inpatient psych 08/01: Awaiting evaluation from [facility]. No clinically changes. 08/02: Continue supportive care. Awaiting placement. [facility] reviewing. No further pleuritic event noted at this time. Patient admitted to the hospital on the 1012 secondary to suicidal ideation with auditory hallucination 08/03: Continue supportive care, awaiting placement 08/04/21 patient is seen and examined. Lab medication reviewed. No new complain. Patient is seen and evaluated by psych. Patient is 1013. Patient is awaiting for placement for inpatient psych. Continue current management History Interval history: Patient is seen and examined.. Patient feels better. Denied any nausea vomiting no diarrhea. No other complain Hospitalist Physical - Constitutional Vitals: Temp Pulse Resp BP Pulse Ox 98.4 F 93 H 18 114/69 97 08/04/21 05:53 08/04/21 05:53 08/04/21 05:53 08/04/21 05:53 08/04/21 05:53 General appearance: Present: no acute distress, well-nourished, obese - EENT Eyes: Present: PERRL, EOM intact ENT: hearing intact, clear oral mucosa, dentition normal - Neck Neck: Present: supple, normal ROM - Respiratory Respiratory effort: normal Respiratory: bilateral: diminished - Cardiovascular Rhythm: regular Heart Sounds: Present: S1 & S2 - Extremities Extremities: no ischemia, pulses intact, No edema Peripheral Pulses: within normal limits - Abdominal General gastrointestinal: soft, non-tender, non-distended, normal bowel sounds - Integumentary Integumentary: Present: clear, warm, dry - Psychiatric Psychiatric: depressed - Neurologic Neurologic: CNII-XII intact, moves all extremities, other - Allied Health Allied health notes reviewed: nursing Results - Labs CBC & Chem 7: 07/29/21 09:36 07/29/21 09:36 Labs: Laboratory Last Values WBC 4.5 K/mm3 (4.5-11.0) 07/29/21 09:36 RBC 3.84 M/mm3 (3.65-5.03) 07/29/21 09:36 Hgb 12.2 gm/dl (10.1-14.3) 07/29/21 09:36 Hct 36.4 % (30.3-42.9) 07/29/21 09:36 MCV 95 fl (79-97) 07/29/21 09:36 MCH 32 pg (28-32) 07/29/21 09:36 MCHC 34 % (30-34) 07/29/21 09:36 RDW 15.2 % (13.2-15.2) 07/29/21 09:36 Plt Count 319 K/mm3 (140-440) 07/29/21 09:36 Lymph % (Auto) Uniform Designer 07/29/21 09:36 [place] % (Auto) Uniform Designer 07/28/21 10:27 Eos % (Auto) 1.3 % (0.0-4.3) 07/24/21 10:46 Baso % (Auto) 0.6 % (0.0-1.8) 07/24/21 10:46 Lymph # (Auto) 1.5 K/mm3 (1.2-5.4) 07/24/21 10:46 [place] # (Auto) 0.4 K/mm3 (0.0-0.8) 07/24/21 10:46 Eos # (Auto) 0.1 K/mm3 (0.0-0.4) 07/24/21 10:46 Baso # (Auto) 0.0 K/mm3 (0.0-0.1) 07/24/21 10:46 Add Manual Diff Complete 07/29/21 09:36 Total Counted 100 07/29/21 09:36 Seg Neutrophils % Uniform Designer 07/29/21 09:36 Seg Neuts % (Manual) 50.0 % (40.0-70.0) 07/29/21 09:36 Band Neutrophils % 3.0 % 07/19/21 09:52 Lymphocytes % (Manual) 34.0 % (13.4-35.0) 07/29/21 09:36 Reactive Lymphs % (Man) 6.0 % 07/28/21 10:27 Monocytes % (Manual) 10.0 % (0.0-7.3) H 07/29/21 09:36 Eosinophils % (Manual) 2.0 % (0.0-4.3) 07/29/21 09:36 Basophils % (Manual) 4.0 % (0.0-1.8) H 07/29/21 09:36 Metamyelocytes % 3.0 % 07/28/21 10:27 Myelocytes % 1.0 % 07/19/21 09:52 Nucleated RBC % Not Reportable 07/29/21 09:36 Seg Neutrophils # 2.0 K/mm3 (1.8-7.7) 07/24/21 10:46 Seg Neutrophils # Man 2.3 K/mm3 (1.8-7.7) 07/29/21 09:36 Band Neutrophils # 0.0 K/mm3 07/29/21 09:36 Abs Lymphs (Manual) 1497 cells/uL (850-3900) 07/25/21 04:45 Lymphocytes # (Manual) 1.5 K/mm3 (1.2-5.4) 07/29/21 09:36 Abs React Lymphs (Man) 0.0 K/mm3 07/29/21 09:36 Monocytes # (Manual) 0.5 K/mm3 (0.0-0.8) 07/29/21 09:36 Eosinophils # (Manual) 0.1 K/mm3 (0.0-0.4) 07/29/21 09:36 Basophils # (Manual) 0.2 K/mm3 (0.0-0.1) H 07/29/21 09:36 Metamyelocytes # 0.0 K/mm3 07/29/21 09:36 Myelocytes # 0.0 K/mm3 07/29/21 09:36 Promyelocytes # 0.0 K/mm3 07/29/21 09:36 Blast Cells # 0.0 K/mm3 07/29/21 09:36 WBC Morphology Not Reportable 07/29/21 09:36 Hypersegmented Neuts Not Reportable 07/29/21 09:36 Hyposegmented Neuts Not Reportable 07/29/21 09:36 Hypogranular Neuts Not Reportable 07/29/21 09:36 Smudge Cells Not Reportable 07/29/21 09:36 Toxic Granulation Not Reportable 07/29/21 09:36 Toxic Vacuolation Not Reportable 07/29/21 09:36 Dohle Bodies Not Reportable 07/29/21 09:36 Pelger-Huet Anomaly Not Reportable 07/29/21 09:36 Pricila Rods Not Reportable 07/29/21 09:36 Platelet Estimate Consistent w auto 07/29/21 09:36 Clumped Platelets Not Reportable 07/29/21 09:36 Plt Clumps, EDTA Not Reportable 07/29/21 09:36 Large Platelets Not Reportable 07/29/21 09:36 Giant Platelets Not Reportable 07/29/21 09:36 Platelet Satelliting Not Reportable 07/29/21 09:36 Plt Morphology Comment Not Reportable 07/29/21 09:36 RBC Morphology Not Reportable 07/29/21 09:36 Dimorphic RBCs Not Reportable 07/29/21 09:36 Polychromasia Not Reportable 07/29/21 09:36 Hypochromasia Not Reportable 07/29/21 09:36 Poikilocytosis Not Reportable 07/29/21 09:36 Anisocytosis Not Reportable 07/29/21 09:36 Microcytosis Not Reportable 07/29/21 09:36 Macrocytosis Not Reportable 07/29/21 09:36 Spherocytes Not Reportable 07/29/21 09:36 Pappenheimer Bodies Not Reportable 07/29/21 09:36 Sickle Cells Not Reportable 07/29/21 09:36 Target Cells Few 07/29/21 09:36 Tear Drop Cells Not Reportable 07/29/21 09:36 Ovalocytes Not Reportable 07/29/21 09:36 Stomatocytes 2+ 07/29/21 09:36 Helmet Cells Not Reportable 07/29/21 09:36 [place] Bodies Not Reportable 07/29/21 09:36 [place] Rings Not Reportable 07/29/21 09:36 [place] Cells Not Reportable 07/29/21 09:36 Bite Cells Not Reportable 07/29/21 09:36 Crenated Cell Not Reportable 07/29/21 09:36 Elliptocytes Not Reportable 07/29/21 09:36 Acanthocytes (Spur) Not Reportable 07/29/21 09:36 Rouleaux Not Reportable 07/29/21 09:36 Hemoglobin C Crystals Not Reportable 07/29/21 09:36 Schistocytes Not Reportable 07/29/21 09:36 Malaria parasites Not Reportable 07/29/21 09:36 [place] Bodies Not Reportable 07/29/21 09:36 Hem Pathologist Commnt No 07/29/21 09:36 PT 12.8 Sec. (12.2-14.9) 07/25/21 10:03 INR 0.87 (0.87-1.13) 07/25/21 10:03 Sodium 133 mmol/L (137-145) L 07/29/21 09:36 Potassium 4.0 mmol/L (3.6-5.0) 07/29/21 09:36 Chloride 97.7 mmol/L (98-107) L 07/29/21 09:36 Carbon Dioxide 25 mmol/L (22-30) 07/29/21 09:36 Anion Gap 14 mmol/L 07/29/21 09:36 BUN 10 mg/dL (7-17) 07/29/21 09:36 Creatinine 0.4 mg/dL (0.6-1.2) L 07/29/21 09:36 Estimated GFR > 60 ml/min 07/29/21 09:36 BUN/Creatinine Ratio 25 % 07/29/21 09:36 Glucose 85 mg/dL (65-100) 07/29/21 09:36 Lactic Acid 1.00 mmol/L (0.7-2.0) 07/20/21 11:20 Calcium 9.0 mg/dL (8.4-10.2) 07/29/21 09:36 Magnesium 2.20 mg/dL (1.7-2.3) 07/20/21 11:20 Total Bilirubin 1.70 mg/dL (0.1-1.2) H 07/29/21 09:36 Direct Bilirubin 1.8 mg/dL (0-0.2) H 07/24/21 10:46 Indirect Bilirubin 0.3 mg/dL 07/24/21 10:46 AST 237 units/L (5-40) H 07/29/21 09:36 ALT 381 units/L (7-56) H 07/29/21 09:36 Alkaline Phosphatase 1443 units/L (35-129) H 07/29/21 09:36 Ammonia 60.0 umol/L (25-60) 07/20/21 11:20 Total Creatine Kinase 23 units/L (30-135) L 07/20/21 11:20 Total Protein 8.5 g/dL (6.3-8.2) H 07/29/21 09:36 Albumin 3.1 g/dL (3.9-5) L 07/29/21 09:36 Albumin/Globulin Ratio 0.6 % 07/29/21 09:36 TSH 0.116 mlU/mL (0.270-4.200) L 07/20/21 11:20 Free T4 0.94 ng/dL (0.76-1.46) 07/24/21 10:46 Urine Color Bailee (Yellow) 07/19/21 Unknown Urine Turbidity Slightly-cloudy (Clear) 07/19/21 Unknown Urine pH 5.0 (5.0-7.0) 07/19/21 Unknown Ur Specific [place] 1.018 (1.003-1.030) 07/19/21 Unknown Urine Protein 30 mg/dl mg/dL (Negative) 07/19/21 Unknown Urine Glucose (UA) Neg mg/dL (Negative) 07/19/21 Unknown Urine Ketones Neg mg/dL (Negative) 07/19/21 Unknown Urine Blood Sm (Negative) 07/19/21 Unknown Urine Nitrite Neg (Negative) 07/19/21 Unknown Urine Bilirubin Neg (Negative) 07/19/21 Unknown Urine Urobilinogen 4.0 mg/dL (<2.0) 07/19/21 Unknown Ur Leukocyte Esterase Neg (Negative) 07/19/21 Unknown Urine WBC (Auto) 46.0 /HPF (0.0-6.0) H 07/19/21 Unknown Urine RBC (Auto) 7.0 /HPF (0.0-6.0) 07/19/21 Unknown U Epithel Cells (Auto) 13.0 /HPF (0-13.0) 07/19/21 Unknown Urine Bacteria (Auto) 1+ /HPF (Negative) 07/19/21 Unknown Urine Mucus 3+ /HPF 07/19/21 Unknown Nasal Screen MRSA (PCR) Negative (Negative) 07/21/21 Unknown Salicylates < 0.3 mg/dL (2.8-20.0) L 07/20/21 11:20 Urine Opiates Screen Negative 07/19/21 Unknown Urine Methadone Screen Negative 07/19/21 Unknown Acetaminophen 5.0 ug/mL (10.0-30.0) L 07/20/21 11:20 Ur Barbiturates Screen Negative 07/19/21 Unknown Ur Phencyclidine Scrn Negative 07/19/21 Unknown Ur Amphetamines Screen Negative 07/19/21 Unknown U Benzodiazepines Scrn Negative 07/19/21 Unknown Urine Cocaine Screen Negative 07/19/21 Unknown U Marijuana (THC) Screen Negative 07/19/21 Unknown Drugs of Abuse Note Disclamer 07/19/21 Unknown Plasma/Serum Alcohol < 0.01 % (0-0.07) 07/19/21 09:52 Lymph Enumerat CD4/CD8 0.52 (0.86-5.00) L 07/25/21 04:45 % CD3 Cells 87 % (57-85) H 07/25/21 04:45 Absolute CD3 Count 1309 cells/uL (840-3060) 07/25/21 04:45 % CD4 Cells 31 % (30-61) 07/25/21 04:45 Absolute CD4 Count 472 cells/uL (490-1740) L 07/25/21 04:45 % CD8 Cells 59 % (12-42) H 07/25/21 04:45 Absolute CD8 Count 899 cells/uL (180-1170) 07/25/21 04:45 % CD19 Cells 3 % (6-29) L 07/25/21 04:45 Absolute CD19 Count 43 cells/uL (110-660) L 07/25/21 04:45 Coronavirus (PCR) Negative (Negative) 07/20/21 08:39 Hepatitis A IgM Ab Reactive (NonReactive) A 07/20/21 11:20 Hep Bs Antigen Nonreactive (Negative) 07/20/21 11:20 Hep B Core IgM Ab Reactive (NonReactive) A 07/20/21 11:20 Hepatitis C Antibody Non-reactive (NonReactive) 07/20/21 11:20 HIV-1 RNA PCR copies/ml [id number] Copies/mL H 07/24/21 10:46 HIV-1 RNA (PCR) log 5.34 Log cps/mL H 07/24/21 10:46 HIV 1&2 Antibody Rapid Reactive (Non React) 07/23/21 08:27 HIV P24 Antigen Non react (Non React) 07/23/21 08:27 Pierre/IV: Voiding Method Toilet Active Medications - Current Medications Current Medications: Generic Name Dose Route Start Last Admin Trade Name Freq PRN Reason Stop Dose Admin Acetaminophen 650 mg 07/21/21 10:09 Acetaminophen 325 Mg Tab PO Q6H PRN Pain MILD(1-3)/Fever >100.5/PANDYA Aripiprazole 30 mg 08/02/21 10:00 08/04/21 09:44 Aripiprazole 15 Mg Tab PO 30 mg QDAY CASEY Administration Diphenhydramine HCl 25 mg 07/23/21 19:54 08/03/21 21:47 Diphenhydramine 25 Mg Cap PO 25 mg Q8H PRN Administration Itching Duloxetine HCl 30 mg 07/20/21 22:00 08/04/21 09:43 Duloxetine 30 Mg Cap PO 30 mg BID CASEY Administration Heparin Sodium (Porcine) 5,000 unit 07/20/21 23:15 08/04/21 09:44 Heparin 5,000 Unit/1 Ml Vial SUB-Q 5,000 unit Q12HR CASEY Administration Multivitamins 1 each 07/22/21 10:00 08/04/21 09:43 Multivitamins ,Therapeutic Tab PO 1 each QDAY CASEY Administration Ondansetron HCl 4 mg 07/20/21 23:01 Ondansetron 4 Mg/2 Ml Inj IV Q8H PRN Nausea And Vomiting Sodium Chloride 10 ml 07/21/21 10:00 08/04/21 09:45 Sodium Chloride 0.9% 10 Ml Flush Syringe IV Not Given BID CASEY Sodium Chloride 10 ml 07/20/21 23:01 Sodium Chloride 0.9% 10 Ml Flush Syringe IV PRN PRN LINE FLUSH Trazodone HCl 50 mg 07/21/21 22:00 08/03/21 21:42 Trazodone 50 Mg Tab PO 50 mg QHS CASEY Administration Nutrition/Malnutrition Assess - Dietary Evaluation Nutrition/Malnutrition Findings: Nutrition Notes Start: 07/26/21 13:59 Freq: Status: Active Protocol: Document 07/26/21 13:59 GB (Rec: 07/26/21 14:08 GB [id number]) Nutrition Notes Need for Assessment generated from: LOS Initial or Follow up Assessment Other Pertinent Diagnosis elevated liver enzymes Current Diet Regular Labs/Tests 07/24: Na 136, BUN 5, creatinine 0.4, Tbili 2.1, ( AST 392, ALT 668: both showing improvement), AlkP 557 Pertinent Medications D5 (PRN), multivitamins Height 4 ft 7 in Weight 57 kg [place] Body Weight (kg) 34.09 BMI 29.2 Weight change and time frame 07/19: 58.967 kg 07/26: 57 kg Change of -1.967kg for -3.3% loss. Weight Status Overweight Subjective/Other Information MD note 07/26: psychosis, suicidal thoughts, homelessness MH surgical nurse practitioner 07/26: pt being reviewed for placement PO intake of meals recorded as 75-100% BM: 07/26 Percent of energy/protein needs met: 100% with current PO intake of meals Burn Absent Trauma Absent GI Symptoms None Food Allergy No Skin Integrity/Comment No complications reported Current % PO Good (75-100%) Minimum of two criteria No #1 Nutrition Diagnosis No nutrition diagnosis at this time Etiology LOS, elevated liver enzymes As Evidenced by Signs and Symptoms good po, stable weight, no skin complications, Liver enzymes showing improvement Is patient on ventilator? No Is Patient Ambulatory and/or Out of Bed Yes REE-([facility]-ambulatory/OOB) [ 1354.769 [id number]] Calculation Used for Recommendations [facility] Additional Notes Protein: 0.8-1 g/kg @ 57k -57g Fluids: 1 ml/kcal or per MD Nutrition Intervention Change Diet Order: continue: Regular Nutrition Support: n/a Add Supplement/Snack (indicate name/kcal n/a /protein ) Goal #1 PO intake of meals to continue at 75% or greater daily for LOS Follow-Up By: 08/27/21 Revisit per MD consult or patient Sign Off request: - Malnutrition Assessment Minimum of two criteria: No physical signs of malnutrition - Attestation Statement I have reviewed and agreed w/ Malnutrition eval & tx plan: Yes
[2021-08-04] MEDS: diphenhydrAMINE 25 MG CAP PO PRN (22:58)
[2021-08-04] MEDS: traZODone 50 MG TAB PO SCH (23:00)
[2021-08-05] MEDS: HEPARIN 5,000 UNIT/1 ML VIAL SUB-Q SCH ×2 (09:22→22:35)
[2021-08-05] MEDS: DULoxetine 30 MG CAP PO SCH ×2 (09:22→22:36)
[2021-08-05] MEDS: MULTIVITAMINS ,THERAPEUTIC TAB PO SCH (09:22)
[2021-08-05] MEDS: ARIPiprazole 15 MG TAB PO SCH (09:22)
--- NOTE | 2021-08-05 10:18 | Progress Note ---
Assessment and Plan Assessment and plan: 50-year-old -[place]itan[place] female with chronic pain and homelessness comes in to the ER expressing intention to . Patient has no concrete plan. Not homicidal. Patient was in the holding area and the labs came very abnormal with high transaminases and positive hepatitis A panel B panel no IV drug use as per the patient patient is a very poor historian. No fever or chills. (1) Acute hepatitis A Current Visit: Yes Status: Acute Plan to address problem: Patient is acute hepatitis A Possible fecal contamination IgM is high Transaminitis severe but improving GI consulted, liver appears normal on imaging ID consulted, supportive care LFTs progressively improving (2) Acute hepatitis B Current Visit: Yes Status: Acute Plan to address problem: IgM antibodies positive indicating acute infection Surface antibody negative, likely not contagious IV drug status not known ID consult and GI consult Supportive care (3) Suicidal ideation Current Visit: Yes Status: Acute Plan to address problem: Patient says that if she is no longer suicidal. Remains under 1013 and mental health recommends inpatient psychiatric evaluation, following Patient is medically stable for transfer to psychiatric facility (4) chronic HIV infection Noncompliant with meds for long, ID consulted. Currently not appropriate to initiate antiviral therapy at this juncture due to acute psychiatric issues and lack of follow-up. (5) chronic homelessness Case management consulted DVT prophylaxis Current Visit: Yes Status: Acute Plan to address problem: Heparin and GI prophylaxis Disposition: Patient remains afebrile and hemodynamically stable. No fever. Acute viral hepatitis but LFTs progressively improving. No hepatomegaly and abdomen is benign. Patient now states that she is no longer suicidal. Awaiting reassessment by psychiatric with regard to the need for transfer to inpatient psych facility. Medically stable for transfer to psych facility if needed. 07/30: Patient medically stable for discharge to psych inpatient facility no further clinical medical issues noted at this time. Remains with sitter on the 07/31: No clinical change remains medically stable for transfer to inpatient psych 08/01: Awaiting evaluation from [facility]. No clinically changes. 08/02: Continue supportive care. Awaiting placement. [facility] revie wing. No further pleuritic event noted at this time. Patient admitted to the hospital on the 1012 secondary to suicidal ideation with auditory hallucination 08/03: Continue supportive care, awaiting placement 08/04/21 patient is seen and examined. Lab medication reviewed. No new complain. Patient is seen and evaluated by psych. Patient is 1013. Patient is awaiting for placement for inpatient psych. Continue current management 08/05: Clinically stable awaiting placement. She asked me about surgery for her feet, no acute pathology noted at this time. Possible cosmetic surgery to be done outpatient when clinically ready History Interval history: Patient seen and examined, no acute distress Hospitalist Physical - Physical exam Narrative exam: General appearance: Present: no acute distress, well-nourished, obese. - EENT Eyes: Present: PERRL, EOM intact. Absent: scleral icterus ENT: clear oral mucosa - Neck Neck: Present: supple - Respiratory Respiratory effort: normal Respiratory: bilateral: CTA - Cardiovascular Rhythm: regular - Extremities Extremities: No edema - Abdominal General gastrointestinal: soft, non-tender, non-distended, other (No hepatomegaly appreciated) - Integumentary Integumentary: Absent: jaundice, rash - Psychiatric Psychiatric: cooperative - Neurologic Neurologic: no focal deficits - Constitutional Vitals: Temp Pulse Resp BP Pulse Ox 98.5 F 83 18 109/65 97 08/05/21 05:19 08/05/21 05:19 08/05/21 05:19 08/05/21 05:19 08/05/21 08:06 General appearance: Present: no acute distress, well-nourished, obese Results - Labs CBC & Chem 7: 07/29/21 09:36 07/29/21 09:36 Labs: Laboratory Last Values WBC 4.5 K/mm3 (4.5-11.0) 07/29/21 09:36 RBC 3.84 M/mm3 (3.65-5.03) 07/29/21 09:36 Hgb 12.2 gm/dl (10.1-14.3) 07/29/21 09:36 Hct 36.4 % (30.3-42.9) 07/29/21 09:36 MCV 95 fl (79-97) 07/29/21 09:36 MCH 32 pg (28-32) 07/29/21 09:36 MCHC 34 % (30-34) 07/29/21 09:36 RDW 15.2 % (13.2-15.2) 07/29/21 09:36 Plt Count 319 K/mm3 (140-440) 07/29/21 09:36 Lymph % (Auto) Bean Sorter 07/29/21 09:36 [place] % (Auto) Bean Sorter 07/28/21 10:27 Eos % (Auto) 1.3 % (0.0-4.3) 07/24/21 10:46 Baso % (Auto) 0.6 % (0.0-1.8) 07/24/21 10:46 Lymph # (Auto) 1.5 K/mm3 (1.2-5.4) 07/24/21 10:46 [place] # (Auto) 0.4 K/mm3 (0.0-0.8) 07/24/21 10:46 Eos # (Auto) 0.1 K/mm3 (0.0-0.4) 07/24/21 10:46 Baso # (Auto) 0.0 K/mm3 (0.0-0.1) 07/24/21 10:46 Add Manual Diff Complete 07/29/21 09:36 Total Counted 100 07/29/21 09:36 Seg Neutrophils % Bean Sorter 07/29/21 09:36 Seg Neuts % (Manual) 50.0 % (40.0-70.0) 07/29/21 09:36 Band Neutrophils % 3.0 % 07/19/21 09:52 Lymphocytes % (Manual) 34.0 % (13.4-35.0) 07/29/21 09:36 Reactive Lymphs % (Man) 6.0 % 07/28/21 10:27 Monocytes % (Manual) 10.0 % (0.0-7.3) H 07/29/21 09:36 Eosinophils % (Manual) 2.0 % (0.0-4.3) 07/29/21 09:36 Basophils % (Manual) 4.0 % (0.0-1.8) H 07/29/21 09:36 Metamyelocytes % 3.0 % 07/28/21 10:27 Myelocytes % 1.0 % 07/19/21 09:52 Nucleated RBC % Not Reportable 07/29/21 09:36 Seg Neutrophils # 2.0 K/mm3 (1.8-7.7) 07/24/21 10:46 Seg Neutrophils # Man 2.3 K/mm3 (1.8-7.7) 07/29/21 09:36 Band Neutrophils # 0.0 K/mm3 07/29/21 09:36 Abs Lymphs (Manual) 1497 cells/uL (850-3900) 07/25/21 04:45 Lymphocytes # (Manual) 1.5 K/mm3 (1.2-5.4) 07/29/21 09:36 Abs React Lymphs (Man) 0.0 K/mm3 07/29/21 09:36 Monocytes # (Manual) 0.5 K/mm3 (0.0-0.8) 07/29/21 09:36 Eosinophils # (Manual) 0.1 K/mm3 (0.0-0.4) 07/29/21 09:36 Basophils # (Manual) 0.2 K/mm3 (0.0-0.1) H 07/29/21 09:36 Metamyelocytes # 0.0 K/mm3 07/29/21 09:36 Myelocytes # 0.0 K/mm3 07/29/21 09:36 Promyelocytes # 0.0 K/mm3 07/29/21 09:36 Blast Cells # 0.0 K/mm3 07/29/21 09:36 WBC Morphology Not Reportable 07/29/21 09:36 Hypersegmented Neuts Not Reportable 07/29/21 09:36 Hyposegmented Neuts Not Reportable 07/29/21 09:36 Hypogranular Neuts Not Reportable 07/29/21 09:36 Smudge Cells Not Reportable 07/29/21 09:36 Toxic Granulation Not Reportable 07/29/21 09:36 Toxic Vacuolation Not Reportable 07/29/21 09:36 Dohle Bodies Not Reportable 07/29/21 09:36 Pelger-Huet Anomaly Not Reportable 07/29/21 09:36 Pricila Rods Not Reportable 07/29/21 09:36 Platelet Estimate Consistent w auto 07/29/21 09:36 Clumped Platelets Not Reportable 07/29/21 09:36 Plt Clumps, EDTA Not Reportable 07/29/21 09:36 Large Platelets Not Reportable 07/29/21 09:36 Giant Platelets Not Reportable 07/29/21 09:36 Platelet Satelliting Not Reportable 07/29/21 09:36 Plt Morphology Comment Not Reportable 07/29/21 09:36 RBC Morphology Not Reportable 07/29/21 09:36 Dimorphic RBCs Not Reportable 07/29/21 09:36 Polychromasia Not Reportable 07/29/21 09:36 Hypochromasia Not Reportable 07/29/21 09:36 Poikilocytosis Not Reportable 07/29/21 09:36 Anisocytosis Not Reportable 07/29/21 09:36 Microcytosis Not Reportable 07/29/21 09:36 Macrocytosis Not Reportable 07/29/21 09:36 Spherocytes Not Reportable 07/29/21 09:36 Pappenheimer Bodies Not Reportable 07/29/21 09:36 Sickle Cells Not Reportable 07/29/21 09:36 Target Cells Few 07/29/21 09:36 Tear Drop Cells Not Reportable 07/29/21 09:36 Ovalocytes Not Reportable 07/29/21 09:36 Stomatocytes 2+ 07/29/21 09:36 Helmet Cells Not Reportable 07/29/21 09:36 [place]-Arispe Bodies Not Reportable 07/29/21 09:36 [place] Rings Not Reportable 07/29/21 09:36 [place] Cells Not Reportable 07/29/21 09:36 Bite Cells Not Reportable 07/29/21 09:36 Crenated Cell Not Reportable 07/29/21 09:36 Elliptocytes Not Reportable 07/29/21 09:36 Acanthocytes (Spur) Not Reportable 07/29/21 09:36 Rouleaux Not Reportable 07/29/21 09:36 Hemoglobin C Crystals Not Reportable 07/29/21 09:36 Schistocytes Not Reportable 07/29/21 09:36 Malaria parasites Not Reportable 07/29/21 09:36 [place] Bodies Not Reportable 07/29/21 09:36 Hem Pathologist Commnt No 07/29/21 09:36 PT 12.8 Sec. (12.2-14.9) 07/25/21 10:03 INR 0.87 (0.87-1.13) 07/25/21 10:03 Sodium 133 mmol/L (137-145) L 07/29/21 09:36 Potassium 4.0 mmol/L (3.6-5.0) 07/29/21 09:36 Chloride 97.7 mmol/L (98-107) L 07/29/21 09:36 Carbon Dioxide 25 mmol/L (22-30) 07/29/21 09:36 Anion Gap 14 mmol/L 07/29/21 09:36 BUN 10 mg/dL (7-17) 07/29/21 09:36 Creatinine 0.4 mg/dL (0.6-1.2) L 07/29/21 09:36 Estimated GFR > 60 ml/min 07/29/21 09:36 BUN/Creatinine Ratio 25 % 07/29/21 09:36 Glucose 85 mg/dL (65-100) 07/29/21 09:36 Lactic Acid 1.00 mmol/L (0.7-2.0) 07/20/21 11:20 Calcium 9.0 mg/dL (8.4-10.2) 07/29/21 09:36 Magnesium 2.20 mg/dL (1.7-2.3) 07/20/21 11:20 Total Bilirubin 1.70 mg/dL (0.1-1.2) H 07/29/21 09:36 Direct Bilirubin 1.8 mg/dL (0-0.2) H 07/24/21 10:46 Indirect Bilirubin 0.3 mg/dL 07/24/21 10:46 AST 237 units/L (5-40) H 07/29/21 09:36 ALT 381 units/L (7-56) H 07/29/21 09:36 Alkaline Phosphatase 1443 units/L (35-129) H 07/29/21 09:36 Ammonia 60.0 umol/L (25-60) 07/20/21 11:20 Total Creatine Kinase 23 units/L (30-135) L 07/20/21 11:20 Total Protein 8.5 g/dL (6.3-8.2) H 07/29/21 09:36 Albumin 3.1 g/dL (3.9-5) L 07/29/21 09:36 Albumin/Globulin Ratio 0.6 % 07/29/21 09:36 TSH 0.116 mlU/mL (0.270-4.200) L 07/20/21 11:20 Free T4 0.94 ng/dL (0.76-1.46) 07/24/21 10:46 Urine Color Bailee (Yellow) 07/19/21 Unknown Urine Turbidity Slightly-cloudy (Clear) 07/19/21 Unknown Urine pH 5.0 (5.0-7.0) 07/19/21 Unknown Ur Specific [place] 1.018 (1.003-1.030) 07/19/21 Unknown Urine Protein 30 mg/dl mg/dL (Negative) 07/19/21 Unknown Urine Glucose (UA) Neg mg/dL (Negative) 07/19/21 Unknown Urine Ketones Neg mg/dL (Negative) 07/19/21 Unknown Urine Blood Sm (Negative) 07/19/21 Unknown Urine Nitrite Neg (Negative) 07/19/21 Unknown Urine Bilirubin Neg (Negative) 07/19/21 Unknown Urine Urobilinogen 4.0 mg/dL (<2.0) 07/19/21 Unknown Ur Leukocyte Esterase Neg (Negative) 07/19/21 Unknown Urine WBC (Auto) 46.0 /HPF (0.0-6.0) H 07/19/21 Unknown Urine RBC (Auto) 7.0 /HPF (0.0-6.0) 07/19/21 Unknown U Epithel Cells (Auto) 13.0 /HPF (0-13.0) 07/19/21 Unknown Urine Bacteria (Auto) 1+ /HPF (Negative) 07/19/21 Unknown Urine Mucus 3+ /HPF 07/19/21 Unknown Nasal Screen MRSA (PCR) Negative (Negative) 07/21/21 Unknown Salicylates < 0.3 mg/dL (2.8-20.0) L 07/20/21 11:20 Urine Opiates Screen Negative 07/19/21 Unknown Urine Methadone Screen Negative 07/19/21 Unknown Acetaminophen 5.0 ug/mL (10.0-30.0) L 07/20/21 11:20 Ur Barbiturates Screen Negative 07/19/21 Unknown Ur Phencyclidine Scrn Negative 07/19/21 Unknown Ur Amphetamines Screen Negative 07/19/21 Unknown U Benzodiazepines Scrn Negative 07/19/21 Unknown Urine Cocaine Screen Negative 07/19/21 Unknown U Marijuana (THC) Screen Negative 07/19/21 Unknown Drugs of Abuse Note Disclamer 07/19/21 Unknown Plasma/Serum Alcohol < 0.01 % (0-0.07) 07/19/21 09:52 Lymph Enumerat CD4/CD8 0.52 (0.86-5.00) L 07/25/21 04:45 % CD3 Cells 87 % (57-85) H 07/25/21 04:45 Absolute CD3 Count 1309 cells/uL (840-3060) 07/25/21 04:45 % CD4 Cells 31 % (30-61) 07/25/21 04:45 Absolute CD4 Count 472 cells/uL (490-1740) L 07/25/21 04:45 % CD8 Cells 59 % (12-42) H 07/25/21 04:45 Absolute CD8 Count 899 cells/uL (180-1170) 07/25/21 04:45 % CD19 Cells 3 % (6-29) L 07/25/21 04:45 Absolute CD19 Count 43 cells/uL (110-660) L 07/25/21 04:45 Coronavirus (PCR) Negative (Negative) 07/20/21 08:39 Hepatitis A IgM Ab Reactive (NonReactive) A 07/20/21 11:20 Hep Bs Antigen Nonreactive (Negative) 07/20/21 11:20 Hep B Core IgM Ab Reactive (NonReactive) A 07/20/21 11:20 Hepatitis C Antibody Non-reactive (NonReactive) 07/20/21 11:20 HIV-1 RNA PCR copies/ml 191617 Copies/mL H 07/24/21 10:46 HIV-1 RNA (PCR) log 5.34 Log cps/mL H 07/24/21 10:46 HIV 1&2 Antibody Rapid Reactive (Non React) 07/23/21 08:27 HIV P24 Antigen Non react (Non React) 07/23/21 08:27 Pierre/IV: Voiding Method Toilet Active Medications - Current Medications Current Medications: Generic Name Dose Route Start Last Admin Trade Name Freq PRN Reason Stop Dose Admin Acetaminophen 650 mg 07/21/21 10:09 Acetaminophen 325 Mg Tab PO Q6H PRN Pain MILD(1-3)/Fever >100.5/PANDYA Aripiprazole 30 mg 08/02/21 10:00 08/05/21 09:22 Aripiprazole 15 Mg Tab PO 30 mg QDAY CASEY Administration Diphenhydramine HCl 25 mg 07/23/21 19:54 08/04/21 22:58 Diphenhydramine 25 Mg Cap PO 25 mg Q8H PRN Administration Itching Duloxetine HCl 30 mg 07/20/21 22:00 08/05/21 09:22 Duloxetine 30 Mg Cap PO 30 mg BID CASEY Administration Heparin Sodium (Porcine) 5,000 unit 07/20/21 23:15 08/05/21 09:22 Heparin 5,000 Unit/1 Ml Vial SUB-Q 5,000 unit Q12HR CASEY Administration Multivitamins 1 each 07/22/21 10:00 08/05/21 09:22 Multivitamins ,Therapeutic Tab PO 1 each QDAY CASEY Administration Ondansetron HCl 4 mg 07/20/21 23:01 Ondansetron 4 Mg/2 Ml Inj IV Q8H PRN Nausea And Vomiting Sodium Chloride 10 ml 07/21/21 10:00 08/05/21 09:22 Sodium Chloride 0.9% 10 Ml Flush Syringe IV 10 ml BID CASEY Administration Sodium Chloride 10 ml 07/20/21 23:01 Sodium Chloride 0.9% 10 Ml Flush Syringe IV PRN PRN LINE FLUSH Trazodone HCl 50 mg 07/21/21 22:00 08/04/21 23:00 Trazodone 50 Mg Tab PO 50 mg QHS CASEY Administration Nutrition/Malnutrition Assess - Dietary Evaluation Nutrition/Malnutrition Findings: Nutrition Notes Start: 07/26/21 13:59 Freq: Status: Active Protocol: Document 07/26/21 13:59 GB (Rec: 07/26/21 14:08 GB [id number]) Nutrition Notes Need for Assessment generated from: LOS Initial or Follow up Assessment Other Pertinent Diagnosis elevated liver enzymes Current Diet Regular Labs/Tests 07/24: Na 136, BUN 5, creatinine 0.4, Tbili 2.1, ( AST 392, ALT 668: both showing improvement), AlkP 557 Pertinent Medications D5 (PRN), multivitamins Height 4 ft 7 in Weight 57 kg [place] Body Weight (kg) 34.09 BMI 29.2 Weight change and time frame 07/19: 58.967 kg 07/26: 57 kg Change of -1.967kg for -3.3% loss. Weight Status Overweight Subjective/Other Information MD note 07/26: psychosis, suicidal thoughts, homelessness MH foil spooler 07/26: pt being reviewed for placement PO intake of meals recorded as 75-100% BM: 07/26 Percent of energy/protein needs met: 100% with current PO intake of meals Burn Absent Trauma Absent GI Symptoms None Food Allergy No Skin Integrity/Comment No complications reported Current % PO Good (75-100%) Minimum of two criteria No #1 Nutrition Diagnosis No nutrition diagnosis at this time Etiology LOS, elevated liver enzymes As Evidenced by Signs and Symptoms good po, stable weight, no skin complications, Liver enzymes showing improvement Is patient on ventilator? No Is Patient Ambulatory and/or Out of Bed Yes REE-([facility]-ambulatory/OOB) [ 1354.769 [id number]] Calculation Used for Recommendations [facility] Additional Notes Protein: 0.8-1 g/kg @ 57k -57g Fluids: 1 ml/kcal or per MD Nutrition Intervention Change Diet Order: continue: Regular Nutrition Support: n/a Add Supplement/Snack (indicate name/kcal n/a /protein ) Goal #1 PO intake of meals to continue at 75% or greater daily for LOS Follow-Up By: 08/27/21 Revisit per MD consult or patient Sign Off request:
--- NOTE | 2021-08-05 13:07 | Progress Note ---
Subjective - Reason for Consult Consult date: 08/05/21 Reason for consult: Suicidal ideation - Chief Complaint Chief complaint: The patient was seen today, she reports doing well. The patient reports sleep and appetite as good. She denies any current suicidal/homicidal ideation and denies hallucinations. REVIEW OF SYSTEMS Constitutional: Negative for weight loss ENT: Negative for stridor Respiratory: Negative for cough or hemoptysis All other systems reviewed and are negative MENTAL STATUS EXAMINATION General Appearance and Behavior: Age appropriate, good hygiene, wearing appropriate clothes. calm, cooperative Cooperation: Cooperative Psychomotor Behavior: Psychomotor normal Mood: "ok" Affect and affective range: congruent with stated mood Thought Process: tangential Thought Content:Not suicidal Speech: normal tone and pace Suicidal Ideation:Denies Homicidal Ideation: Denies Hallucinations: Denies Delusions: None elicited Impulse Control: Questionable Insight and Judgment: Limited Memory: Limited Attention: attentive Orientation: a/o x 3 Assessment (1) Psychosis Current Visit: Yes Status: Acute Treatment Plan Discontinue 1013 Continue Abilify 30mg po daily Continue previously prescribed medications and follow up with outpatient psychiatry in 7 to 10 days upon discharge. The patient to comply with previously prescribed medications Risks, benefits and alternatives of medications discussed with the patient, questions answered and consent obtained from patient. PSYCHOTHERAPY: Supportive psychotherapy provided MEDICAL: Per primary team DELIRIUM PRECAUTIONS: Please re-orient patient frequently, keep lights on during the day, and minimize benzodiazepines and opiates as these medications could worsen patient's confusion. 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 The sitter to give the patient resources and safety plan The patient to comply with treatment regimen and abstain from all illicit drug use. FOLLOW-UP: Will sign off. Case staffed with Dr. Crain Medications and Allergies Mental Status Exam - Vital signs Last Vital Signs Temp 98.6 F 08/05/21 12:04 Pulse 88 08/05/21 12:04 Resp 18 08/05/21 12:04 BP 105/70 08/05/21 12:04 Pulse Ox 97 08/05/21 08:06
--- NOTE | 2021-08-05 14:00 | Discharge Summary ---
Providers - Providers Date of Admission: 07/20/21 16:44 Attending physician: ANTONIO DANIELS MD 07/20/21 23:01 Consult to Physician [CONS] Routine Comment: Consulting Provider: ALEX ARRINGTON Physician Instructions: Reason For Exam: Acute hepatitis 07/20/21 23:05 Consult to Mental Health [CONS] Routine Reason For Exam: Mental health eval 07/21/21 08:37 Consult to Physician [CONS] Routine Comment: Consulting Provider: MARLON ARREOLA Physician Instructions: Reason For Exam: Hepatitis A and B 07/24/21 16:31 Consult to Case Management [CONS] Routine Services Needed at Discharge: Roof Bolter Notified:: cm Additional Physician Instructions: The patient is homeless. 07/28/21 09:58 Consult to Physician [CONS] Routine Comment: Consulting Provider: MARLON ARREOLA Physician Instructions: Reconsult ID physician Reason For Exam: HIV positive, 221 K RNA copies Primary care physician: AUXILIARY EQUIPMENT TENDER Hospitalization Reason for admission: Suicidal ideation Condition: Stable Hospital course: 50-year-old -[place] female with chronic pain and homelessness comes in to the ER expressing intention to . Patient has no concrete plan. Not homicidal. Patient was in the holding area and the labs came very abnormal with high transaminases and positive hepatitis A panel B panel no IV drug use as per the patient patient is a very poor historian. No fever or chills. (1) Acute hepatitis A Current Visit: Yes Status: Acute Plan to address problem: Patient is acute hepatitis A Possible fecal contamination IgM is high Transaminitis severe but improving GI consulted, liver appears normal on imaging ID consulted, supportive care LFTs progressively improving (2) Acute hepatitis B Current Visit: Yes Status: Acute Plan to address problem: IgM antibodies positive indicating acute infection Surface antibody negative, likely not contagious IV drug status not known ID consult and GI consult Supportive care (3) Suicidal ideation secondary to acute psychosis Current Visit: Yes Status: Acute Plan to address problem: Patient says that if she is no longer suicidal. Remains under 1013 and mental health recommends inpatient psychiatric evaluation, following Patient is medically stable for transfer to psychiatric facility (4) chronic HIV infection Noncompliant with meds for long, ID consulted. Currently not appropriate to initiate antiviral therapy at this juncture due to acute psychiatric issues and lack of follow-up. (5) chronic homelessness Case management consulted Disposition: Patient remains afebrile and hemodynamically stable. No fever. Acute viral hepatitis but LFTs progressively improving. No hepatomegaly and abdomen is benign. Patient now states that she is no longer suicidal. Awaiting reassessment by psychiatric with regard to the need for transfer to inpatient psych facility. Medically stable for transfer to psych facility if needed. 07/30: Patient medically stable for discharge to psych inpatient facility no further clinical medical issues noted at this time. Remains with sitter on the 07/31: No clinical change remains medically stable for transfer to inpatient psych 08/01: Awaiting evaluation from [facility]. No clinically changes. 08/02: Continue supportive care. Awaiting placement. [facility] reviewing. No further pleuritic event noted at this time. Patient admitted to the hospital on the 1012 secondary to suicidal ideation with auditory hallucination 08/03: Continue supportive care, awaiting placement 08/04/21 patient is seen and examined. Lab medication reviewed. No new complain. Patient is seen and evaluated by psych. Patient is 1013. Patient is awaiting for placement for inpatient psych. Continue current management 08/05: Clinically stable awaiting placement. She asked me about surgery for her feet, no acute pathology noted at this time. Possible cosmetic surgery to be done outpatient when clinically ready on re-evaluation, 1013 Rescinded, will discharge 08/06: Patient remains clinically stable unfortunately she is homeless and despite being cleared by psych has no place to go 1013 has been rescinded still awaiting placement at this time. 08/08: Patient was with unremarkable clinical condition yesterday today is able to be discharged as placement has been found for the patient. Disposition: HOME / SELF CARE / HOMELESS Final Discharge Diagnosis (Prints w/discharge instructions): Acute psychosis suicidal ideation Time spent for discharge: 35-minute Core Measure Documentation - Palliative Care Palliative Care/ Comfort Measures: Not Applicable - Core Measures Any of the following diagnoses?: none Exam - Physical Exam Narrative exam: General appearance: Present: no acute distress, well-nourished, obese. - EENT Eyes: Present: PERRL, EOM intact. Absent: scleral icterus ENT: clear oral mucosa - Neck Neck: Present: supple - Respiratory Respiratory effort: normal Respiratory: bilateral: CTA - Cardiovascular Rhythm: regular - Extremities Extremities: No edema - Abdominal General gastrointestinal: soft, non-tender, non-distended, other (No hepatomegaly appreciated) - Integumentary Integumentary: Absent: jaundice, rash - Psychiatric Psychiatric: cooperative - Neurologic Neurologic: no focal deficits - Constitutional Vitals: Temp Pulse Resp BP Pulse Ox 98.6 F 88 18 105/70 97 08/05/21 12:04 08/05/21 12:04 08/05/21 12:04 08/05/21 12:04 08/05/21 08:06 Plan Activity: advance as tolerated, fall precautions Diet: low fat Special Instructions: record daily weights, record daily BP diary Follow up with: PRIMARY CAREMD [Primary Care Provider] - 3-5 Days ERMA SANON MD [Staff Physician] - 7 Days Prescriptions: traZODone [Desyrel] 50 mg PO QHS #20 tablet ARIPiprazole [Abilify TAB] 30 mg PO QDAY #60 tablet Multivitamin Tab [Multiple Vitamin TAB (Theragran)] 1 each PO QDAY #30 tablet
[2021-08-05] MEDS: traZODone 50 MG TAB PO SCH (22:36)
[2021-08-06 09:07] LABS: HIV-1 Antibody Differentiation SEE SCANNED RESULT; HIV-2 Antibody Differentiation SEE SCANNED RESULT
[2021-08-06] MEDS: ARIPiprazole 15 MG TAB PO SCH (10:05)
[2021-08-06] MEDS: DULoxetine 30 MG CAP PO SCH ×2 (10:06→22:07)
[2021-08-06] MEDS: HEPARIN 5,000 UNIT/1 ML VIAL SUB-Q SCH ×2 (10:06→22:08)
[2021-08-06] MEDS: MULTIVITAMINS ,THERAPEUTIC TAB PO SCH (10:06)
--- NOTE | 2021-08-06 10:43 | Progress Note ---
Assessment and Plan Assessment and plan: 50-year-old -[place] female with chronic pain and homelessness comes in to the ER expressing intention to . Patient has no concrete plan. Not homicidal. Patient was in the holding area and the labs came very abnormal with high transaminases and positive hepatitis A panel B panel no IV drug use as per the patient patient is a very poor historian. No fever or chills. (1) Acute hepatitis A Current Visit: Yes Status: Acute Plan to address problem: Patient is acute hepatitis A Possible fecal contamination IgM is high Transaminitis severe but improving GI consulted, liver appears normal on imaging ID consulted, supportive care LFTs progressively improving (2) Acute hepatitis B Current Visit: Yes Status: Acute Plan to address problem: IgM antibodies positive indicating acute infection Surface antibody negative, likely not contagious IV drug status not known ID consult and GI consult Supportive care (3) Suicidal ideation secondary to acute psychosis Current Visit: Yes Status: Acute Plan to address problem: Patient says that if she is no longer suicidal. Remains under 1013 and mental health recommends inpatient psychiatric evaluation, following Patient is medically stable for transfer to psychiatric facility (4) chronic HIV infection Noncompliant with meds for long, ID consulted. Currently not appropriate to initiate antiviral therapy at this juncture due to acute psychiatric issues and lack of follow-up. (5) chronic homelessness Case management consulted Disposition: Patient remains afebrile and hemodynamically stable. No fever. Acute viral hepatitis but LFTs progressively improving. No hepatomegaly and abdomen is benign. Patient now states that she is no longer suicidal. Awaiting reassessment by psychiatric with regard to the need for transfer to inpatient psych facility. Medically stable for transfer to psych facility if needed. 07/30: Patient medically stable for discharge to psych inpatient facility no further clinical medical issues noted at this time. Remains with sitter on the 3 07/31: No clinical change remains medically stable for transfer to inpatient psych 08/01: Awaiting evaluation from [facility]. No clinically changes. 08/02: Continue supportive care. Awaiting placement. [facility] reviewing. No further pleuritic event noted at this time. Patient admitted to the hospital on the 1012 secondary to suicidal ideation with auditory hallucination 08/03: Continue supportive care, awaiting placement 08/04/21 patient is seen and examined. Lab medication reviewed. No new complain. Patient is seen and evaluated by psych. Patient is 1013. Patient is awaiting for placement for inpatient psych. Continue current management 08/05: Clinically stable awaiting placement. She asked me about surgery for her feet, no acute pathology noted at this time. Possible cosmetic surgery to be done outpatient when clinically ready on re-evaluation, 1013 Rescinded, will discharge 08/06: Patient remains clinically stable unfortunately she is homeless and desp ite being cleared by psych has no place to go 1013 has been rescinded still awaiting placement at this time History Interval history: Patient seen and examined, no acute distress Hospitalist Physical - Physical exam Narrative exam: General appearance: Present: no acute distress, well-nourished, obese. - EENT Eyes: Present: PERRL, EOM intact. Absent: scleral icterus ENT: clear oral mucosa - Neck Neck: Present: supple - Respiratory Respiratory effort: normal Respiratory: bilateral: CTA - Cardiovascular Rhythm: regular - Extremities Extremities: No edema - Abdominal General gastrointestinal: soft, non-tender, non-distended, other (No hepatomegaly appreciated) - Integumentary Integumentary: Absent: jaundice, rash - Psychiatric Psychiatric: cooperative - Neurologic Neurologic: no focal deficits - Constitutional Vitals: Temp Pulse Resp BP Pulse Ox 98.3 F 80 18 93/59 98 08/06/21 05:14 08/06/21 05:14 08/06/21 05:14 08/06/21 05:14 08/06/21 05:14 General appearance: Present: no acute distress, well-nourished, obese Results - Labs CBC & Chem 7: 07/29/21 09:36 07/29/21 09:36 Labs: Laboratory Last Values WBC 4.5 K/mm3 (4.5-11.0) 07/29/21 09:36 RBC 3.84 M/mm3 (3.65-5.03) 07/29/21 09:36 Hgb 12.2 gm/dl (10.1-14.3) 07/29/21 09:36 Hct 36.4 % (30.3-42.9) 07/29/21 09:36 MCV 95 fl (79-97) 07/29/21 09:36 MCH 32 pg (28-32) 07/29/21 09:36 MCHC 34 % (30-34) 07/29/21 09:36 RDW 15.2 % (13.2-15.2) 07/29/21 09:36 Plt Count 319 K/mm3 (140-440) 07/29/21 09:36 Lymph % (Auto) Baker Test 07/29/21 09:36 Mills % (Auto) Baker Test 07/28/21 10:27 Eos % (Auto) 1.3 % (0.0-4.3) 07/24/21 10:46 Baso % (Auto) 0.6 % (0.0-1.8) 07/24/21 10:46 Lymph # (Auto) 1.5 K/mm3 (1.2-5.4) 07/24/21 10:46 Mills # (Auto) 0.4 K/mm3 (0.0-0.8) 07/24/21 10:46 Eos # (Auto) 0.1 K/mm3 (0.0-0.4) 07/24/21 10:46 Baso # (Auto) 0.0 K/mm3 (0.0-0.1) 07/24/21 10:46 Add Manual Diff Complete 07/29/21 09:36 Total Counted 100 07/29/21 09:36 Seg Neutrophils % Baker Test 07/29/21 09:36 Seg Neuts % (Manual) 50.0 % (40.0-70.0) 07/29/21 09:36 Band Neutrophils % 3.0 % 07/19/21 09:52 Lymphocytes % (Manual) 34.0 % (13.4-35.0) 07/29/21 09:36 Reactive Lymphs % (Man) 6.0 % 07/28/21 10:27 Monocytes % (Manual) 10.0 % (0.0-7.3) H 07/29/21 09:36 Eosinophils % (Manual) 2.0 % (0.0-4.3) 07/29/21 09:36 Basophils % (Manual) 4.0 % (0.0-1.8) H 07/29/21 09:36 Metamyelocytes % 3.0 % 07/28/21 10:27 Myelocytes % 1.0 % 07/19/21 09:52 Nucleated RBC % Not Reportable 07/29/21 09:36 Seg Neutrophils # 2.0 K/mm3 (1.8-7.7) 07/24/21 10:46 Seg Neutrophils # Man 2.3 K/mm3 (1.8-7.7) 07/29/21 09:36 Band Neutrophils # 0.0 K/mm3 07/29/21 09:36 Abs Lymphs (Manual) 1497 cells/uL (850-3900) 07/25/21 04:45 Lymphocytes # (Manual) 1.5 K/mm3 (1.2-5.4) 07/29/21 09:36 Abs React Lymphs (Man) 0.0 K/mm3 07/29/21 09:36 Monocytes # (Manual) 0.5 K/mm3 (0.0-0.8) 07/29/21 09:36 Eosinophils # (Manual) 0.1 K/mm3 (0.0-0.4) 07/29/21 09:36 Basophils # (Manual) 0.2 K/mm3 (0.0-0.1) H 07/29/21 09:36 Metamyelocytes # 0.0 K/mm3 07/29/21 09:36 Myelocytes # 0.0 K/mm3 07/29/21 09:36 Promyelocytes # 0.0 K/mm3 07/29/21 09:36 Blast Cells # 0.0 K/mm3 07/29/21 09:36 WBC Morphology Not Reportable 07/29/21 09:36 Hypersegmented Neuts Not Reportable 07/29/21 09:36 Hyposegmented Neuts Not Reportable 07/29/21 09:36 Hypogranular Neuts Not Reportable 07/29/21 09:36 Smudge Cells Not Reportable 07/29/21 09:36 Toxic Granulation Not Reportable 07/29/21 09:36 Toxic Vacuolation Not Reportable 07/29/21 09:36 Dohle Bodies Not Reportable 07/29/21 09:36 Pelger-Huet Anomaly Not Reportable 07/29/21 09:36 Pricila Rods Not Reportable 07/29/21 09:36 Platelet Estimate Consistent w auto 07/29/21 09:36 Clumped Platelets Not Reportable 07/29/21 09:36 Plt Clumps, EDTA Not Reportable 07/29/21 09:36 Large Platelets Not Reportable 07/29/21 09:36 Giant Platelets Not Reportable 07/29/21 09:36 Platelet Satelliting Not Reportable 07/29/21 09:36 Plt Morphology Comment Not Reportable 07/29/21 09:36 RBC Morphology Not Reportable 07/29/21 09:36 Dimorphic RBCs Not Reportable 07/29/21 09:36 Polychromasia Not Reportable 07/29/21 09:36 Hypochromasia Not Reportable 07/29/21 09:36 Poikilocytosis Not Reportable 07/29/21 09:36 Anisocytosis Not Reportable 07/29/21 09:36 Microcytosis Not Reportable 07/29/21 09:36 Macrocytosis Not Reportable 07/29/21 09:36 Spherocytes Not Reportable 07/29/21 09:36 Pappenheimer Bodies Not Reportable 07/29/21 09:36 Sickle Cells Not Reportable 07/29/21 09:36 Target Cells Few 07/29/21 09:36 Tear Drop Cells Not Reportable 07/29/21 09:36 Ovalocytes Not Reportable 07/29/21 09:36 Stomatocytes 2+ 07/29/21 09:36 Helmet Cells Not Reportable 07/29/21 09:36 Fletcher-Penn Bodies Not Reportable 07/29/21 09:36 [place] Rings Not Reportable 07/29/21 09:36 Armani Cells Not Reportable 07/29/21 09:36 Bite Cells Not Reportable 07/29/21 09:36 Crenated Cell Not Reportable 07/29/21 09:36 Elliptocytes Not Reportable 07/29/21 09:36 Acanthocytes (Spur) Not Reportable 07/29/21 09:36 Rouleaux Not Reportable 07/29/21 09:36 Hemoglobin C Crystals Not Reportable 07/29/21 09:36 Schistocytes Not Reportable 07/29/21 09:36 Malaria parasites Not Reportable 07/29/21 09:36 Cody Bodies Not Reportable 07/29/21 09:36 Hem Pathologist Commnt No 07/29/21 09:36 PT 12.8 Sec. (12.2-14.9) 07/25/21 10:03 INR 0.87 (0.87-1.13) 07/25/21 10:03 Sodium 133 mmol/L (137-145) L 07/29/21 09:36 Potassium 4.0 mmol/L (3.6-5.0) 07/29/21 09:36 Chloride 97.7 mmol/L (98-107) L 07/29/21 09:36 Carbon Dioxide 25 mmol/L (22-30) 07/29/21 09:36 Anion Gap 14 mmol/L 07/29/21 09:36 BUN 10 mg/dL (7-17) 07/29/21 09:36 Creatinine 0.4 mg/dL (0.6-1.2) L 07/29/21 09:36 Estimated GFR > 60 ml/min 07/29/21 09:36 BUN/Creatinine Ratio 25 % 07/29/21 09:36 Glucose 85 mg/dL (65-100) 07/29/21 09:36 Lactic Acid 1.00 mmol/L (0.7-2.0) 07/20/21 11:20 Calcium 9.0 mg/dL (8.4-10.2) 07/29/21 09:36 Magnesium 2.20 mg/dL (1.7-2.3) 07/20/21 11:20 Total Bilirubin 1.70 mg/dL (0.1-1.2) H 07/29/21 09:36 Direct Bilirubin 1.8 mg/dL (0-0.2) H 07/24/21 10:46 Indirect Bilirubin 0.3 mg/dL 07/24/21 10:46 AST 237 units/L (5-40) H 07/29/21 09:36 ALT 381 units/L (7-56) H 07/29/21 09:36 Alkaline Phosphatase 1443 units/L (35-129) H 07/29/21 09:36 Ammonia 60.0 umol/L (25-60) 07/20/21 11:20 Total Creatine Kinase 23 units/L (30-135) L 07/20/21 11:20 Total Protein 8.5 g/dL (6.3-8.2) H 07/29/21 09:36 Albumin 3.1 g/dL (3.9-5) L 07/29/21 09:36 Albumin/Globulin Ratio 0.6 % 07/29/21 09:36 TSH 0.116 mlU/mL (0.270-4.200) L 07/20/21 11:20 Free T4 0.94 ng/dL (0.76-1.46) 07/24/21 10:46 Urine Color Bailee (Yellow) 07/19/21 Unknown Urine Turbidity Slightly-cloudy (Clear) 07/19/21 Unknown Urine pH 5.0 (5.0-7.0) 07/19/21 Unknown Ur Specific [place] 1.018 (1.003-1.030) 07/19/21 Unknown Urine Protein 30 mg/dl mg/dL (Negative) 07/19/21 Unknown Urine Glucose (UA) Neg mg/dL (Negative) 07/19/21 Unknown Urine Ketones Neg mg/dL (Negative) 07/19/21 Unknown Urine Blood Sm (Negative) 07/19/21 Unknown Urine Nitrite Neg (Negative) 07/19/21 Unknown Urine Bilirubin Neg (Negative) 07/19/21 Unknown Urine Urobilinogen 4.0 mg/dL (<2.0) 07/19/21 Unknown Ur Leukocyte Esterase Neg (Negative) 07/19/21 Unknown Urine WBC (Auto) 46.0 /HPF (0.0-6.0) H 07/19/21 Unknown Urine RBC (Auto) 7.0 /HPF (0.0-6.0) 07/19/21 Unknown U Epithel Cells (Auto) 13.0 /HPF (0-13.0) 07/19/21 Unknown Urine Bacteria (Auto) 1+ /HPF (Negative) 07/19/21 Unknown Urine Mucus 3+ /HPF 07/19/21 Unknown Nasal Screen MRSA (PCR) Negative (Negative) 07/21/21 Unknown Salicylates < 0.3 mg/dL (2.8-20.0) L 07/20/21 11:20 Urine Opiates Screen Negative 07/19/21 Unknown Urine Methadone Screen Negative 07/19/21 Unknown Acetaminophen 5.0 ug/mL (10.0-30.0) L 07/20/21 11:20 Ur Barbiturates Screen Negative 07/19/21 Unknown Ur Phencyclidine Scrn Negative 07/19/21 Unknown Ur Amphetamines Screen Negative 07/19/21 Unknown U Benzodiazepines Scrn Negative 07/19/21 Unknown Urine Cocaine Screen Negative 07/19/21 Unknown U Marijuana (THC) Screen Negative 07/19/21 Unknown Drugs of Abuse Note Disclamer 07/19/21 Unknown Plasma/Serum Alcohol < 0.01 % (0-0.07) 07/19/21 09:52 Lymph Enumerat CD4/CD8 0.52 (0.86-5.00) L 07/25/21 04:45 % CD3 Cells 87 % (57-85) H 07/25/21 04:45 Absolute CD3 Count 1309 cells/uL (840-3060) 07/25/21 04:45 % CD4 Cells 31 % (30-61) 07/25/21 04:45 Absolute CD4 Count 472 cells/uL (490-1740) L 07/25/21 04:45 % CD8 Cells 59 % (12-42) H 07/25/21 04:45 Absolute CD8 Count 899 cells/uL (180-1170) 07/25/21 04:45 % CD19 Cells 3 % (6-29) L 07/25/21 04:45 Absolute CD19 Count 43 cells/uL (110-660) L 07/25/21 04:45 Coronavirus (PCR) Negative (Negative) 07/20/21 08:39 Hepatitis A IgM Ab Reactive (NonReactive) A 07/20/21 11:20 Hep Bs Antigen Nonreactive (Negative) 07/20/21 11:20 Hep B Core IgM Ab Reactive (NonReactive) A 07/20/21 11:20 Hepatitis C Antibody Non-reactive (NonReactive) 07/20/21 11:20 HIV-1 Antibody See scanned result 07/23/21 08:27 HIV-1 RNA PCR copies/ml [id number] Copies/mL H 07/24/21 10:46 HIV-1 RNA (PCR) log 5.34 Log cps/mL H 07/24/21 10:46 HIV-2 Ab (Immunoblot) See scanned result 07/23/21 08:27 HIV 1&2 Antibody Rapid Reactive (Non React) 07/23/21 08:27 HIV P24 Antigen Non react (Non React) 07/23/21 08:27 Pierre/IV: Voiding Method Toilet Active Medications - Current Medications Current Medications: Generic Name Dose Route Start Last Admin Trade Name Freq PRN Reason Stop Dose Admin Acetaminophen 650 mg 07/21/21 10:09 Acetaminophen 325 Mg Tab PO Q6H PRN Pain MILD(1-3)/Fever >100.5/PANDYA Aripiprazole 30 mg 08/02/21 10:00 08/06/21 10:05 Aripiprazole 15 Mg Tab PO 30 mg QDAY CASEY Administration Diphenhydramine HCl 25 mg 07/23/21 19:54 08/04/21 22:58 Diphenhydramine 25 Mg Cap PO 25 mg Q8H PRN Administration Itching Duloxetine HCl 30 mg 07/20/21 22:00 08/06/21 10:06 Duloxetine 30 Mg Cap PO 30 mg BID CASEY Administration Heparin Sodium (Porcine) 5,000 unit 07/20/21 23:15 08/06/21 10:06 Heparin 5,000 Unit/1 Ml Vial SUB-Q 5,000 unit Q12HR CASEY Administration Multivitamins 1 each 07/22/21 10:00 08/06/21 10:06 Multivitamins ,Therapeutic Tab PO 1 each QDAY CASEY Administration Ondansetron HCl 4 mg 07/20/21 23:01 Ondansetron 4 Mg/2 Ml Inj IV Q8H PRN Nausea And Vomiting Sodium Chloride 10 ml 07/21/21 10:00 08/06/21 10:06 Sodium Chloride 0.9% 10 Ml Flush Syringe IV 10 ml BID CASEY Administration Sodium Chloride 10 ml 07/20/21 23:01 Sodium Chloride 0.9% 10 Ml Flush Syringe IV PRN PRN LINE FLUSH Trazodone HCl 50 mg 07/21/21 22:00 08/05/21 22:36 Trazodone 50 Mg Tab PO 50 mg QHS CASEY Administration Nutrition/Malnutrition Assess - Dietary Evaluation Nutrition/Malnutrition Findings: Nutrition Notes Start: 07/26/21 13:5 9 Freq: Status: Active Protocol: Document 07/26/21 13:59 GB (Rec: 07/26/21 14:08 GB [id number]) Nutrition Notes Need for Assessment generated from: LOS Initial or Follow up Assessment Other Pertinent Diagnosis elevated liver enzymes Current Diet Regular Labs/Tests 07/24: Na 136, BUN 5, creatinine 0.4, Tbili 2.1, ( AST 392, ALT 668: both showing improvement), AlkP 557 Pertinent Medications D5 (PRN), multivitamins Height 4 ft 7 in Weight 57 kg [place] Body Weight (kg) 34.09 BMI 29.2 Weight change and time frame 07/19: 58.967 kg 07/26: 57 kg Change of -1.967kg for -3.3% loss. 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 No Is Patient Ambulatory and/or Out of Bed Yes REE-([facility]-ambulatory/OOB) [ 1354.769 [id number]] Calculation Used for Recommendations [facility] Additional Notes Protein: 0.8-1 g/kg @ 57k -57g Fluids: 1 ml/kcal or per MD Nutrition Intervention Change Diet Order: continue: Regular Nutrition Support: n/a Add Supplement/Snack (indicate name/kcal n/a /protein ) Goal #1 PO intake of meals to continue at 75% or greater daily for LOS Follow-Up By: 08/27/21 Revisit per MD consult or patient Sign Off request:
[2021-08-06] MEDS: traZODone 50 MG TAB PO SCH (22:07)
[2021-08-06] MEDS: diphenhydrAMINE 25 MG CAP PO PRN (22:07)
[2021-08-07] MEDS: MULTIVITAMINS ,THERAPEUTIC TAB PO SCH (10:01)
[2021-08-07] MEDS: DULoxetine 30 MG CAP PO SCH ×2 (10:01→21:16)
[2021-08-07] MEDS: ARIPiprazole 15 MG TAB PO SCH (10:01)
[2021-08-07] MEDS: HEPARIN 5,000 UNIT/1 ML VIAL SUB-Q SCH ×2 (10:13→21:16)
--- NOTE | 2021-08-07 14:24 | Event Note ---
Date: 08/07/21 The patient was seen with the nurse Loretta in the room, she reports no suicidal/homicidal and denies hallucinations. I will continue to discharge patient at this time.
--- NOTE | 2021-08-07 15:16 | Progress Note ---
Assessment and Plan Assessment and plan: 50-year-old -[place] female with chronic pain and homelessness comes in to the ER expressing intention to . Patient has no concrete plan. Not homicidal. Patient was in the holding area and the labs came very abnormal with high transaminases and positive hepatitis A panel B panel no IV drug use as per the patient patient is a very poor historian. No fever or chills. (1) Acute hepatitis A Current Visit: Yes Status: Acute Plan to address problem: Patient is acute hepatitis A Possible fecal contamination IgM is high Transaminitis severe but improving GI consulted, liver appears normal on imaging ID consulted, supportive care LFTs progressively improving (2) Acute hepatitis B Current Visit: Yes Status: Acute Plan to address problem: IgM antibodies positive indicating acute infection Surface antibody negative, likely not contagious IV drug status not known ID consult and GI consult Supportive care (3) Suicidal ideation secondary to acute psychosis Current Visit: Yes Status: Acute Plan to address problem: Patient says that if she is no longer suicidal. Remains under 1013 and mental health recommends inpatient psychiatric evaluation, following Patient is medically stable for transfer to psychiatric facility (4) chronic HIV infection Noncompliant with meds for long, ID consulted. Currently not appropriate to initiate antiviral therapy at this juncture due to acute psychiatric issues and lack of follow-up. (5) chronic homelessness Case management consulted Disposition: Patient remains afebrile and hemodynamically stable. No fever. Acute viral hepatitis but LFTs progressively improving. No hepatomegaly and abdomen is benign. Patient now states that she is no longer suicidal. Awaiting reassessment by psychiatric with regard to the need for transfer to inpatient psych facility. Medically stable for transfer to psych facility if needed. 07/30: Patient medically stable for discharge to psych inpatient facility no further clinical medical issues noted at this time. Remains with sitter on the 3 07/31: No clinical change remains medically stable for transfer to inpatient psych 08/01: Awaiting evaluation from [facility]. No clinically changes. 08/02: Continue supportive care. Awaiting placement. [facility] reviewing. No further pleuritic event noted at this time. Patient admitted to the hospital on the 1012 secondary to suicidal ideation with auditory hallucination 08/03: Continue supportive care, awaiting placement 08/04/21 patient is seen and examined. Lab medication reviewed. No new complain. Patient is seen and evaluated by psych. Patient is 1013. Patient is awaiting for placement for inpatient psych. Continue current management 08/05: Clinically stable awaiting placement. She asked me about surgery for her feet, no acute pathology noted at this time. Possible cosmetic surgery to be done outpatient when clinically ready on re-evaluation, 1013 Rescinded, will discharge 08/06: Patient remains clinically stable unfortunately she is homeless and desp ite being cleared by psych has no place to go 1013 has been rescinded still awaiting placement at this time 08/07: Clinically stable continue awaiting placement. History Interval history: Patient seen and examined, no acute distress Hospitalist Physical - Physical exam Narrative exam: General appearance: Present: no acute distress, well-nourished, obese. - EENT Eyes: Present: PERRL, EOM intact. Absent: scleral icterus ENT: clear oral mucosa - Neck Neck: Present: supple - Respiratory Respiratory effort: normal Respiratory: bilateral: CTA - Cardiovascular Rhythm: regular - Extremities Extremities: No edema - Abdominal General gastrointestinal: soft, non-tender, non-distended, other (No hepatomegal y appreciated) - Integumentary Integumentary: Absent: jaundice, rash - Psychiatric Psychiatric: cooperative - Neurologic Neurologic: no focal deficits - Constitutional Vitals: Temp Pulse Resp BP Pulse Ox 98.3 F 87 18 107/58 98 08/07/21 04:02 08/07/21 04:02 08/07/21 04:02 08/07/21 04:02 08/07/21 04:02 General appearance: Present: no acute distress, well-nourished, obese Results - Labs CBC & Chem 7: 07/29/21 09:36 07/29/21 09:36 Labs: Laboratory Last Values WBC 4.5 K/mm3 (4.5-11.0) 07/29/21 09:36 RBC 3.84 M/mm3 (3.65-5.03) 07/29/21 09:36 Hgb 12.2 gm/dl (10.1-14.3) 07/29/21 09:36 Hct 36.4 % (30.3-42.9) 07/29/21 09:36 MCV 95 fl (79-97) 07/29/21 09:36 MCH 32 pg (28-32) 07/29/21 09:36 MCHC 34 % (30-34) 07/29/21 09:36 RDW 15.2 % (13.2-15.2) 07/29/21 09:36 Plt Count 319 K/mm3 (140-440) 07/29/21 09:36 Lymph % (Auto) Compensation Expert 07/29/21 09:36 [place] % (Auto) Compensation Expert 07/28/21 10:27 Eos % (Auto) 1.3 % (0.0-4.3) 07/24/21 10:46 Baso % (Auto) 0.6 % (0.0-1.8) 07/24/21 10:46 Lymph # (Auto) 1.5 K/mm3 (1.2-5.4) 07/24/21 10:46 [place] # (Auto) 0.4 K/mm3 (0.0-0.8) 07/24/21 10:46 Eos # (Auto) 0.1 K/mm3 (0.0-0.4) 07/24/21 10:46 Baso # (Auto) 0.0 K/mm3 (0.0-0.1) 07/24/21 10:46 Add Manual Diff Complete 07/29/21 09:36 Total Counted 100 07/29/21 09:36 Seg Neutrophils % Compensation Expert 07/29/21 09:36 Seg Neuts % (Manual) 50.0 % (40.0-70.0) 07/29/21 09:36 Band Neutrophils % 3.0 % 07/19/21 09:52 Lymphocytes % (Manual) 34.0 % (13.4-35.0) 07/29/21 09:36 Reactive Lymphs % (Man) 6.0 % 07/28/21 10:27 Monocytes % (Manual) 10.0 % (0.0-7.3) H 07/29/21 09:36 Eosinophils % (Manual) 2.0 % (0.0-4.3) 07/29/21 09:36 Basophils % (Manual) 4.0 % (0.0-1.8) H 07/29/21 09:36 Metamyelocytes % 3.0 % 07/28/21 10:27 Myelocytes % 1.0 % 07/19/21 09:52 Nucleated RBC % Not Reportable 07/29/21 09:36 Seg Neutrophils # 2.0 K/mm3 (1.8-7.7) 07/24/21 10:46 Seg Neutrophils # Man 2.3 K/mm3 (1.8-7.7) 07/29/21 09:36 Band Neutrophils # 0.0 K/mm3 07/29/21 09:36 Abs Lymphs (Manual) 1497 cells/uL (850-3900) 07/25/21 04:45 Lymphocytes # (Manual) 1.5 K/mm3 (1.2-5.4) 07/29/21 09:36 Abs React Lymphs (Man) 0.0 K/mm3 07/29/21 09:36 Monocytes # (Manual) 0.5 K/mm3 (0.0-0.8) 07/29/21 09:36 Eosinophils # (Manual) 0.1 K/mm3 (0.0-0.4) 07/29/21 09:36 Basophils # (Manual) 0.2 K/mm3 (0.0-0.1) H 07/29/21 09:36 Metamyelocytes # 0.0 K/mm3 07/29/21 09:36 Myelocytes # 0.0 K/mm3 07/29/21 09:36 Promyelocytes # 0.0 K/mm3 07/29/21 09:36 Blast Cells # 0.0 K/mm3 07/29/21 09:36 WBC Morphology Not Reportable 07/29/21 09:36 Hypersegmented Neuts Not Reportable 07/29/21 09:36 Hyposegmented Neuts Not Reportable 07/29/21 09:36 Hypogranular Neuts Not Reportable 07/29/21 09:36 Smudge Cells Not Reportable 07/29/21 09:36 Toxic Granulation Not Reportable 07/29/21 09:36 Toxic Vacuolation Not Reportable 07/29/21 09:36 Dohle Bodies Not Reportable 07/29/21 09:36 Pelger-Huet Anomaly Not Reportable 07/29/21 09:36 Pricila Rods Not Reportable 07/29/21 09:36 Platelet Estimate Consistent w auto 07/29/21 09:36 Clumped Platelets Not Reportable 07/29/21 09:36 Plt Clumps, EDTA Not Reportable 07/29/21 09:36 Large Platelets Not Reportable 07/29/21 09:36 Giant Platelets Not Reportable 07/29/21 09:36 Platelet Satelliting Not Reportable 07/29/21 09:36 Plt Morphology Comment Not Reportable 07/29/21 09:36 RBC Morphology Not Reportable 07/29/21 09:36 Dimorphic RBCs Not Reportable 07/29/21 09:36 Polychromasia Not Reportable 07/29/21 09:36 Hypochromasia Not Reportable 07/29/21 09:36 Poikilocytosis Not Reportable 07/29/21 09:36 Anisocytosis Not Reportable 07/29/21 09:36 Microcytosis Not Reportable 07/29/21 09:36 Macrocytosis Not Reportable 07/29/21 09:36 Spherocytes Not Reportable 07/29/21 09:36 Pappenheimer Bodies Not Reportable 07/29/21 09:36 Sickle Cells Not Reportable 07/29/21 09:36 Target Cells Few 07/29/21 09:36 Tear Drop Cells Not Reportable 07/29/21 09:36 Ovalocytes Not Reportable 07/29/21 09:36 Stomatocytes 2+ 07/29/21 09:36 Helmet Cells Not Reportable 07/29/21 09:36 [place] Bodies Not Reportable 07/29/21 09:36 [place] Rings Not Reportable 07/29/21 09:36 [place]wick Cells Not Reportable 07/29/21 09:36 Bite Cells Not Reportable 07/29/21 09:36 Crenated Cell Not Reportable 07/29/21 09:36 Elliptocytes Not Reportable 07/29/21 09:36 Acanthocytes (Spur) Not Reportable 07/29/21 09:36 Rouleaux Not Reportable 07/29/21 09:36 Hemoglobin C Crystals Not Reportable 07/29/21 09:36 Schistocytes Not Reportable 07/29/21 09:36 Malaria parasites Not Reportable 07/29/21 09:36 Cody Bodies Not Reportable 07/29/21 09:36 Hem Pathologist Commnt No 07/29/21 09:36 PT 12.8 Sec. (12.2-14.9) 07/25/21 10:03 INR 0.87 (0.87-1.13) 07/25/21 10:03 Sodium 133 mmol/L (137-145) L 07/29/21 09:36 Potassium 4.0 mmol/L (3.6-5.0) 07/29/21 09:36 Chloride 97.7 mmol/L (98-107) L 07/29/21 09:36 Carbon Dioxide 25 mmol/L (22-30) 07/29/21 09:36 Anion Gap 14 mmol/L 07/29/21 09:36 BUN 10 mg/dL (7-17) 07/29/21 09:36 Creatinine 0.4 mg/dL (0.6-1.2) L 07/29/21 09:36 Estimated GFR > 60 ml/min 07/29/21 09:36 BUN/Creatinine Ratio 25 % 07/29/21 09:36 Glucose 85 mg/dL (65-100) 07/29/21 09:36 Lactic Acid 1.00 mmol/L (0.7-2.0) 07/20/21 11:20 Calcium 9.0 mg/dL (8.4-10.2) 07/29/21 09:36 Magnesium 2.20 mg/dL (1.7-2.3) 07/20/21 11:20 Total Bilirubin 1.70 mg/dL (0.1-1.2) H 07/29/21 09:36 Direct Bilirubin 1.8 mg/dL (0-0.2) H 07/24/21 10:46 Indirect Bilirubin 0.3 mg/dL 07/24/21 10:46 AST 237 units/L (5-40) H 07/29/21 09:36 ALT 381 units/L (7-56) H 07/29/21 09:36 Alkaline Phosphatase 1443 units/L (35-129) H 07/29/21 09:36 Ammonia 60.0 umol/L (25-60) 07/20/21 11:20 Total Creatine Kinase 23 units/L (30-135) L 07/20/21 11:20 Total Protein 8.5 g/dL (6.3-8.2) H 07/29/21 09:36 Albumin 3.1 g/dL (3.9-5) L 07/29/21 09:36 Albumin/Globulin Ratio 0.6 % 07/29/21 09:36 TSH 0.116 mlU/mL (0.270-4.200) L 07/20/21 11:20 Free T4 0.94 ng/dL (0.76-1.46) 07/24/21 10:46 Urine Color Bailee (Yellow) 07/19/21 Unknown Urine Turbidity Slightly-cloudy (Clear) 07/19/21 Unknown Urine pH 5.0 (5.0-7.0) 07/19/21 Unknown Ur Specific [place] 1.018 (1.003-1.030) 07/19/21 Unknown Urine Protein 30 mg/dl mg/dL (Negative) 07/19/21 Unknown Urine Glucose (UA) Neg mg/dL (Negative) 07/19/21 Unknown Urine Ketones Neg mg/dL (Negative) 07/19/21 Unknown Urine Blood Sm (Negative) 07/19/21 Unknown Urine Nitrite Neg (Negative) 07/19/21 Unknown Urine Bilirubin Neg (Negative) 07/19/21 Unknown Urine Urobilinogen 4.0 mg/dL (<2.0) 07/19/21 Unknown Ur Leukocyte Esterase Neg (Negative) 07/19/21 Unknown Urine WBC (Auto) 46.0 /HPF (0.0-6.0) H 07/19/21 Unknown Urine RBC (Auto) 7.0 /HPF (0.0-6.0) 07/19/21 Unknown U Epithel Cells (Auto) 13.0 /HPF (0-13.0) 07/19/21 Unknown Urine Bacteria (Auto) 1+ /HPF (Negative) 07/19/21 Unknown Urine Mucus 3+ /HPF 07/19/21 Unknown Nasal Screen MRSA (PCR) Negative (Negative) 07/21/21 Unknown Salicylates < 0.3 mg/dL (2.8-20.0) L 07/20/21 11:20 Urine Opiates Screen Negative 07/19/21 Unknown Urine Methadone Screen Negative 07/19/21 Unknown Acetaminophen 5.0 ug/mL (10.0-30.0) L 07/20/21 11:20 Ur Barbiturates Screen Negative 07/19/21 Unknown Ur Phencyclidine Scrn Negative 07/19/21 Unknown Ur Amphetamines Screen Negative 07/19/21 Unknown U Benzodiazepines Scrn Negative 07/19/21 Unknown Urine Cocaine Screen Negative 07/19/21 Unknown U Marijuana (THC) Screen Negative 07/19/21 Unknown Drugs of Abuse Note Disclamer 07/19/21 Unknown Plasma/Serum Alcohol < 0.01 % (0-0.07) 07/19/21 09:52 Lymph Enumerat CD4/CD8 0.52 (0.86-5.00) L 07/25/21 04:45 % CD3 Cells 87 % (57-85) H 07/25/21 04:45 Absolute CD3 Count 1309 cells/uL (840-3060) 07/25/21 04:45 % CD4 Cells 31 % (30-61) 07/25/21 04:45 Absolute CD4 Count 472 cells/uL (490-1740) L 07/25/21 04:45 % CD8 Cells 59 % (12-42) H 07/25/21 04:45 Absolute CD8 Count 899 cells/uL (180-1170) 07/25/21 04:45 % CD19 Cells 3 % (6-29) L 07/25/21 04:45 Absolute CD19 Count 43 cells/uL (110-660) L 07/25/21 04:45 Coronavirus (PCR) Negative (Negative) 07/20/21 08:39 Hepatitis A IgM Ab Reactive (NonReactive) A 07/20/21 11:20 Hep Bs Antigen Nonreactive (Negative) 07/20/21 11:20 Hep B Core IgM Ab Reactive (NonReactive) A 07/20/21 11:20 Hepatitis C Antibody Non-reactive (NonReactive) 07/20/21 11:20 HIV-1 Antibody See scanned result 07/23/21 08:27 HIV-1 RNA PCR copies/ml [id number] Copies/mL H 07/24/21 10:46 HIV-1 RNA (PCR) log 5.34 Log cps/mL H 07/24/21 10:46 HIV-2 Ab (Immunoblot) See scanned result 07/23/21 08:27 HIV 1&2 Antibody Rapid Reactive (Non React) 07/23/21 08:27 HIV P24 Antigen Non react (Non React) 07/23/21 08:27 Pierre/IV: Voiding Method Toilet Active Medications - Current Medications Current Medications: Generic Name Dose Route Start Last Admin Trade Name Freq PRN Reason Stop Dose Admin Acetaminophen 650 mg 07/21/21 10:09 Acetaminophen 325 Mg Tab PO Q6H PRN Pain MILD(1-3)/Fever >100.5/PANDYA Aripiprazole 30 mg 08/02/21 10:00 08/07/21 10:01 Aripiprazole 15 Mg Tab PO 30 mg QDAY CASEY Administration Diphenhydramine HCl 25 mg 07/23/21 19:54 08/06/21 22:07 Diphenhydramine 25 Mg Cap PO 25 mg Q8H PRN Administration Itching Duloxetine HCl 30 mg 07/20/21 22:00 08/07/21 10:01 Duloxetine 30 Mg Cap PO 30 mg BID CASEY Administration Heparin Sodium (Porcine) 5,000 unit 07/20/21 23:15 08/07/21 10:13 Heparin 5,000 Unit/1 Ml Vial SUB-Q 5,000 unit Q12HR CASEY Administration Multivitamins 1 each 07/22/21 10:00 08/07/21 10:01 Multivitamins ,Therapeutic Tab PO 1 each QDAY CASEY Administration Ondansetron HCl 4 mg 07/20/21 23:01 Ondansetron 4 Mg/2 Ml Inj IV Q8H PRN Nausea And Vomiting Sodium Chloride 10 ml 07/21/21 10:00 08/07/21 10:16 Sodium Chloride 0.9% 10 Ml Flush Syringe IV 10 ml BID CASEY Administration Sodium Chloride 10 ml 07/20/21 23:01 Sodium Chloride 0.9% 10 Ml Flush Syringe IV PRN PRN LINE FLUSH Trazodone HCl 50 mg 07/21/21 22:00 08/06/21 22:07 Trazodone 50 Mg Tab PO 50 mg QHS CASEY Administration Nutrition/Malnutrition Assess - Dietary Evaluation Nutrition/Malnutrition Findings: Nutrition Notes Start: 07/26/21 13:59 Freq: Status: Active Protocol: Document 07/26/21 13:59 GB (Rec: 07/26/21 14:08 GB [id number]) Nutrition Notes Need for Assessment generated from: LOS Initial or Follow up Assessment Other Pertinent Diagnosis elevated liver enzymes Current Diet Regular Labs/Tests 07/24: Na 136, BUN 5, creatinine 0.4, Tbili 2.1, ( AST 392, ALT 668: both showing improvement), AlkP 557 Pertinent Medications D5 (PRN), multivitamins Height 4 ft 7 in Weight 57 kg [place] Body Weight (kg) 34.09 BMI 29.2 Weight change and time frame 07/19: 58.967 kg 07/26: 57 kg Change of -1.967kg for -3.3% loss. 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 No Is Patient Ambulatory and/or Out of Bed Yes REE-([facility]-ambulatory/OOB) [ 1354.769 [id number]] Calculation Used for Recommendations [facility] Additional Notes Protein: 0.8-1 g/kg @ 57k -57g Fluids: 1 ml/kcal or per MD Nutrition Intervention Change Diet Order: continue: Regular Nutrition Support: n/a Add Supplement/Snack (indicate name/kcal n/a /protein ) Goal #1 PO intake of meals to continue at 75% or greater daily for LOS Follow-Up By: 08/27/21 Revisit per MD consult or patient Sign Off request:
[2021-08-07] MEDS: diphenhydrAMINE 25 MG CAP PO PRN (20:30)
[2021-08-07] MEDS: traZODone 50 MG TAB PO SCH (21:16)
[2021-08-07 23:56] VITALS: BP 105/69
[2021-08-08] MEDS: DULoxetine 30 MG CAP PO SCH (09:08)
[2021-08-08] MEDS: ARIPiprazole 15 MG TAB PO SCH (09:08)
[2021-08-08] MEDS: MULTIVITAMINS ,THERAPEUTIC TAB PO SCH (09:08)
[2021-08-08] MEDS: HEPARIN 5,000 UNIT/1 ML VIAL SUB-Q SCH (09:10)
== END 2021-08-08 10:13 | disposition home or self-care (01) | DRG 442 ==
LOC: ED 08:50 → EEVIPCON 08:50 → 3A 07-20 16:44
PROVIDERS: ADMIT Internal Medicine; ATTEND Internal Medicine
DX: K75.9 Inflammatory liver disease, unspecified (principal); B15.9 Hepatitis A without hepatic coma; G93.40 Encephalopathy, unspecified; R45.851 Suicidal ideations; N12 Tubulo-interstitial nephritis, not specified as acute or chronic; E44.1 Mild protein-calorie malnutrition; B16.9 Acute hepatitis B without delta-agent and without hepatic coma; Z68.29 Body mass index [BMI] 29.0-29.9, adult; Z59.00 Homelessness unspecified; F32.9 Major depressive disorder, single episode, unspecified; Z21 Asymptomatic human immunodeficiency virus [HIV] infection status; D72.819 Decreased white blood cell count, unspecified; Z20.822 Contact with and (suspected) exposure to COVID-19
CPT/HCPCS: 36415; 70450; 71045; 74177; 80048; 80053; 80074; 80076; 80307; 80320; 81001; 82024; 82140; 82550; 83735; 84439; 84443; 85007; 85025; 85610; 86689; 87040; 87086; 87517; 87536; 87641; 87806; 93005; 96374; G0378; G0480; J0696; J1200; J1644; J1720; J2270; J7042; J7120; Q9967; U0003